=== PATIENT | female | born 1935 | race Caucasian/White ===

== ENCOUNTER 2017-07-07 17:47 | Inpatient (IN) | payer OTHER ==
[~2017-07-07] VITALS: Ht 167.6 cm; Wt 105.0 kg
[~2017-07-07 17:47] MED LIST: ALBUAER19 INH; DOCU100C31 PO; IPRA1AER2 INH; LATA0.009 OPB; OXGN; PANT40TA PO; POLY1POW2 PO; SIMV20TA2 PO
[2017-07-07] MEDS ORDERED: ALBUT/IPRATROP 3MG/0.5MG NEB 3 ML VIAL ONE (17:57)
[2017-07-07] MEDS ORDERED: ALBUT/IPRATROP 3MG/0.5MG NEB 3 ML VIAL INH STA (18:03)
[2017-07-07] MEDS ORDERED: NF656 TOP (18:13)
[2017-07-07] MEDS ORDERED: SENN-91 PO (18:13)
[2017-07-07] MEDS ORDERED: NITROGLYCERIN 0.4 MG SL PER TAB CHARGE SL STA (18:14)
[2017-07-07] MEDS ORDERED: MAGNESIUM SULFATE 1GM / D5W 1 GM BAG IV STA (18:14)
[2017-07-07] MEDS ORDERED: METHYLPREDNISOLONE 125 MG VIAL IV STA (18:14)
[2017-07-07] MEDS ORDERED: ALBUT/IPRATROP 3MG/0.5MG NEB 3 ML VIAL INH ONE (18:15)
[2017-07-07 18:26] VITALS: PULSE 115; O2SAT 97
--- NOTE | 2017-07-07 18:43 | EMERGENCY ROOM VISIT NOTE ---
History Report prepared by Lazibeduardo: Suzan Larios Under the Supervision of: Dr. Hugo Marks M.D. First contact with patient: 18:05 Chief Complaint: FALL Stated Complaint: FALL, ANKLE FX, SOB, COUGH, DIZZY, FLU LIKE SX Nursing Triage Summary: arrived bls in resp distress. sat 88% on 15l mask. course expir wheezing, dim thru out. rr 36. bp 230/115. c/o dizzy from a "cold", fell sat on right side, denies injury. today fell d/t dizziness, c/o left ankle pain, swelling, deformity, ecchymosis. left foot cool, delayed cap refill, holds at an outward rotation, able to dorsiflex and plantar flex History of Present Illness The patient is an 81 year old female who presents to the Emergency Room with complaints of an episode of a fall occurring prior to arrival. The patient states that she fell twice in the past three days. She reports that she fell both times on her left side and could not get up both times on her own. She notes that her sons helped her up. She states that she has not been able to walk well since the first fall. She states that she has not been feeling well the last few days. The patient complains of a cold, shortness of breath, left foot pain, and dizziness. The patient denies hitting her head, loss of consciousness, and a fever. The patient notes that she has COPD, CHF, and takes Lasix. She reports that she normally walks without any assistance of someone or a walker. Source of History: patient Onset: prior to arrival Position: other (global) Quality: other (flu-like symptoms) Timing: other (episode) Associated Symptoms: + SOB, No LOC, No fevers Note: The patient complains of left foot pain, a cold, and dizziness. The patient denies hitting her head. Review of Systems See HPI for pertinent positives and negatives. A total of ten systems were reviewed and were otherwise negative. Past Medical & Surgical Medical Problems: (1) Benign hypertension (2) CHF (congestive heart failure) (3) COPD (chronic obstructive pulmonary disease) (4) Diabetes mellitus type 2 (5) Duodenal ulcer disease (6) Dyslipidemia (7) Generalized osteoarthritis (8) Paroxysmal supraventricular tachycardia (9) Respiratory failure (10) TIA/CVA (11) Ulcerative colitis Family History FH: cancer FH: heart disease Hypertension Social History Smoking Status: Current Every Day Smoker Alcohol Use: none Marital Status: Housing Status: lives with family Occupation Status: retired Current/Historical Medications Scheduled Aspirin (Aspirin Ec), 81 MG PO DAILY Calcium Carbonate-Cholecalcife (Calcium/Vitamin D3 600-400 mg-Unit), 1 TAB PO DAILY Citalopram (Citalopram Hydrobromide), 40 MG PO DAILY Docusate Sodium (Docusate Sodium), 100 MG PO BID Docusate Sodium (Colace), 1 CAP PO BID Furosemide (Lasix), 20 MG PO QAM Ipratropium-Albuterol (Combivent Respimat), 1 PUFFS INH QID Latanoprost (Xalatan 0.005% Oph Lindsey), 1 DROPS OP HS Lidocaine (Lidoderm Patch 5%), 1 PATCH TOP ONAMOFFPM Lisinopril (Prinivil), 20 MG PO DAILY Mesalamine (Pentasa), 1,000 MG PO BID Mirtazapine (Remeron), 15 MG PO HS Pantoprazole (Protonix), 40 MG PO DAILY Polyethylene Glycol 3350 (Miralax), 17 GM PO DAILY Sennosides-Docusate Sodium (Senna S), 1 TAB PO DAILY Simvastatin (Zocor), 20 MG PO HS Scheduled PRN Acetaminophen (Tylenol), 650 MG PO Q4 PRN for Pain or Fever Allergies Coded Allergies: Sulfa Drugs (Verified Allergy, Unknown, `, 11/21/13) Sulfamethoxazole (Verified Allergy, Unknown, `, 11/21/13) Trimethoprim (Verified Allergy, Unknown, `, 11/21/13) Physical Exam Vital Signs Date Time Temp Pulse Resp B/P (MAP) Pulse Ox O2 Delivery O2 Flow Rate FiO2 07/07/17 21:00 147/65 07/07/17 20:55 95 23 96 07/07/17 20:46 136/67 07/07/17 20:40 95 23 97 07/07/17 20:31 184/77 07/07/17 20:25 96 27 98 07/07/17 20:15 180/74 07/07/17 20:10 101 25 99 07/07/17 20:05 101 25 99 07/07/17 20:04 180/80 07/07/17 19:45 167/80 07/07/17 19:35 91 24 98 07/07/17 19:30 154/70 07/07/17 19:20 93 23 99 07/07/17 19:15 164/78 07/07/17 19:05 105 21 99 07/07/17 19:00 158/71 07/07/17 18:57 99 21 100 07/07/17 18:56 161/76 07/07/17 18:52 17 07/07/17 18:47 107 17 98 07/07/17 18:42 109 24 99 07/07/17 18:42 109 07/07/17 18:37 112 28 98 07/07/17 18:32 117 17 07/07/17 18:30 93 BiPAP 100 07/07/17 18:27 112 18 07/07/17 18:26 115 97 100 07/07/17 18:22 115 25 07/07/17 18:17 120 35 07/07/17 18:14 193/77 07/07/17 18:05 37.3 115 36 230/115 93 Nebulizer 07/07/17 18:00 85 Nasal Cannula 4.0 07/07/17 18:00 93 Nebulizer 07/07/17 17:59 80 Room Air Physical Exam GENERAL: Awake, alert, in moderate respiratory distress HENT: Normocephalic, atraumatic. Oropharynx unremarkable. Dry, cracked mucus membranes. EYES: Normal conjunctiva. Sclera non-icteric. NECK: Supple. No nuchal rigidity. FROM. No JVD. RESPIRATORY: Diffuse rhonchi and wheezes diminished at bases. CARDIAC: Sinus tachycardia, normal rhythm. Extremities warm and well perfused. Pulses equal. ABDOMEN: Obese, soft, non-distended. No tenderness to palpation. No rebound or guarding. No masses. RECTAL: Deferred. MUSCULOSKELETAL: Chest examination reveals no tenderness. The back is symmetrical on inspection without obvious abnormality. There is no CVA tenderness to palpation. No joint edema. LOWER EXTREMITIES: Calves are equal size bilaterally and non-tender. Mild edema with ecchymosis to the medial malleolus and tenderness. Foot is slightly cool compared to the right. Slightly delayed capillary refill. PT/DP pulses present. NEURO: Normal sensorium. No sensory or motor deficits noted. SKIN: No rash or jaundice noted. Medical Decision & Procedures ER Provider Diagnostic Interpretation: Radiology results as stated below per my review and radiologist interpretation: LEFT ANKLE 3 VIEWS CLINICAL HISTORY: Fall with left ankle injury. FINDINGS: 3 views of the left ankle are obtained. No prior studies are available for comparison at the time of dictation. The skeletal structures are osteopenic. There is a distracted fracture of the medial malleolus. The fragment is offset by 4 mm. There is also a distracted and mildly overriding fracture through the distal fibular shaft. There is widening of the medial joint space, with lateral subluxation of the talus. A joint effusion is identified. Soft tissue edema is present around the ankle. Arthritic change is noted in the foot. There is atherosclerotic calcification of the regional arteries. IMPRESSION: 1. Distal tibial and fibular fractures as above with mild lateral subluxation of the talus. 2. Soft tissue swelling and joint effusion. Electronically signed by: Suman Germain M.D. 07/07/2017 7:18 PM Dictated Date/Time: 07/07/2017 7:16 PM LEFT FOOT 2 VIEWS CLINICAL HISTORY: Fall with left foot pain. FINDINGS: AP and lateral views of the left foot are obtained. No prior studies are available for comparison at the time of dictation. The skeletal structures are osteopenic. No fracture is seen. Mild arthritic change and bony spurring is noted at the first metatarsophalangeal joint. Degenerative change is also seen at the tarsometatarsal articulations. There is pes planus, with degenerative spurring noted along the dorsal aspect of the tarsal bones. Soft tissue edema is noted throughout the foot. Fracture is seen at the ankle joint. IMPRESSION: 1. Soft tissue edema with no radiographic evidence of left foot fracture. 2. Fractures are partially imaged at the ankle joint. 3. Osteopenia, pes planus, and degenerative change as above. Electronically signed by: Suman Germain M.D. 07/07/2017 7:16 PM Dictated Date/Time: 07/07/2017 7:14 PM SINGLE VIEW PELVIS CLINICAL HISTORY: Fall. Pelvic pain. FINDINGS: 2 AP, portable, supine pelvic radiograph is are compared to study dated 11/21/2013. The skeletal structures are osteopenic. A right hip arthroplasty is in near-anatomic alignment. There is an age indeterminant right inferior pubic ring fracture, new from 2013. No additional findings are concerning for acute fracture. Mild arthritic change is noted in the left hip. Sclerotic change is observed in the sacroiliac joints. There is advanced atherosclerotic calcification of the femoral arteries. The overlying soft tissues are normal in appearance. IMPRESSION: 1. There is an age indeterminant right pubic ring fracture, possibly chronic. This was not seen in 2014. 2. No additional findings are concerning for acute fracture. 3. Osteopenia, degenerative change, and right hip arthroplasty as above. Electronically signed by: Suman Germain M.D. 07/07/2017 7:14 PM Dictated Date/Time: 07/07/2017 7:11 PM SINGLE VIEW CHEST CLINICAL HISTORY: Fever. Cough and dyspnea. FINDINGS: An AP, portable, upright chest radiograph is compared to study dated 06/27/2016 and correlated with chest CT dated 03/07/2011. The examination is degraded by portable technique and patient rotation. The heart is enlarged and there is atherosclerotic calcification of the thoracic aorta. The pulmonary vasculature is noncongested. There is dense bibasilar airspace consolidation, right greater than left. Small pleural effusions are identified. No pneumothorax is seen. The skeletal structures are osteopenic. The bony thorax is grossly intact. Calcific tendinopathy is noted in the right shoulder. IMPRESSION: 1. Cardiomegaly without radiographic evidence of congestive failure. 2. There is dense bibasilar airspace consolidation, right greater than left with associated pleural effusions. The appearance is typical for pneumonia/aspiration pneumonitis. Clinical correlation will be required and radiographic follow-up to resolution is recommended. Electronically signed by: Suman Germain M.D. 07/07/2017 7:24 PM Dictated Date/Time: 07/07/2017 7:[address] SCAN OF THE BRAIN WITHOUT IV CONTRAST CLINICAL HISTORY: Change in mental status. Fall. Dizziness. COMPARISON STUDY: CT of the brain dated 06/27/2016. TECHNIQUE: Unenhanced axial CT scan of the brain is performed from the vertex to the skull base. A dose lowering technique was utilized adhering to the principles of ALARA. The skull base was scanned twice due to motion artifact. CT DOSE: 1228.53 mGy.cm FINDINGS: Brain parenchyma: There are age-related involutional changes noting moderate subcortical and periventricular microangiopathic change. Right parietal encephalomalacia is unchanged and consistent with a remote infarct. A chronic lacunar infarct is noted in the right internal capsule. There is no hemorrhage, mass effect, or evidence of acute territorial ischemia by CT criteria. A coarse calcification in the cerebellum is unchanged. Barton-white matter is preserved. No extra-axial fluid collection is seen. Ventricles, sulci, cisterns: Prominent secondary to involutional change. Intracranial vasculature: There is atherosclerotic calcification of the cavernous carotid and vertebral arteries. Calvarium: The skeletal structures are osteopenic. No depressed calvarial fracture is seen. Sinuses and mastoids: Mild to moderate mucosal thickening is present within the ethmoid, sphenoid, and maxillary sinuses. Air-fluid levels are present within the maxillary antra. There is a trace left mastoid effusion. The right mastoid air cells are well pneumatized. Orbits: The bony orbits are grossly intact. There are bilateral ocular lens implants. IMPRESSION: 1. Senescent change and remote infarct as above. There is no hemorrhage, mass effect, or evidence of acute territorial ischemia by CT criteria. 2. Paranasal sinus disease as above. Correlate clinically for evidence of sinusitis. Electronically signed by: Suman Germain M.D. 07/07/2017 8:06 PM Dictated Date/Time: 07/07/2017 8:03 PM Laboratory Results Test 07/07/17 18:20 07/07/17 18:22 07/07/17 18:31 07/07/17 18:32 Influenza Type A Antigen Neg for Influ A (NEG) Influenza Type B Antigen Neg for Influ B (NEG) Prothrombin Time 10.8 SECONDS (9.0-12.0) Prothromb Time International Ratio 1.0 (0.9-1.1) Osmolality 273 mOsm/kg (280-300) Total Bilirubin 0.3 mg/dl (0.2-1) Direct Bilirubin 0.1 mg/dl (0-0.2) Aspartate Amino Transf (AST/SGOT) 22 U/L (15-37) Alanine Aminotransferase (ALT/SGPT) 28 U/L (12-78) Alkaline Phosphatase 91 U/L (45-117) Troponin I < 0.015 ng/ml (0-0.045) Pro-B-Type Natriuretic Peptide 3508 pg/ml (0-1800) Total Protein 7.6 gm/dl (6.4-8.2) Albumin 2.7 gm/dl (3.4-5.0) Lipase 264 U/L (73-393) Venous Blood pH 7.22 (7.36-7.41) Venous Blood Partial Pressure CO2 85 mmHg (38.0-50.0) Venous Blood Partial Pressure O2 47 mmHg Venous Blood HCO3 34 mmol/L Venous Blood Oxygen Saturation 74.5 % Venous Blood Base Excess 3.7 mEq/L Lactic Acid Level 1.1 mmol/L (0.4-2.0) Laboratory results reviewed by me Medications Administered Medications (Trade) Dose Ordered Sig/Reuben Route Start Time Stop Time Status Last Admin Dose Admin Albuterol/ Ipratropium (Duoneb) 3 ml STK-MED ONCE .ROUTE 07/07/17 17:57 07/07/17 17:58 DC 07/07/17 18:04 3 ML Methylprednisolone Sodium Succinate (Solu-Medrol IV) 125 mg NOW STAT IV 07/07/17 18:14 07/07/17 18:19 DC 07/07/17 18:24 125 MG Albuterol/ Ipratropium (Duoneb) 12 ml ONE ONCE INH 07/07/17 18:15 07/07/17 18:19 DC 07/07/17 18:34 12 ML Magnesium Sulfate (Magnesium Sulfate) 2 gm NOW STAT IV 07/07/17 18:14 07/07/17 18:19 DC 07/07/17 18:27 2 GM Nitroglycerin (Nitrostat Tab) 0.4 mg NOW STAT SL 07/07/17 18:14 07/07/17 18:19 DC 07/07/17 18:28 0.4 MG Vancomycin HCl 2250 mg/Sodium Chloride 545 ml @ 200 mls/hr ONE STAT IV 07/07/17 20:00 07/07/17 22:43 DC 07/07/17 21:46 200 MLS/HR Piperacillin Sod/ Tazobactam Sod (Zosyn Iv) 4.5 gm NOW STAT IV 07/07/17 20:00 07/07/17 20:05 DC 07/07/17 20:38 4.5 GM Sodium Chloride 500 ml @ 125 mls/hr Q4H STAT IV 07/07/17 20:00 07/07/17 23:59 DC 07/07/17 20:32 125 MLS/HR Fentanyl Citrate (Fentanyl Inj) 50 mcg NOW ONCE IV 07/07/17 20:30 07/07/17 20:31 DC 07/07/17 20:33 50 MCG ECG Indication: SOB/dyspnea Rate (beats per minute): 115 Rhythm: sinus tachycardia Findings: PAC, no acute ischemic change, other (normal axis) ED Course 1806: The patient was evaluated in room B11B. A complete history and physical exam was performed. 2005: I discussed the patient with Dr. Edil Hamilton will evaluate the patient for further treatment. 2008: I reevaluated the patient and updated her on her test results. 2011: I discussed the patient's case with Dr. Ann- Orthopedics. He agrees to a posterior splint with a sugar tong. He will evaluate her tomorrow. 2019: I reevaluated the patient and checked her pulses. She has strong Doppler- able pulse TP and DP. Medical Decision I reviewed the patient's past medical history, medications, and the nursing notes as described above. Etiologies such as infections, reactive airway disease, pneumonia, pneumothorax , COPD, CHF, cardiac ischemia, pulmonary embolism, musculoskeletal, gastrointestinal, as well as others were entertained. The patient is an 81-year-old woman with a past medical history of COPD on home O2 as well as CHF on Lasix who presents emergency Department with generalized weakness over the past several days with lightheadedness and a fall on Friday under her left side and subsequent fall today onto her left side presents in moderate respiratory distress per hpi. The patient is uncomfortable tachypneic and tachycardic with labored breathing. She is afebrile, on exam the patient has diffuse wheezes and rhonchi in this diminished at the bases. She was placed on BiPAP for severe work of breathing and put on continuous neb given Solu-Medrol and magnesium. Bedside ultrasound does not show any significant B lines suggesting likely more predominant COPD picture. IVC with minimal variability suggesting possible Euvolemia. Ankle has mild edema with ecchymosis to the medial malleolus. Hips with full range of motion without any pain. Respiratory status improved on Bipap. CXR with likley aspiration pna. Given patient's severity on arrival treated with Vanc/zosyn. CO2 80s suggesting COPD component. WBC 14. Hyponatremia to 128 with BUN/Cr > 20 suggesting mild prerenal component. Given 500c gentle hydration. Plain film of xray demonstrates fibular and medial malleolar fx with slight lateral talar displacement. D/w Dr. Ann, ortho on-call, who agrees with plan to splint. Ortho to eval inpatient for possible surgery. Case d/w Dr. Solo, Joy hospitalist, who will admit the patient for further management. Medication Reconcilliation Current Medication List: was personally reviewed by me Blood Pressure Screening Patient's blood pressure: Elevated blood pressure Blood pressure disposition: Elevated BP felt to be situational Consults Time Called: 2004 Consulting Physician: Dr. Edil Hamilton Hospitalist Returned Call: 2005 I discussed the patient with Dr. Edil Hamilton will evaluate the patient for further treatment. Additional Consults: Time Called: 2008 Consulted Physician: Dr. Ann- Orthopedics Returned Call: 2011 Additional Comments: I discussed the patient's case with Dr. Ann- Orthopedics. He agrees to a posterior splint with a sugar tong. He will evaluate her tomorrow. Impression Primary Impression: Acute on chronic respiratory failure with hypoxia and hypercapnia Additional Impressions: Pneumonia Bimalleolar ankle fracture Hyponatremia Critical Care I have personally spent greater than 90 minutes of critical care time in the direct management of this patient. This includes bedside care, interpretation of diagnostic studies, and testing, discussion with consultants, patient, and family members, and other required patient management activities. This 90 minutes is in excess of all separately billable procedures. Scribe Attestation The scribe's documentation has been prepared under my direction and personally reviewed by me in its entirety. I confirm that the note above accurately reflects all work, treatment, procedures, and medical decision making performed by me. Departure Information Dispostion Being Evaluated By Hospitalist Guillaume Dodd M.D. (PCP) Patient Instructions My [facility] Problem Qualifiers
[2017-07-07 18:50] LABS: BASO % 0.1 %; BASO ABS # 0.01 K/uL (0-0.2); HEMATOCRIT 34.3 % (37-47); HEMOGLOBIN 11.3 g/dL (12.0-16.0); IG# 0.06 K/uL (0.00-0.02); LYMPH % 5.1 %; LYMPH ABS # 0.72 K/uL (1.2-3.4); MEAN CELL VOLUME 92.2 fL (80-100); MEAN CORPUSCULAR HEMOGLOBIN 30.4 pg (25-34); MEAN CORPUSCULAR HGB CONC 32.9 g/dl (32-36); MEAN PLATELET VOLUME 9.7 fL (7.4-10.4); MONO % 13.7 %; MONO ABS # 1.93 K/uL (0.11-0.59); NEUT % 80.7 %; NEUT ABS # 11.37 K/uL (1.4-6.5); PLATELET COUNT 309 K/uL (130-400); RED CELL DISTRIBUTION WIDTH CV 13.8 % (11.5-14.5); RED CELL DISTRIBUTION WIDTH SD 46.5 fL (36.4-46.3); WHITE BLOOD COUNT 14.09 K/uL (4.8-10.8)
[2017-07-07] MEDS ORDERED: MIRT15TA3 PO (18:55)
[2017-07-07] MEDS ORDERED: CLX40 PO (18:55)
[2017-07-07] MEDS ORDERED: LISI20TA3 PO (18:55)
[2017-07-07] MEDS ORDERED: CALC-579 PO (18:55)
[2017-07-07] MEDS ORDERED: FURO-85 PO (18:55)
[2017-07-07] MEDS ORDERED: ACET-1311 PO (18:56)
[2017-07-07] MEDS ORDERED: LATA0.009 OP (18:56)
[2017-07-07] MEDS ORDERED: IPRA1AER2 INH (18:56)
[2017-07-07] MEDS ORDERED: DOCU-94 PO (18:56)
[2017-07-07] MEDS ORDERED: POLY335019 PO (18:56)
[2017-07-07 19:04] LABS: ALBUMIN 2.7 gm/dl (3.4-5.0); ALT/SGPT 28 U/L (12-78); AST/SGOT 22 U/L (15-37); BLOOD UREA NITROGEN 24 mg/dl (7-18); CALCIUM 8.6 mg/dl (8.5-10.1); CARBON DIOXIDE 33 mmol/L (21-32); CREATININE 0.89 mg/dl (0.60-1.20); GLUCOSE 270 mg/dl (70-99); LIPASE 264 U/L (73-393); SODIUM 128 mmol/L (136-145)
[2017-07-07 19:10] LABS: ALKALINE PHOSPHATASE 91 U/L (45-117); TOTAL PROTEIN 7.6 gm/dl (6.4-8.2)
[2017-07-07 19:11] LABS: INFLUENZA B ANTIGEN Neg for Influ B (NEG)
--- NOTE | 2017-07-07 19:15 | DIAGNOSTIC IMAGING REPORT ---
SINGLE VIEW PELVIS CLINICAL HISTORY: Fall. Pelvic pain. FINDINGS: 2 AP, portable, supine pelvic radiograph is are compared to study dated 11/21/2013. The skeletal structures are osteopenic. A right hip arthroplasty is in near-anatomic alignment. There is an age indeterminant right inferior pubic ring fracture, new from 2013. No additional findings are concerning for acute fracture. Mild arthritic change is noted in the left hip. Sclerotic change is observed in the sacroiliac joints. There is advanced atherosclerotic calcification of the femoral arteries. The overlying soft tissues are normal in appearance. IMPRESSION: 1. There is an age indeterminant right pubic ring fracture, possibly chronic. This was not seen in 2014. 2. No additional findings are concerning for acute fracture. 3. Osteopenia, degenerative change, and right hip arthroplasty as above. Electronically signed by: Suman Germain M.D. 07/07/2017 7:14 PM Dictated Date/Time: 07/07/2017 7:11 PM
--- NOTE | 2017-07-07 19:17 | DIAGNOSTIC IMAGING REPORT ---
LEFT FOOT 2 VIEWS CLINICAL HISTORY: Fall with left foot pain. FINDINGS: AP and lateral views of the left foot are obtained. No prior studies are available for comparison at the time of dictation. The skeletal structures are osteopenic. No fracture is seen. Mild arthritic change and bony spurring is noted at the first metatarsophalangeal joint. Degenerative change is also seen at the tarsometatarsal articulations. There is pes planus, with degenerative spurring noted along the dorsal aspect of the tarsal bones. Soft tissue edema is noted throughout the foot. Fracture is seen at the ankle joint. IMPRESSION: 1. Soft tissue edema with no radiographic evidence of left foot fracture. 2. Fractures are partially imaged at the ankle joint. 3. Osteopenia, pes planus, and degenerative change as above. Electronically signed by: Suman Germain M.D. 07/07/2017 7:16 PM Dictated Date/Time: 07/07/2017 7:14 PM
--- NOTE | 2017-07-07 19:19 | DIAGNOSTIC IMAGING REPORT ---
LEFT ANKLE 3 VIEWS CLINICAL HISTORY: Fall with left ankle injury. FINDINGS: 3 views of the left ankle are obtained. No prior studies are available for comparison at the time of dictation. The skeletal structures are osteopenic. There is a distracted fracture of the medial malleolus. The fragment is offset by 4 mm. There is also a distracted and mildly overriding fracture through the distal fibular shaft. There is widening of the medial joint space, with lateral subluxation of the talus. A joint effusion is identified. Soft tissue edema is present around the ankle. Arthritic change is noted in the foot. There is atherosclerotic calcification of the regional arteries. IMPRESSION: 1. Distal tibial and fibular fractures as above with mild lateral subluxation of the talus. 2. Soft tissue swelling and joint effusion. Electronically signed by: Suman Geramin M.D. 07/07/2017 7:18 PM Dictated Date/Time: 07/07/2017 7:16 PM
--- NOTE | 2017-07-07 19:26 | DIAGNOSTIC IMAGING REPORT ---
SINGLE VIEW CHEST CLINICAL HISTORY: Fever. Cough and dyspnea. FINDINGS: An AP, portable, upright chest radiograph is compared to study dated 06/27/2016 and correlated with chest CT dated 03/07/2011. The examination is degraded by portable technique and patient rotation. The heart is enlarged and there is atherosclerotic calcification of the thoracic aorta. The pulmonary vasculature is noncongested. There is dense bibasilar airspace consolidation, right greater than left. Small pleural effusions are identified. No pneumothorax is seen. The skeletal structures are osteopenic. The bony thorax is grossly intact. Calcific tendinopathy is noted in the right shoulder. IMPRESSION: 1. Cardiomegaly without radiographic evidence of congestive failure. 2. There is dense bibasilar airspace consolidation, right greater than left with associated pleural effusions. The appearance is typical for pneumonia/aspiration pneumonitis. Clinical correlation will be required and radiographic follow-up to resolution is recommended. Electronically signed by: Suman Germain M.D. 07/07/2017 7:24 PM Dictated Date/Time: 07/07/2017 7:23 PM
[2017-07-07] MEDS ORDERED: ASPI81TA28 PO (19:27)
[2017-07-07] MEDS ORDERED: PNT500 PO (19:27)
[2017-07-07] MEDS ORDERED: VANCOMYCIN INJ 2,250 MG in SODIUM CHLORIDE 0.9% 500ML 500 ML IV STA (20:00)
[2017-07-07] MEDS ORDERED: PIPERACILLIN/TAZOBACTAM 4.5 GM/100ML D5W IV STA (20:00)
[2017-07-07] MEDS ORDERED: SODIUM CHLORIDE 0.9% 500ML 500 ML IV STA (20:00)
--- NOTE | 2017-07-07 20:08 | DIAGNOSTIC IMAGING REPORT ---
CT SCAN OF THE BRAIN WITHOUT IV CONTRAST CLINICAL HISTORY: Change in mental status. Fall. Dizziness. COMPARISON STUDY: CT of the brain dated 06/27/2016. TECHNIQUE: Unenhanced axial CT scan of the brain is performed from the vertex to the skull base. A dose lowering technique was utilized adhering to the principles of ALARA. The skull base was scanned twice due to motion artifact. CT DOSE: 1228.53 mGy.cm FINDINGS: Brain parenchyma: There are age-related involutional changes noting moderate subcortical and periventricular microangiopathic change. Right parietal encephalomalacia is unchanged and consistent with a remote infarct. A chronic lacunar infarct is noted in the right internal capsule. There is no hemorrhage, mass effect, or evidence of acute territorial ischemia by CT criteria. A coarse calcification in the cerebellum is unchanged. Barton-white matter is preserved. No extra-axial fluid collection is seen. Ventricles, sulci, cisterns: Prominent secondary to involutional change. Intracranial vasculature: There is atherosclerotic calcification of the cavernous carotid and vertebral arteries. Calvarium: The skeletal structures are osteopenic. No depressed calvarial fracture is seen. Sinuses and mastoids: Mild to moderate mucosal thickening is present within the ethmoid, sphenoid, and maxillary sinuses. Air-fluid levels are present within the maxillary antra. There is a trace left mastoid effusion. The right mastoid air cells are well pneumatized. Orbits: The bony orbits are grossly intact. There are bilateral ocular lens implants. IMPRESSION: 1. Senescent change and remote infarct as above. There is no hemorrhage, mass effect, or evidence of acute territorial ischemia by CT criteria. 2. Paranasal sinus disease as above. Correlate clinically for evidence of sinusitis. Electronically signed by: Suman Germain M.D. 07/07/2017 8:06 PM Dictated Date/Time: 07/07/2017 8:03 PM
[2017-07-07] MEDS ORDERED: FENTANYL CITRATE INJ 50 MCG/1 ML 2 ML VIAL IV ONE (20:30)
[2017-07-07] MEDS ORDERED: ONDANSETRON INJ 2 MG/ML 2 ML VIAL IV PRN (21:45)
[2017-07-07] MEDS: LEVALBUTEROL 1.25MG/3ML NEB INH SCH (22:30)
--- NOTE | 2017-07-07 23:57 | HISTORY & PHYSICAL EXAMINATION ---
DATE OF ADMISSION: 07/07/2017 TIME: 10:52 p.m. HISTORY OF PRESENT ILLNESS: The patient is a pleasant 81-year-old female with a history of COPD requiring oxygen, 2 liters by nasal cannula, hypertension, ulcerative colitis presented with increasing shortness of breath times 2-3 days. The patient has been following with Dr. Hickey for primary care. The patient has been doing okay, doing baseline good health until about 2-3 days ago when she started to have increasing shortness of breath, dry cough. She also has had an episode of fall 2 days ago and has been having difficulty ambulating because of left foot pain. She also had 2 more falls since then because apparently she "was losing her balance." Persistence of the symptoms, finally came to the ER. At the ER, blood pressure was 230/115, improving to 180 systolically. Pulse rate was 115 initially, respiratory rate initially was 36, saturating 80% on room air. The patient was received with bilateral wheezing. Chest x-ray was showing dense bibasilar airspace consolidation, right greater than left with associated pleural effusions typical for pneumonia or aspiration pneumonitis. She was given DuoNeb, Solu-Medrol and started on vancomycin and Levaquin. On my exam, the patient was seen resting comfortably with her BiPAP in place. She states that she is feeling somewhat improved compared to admission. Denies having any active shortness of breath, chest pain, palpitations, nausea, vomiting, dizziness, headache. No other symptoms noted. REVIEW OF SYSTEMS: Ten systems reviewed and negative except for the ones mentioned above. PAST MEDICAL HISTORY: COPD, moderate on chronic oxygen use 2 liters at daytime, 4 liters at nighttime, hypertension, ulcerative colitis, depression, dyslipidemia, status post CEA. MEDICATIONS: Combivent 4 times a day, lisinopril 20 mg daily, Lasix 20 mg daily, aspirin 81 mg daily, Pentasa 1000 mg b.i.d., Celexa 40 mg daily, mirtazapine 50 mg at bedtime, simvastatin 20 mg daily, Protonix 40 mg daily. PAST SURGICAL HISTORY: Colonoscopy, EGD, knee surgery, total hip replacement, right side in 2011, hysterectomy. PERSONAL AND SOCIAL HISTORY: She is . Current every day smoker. Denies alcohol or drug use. FAMILY HISTORY: Father, heart disease. Mother, cancer. PHYSICAL EXAMINATION: VITAL SIGNS: Blood pressure 148/68, pulse rate of 97, respiratory rate of 20, temperature is 37.3, saturating 95% on BiPAP, FiO2 100%. GENERAL: The patient is awake, alert, oriented x3, not in distress, speaks few sentences, but no accessory muscle use. HEAD AND NECK: Atraumatic and normocephalic. Normal pupils. Full EOMs. No icterus. [place] conjunctivae. ENT: Grossly normal. NECK: No JVD, no lymphadenopathy or thyromegaly. HEART: Normal rate. Regular rhythm with S1, S2. No murmurs. LUNGS: Positive bilateral wheezing and rhonchi bilaterally, mild to moderate. ABDOMEN: Nondistended, normal bowel sounds, soft, nontender. EXTREMITIES: No bipedal edema noted. No rashes. NEUROLOGIC: No gross focal motor or sensory deficits. LABORATORY DATA: White count of 14, hemoglobin 11, platelet count 309. Chemistries: Sodium 128, potassium 5.0, BUN 24, creatinine is 0.89. Lactic acid 1.1. ProBNP 3500. INR 1.0. Blood gas. ABG pH 7.2, pCO2 of 85, pO2 47, bicarbonate 34. Negative for flu. IMAGING: Chest x-ray per H&P. Head CT; no acute findings. Ankle x-ray showing distal tibial and fibular fracture with bilateral subluxation of the talus, soft tissue swelling and joint effusion. Pelvic x-ray indeterminate right pubic ring fracture, possibly chronic. EKG: Heart rate is 105, sinus tachycardia with PACs. ASSESSMENT AND PLAN: This is a very pleasant 81-year-old female with a history of chronic obstructive pulmonary disease moderate, hypertension, ulcerative colitis presenting with increasing shortness of breath and cough times 2-3 days. 1. Acute hypercapnic respiratory failure secondary to chronic obstructive pulmonary disease exacerbation, likely secondary to bilateral basilar pneumonia, rule out aspiration. At this time, we will maintain the patient on BiPAP, obtain a sputum Gram stain and cultures. We will place on Solu-Medrol 40 mg q. 6, nebulizers q. 4 hours around the clock and empiric Zosyn and Levaquin. Speech therapist will be consulted to rule out aspiration and pulmonology will be consulted. At this time, the patient does not appear to be having any congestive heart failure exacerbation. Appears euvolemic, so we will monitor. 2. Hyponatremia, likely hypovolemic. We will check urine sodium osmolality. She is currently on normal saline set on 100 mL per hour. We will check sodium every 4 hours and will hold patient's Lasix for now, which she takes 20 mg b.i.d. 3. Ankle fracture status post fall with. Orthopedics consulted, icepacks and tramadol, PT, OT. 4. Possible pelvic ring fracture, orthopedics consulted. 5. Hypertension. Blood pressure elevated, likely from respiratory distress. Continue lisinopril. We will order clonidine p.r.n. 6. Ulcerative colitis, stable. Continue Pentasa. 7. Depression. Continue Celexa. 8. Deep venous thrombosis prophylaxis, heparin. Full code per patient. 9. Disposition: Pending, lives with family. Needs PT, OT evaluation, already has oxygen at home which she uses 27/01. 10. Follow up with PCP on discharge, Dr. Hickey. [facility]
[2017-07-08] VITALS (14 sets, daily range): BP systolic 139–178; BP diastolic 69–119; PULSE 75–113; TEMP 36.4–37.3; O2SAT 90–95; BMI 36.0
[2017-07-08] MEDS ORDERED: LEVOFLOXACIN CONSULT ACTIVE PRN (01:09)
[2017-07-08] MEDS ORDERED: PIPERACILL/TAZOBAC CONSULT ACTIVE PRN (01:15)
[2017-07-08] MEDS: SODIUM CHLORIDE 0.9% 1000ML 1,000 ML IV SCH ×2 (01:31→18:17)
[2017-07-08] MEDS: METHYLPREDNISOLONE IV 40 MG in SYRINGE 0 ML IV SCH ×4 (01:32→19:48)
[2017-07-08] MEDS: PIPERACILL/TAZOBAC IV 4.5 GM in DEXTROSE 5% 100ML IV SCH ×3 (01:32→18:16)
[2017-07-08] MEDS: LEVALBUTEROL 1.25MG/3ML NEB INH SCH ×4 (02:10→19:09)
[2017-07-08 04:11] LABS: BASO % 0.1 %; BASO ABS # 0.01 K/uL (0-0.2); HEMATOCRIT 29.3 % (37-47); HEMOGLOBIN 9.4 g/dL (12.0-16.0); IG# 0.04 K/uL (0.00-0.02); LYMPH % 4.5 %; LYMPH ABS # 0.46 K/uL (1.2-3.4); MEAN CELL VOLUME 91.6 fL (80-100); MEAN CORPUSCULAR HEMOGLOBIN 29.4 pg (25-34); MEAN CORPUSCULAR HGB CONC 32.1 g/dl (32-36); MEAN PLATELET VOLUME 9.6 fL (7.4-10.4); MONO ABS # 1.22 K/uL (0.11-0.59); NEUT ABS # 8.46 K/uL (1.4-6.5); PLATELET COUNT 259 K/uL (130-400); RED CELL DISTRIBUTION WIDTH CV 13.8 % (11.5-14.5); RED CELL DISTRIBUTION WIDTH SD 46.5 fL (36.4-46.3); WHITE BLOOD COUNT 10.19 K/uL (4.8-10.8)
[2017-07-08 04:27] LABS: CALCIUM 8.3 mg/dl (8.5-10.1); CREATININE 0.81 mg/dl (0.60-1.20); POTASSIUM 5.5 mmol/L (3.5-5.1)
[2017-07-08] MEDS: LEVOFLOXACIN 750MG / D5W IV SCH (05:51)
[2017-07-08] MEDS: TRAMADOL HCL 50 MG TAB PO PRN (07:55)
[2017-07-08] MEDS: MESALAMINE 250 MG CAPCR PO SCH ×2 (07:56→19:49)
[2017-07-08] MEDS: HEPARIN SOD 5000 UNIT/0.5 ML CARP SQ SCH (07:57)
[2017-07-08] MEDS: PANTOprazole SOD 40 MG TAB PO SCH (07:57)
[2017-07-08] MEDS: LISINOPRIL 20 MG TAB PO SCH (07:57)
[2017-07-08] MEDS: CITALOPRAM 40 MG TAB PO SCH (07:57)
[2017-07-08] MEDS: DOCUSATE SODIUM/SENNA 50/8.6MG TAB PO SCH (07:59)
--- NOTE | 2017-07-08 09:03 | CONSULTATION REPORT ---
DATE OF CONSULTATION: 07/08/2017 DATE OF CONSULTATION: 07/08/2017 REASON FOR CONSULT: Left ankle fracture. HISTORY OF PRESENT ILLNESS: The patient is an 81-year-old white female [facility] acute hypercapnic respiratory failure secondary to chronic obstructive pulmonary disease exacerbation and question of pneumonia. Prior to coming in the patient was having increasing shortness of breath over the last several days. She had fallen approximately 2-3 days ago and was still continuing to try to walk on her foot and was having left foot pain and ankle pain. She apparently had 1 or 2 more falls since that time because of losing her balance. She came to the Emergency Room and then was admitted but x-rays were taken of the left ankle and it was found that she had a bimalleolar ankle fracture of the left ankle. It was splinted and we have now been consulted to see her for her ankle fracture. PAST MEDICAL HISTORY: COPD with oxygen use at home 2 liters during the day and 4 liters at nighttime, hypertension, ulcerative colitis, depression, dyslipidemia, status post CEA. PAST SURGICAL HISTORY: Colonoscopy, EGD, total hip replacement on the right, hysterectomy. MEDICATIONS: Combivent 4 times daily, lisinopril 20 mg p.o. daily, Lasix 20 mg p.o. daily, aspirin 81 mg p.o. daily, Pentasa 1000 mg p.o. b.i.d., Celexa 40 mg p.o. daily, mirtazapine 50 mg at bedtime, simvastatin 20 mg p.o. daily, Protonix 40 mg p.o. daily. FAMILY AND SOCIAL HISTORY: As per admitting history and physical. ALLERGIES: SULFA DRUGS, SULFAMETHOXAZOLE AND TRIMETHOPRIM. REVIEW OF SYSTEMS: As per admitting history and physical. PHYSICAL EXAMINATION: GENERAL: The patient is an elderly white female who appears her stated age. She is sitting up in bed and has just finished eating her breakfast. She has a Ventimask on and appears to be mildly short of breath. She is alert and oriented to person and place and answers questions appropriately. EXTREMITIES: On examination of her left leg, she has a posterior splint applied to the left lower extremity from the left ankle to the knee. Toes are pink and warm and she is able to move the toes well at this time. She has some slight decreased sensation in the toes compared to the right. Splint is left on during whole exam. She is nontender at the left knee and left hip. LLE NVSI +EHL/FHL, SILT grossly, CR< 2 seconds. Splint intact. ASSESSMENT: Bimalleolar ankle fracture, left ankle. PLAN: The patient will need ORIF of the ankle; however, with her current status we will have to wait to see if she will be cleared for surgery by medicine service. I have contacted Dr. Singh and discussed the case with him and with her continually needing 10 liters of O2 on Ventimask at this time and also eating breakfast we will plan on holding on surgery until she has been cleared by the medicine service. -NWB LLE -Ice/elevate LLE -Maintain splint -Pain control -Plan for ORIF left ankle once medically cleared DORINDA
--- NOTE | 2017-07-08 10:48 | Progress Note ---
Medicine Progress Note Date & Time of Visit: Jul 08, 2017 at 10:20. Subjective Pt was seen and examined Lying in bed with mild respiratory distress Pt said that her breathing seems slightly better Denies any chest pain, palpitation, dizziness and fever Objective Last 8 Hrs Date Time Temp Pulse Resp B/P (MAP) Pulse Ox O2 Delivery O2 Flow Rate FiO2 07/08/17 09:00 Oxymask 10.0 07/08/17 08:22 36.5 104 28 172/80 (110) 95 07/08/17 07:04 105 26 93 Mask 10.0 07/08/17 04:14 37.3 78 25 158/74 (102) 94 BiPAP 07/08/17 04:00 BiPAP 50 Physical Exam: General- No acute distress Head- atraumatic Eyes- PERRL, EOMI ENT- oropharynx clear Neck- supple, no JVD Lungs- clear to auscultation Heart- regular rhythm; no murmur Abdomen- normal bowel sounds, soft Extremities- no calf tenderness, Left ankle pain, splint with toño bandage in LE Neuro- alert, oriented x 3; PERRL, EOMI Skin- warm & dry Laboratory Results: Last 24 Hours Test 07/07/17 18:20 07/07/17 18:22 07/07/17 18:31 07/07/17 18:32 Influenza Type A Antigen Neg for Influ A Influenza Type B Antigen Neg for Influ B White Blood Count 14.09 K/uL Red Blood Count 3.72 M/uL Hemoglobin 11.3 g/dL Hematocrit 34.3 % Mean Corpuscular Volume 92.2 fL Mean Corpuscular Hemoglobin 30.4 pg Mean Corpuscular Hemoglobin Concent 32.9 g/dl Platelet Count 309 K/uL Mean Platelet Volume 9.7 fL Neutrophils (%) (Auto) 80.7 % Lymphocytes (%) (Auto) 5.1 % Monocytes (%) (Auto) 13.7 % Eosinophils (%) (Auto) 0.0 % Basophils (%) (Auto) 0.1 % Neutrophils # (Auto) 11.37 K/uL Lymphocytes # (Auto) 0.72 K/uL Monocytes # (Auto) 1.93 K/uL Eosinophils # (Auto) 0.00 K/uL Basophils # (Auto) 0.01 K/uL RDW Standard Deviation 46.5 fL RDW Coefficient of Variation 13.8 % Immature Granulocyte % (Auto) 0.4 % Immature Granulocyte # (Auto) 0.06 K/uL Prothrombin Time 10.8 SECONDS Prothromb Time International Ratio 1.0 Sodium Level 128 mmol/L Potassium Level 5.0 mmol/L Chloride Level 93 mmol/L Carbon Dioxide Level 33 mmol/L Anion Gap 2.0 mmol/L Blood Urea Nitrogen 24 mg/dl Creatinine 0.89 mg/dl Est Creatinine Clear Calc Drug Dose 58.1 ml/min Estimated GFR () 70.0 Estimated GFR (Non- 60.4 BUN/Creatinine Ratio 26.6 Random Glucose 270 mg/dl Osmolality 273 mOsm/kg Calcium Level 8.6 mg/dl Total Bilirubin 0.3 mg/dl Direct Bilirubin 0.1 mg/dl Aspartate Amino Transf (AST/SGOT) 22 U/L Alanine Aminotransferase (ALT/SGPT) 28 U/L Alkaline Phosphatase 91 U/L Troponin I < 0.015 ng/ml Pro-B-Type Natriuretic Peptide 3508 pg/ml Total Protein 7.6 gm/dl Albumin 2.7 gm/dl Lipase 264 U/L Venous Blood pH 7.22 Venous Blood Partial Pressure CO2 85 mmHg Venous Blood Partial Pressure O2 47 mmHg Venous Blood HCO3 34 mmol/L Venous Blood Oxygen Saturation 74.5 % Venous Blood Base Excess 3.7 mEq/L Lactic Acid Level 1.1 mmol/L Test 07/07/17 23:20 07/07/17 23:35 07/08/17 03:59 07/08/17 06:32 Urine Color YELLOW Urine Appearance CLOUDY Urine pH 5.0 Urine Specific [place] 1.025 Urine Protein 2+ Urine Glucose (UA) 2+ Urine Ketones NEG Urine Occult Blood NEG Urine Nitrite NEG Urine Bilirubin NEG Urine Urobilinogen NEG Urine Leukocyte Esterase TRACE Urine WBC (Auto) 10-30 /hpf Urine RBC (Auto) 0-4 /hpf Urine Hyaline Casts (Auto) 5-10 /lpf Urine Epithelial Cells (Auto) >30 /lpf Urine Bacteria (Auto) 2+ Urine Renal Epithelial Cells 0-5 /lpf Urine Pathogenic Casts 1-5 GRANULAR CASTS /lpf Urine Yeast (Auto) Urine Random Sodium 23 mEq/L Arterial Blood pH 7.28 7.31 Arterial Blood Partial Pressure CO2 71 mmHg 65 mmHg Arterial Blood Partial Pressure O2 103 mm/Hg 73 mm/Hg Arterial Blood HCO3 33 mmol/L 32 mmol/L Arterial Blood Oxygen Saturation 95.7 % 91.0 % Arterial Blood Base Excess 4.4 mEq/L 4.5 mEq/L Arterial Blood Gas Delivery 70% 10L Jordan Test POS POS White Blood Count 10.19 K/uL Red Blood Count 3.20 M/uL Hemoglobin 9.4 g/dL Hematocrit 29.3 % Mean Corpuscular Volume 91.6 fL Mean Corpuscular Hemoglobin 29.4 pg Mean Corpuscular Hemoglobin Concent 32.1 g/dl Platelet Count 259 K/uL Mean Platelet Volume 9.6 fL Neutrophils (%) (Auto) 83.0 % Lymphocytes (%) (Auto) 4.5 % Monocytes (%) (Auto) 12.0 % Eosinophils (%) (Auto) 0.0 % Basophils (%) (Auto) 0.1 % Neutrophils # (Auto) 8.46 K/uL Lymphocytes # (Auto) 0.46 K/uL Monocytes # (Auto) 1.22 K/uL Eosinophils # (Auto) 0.00 K/uL Basophils # (Auto) 0.01 K/uL RDW Standard Deviation 46.5 fL RDW Coefficient of Variation 13.8 % Immature Granulocyte % (Auto) 0.4 % Immature Granulocyte # (Auto) 0.04 K/uL Sodium Level 129 mmol/L Potassium Level 5.5 mmol/L Chloride Level 95 mmol/L Carbon Dioxide Level 34 mmol/L Anion Gap 0.0 mmol/L Blood Urea Nitrogen 23 mg/dl Creatinine 0.81 mg/dl Est Creatinine Clear Calc Drug Dose 64.3 ml/min Estimated GFR () 78.4 Estimated GFR (Non- 67.6 BUN/Creatinine Ratio 28.4 Random Glucose 216 mg/dl Calcium Level 8.3 mg/dl Test 07/08/17 07:43 Sodium Level 131 mmol/L Date/Time Source Procedure Growth Status 07/07/17 18:31 Blood Blood Culture Pending Received 07/07/17 18:22 Blood Blood Culture Pending Received 07/07/17 23:20 Urine,Catheterized Urine Culture Pending Received Assessment & Plan Acute hypercapnic respiratory failure Mostly related to COPD exacerbation vs Pneumonia CXR showed dense bibasilar airspace consolidation, right greater than left with associated pleural effusions. ABG on admission showed respiratory acidosis with comp On abx with Levaquin and Zosyn Negative influenza test Continue Solumedrol Continue supplement oxygen and intermittent BIPAP as tolerated Continue respiratory treatment with Duoneb Blood cx pending Check sputum cx monitor closely Hyponatremia, Possible related to hypovolemia Na on admission 128 Na today 131 On IVF with NS, will monitor closely Hyperkalemia K 5.5 Check BMP later If stay high, will give Kayexalate Left Ankle fracture s/p fall Left ankle xray showed distal tibial and fibular fractures as above with mild lateral subluxation of the talus. Ortho on board pain control On 10L oxygen now, high risk for surgery for now Will reassess her tomorrow for her respiratory status Pulmonology on board Right pelvic ring fracture, Pelvis xray showed an age indeterminant right pubic ring fracture, possibly chronic. Stable Hypertension BP elevated Continue lisinopril. PRN clonidine Continue monitor BP Ulcerative colitis On Pentasa Stable Depression On Celexa Stable DVT px On heparin. Code DNR as per my discussion with Pt Current Inpatient Medications: Current Inpatient Medications Medications (Trade) Dose Ordered Sig/Reuben Route Start Time Stop Time Status Last Admin Dose Admin Levalbuterol (Xopenex 1.25MG/ 3ML Neb) 1.25 mg Q6R INH 07/07/17 22:30 08/06/17 22:29 07/08/17 07:04 1.25 MG Methylprednisolone Sodium Succinate 40 mg/Syringe 0.64 ml @ 1.5 mls/min Q6H IV 07/08/17 02:00 08/07/17 01:59 07/08/17 07:56 1.5 MLS/MIN Levofloxacin (Consult) 1 ea UD PRN N/A 07/08/17 01:09 08/07/17 01:08 Tramadol HCl (Ultram Tab) 50 mg Q6H PRN PO 07/07/17 21:30 08/06/17 21:29 07/08/17 07:55 50 MG Clonidine HCl (Catapres Tab) 0.1 mg Q6H PRN PO 07/07/17 21:30 08/06/17 21:29 Citalopram Hydrobromide (celeXA TAB) 40 mg DAILY PO 07/08/17 09:00 08/07/17 08:59 07/08/17 07:57 40 MG Latanoprost (Xalatan Oph Soln) 1 drops HS OP 07/08/17 21:00 08/07/17 20:59 Lisinopril (Zestril Tab) 20 mg DAILY PO 07/08/17 09:00 08/07/17 08:59 07/08/17 07:57 20 MG Mesalamine (Pentasa Controlled Rel Cap) 1,000 mg BID PO 07/08/17 09:00 08/07/17 08:59 07/08/17 07:56 1,000 MG Mirtazapine (Remeron Tab) 15 mg HS PO 07/08/17 21:00 08/07/17 20:59 Pantoprazole Sodium (Protonix Tab) 40 mg DAILY PO 07/08/17 09:00 08/07/17 08:59 07/08/17 07:57 40 MG Senna/Docusate Sodium (Senokot S Tab) 1 tab DAILY PO 07/08/17 09:00 08/07/17 08:59 07/08/17 07:59 1 TAB Simvastatin (Zocor Tab) 20 mg HS PO 07/08/17 21:00 08/07/17 20:59 Heparin Sodium (Porcine) (Heparin Sq 5000 Unit/0.5ml) 5,000 unit Q12H SQ 07/08/17 09:00 08/07/17 08:59 07/08/17 07:57 5,000 UNIT Sodium Chloride 1,000 ml @ 100 mls/hr Q10H IV 07/07/17 21:39 08/06/17 21:38 07/08/17 01:31 100 MLS/HR Acetaminophen (Tylenol Tab) 650 mg Q4H PRN PO 07/07/17 21:45 08/06/17 21:44 Ondansetron HCl (Zofran Inj) 4 mg Q6H PRN IV 07/07/17 21:45 08/06/17 21:44 Piperacillin Sod/ Tazobactam Sod 4.5 gm/Dextrose 120 ml @ 30 mls/hr Q8H IV 07/08/17 02:00 07/15/17 01:59 07/08/17 10:00 30 MLS/HR Levofloxacin 750 mg/Prmx 150 ml @ 100 mls/hr Q24H IV 07/08/17 06:00 07/15/17 05:59 07/08/17 05:51 100 MLS/HR Piperacillin Sod/ Tazobactam Sod (Consult) 1 ea UD PRN N/A 07/08/17 01:15 08/07/17 01:14
--- NOTE | 2017-07-08 13:35 | Pulmonary Consultation ---
History General Date of Service: Jul 08, 2017. Stated Complaint: Respiratory Failure HPI The patient is a 81 year old female who presents to [facility] with complaints of Respiratory Failure. The patient's primary care provider is Guillaume Hickey M.D.. Mrs. Farrar is an 81-year-old female with history of COPD (FEV1 unknown), on long -term oxygen therapy of 2 L/m nasal cannula, CHF, hypertension, ulcerative colitis who presents with 3 day history of worsening dyspnea on exertion that progressed to dyspnea at rest and left lower extremity pain status post fall. Patient states that she was at her baseline respiratory status over the holidays , however developed worsening dyspnea on exertion associated with dry nonproductive cough. She denies any changes in sputum production or color. She denies any fevers, chills, rhinorrhea or sore throat. She denies any sick contacts or recent travel. She denies any orthopnea, paroxysmal nocturnal dyspnea or lower extremity edema or swelling. She denies any genitourinary or GI symptoms. Her respiratory medications include Combivent 4 times daily for which she has been relatively controlled up to this point. She states that she presented to the hospital because of left foot pain that worsened after a fall 2 days prior to admission. Over the last several days she has been unsteady on her feet and had increasing falls secondary to imbalance. She admits to worsening lightheadedness or dizziness. She has no known history of syncope or seizure activity in the past. She lives alone and is able to perform activities of daily living without assistance. Her daughter lives in the basement her home. Upon arrival to the ER, vital signs were temperature 37.3, pulse 115, respiratory rate 36, blood pressure 230/115 saturating 80% on room air. She was placed on 4 L nasal cannula with increased and oxygen to 93%. EKG showed sinus tachycardia with ventricular rate of 115 bpm. Left ankle images showed bimalleolar fracture. Chest x-ray showed dense bibasilar airspace consolidation greater on the right than on the left, small pleural effusions and cardiomegaly. CT of the head showed age-related hypotrophy and remote lacunar infarct. There was also mild to moderate mucosal thickening of the paranasal sinuses. Laboratory data showed a white blood cell count of 14, hemoglobin of 11, platelet count of 309. Sodium was 129, potassium 5.5, chloride 95, carbon dioxide 34, BUN 23 , creatinine 0.81 and glucose 216. Troponin was less than 0.015 and BNP was 3508. Influenza A and B antigens negative. Blood cultures pending. Initial ABG showed a pH of 7.28/71/103/33/95.7%. She was subsequently placed on BiPAP 12/6, 50% FiO2. In the ER, she received albuterol/ipratropium nebulizer 3 mL 2 and 12 mL 1, nitroglycerin 0.4 mg, magnesium 2 g, Solu-Medrol 125 mg, Zosyn 4.5 g IV and vancomycin 2.25 g. She was also started on normal saline 1.25 ML per hour. Left lower extremity with splinted and she was admitted to telemetry with acute on chronic hypoxic hypercapnic respiratory failure for further monitoring. At the time of my evaluation this morning patient states she seemed somewhat better. She was on BiPAP overnight and tolerated it well. Repeat ABG was 7.31/ % on 10 L/min. She was able to tolerate breakfast this morning however quite dyspneic. Historian: patient Onset: last week Severity: moderate Complaint Status: persistent Review of Systems Constitutional: reports: as stated in HPI Eyes: reports: as stated in HPI ENT: reports: as stated in HPI Cardiovascular: reports: as stated in HPI Respiratory: reports: as stated in HPI Gastrointestinal: reports: as stated in HPI Genitourinary - Female: reports: as stated in HPI Musculoskeletal: reports: as stated in HPI Integumentary: reports: as stated in HPI Neurologic: reports: as stated in HPI Psychiatric: reports: as stated in HPI Endocrine: as stated in HPI Hematologic / Lymphatic: as stated in HPI Allergic / Immunologic: as stated in HPI All Other Symptoms All Other Systems: Reviewed and Negative Past Medical History Past Surgical History: Total hip replacement Colonoscopy EGD Hysterectomy Family History FH: cancer FH: heart disease Hypertension She is family history of heart disease, hypertension and cancer. Parent: Heart Disease, Other Social History She is a current smoker. Denies alcohol or illicit drug use. Hx Tobacco Use In Past Year?: Yes Smoking Status: Current Some Day Smoker Alcohol: no current use Drug Use: none Marital status: Housing status: assisted living Occupational Status: retired Immunizations History of Influenza Vaccine: N/A Influenza Vaccine Date: May 29, 2009 History of Tetanus Vaccine?: Yes History of Pneumococcal: Yes Pneumococcal Date: May 14, 2005 History of Hepatitis B Vaccine: No History of MDRO History of MDRO: No Allergies Coded Allergies: Sulfa Drugs (Verified Allergy, Unknown, `, 11/21/13) Sulfamethoxazole (Verified Allergy, Unknown, `, 11/21/13) Trimethoprim (Verified Allergy, Unknown, `, 11/21/13) Current Medications Reported Home Medications Medications Dose Route/Sig Max Daily Dose Days Date Category Dose Instructions Colace (Docusate Sodium) 100 Mg Cap 1 Cap PO BID 30 07/07/17 Reported Xalatan 0.005% Oph Lindsey (Latanoprost) 0.005 % Lindsey 1 Drops OP HS 90 07/07/17 Reported Miralax (Polyethylene Glycol 3350) 1 Pow Pow 17 Gm PO DAILY 07/07/17 Reported Tylenol (Acetaminophen) 325 Mg Tab 650 Mg PO Q4 PRN 07/07/17 Reported Combivent Respimat (Ipratropium-Albuterol) 1 Aer Aer 1 Puffs INH QID 07/07/17 Reported Lasix (Furosemide) 20 Mg Tab 20 Mg PO QAM 06/27/16 Reported Prinivil (Lisinopril) 20 Mg Tab 20 Mg PO DAILY 06/27/16 Reported Remeron (Mirtazapine) 15 Mg Tab 15 Mg PO HS 06/27/16 Reported Citalopram Hydrobromide (Citalopram) 40 Mg Tab 40 Mg PO DAILY 06/27/16 Reported Calcium/Vitamin D3 600-400 mg-Unit (Calcium Carbonate-Cholecalcife) 1 Tab Tab 1 Tab PO DAILY 06/27/16 Reported Senna S (Sennosides-Docusate Sodium) 1 Tab Tab 1 Tab PO DAILY 12/05/13 Reported Lidoderm Patch 5% (Lidocaine) 1 Ea Tdsy 1 Patch TOP ONAMOFFPM 12/05/13 Reported APPLY ONE PATCH TO RIGHT HIP EVERY MORNING AND REMOVE IN THE EVENING Docusate Sodium 100 Mg Cap 100 Mg PO BID 12/05/13 Reported Aspirin Ec (Aspirin) 81 Mg Tab 81 Mg PO DAILY 11/21/13 Reported Pentasa (Mesalamine) 500 Mg Caper 1,000 Mg PO BID 11/21/13 Reported Protonix (Pantoprazole Sodium) 40 Mg Tab 40 Mg PO DAILY 12/01/09 Reported Zocor (Simvastatin) 20 Mg Tab 20 Mg PO HS 06/02/09 Reported Physical Physical Exam Vital Signs: Date Time Temp Pulse Resp B/P (MAP) Pulse Ox O2 Delivery O2 Flow Rate FiO2 07/08/17 09:00 Oxymask 10.0 07/08/17 08:22 36.5 104 28 172/80 (110) 95 07/08/17 07:04 105 26 93 Mask 10.0 07/08/17 04:14 37.3 78 25 158/74 (102) 94 BiPAP 07/08/17 04:00 BiPAP 50 07/08/17 02:10 75 24 94 BiPAP/CPAP 50 07/08/17 00:53 80 94 50 07/08/17 00:45 37.3 90 20 169/78 94 BiPAP 50 07/08/17 00:15 133/62 07/08/17 00:10 88 23 98 07/08/17 00:00 159/70 07/07/17 23:55 94 33 91 07/07/17 23:45 163/84 07/07/17 23:40 89 21 97 07/07/17 23:30 152/79 07/07/17 23:25 88 23 97 07/07/17 23:20 92 22 98 07/07/17 23:15 155/83 07/07/17 23:05 85 23 97 07/07/17 23:00 148/72 07/07/17 22:50 87 20 97 07/07/17 22:45 152/78 07/07/17 22:35 88 23 96 07/07/17 22:30 140/71 07/07/17 22:20 96 26 97 07/07/17 22:15 139/66 07/07/17 22:05 87 24 96 07/07/17 22:00 146/68 07/07/17 21:50 89 25 96 07/07/17 21:45 148/68 07/07/17 21:44 153/85 07/07/17 21:40 97 24 95 07/07/17 21:25 94 30 96 07/07/17 21:16 160/46 07/07/17 21:10 97 20 95 07/07/17 21:00 147/65 07/07/17 20:55 95 23 96 07/07/17 20:46 136/67 07/07/17 20:40 95 23 97 07/07/17 20:31 184/77 07/07/17 20:25 96 27 98 07/07/17 20:15 180/74 07/07/17 20:10 101 25 99 07/07/17 20:05 101 25 99 07/07/17 20:04 180/80 07/07/17 19:45 167/80 07/07/17 19:35 91 24 98 07/07/17 19:30 154/70 07/07/17 19:20 93 23 99 07/07/17 19:15 164/78 07/07/17 19:05 105 21 99 07/07/17 19:00 158/71 07/07/17 18:57 99 21 100 07/07/17 18:56 161/76 07/07/17 18:52 17 07/07/17 18:47 107 17 98 07/07/17 18:42 109 24 99 07/07/17 18:42 109 07/07/17 18:37 112 28 98 07/07/17 18:32 117 17 07/07/17 18:30 93 BiPAP 100 07/07/17 18:27 112 18 07/07/17 18:26 115 97 100 07/07/17 18:22 115 25 07/07/17 18:17 120 35 07/07/17 18:14 193/77 07/07/17 18:05 37.3 115 36 230/115 93 Nebulizer 07/07/17 18:00 85 Nasal Cannula 4.0 07/07/17 18:00 93 Nebulizer 07/07/17 17:59 80 Room Air General Appearance: uncomfortable, mild distress Head: NORMOCEPHALIC, ATRAUMATIC Eyes: NO DISCHARGE, EOMI, SCLERAE NORMAL ENT: NORMAL MOUTH EXAM, NORMAL THROAT EXAM Neck: NORMAL RANGE OF MOTION, NO TENDERNESS, TRACHEA MIDLINE, NO STRIDOR, SUPPLE Respiratory: other (prolonged expiratory phase with bilateral crackles and wheezes) Cardiovasular: REGULAR RATE/RHYTHM, NORMAL S1S2 Abdomen: NON TENDER, NORMAL BOWEL SOUNDS, NO REBOUND Back: NORMAL INSPECTION, NO MIDLINE TENDERNESS, NO CVA TENDERNESS Upper Extremities: NO EDEMA, NO DEFORMITY, NORMAL ROM, other (no cyanosis, no clubbing) Lower Extremities: other (trace edema right lower extremity, left lower extremity in splint up to knee) Pulses: dorsalis pedis (R) (2+), dorsalis pedis (L) (2+) Neuro: ALERT, ORIENTED x 3, NORMAL MOTOR EXAM, NORMAL SENSATION, NORMAL SPEECH , NORMAL MEMORY Psychiatric: NORMAL AFFECT, NO SUICIDAL IDEATION, CONTRACTS FOR SAFETY Diagnostics Labs Results Past 24 Hours Test 07/07/17 18:20 07/07/17 18:22 07/07/17 18:31 07/07/17 18:32 Range/Units Influenza Type A Antigen Neg for Influ A NEG Influenza Type B Antigen Neg for Influ B NEG White Blood Count 14.09 4.8-10.8 K/uL Red Blood Count 3.72 4.2-5.4 M/uL Hemoglobin 11.3 12.0-16.0 g/dL Hematocrit 34.3 37-47 % Mean Corpuscular Volume 92.2 80-100 fL Mean Corpuscular Hemoglobin 30.4 25-34 pg Mean Corpuscular Hemoglobin Concent 32.9 32-36 g/dl Platelet Count 309 130-400 K/uL Mean Platelet Volume 9.7 7.4-10.4 fL Neutrophils (%) (Auto) 80.7 % Lymphocytes (%) (Auto) 5.1 % Monocytes (%) (Auto) 13.7 % Eosinophils (%) (Auto) 0.0 % Basophils (%) (Auto) 0.1 % Neutrophils # (Auto) 11.37 1.4-6.5 K/uL Lymphocytes # (Auto) 0.72 1.2-3.4 K/uL Monocytes # (Auto) 1.93 0.11-0.59 K/uL Eosinophils # (Auto) 0.00 0-0.5 K/uL Basophils # (Auto) 0.01 0-0.2 K/uL RDW Standard Deviation 46.5 36.4-46.3 fL RDW Coefficient of Variation 13.8 11.5-14.5 % Immature Granulocyte % (Auto) 0.4 % Immature Granulocyte # (Auto) 0.06 0.00-0.02 K/uL Prothrombin Time 10.8 9.0-12.0 SECONDS Prothromb Time International Ratio 1.0 0.9-1.1 Sodium Level 128 136-145 mmol/L Potassium Level 5.0 3.5-5.1 mmol/L Chloride Level 93 98-107 mmol/L Carbon Dioxide Level 33 21-32 mmol/L Anion Gap 2.0 3-11 mmol/L Blood Urea Nitrogen 24 7-18 mg/dl Creatinine 0.89 0.60-1.20 mg/dl Est Creatinine Clear Calc Drug Dose 58.1 ml/min Estimated GFR () 70.0 Estimated GFR (Non- 60.4 BUN/Creatinine Ratio 26.6 10-20 Random Glucose 270 70-99 mg/dl Osmolality 273 280-300 mOsm/kg Calcium Level 8.6 8.5-10.1 mg/dl Total Bilirubin 0.3 0.2-1 mg/dl Direct Bilirubin 0.1 0-0.2 mg/dl Aspartate Amino Transf (AST/SGOT) 22 15-37 U/L Alanine Aminotransferase (ALT/SGPT) 28 12-78 U/L Alkaline Phosphatase 91 45-117 U/L Troponin I < 0.015 0-0.045 ng/ml Pro-B-Type Natriuretic Peptide 3508 0-1800 pg/ml Total Protein 7.6 6.4-8.2 gm/dl Albumin 2.7 3.4-5.0 gm/dl Lipase 264 73-393 U/L Venous Blood pH 7.22 7.36-7.41 Venous Blood Partial Pressure CO2 85 38.0-50.0 mmHg Venous Blood Partial Pressure O2 47 mmHg Venous Blood HCO3 34 mmol/L Venous Blood Oxygen Saturation 74.5 % Venous Blood Base Excess 3.7 mEq/L Lactic Acid Level 1.1 0.4-2.0 mmol/L Test 07/07/17 23:20 07/07/17 23:35 07/08/17 03:59 07/08/17 06:32 Range/Units Urine Color YELLOW Urine Appearance CLOUDY CLEAR Urine pH 5.0 4.5-7.5 Urine Specific Elkins 1.025 1.000-1.030 Urine Protein 2+ NEG Urine Glucose (UA) 2+ NEG Urine Ketones NEG NEG Urine Occult Blood NEG NEG Urine Nitrite NEG NEG Urine Bilirubin NEG NEG Urine Urobilinogen NEG NEG Urine Leukocyte Esterase TRACE NEG Urine WBC (Auto) 10-30 0-5 /hpf Urine RBC (Auto) 0-4 0-4 /hpf Urine Hyaline Casts (Auto) 5-10 0-5 /lpf Urine Epithelial Cells (Auto) >30 0-5 /lpf Urine Bacteria (Auto) 2+ NEG Urine Renal Epithelial Cells 0-5 0-5 /lpf Urine Pathogenic Casts 1-5 GRANULAR CASTS 0 /lpf Urine Yeast (Auto) NONE PRSENT Urine Random Sodium 23 mEq/L Arterial Blood pH 7.28 7.31 7.35-7.45 Arterial Blood Partial Pressure CO2 71 65 35-46 mmHg Arterial Blood Partial Pressure O2 103 73 80-95 mm/Hg Arterial Blood HCO3 33 32 19-24 mmol/L Arterial Blood Oxygen Saturation 95.7 91.0 90-95 % Arterial Blood Base Excess 4.4 4.5 -9-1.8 mEq/L Arterial Blood Gas Delivery 70% 10L Jordan Test POS POS POS White Blood Count 10.19 4.8-10.8 K/uL Red Blood Count 3.20 4.2-5.4 M/uL Hemoglobin 9.4 12.0-16.0 g/dL Hematocrit 29.3 37-47 % Mean Corpuscular Volume 91.6 80-100 fL Mean Corpuscular Hemoglobin 29.4 25-34 pg Mean Corpuscular Hemoglobin Concent 32.1 32-36 g/dl Platelet Count 259 130-400 K/uL Mean Platelet Volume 9.6 7.4-10.4 fL Neutrophils (%) (Auto) 83.0 % Lymphocytes (%) (Auto) 4.5 % Monocytes (%) (Auto) 12.0 % Eosinophils (%) (Auto) 0.0 % Basophils (%) (Auto) 0.1 % Neutrophils # (Auto) 8.46 1.4-6.5 K/uL Lymphocytes # (Auto) 0.46 1.2-3.4 K/uL Monocytes # (Auto) 1.22 0.11-0.59 K/uL Eosinophils # (Auto) 0.00 0-0.5 K/uL Basophils # (Auto) 0.01 0-0.2 K/uL RDW Standard Deviation 46.5 36.4-46.3 fL RDW Coefficient of Variation 13.8 11.5-14.5 % Immature Granulocyte % (Auto) 0.4 % Immature Granulocyte # (Auto) 0.04 0.00-0.02 K/uL Sodium Level 129 136-145 mmol/L Potassium Level 5.5 3.5-5.1 mmol/L Chloride Level 95 98-107 mmol/L Carbon Dioxide Level 34 21-32 mmol/L Anion Gap 0.0 3-11 mmol/L Blood Urea Nitrogen 23 7-18 mg/dl Creatinine 0.81 0.60-1.20 mg/dl Est Creatinine Clear Calc Drug Dose 64.3 ml/min Estimated GFR () 78.4 Estimated GFR (Non- 67.6 BUN/Creatinine Ratio 28.4 10-20 Random Glucose 216 70-99 mg/dl Calcium Level 8.3 8.5-10.1 mg/dl Test 07/08/17 07:43 Range/Units Sodium Level 131 136-145 mmol/L Microbiology Results 07/07/17 Blood Culture, Received Pending 07/07/17 Blood Culture, Received Pending 07/07/17 Urine Culture, Received Pending Diagnostic Radiology Radiology results as stated below per my review and radiologist interpretation: LEFT ANKLE 3 VIEWS CLINICAL HISTORY: Fall with left ankle injury. FINDINGS: 3 views of the left ankle are obtained. No prior studies are available for comparison at the time of dictation. The skeletal structures are osteopenic. There is a distracted fracture of the medial malleolus. The fragment is offset by 4 mm. There is also a distracted and mildly overriding fracture through the distal fibular shaft. There is widening of the medial joint space, with lateral subluxation of the talus. A joint effusion is identified. Soft tissue edema is present around the ankle. Arthritic change is noted in the foot. There is atherosclerotic calcification of the regional arteries. IMPRESSION: 1. Distal tibial and fibular fractures as above with mild lateral subluxation of the talus. 2. Soft tissue swelling and joint effusion. Electronically signed by: Suman Germain M.D. 07/07/2017 7:18 PM Dictated Date/Time: 07/07/2017 7:16 PM LEFT FOOT 2 VIEWS CLINICAL HISTORY: Fall with left foot pain. FINDINGS: AP and lateral views of the left foot are obtained. No prior studies are available for comparison at the time of dictation. The skeletal structures are osteopenic. No fracture is seen. Mild arthritic change and bony spurring is noted at the first metatarsophalangeal joint. Degenerative change is also seen at the tarsometatarsal articulations. There is pes planus, with degenerative spurring noted along the dorsal aspect of the tarsal bones. Soft tissue edema is noted throughout the foot. Fracture is seen at the ankle joint. IMPRESSION: 1. Soft tissue edema with no radiographic evidence of left foot fracture. 2. Fractures are partially imaged at the ankle joint. 3. Osteopenia, pes planus, and degenerative change as above. Electronically signed by: Suman Germain M.D. 07/07/2017 7:16 PM Dictated Date/Time: 07/07/2017 7:14 PM SINGLE VIEW PELVIS CLINICAL HISTORY: Fall. Pelvic pain. FINDINGS: 2 AP, portable, supine pelvic radiograph is are compared to study dated 11/21/2013. The skeletal structures are osteopenic. A right hip arthroplasty is in near-anatomic alignment. There is an age indeterminant right inferior pubic ring fracture, new from 2013. No additional findings are concerning for acute fracture. Mild arthritic change is noted in the left hip. Sclerotic change is observed in the sacroiliac joints. There is advanced atherosclerotic calcification of the femoral arteries. The overlying soft tissues are normal in appearance. IMPRESSION: 1. There is an age indeterminant right pubic ring fracture, possibly chronic. This was not seen in 2013. 2. No additional findings are concerning for acute fracture. 3. Osteopenia, degenerative change, and right hip arthroplasty as above. Electronically signed by: Suman Germain M.D. 07/07/2017 7:14 PM Dictated Date/Time: 07/07/2017 7:11 PM SINGLE VIEW CHEST CLINICAL HISTORY: Fever. Cough and dyspnea. FINDINGS: An AP, portable, upright chest radiograph is compared to study dated 06/27/2016 and correlated with chest CT dated 03/07/2011. The examination is degraded by portable technique and patient rotation. The heart is enlarged and there is atherosclerotic calcification of the thoracic aorta. The pulmonary vasculature is noncongested. There is dense bibasilar airspace consolidation, right greater than left. Small pleural effusions are identified. No pneumothorax is seen. The skeletal structures are osteopenic. The bony thorax is grossly intact. Calcific tendinopathy is noted in the right shoulder. IMPRESSION: 1. Cardiomegaly without radiographic evidence of congestive failure. 2. There is dense bibasilar airspace consolidation, right greater than left with associated pleural effusions. The appearance is typical for pneumonia/aspiration pneumonitis. Clinical correlation will be required and radiographic follow-up to resolution is recommended. Electronically signed by: Suman Germain M.D. 07/07/2017 7:24 PM Dictated Date/Time: 07/07/2017 7:[address] SCAN OF THE BRAIN WITHOUT IV CONTRAST CLINICAL HISTORY: Change in mental status. Fall. Dizziness. COMPARISON STUDY: CT of the brain dated 06/27/2016. TECHNIQUE: Unenhanced axial CT scan of the brain is performed from the vertex to the skull base. A dose lowering technique was utilized adhering to the principles of ALARA. The skull base was scanned twice due to motion artifact. CT DOSE: 1228.53 mGy.cm FINDINGS: Brain parenchyma: There are age-related involutional changes noting moderate subcortical and periventricular microangiopathic change. Right parietal encephalomalacia is unchanged and consistent with a remote infarct. A chronic lacunar infarct is noted in the right internal capsule. There is no hemorrhage, mass effect, or evidence of acute territorial ischemia by CT criteria. A coarse calcification in the cerebellum is unchanged. Barton-white matter is preserved. No extra-axial fluid collection is seen. Ventricles, sulci, cisterns: Prominent secondary to involutional change. Intracranial vasculature: There is atherosclerotic calcification of the cavernous carotid and vertebral arteries. Calvarium: The skeletal structures are osteopenic. No depressed calvarial fracture is seen. Sinuses and mastoids: Mild to moderate mucosal thickening is present within the ethmoid, sphenoid, and maxillary sinuses. Air-fluid levels are present within the maxillary antra. There is a trace left mastoid effusion. The right mastoid air cells are well pneumatized. Orbits: The bony orbits are grossly intact. There are bilateral ocular lens implants. IMPRESSION: 1. Senescent change and remote infarct as above. There is no hemorrhage, mass effect, or evidence of acute territorial ischemia by CT criteria. 2. Paranasal sinus disease as above. Correlate clinically for evidence of sinusitis. Electronically signed by: Suman Germain M.D. 07/07/2017 8:06 PM Dictated Date/Time: 07/07/2017 8:03 PM Impression Assessment and Plan Acute on chronic hypercapnic hypoxic respiratory failure COPD (unknown FEV1) in acute exacerbation Hypertensive urgency Possible diastolic dysfunction Electrolyte imbalance Tobacco use disorder Morbid obesity Mrs. Farrar is a 81-year-old female who presents with acute on chronic hypercapnic respiratory failure with status post fall and sustaining left bimalleolar fracture. She is on chronic long-term oxygen therapy at 2 L/m during the day and 4 L/m at night, for COPD and likely nocturnal hypoxemia secondary to possible obstructive sleep apnea. Due to her body habitus she may also have a component of obesity hypoventilation syndrome. Patient initially presented with hypertensive urgency with elevated blood pressures in 200s. She may have a component of diastolic dysfunction due elevated blood pressures and a component of pulmonary hypertension. Recommendations Patient's respiratory status is tenuous at this time. She is requiring increased FiO2 to maintain adequate oxygenation. I discussed her goals of care this morning and she states that she was electively made a DO NOT RESUSCITATE as is her wishes as an outpatient. She was able to tolerate BiPAP overnight. However she does remain with some respiratory acidosis. Continue with intermittent BiPAP every 4 hours for 24 hours. She can likely be transitioned back over to nasal cannula tomorrow if she shows improvement. If planning for surgery consider epidural or spinal anesthesia,and she is very high risk from a respiratory standpoint. Continue to treat for COPD exacerbation with broad-spectrum antibiotics, nebulizers and IV corticosteroids, especially in the perioperative period. Taper steroids as tolerated. Encourage flutter valve and incentive spirometry. Hyponatremia, likely secondary to aggressive diuresis. Continue management per primary team. Consider transthoracic echocardiogram to evaluate EF and for pulmonary hypertension. Continue with DVT prophylaxis. I appreciate the consult. Please contact me if you've any further questions or concerns.
--- NOTE | 2017-07-08 14:04 | Pharmacy Progress Note ---
Glycemic Control: Initial Note Date of Service Jul 08, 2017. Scope Glycemic Pharmacist to provide recommendations to improve glycemic control (all ICU patients are screened for hyperglycemia and treatment recommendations are provided per protocol). Pt identified with hyperglycemia (BSG above 180) while [place] [facility] [place] [facility] Subjective The patient is a 81 year old female admitted on Jul 07, 2017 at 21:03 for hypercapnic resp failure secondary to COPD exac / pneumonia as well as fall w/ L ankle and R pelvic ring fx's. Patient's past medical history IS NOT significant for diabetes mellitus Objective Height (Feet): 5 Height (Inches): 6.00 Weight (Kilograms): 103.200 Accuchecks BSG (last 24hrs): Test 07/07/17 18:22 07/08/17 03:59 Random Glucose 270 mg/dl (70-99) 216 mg/dl (70-99) Laboratory Data (last 24hrs) Test 07/07/17 18:22 07/08/17 03:59 07/08/17 07:43 Anion Gap 2.0 mmol/L 0.0 mmol/L BUN/Creatinine Ratio 26.6 28.4 Blood Urea Nitrogen 24 mg/dl 23 mg/dl Creatinine 0.89 mg/dl 0.81 mg/dl Potassium Level 5.0 mmol/L 5.5 mmol/L Sodium Level 128 mmol/L 129 mmol/L 131 mmol/L White Blood Count 14.09 K/uL 10.19 K/uL Red Blood Count 3.72 M/uL 3.20 M/uL Hemoglobin 11.3 g/dL 9.4 g/dL Hematocrit 34.3 % 29.3 % Mean Corpuscular Volume 92.2 fL 91.6 fL Mean Corpuscular Hemoglobin 30.4 pg 29.4 pg Mean Corpuscular Hemoglobin Concent 32.9 g/dl 32.1 g/dl Platelet Count 309 K/uL 259 K/uL Mean Platelet Volume 9.7 fL 9.6 fL Neutrophils (%) (Auto) 80.7 % 83.0 % Lymphocytes (%) (Auto) 5.1 % 4.5 % Monocytes (%) (Auto) 13.7 % 12.0 % Eosinophils (%) (Auto) 0.0 % 0.0 % Basophils (%) (Auto) 0.1 % 0.1 % Neutrophils # (Auto) 11.37 K/uL 8.46 K/uL Lymphocytes # (Auto) 0.72 K/uL 0.46 K/uL Monocytes # (Auto) 1.93 K/uL 1.22 K/uL Eosinophils # (Auto) 0.00 K/uL 0.00 K/uL Basophils # (Auto) 0.01 K/uL 0.01 K/uL Recent Pertinent Medications Outpatient Anti-diabetic Regimen: * No prior dx of DM per current documentation The patient is currently receiving: * Basal Insulin: Lantus -- units every -- hours * Correctional Insulin: Novolog Correction per scale ACHS Goal Range: Low -- mg/dL - High -- mg/dL Correction Factor: -- mg/dL/unit * Prandial Insulin: Per carb ratio of 1 unit per -- grams CHO consumed * Oral Agents: -- Risk Factors for Insulin Resistance: * Steroids: Solu-medrol 40mg IV Q 6 hours * Infection: receiving Zosyn + Levofloxacin for COPD exac / pneumonia * Diet: currently ordered [facility] diet Assessment & Plan ASSESSMENT: 07/08/17 * Patient with no prior dx of diabetes admitted for respiratory failure secondary to COPD exac / pneumonia * She did have an elevated A1c of 6.4% back in 2010 and I do not see a repeat value * Glu have been elevated on each PRP, 270 on 1st check and 216 on second * She is receiving high dose steroids for COPD exac and this is likely leading to steroid-induced hyperglycemia * Recommend initiating basal/bolus SQ regimen using weight and "moderate stress " RECOMMEND: * Lantus 13 units SQ BID - 1st dose now * Novolog SQ ACHS * Correction factor 20 mg/dl/unit * Carb ratio 1 unit per 8 grams CHO consumed * Goal range Low 110 mg/dL - High 140 mg/dL Pharmacy will continue to provide recommendations in EMR while patient admitted to /2E. Physicians may request pharmacy to continue to follow patient when transferred out of the ICU and/or consult pharmacy to write glycemic control orders * Please note that the plan above was derived based on current level of insulin resistance and hospital stress. These recommendations are appropriate for inpatient admission only. Plan of care upon discharge will need to be reassessed to avoid potential outpatient hypo/hyperglycemia. Thank you.
[2017-07-08 16:19] LABS: CALCIUM 8.6 mg/dl (8.5-10.1); CREATININE 0.69 mg/dl (0.60-1.20); POTASSIUM 5.2 mmol/L (3.5-5.1)
[2017-07-08] MEDS: CLONIDINE HCL 0.1 MG TAB PO PRN (19:48)
[2017-07-08] MEDS: LATANOPROST 0.005% OP SOLN 2.5 ML BTL OP SCH (19:49)
[2017-07-08] MEDS: MIRTAZAPINE TAB 15 MG TAB PO SCH (19:50)
[2017-07-08] MEDS: SIMVASTATIN 20 MG TAB PO SCH (19:51)
[2017-07-09] VITALS (16 sets, daily range): BP systolic 135–177; BP diastolic 73–108; PULSE 68–106; TEMP 36.5–37.2; O2SAT 90–95
[2017-07-09] MEDS: LEVALBUTEROL 1.25MG/3ML NEB INH SCH ×4 (01:57→19:20)
[2017-07-09] MEDS: PIPERACILL/TAZOBAC IV 4.5 GM in DEXTROSE 5% 100ML IV SCH ×3 (02:19→17:45)
[2017-07-09] MEDS: SODIUM CHLORIDE 0.9% 1000ML 1,000 ML IV SCH ×3 (02:19→20:42)
[2017-07-09] MEDS: METHYLPREDNISOLONE IV 40 MG in SYRINGE 0 ML IV SCH ×4 (02:19→20:41)
[2017-07-09] MEDS: HEPARIN SOD 5000 UNIT/0.5 ML CARP SQ SCH ×3 (05:35→20:44)
[2017-07-09] MEDS: LEVOFLOXACIN 750MG / D5W IV SCH (05:38)
[2017-07-09 06:05] LABS: BASO % 0.1 %; BASO ABS # 0.01 K/uL (0-0.2); HEMATOCRIT 30.5 % (37-47); HEMOGLOBIN 9.7 g/dL (12.0-16.0); IG# 0.09 K/uL (0.00-0.02); LYMPH % 7.4 %; LYMPH ABS # 0.76 K/uL (1.2-3.4); MEAN CELL VOLUME 93.3 fL (80-100); MEAN CORPUSCULAR HEMOGLOBIN 29.7 pg (25-34); MEAN CORPUSCULAR HGB CONC 31.8 g/dl (32-36); MEAN PLATELET VOLUME 9.4 fL (7.4-10.4); MONO % 8.9 %; MONO ABS # 0.92 K/uL (0.11-0.59); NEUT % 82.7 %; NEUT ABS # 8.56 K/uL (1.4-6.5); PLATELET COUNT 296 K/uL (130-400); RED CELL DISTRIBUTION WIDTH SD 47.6 fL (36.4-46.3); WHITE BLOOD COUNT 10.34 K/uL (4.8-10.8)
[2017-07-09 06:39] LABS: CALCIUM 8.6 mg/dl (8.5-10.1); CREATININE 0.71 mg/dl (0.60-1.20); POTASSIUM 5.1 mmol/L (3.5-5.1)
[2017-07-09] MEDS: MESALAMINE 250 MG CAPCR PO SCH ×2 (10:18→20:43)
[2017-07-09] MEDS: DOCUSATE SODIUM/SENNA 50/8.6MG TAB PO SCH (10:18)
[2017-07-09] MEDS: LISINOPRIL 20 MG TAB PO SCH (10:18)
[2017-07-09] MEDS: PANTOprazole SOD 40 MG TAB PO SCH (10:18)
[2017-07-09] MEDS: CITALOPRAM 40 MG TAB PO SCH (10:18)
--- NOTE | 2017-07-09 10:58 | Pulmonology Progress Note ---
Pulmonary Progress Note Date of Service Jul 09, 2017. Attending Dr. Gallo Subjective Patient seen and examined at bedside this morning. Appears to be in respiratory distress. Tachypneic. Able to speak in 2 word sentences. She is alert and states that she is not doing well. She is still having some pain in left lower extremity. She was on BIPAP for most of day yesterday, however currently on 10L oxymask and tachypneic to 40s. Objective VS reviewed. BP 37, BP 135/80-165/82, P 88-106, RR 18-22, SaO2 95% on 10 L/min. 1.4 L + since admission Gen: AAOx3, appears to be respiratory distress. CVS: S1, S2, RRR Lungs: decreased breath sound bilaterally, crackles at bases, tachypneic Abd: soft/NT/NT/BS+ Ext: left lower extremity in splint, right lower extremity trace edema, chronic venous changes; no cyanosis, no clubbing Labs reviewed. Imaging reviewed. Medications reviewed. Assessment & Plan Acute on chronic hypercapnic hypoxic respiratory failure COPD (unknown FEV1) in acute exacerbation Hypertensive urgency Possible diastolic dysfunction Electrolyte imbalance Tobacco use disorder Morbid obesity Mrs. Farrar is a 81-year-old female who presents with acute on chronic hypercapnic respiratory failure with status post fall and sustaining left bimalleolar fracture. She is on chronic long-term oxygen therapy at 2 L/m during the day and 4 L/m at night, for COPD and likely nocturnal hypoxemia secondary to possible obstructive sleep apnea. She is currently appears to be quite tachypneic this morning. I am concerned about pulmonary embolism in the setting of left ankle fracture and immobility. Recommendations Patient's respiratory status is continues to be tenuous at this time. She was able to tolerate BiPAP overnight, but remains tachypneic without it. Recommend CT chest with contrast to rule of PE and TTE to evaluate heart function. Continue with intermittent BiPAP every 4 hours for 24 hours. She is too unstable for surgery at this time and very high risk from a respiratory standpoint. Unfortunately, I feel that surgery will have to be postponed until she is more stable. Continue to treat for COPD exacerbation with broad-spectrum antibiotics, nebulizers and IV corticosteroids. Taper steroids as tolerated. Encourage flutter valve and incentive spirometry. Continue with DVT prophylaxis. I will continue to follow. Discussed with Dr. Singh. Data Medications: Current Inpatient Medications Medications (Trade) Dose Ordered Sig/Reuben Route Start Time Stop Time Status Last Admin Dose Admin Levalbuterol (Xopenex 1.25MG/ 3ML Neb) 1.25 mg Q6R INH 07/07/17 22:30 08/06/17 22:29 07/09/17 07:08 1.25 MG Methylprednisolone Sodium Succinate 40 mg/Syringe 0.64 ml @ 1.5 mls/min Q6H IV 07/08/17 02:00 08/07/17 01:59 07/09/17 02:19 1.5 MLS/MIN Levofloxacin (Consult) 1 ea UD PRN N/A 07/08/17 01:09 08/07/17 01:08 Tramadol HCl (Ultram Tab) 50 mg Q6H PRN PO 07/07/17 21:30 08/06/17 21:29 07/08/17 07:55 50 MG Clonidine HCl (Catapres Tab) 0.1 mg Q6H PRN PO 07/07/17 21:30 08/06/17 21:29 07/08/17 19:48 0.1 MG Citalopram Hydrobromide (celeXA TAB) 40 mg DAILY PO 07/08/17 09:00 08/07/17 08:59 07/09/17 10:18 40 MG Latanoprost (Xalatan Oph Soln) 1 drops HS OP 07/08/17 21:00 08/07/17 20:59 07/08/17 19:49 1 DROPS Lisinopril (Zestril Tab) 20 mg DAILY PO 07/08/17 09:00 08/07/17 08:59 07/09/17 10:18 20 MG Mesalamine (Pentasa Controlled Rel Cap) 1,000 mg BID PO 07/08/17 09:00 08/07/17 08:59 07/09/17 10:18 1,000 MG Mirtazapine (Remeron Tab) 15 mg HS PO 07/08/17 21:00 08/07/17 20:59 07/08/17 19:50 15 MG Pantoprazole Sodium (Protonix Tab) 40 mg DAILY PO 07/08/17 09:00 08/07/17 08:59 07/09/17 10:18 40 MG Senna/Docusate Sodium (Senokot S Tab) 1 tab DAILY PO 07/08/17 09:00 08/07/17 08:59 07/09/17 10:18 1 TAB Simvastatin (Zocor Tab) 20 mg HS PO 07/08/17 21:00 08/07/17 20:59 07/08/17 19:51 20 MG Heparin Sodium (Porcine) (Heparin Sq 5000 Unit/0.5ml) 5,000 unit Q12H SQ 07/08/17 09:00 08/07/17 08:59 07/09/17 10:17 5,000 UNIT Sodium Chloride 1,000 ml @ 80 mls/hr [id number] IV 07/07/17 21:39 08/06/17 21:38 07/09/17 02:19 80 MLS/HR Acetaminophen (Tylenol Tab) 650 mg Q4H PRN PO 07/07/17 21:45 08/06/17 21:44 Ondansetron HCl (Zofran Inj) 4 mg Q6H PRN IV 07/07/17 21:45 08/06/17 21:44 Piperacillin Sod/ Tazobactam Sod 4.5 gm/Dextrose 120 ml @ 30 mls/hr Q8H IV 07/08/17 02:00 07/15/17 01:59 07/09/17 10:17 30 MLS/HR Levofloxacin 750 mg/Prmx 150 ml @ 100 mls/hr Q24H IV 07/08/17 06:00 07/15/17 05:59 07/09/17 05:38 100 MLS/HR Piperacillin Sod/ Tazobactam Sod (Consult) 1 ea UD PRN N/A 07/08/17 01:15 08/07/17 01:14 Vital Signs: Date Time Temp Pulse Resp B/P (MAP) Pulse Ox O2 Delivery O2 Flow Rate FiO2 07/09/17 08:05 36.6 92 18 154/76 (102) 95 07/09/17 08:00 Oxymask 10.0 07/09/17 07:08 88 93 50 07/09/17 07:08 88 18 93 BiPAP/CPAP 50 07/09/17 04:39 36.6 93 20 165/82 (109) 91 BiPAP 07/09/17 04:00 Oxymask 10.0 07/09/17 01:59 93 22 90 BiPAP/CPAP 50 07/09/17 01:57 106 93 50 07/09/17 00:15 37.0 89 22 135/80 (98) 95 Oxymask 10.0 07/08/17 23:59 Oxymask 10.0 07/08/17 20:06 106 93 50 07/08/17 20:00 92 Oxymask 10.0 07/08/17 19:54 36.7 112 28 178/119 (138) 92 Oxymask 10.0 07/08/17 19:09 97 28 94 Mask 9.0 07/08/17 16:00 Oxymask 10.0 07/08/17 15:20 36.8 104 26 139/69 (92) 93 Oxymask 9.0 07/08/17 14:07 103 30 92 Mask 9.0 07/08/17 12:19 36.4 104 34 147/93 (111) 90 Mask 10.0 07/08/17 12:14 113 92 50 07/08/17 12:00 Oxymask 10.0 Laboratory Results: Last 24 Hours Test 07/08/17 15:13 07/09/17 05:33 Sodium Level 131 mmol/L 132 mmol/L Potassium Level 5.2 mmol/L 5.1 mmol/L Chloride Level 96 mmol/L 99 mmol/L Carbon Dioxide Level 32 mmol/L 33 mmol/L Anion Gap 3.0 mmol/L 0.0 mmol/L Blood Urea Nitrogen 23 mg/dl 25 mg/dl Creatinine 0.69 mg/dl 0.71 mg/dl Est Creatinine Clear Calc Drug Dose 76.3 ml/min 73.7 ml/min Estimated GFR () 94.0 91.9 Estimated GFR (Non- 81.1 79.3 BUN/Creatinine Ratio 33.1 35.8 Random Glucose 134 mg/dl 174 mg/dl Calcium Level 8.6 mg/dl 8.6 mg/dl White Blood Count 10.34 K/uL Red Blood Count 3.27 M/uL Hemoglobin 9.7 g/dL Hematocrit 30.5 % Mean Corpuscular Volume 93.3 fL Mean Corpuscular Hemoglobin 29.7 pg Mean Corpuscular Hemoglobin Concent 31.8 g/dl Platelet Count 296 K/uL Mean Platelet Volume 9.4 fL Neutrophils (%) (Auto) 82.7 % Lymphocytes (%) (Auto) 7.4 % Monocytes (%) (Auto) 8.9 % Eosinophils (%) (Auto) 0.0 % Basophils (%) (Auto) 0.1 % Neutrophils # (Auto) 8.56 K/uL Lymphocytes # (Auto) 0.76 K/uL Monocytes # (Auto) 0.92 K/uL Eosinophils # (Auto) 0.00 K/uL Basophils # (Auto) 0.01 K/uL RDW Standard Deviation 47.6 fL RDW Coefficient of Variation 14.0 % Immature Granulocyte % (Auto) 0.9 % Immature Granulocyte # (Auto) 0.09 K/uL
[2017-07-09] MEDS ORDERED: OPTIRAY 320 IV PRN (11:00)
--- NOTE | 2017-07-09 12:03 | DIAGNOSTIC IMAGING REPORT ---
CT ANGIOGRAM OF THE CHEST CLINICAL HISTORY: Respiratory failure. Possible acute pulmonary embolism. COMPARISON STUDY: March 08, 2011 , chest x-ray dated 07/07/2017 TECHNIQUE: Following the IV administration of 118 mL of Optiray-320, CT angiogram of the thorax was performed from the thoracic inlet to the lung bases utilizing the pulmonary embolus protocol. Images are reviewed in the axial, sagittal, and coronal planes. IV contrast was administered without complication. MIP imaging was performed. A dose lowering technique was utilized adhering to the principles of ALARA. CT DOSE: 758.14 mGy.cm FINDINGS: No pathologically enlarged axillary mediastinal or hilar lymph nodes were visualized. There is dilatation of the thoracic aorta at the thoracoabdominal junction (48 mm). There is also a partially visualized abdominal aortic aneurysm. Moderately extensive atheromatous changes are present within the thoracic and abdominal aorta. The study is compromised due to respiratory motion artifact. There are no pulmonary artery filling defects to indicate acute pulmonary embolism. There are small pleural effusions. There is dense bilateral lower lobe atelectasis/consolidation. Patchy airspace opacities are also present within the right upper lobe, lingula and right middle lobe. There are mild associated bronchiectatic changes. There is bilateral lower lobe mucous plugging. A bilateral pneumonia is suspected. There is a partially visualized left lobe hepatic hypodensity, present on the prior study and likely representing a cyst. IMPRESSION: 1. Study compromised by respiratory motion artifact 2. No evidence of acute pulmonary embolism 3. No evidence of pathologic adenopathy 4. 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 Dense bilateral lower lobe atelectasis/consolidation. Patchy airspace opacities are also present within the right upper lobe lingula and right middle lobe. 6. Small bilateral pleural effusions 7. Severe L1 compression fracture with mild retropulsion. Electronically signed by: David Douglas M.D. 07/09/2017 12:01 PM Dictated Date/Time: 07/09/2017 11:54 AM
[2017-07-09] MEDS ORDERED: PERFLUTREN LIPID MICROSPHERE (DEFINITY) IV ONE (14:05)
--- NOTE | 2017-07-09 14:41 | Anesthesiology Progress Note ---
Anesthesia Progress Note Date of Service Jul 09, 2017. Progress Notes I was asked to see Ms. Farrar as she has a broke left ankle that needs repair sometime this admission. She presented in acute hypercapnic respiratory failure/ COPD exacerbation/possible pneumonia. She does require oxygen at home (2L NC) but her respiratory status has worsened where her oxygen requirement has increased, she is tachypneic and she has required biPAP. Today she is on 10L oxymask but is still very much conversationally dyspneic. Pulmonary is following the patient and noted that she should have surgery delayed until her respiratory status at least gets back to her baseline. She is currently being treated with steroids, antibiotics and nebulizer therapy. I agree that surgery should be postponed until her respiratory status improves. Anesthesia will follow peripherally but if/when she is ok for surgery, we will re-examine patient to ensure she is fully optimized for the procedure. I also briefly spoke to her about anesthesia options and it appears that a SAB with peripheral nerve blocks would be ideal in terms of minimizing any further respiratory dysfunction. All questions were answered.
--- NOTE | 2017-07-09 15:12 | ECHOCARDIOGRAM REPORT ---
*NOTICE TO RECEIVING CONSTITUTION PARTY AGENCY This information is strictly Confidential and protected under [place] law. [place] law prohibits you from making any further disclosure of this information unless further disclosure is expressly permitted by the written consent of the person to whom it pertains or is authorized by law. A general authorization for the release of medical or other information is not sufficient for this purpose. Hospital accepts no responsibility if the information is made available to any other person, INCLUDING THE PATIENT. Interpretation Summary * Name: JASPER TERRELL Study Date: 07/09/2017 01:21 PM BP: 154/76 mmHg * Patient Location: .2E\S\E203\S\1 HR: 92 * : 1935 (M/d/yyyy) Gender: Female Height: 66 in * Age: 81 yrs Ethnicity: CA Weight: 225 lb * Ordering Physician: Regina Singh * Referring Physician: Self, Referred * Performed By: Dee Thomas RCS * * Reason For Study: CHF * BSA: 2.1 m2 * -- Conclusions -- * The echocardiogram is extremely technically limited. * Patient was sitting upright for the test. * There is no significant pericardial effusion noted. * The left ventricular systolic function is grossly normal on limited visualization. * The right ventricular systolic function is grossly normal. * The valves are poorly visualized. * There is no significant valvular stenosis or regurgitation on technically limited Doppler evaluation. Procedure Details * A complete two-dimensional transthoracic echocardiogram was performed (2D, M-mode, Doppler and color flow Doppler). * The study was technically difficult. * The study was technically limited. * There were technical limitations due to patient's poor acoustic windows secondary to severe lung disease and sitting upright position for imagining. * A contrast injection of Definity was performed to improve assessment of LV function. * Contrast was injected into an intravenous site in the left arm. * One vial of Definity ultrasound contrast was diluted in normal saline to a total volume of 10 ml. A total of '1.5' ml of solution was administered during imaging. * Lot # [id number] of Definity utilized for procedure. * Expiration date . * The attending nurse who injected the contrast agent was Genie Powers RN. Left Ventricle * The left ventricular ejection fraction is grossly normal. Right Ventricle * The right ventricle is grossly normal size. Pericardium/Pleural * There is no pericardial effusion. MMode 2D Measurements and Calculations IVSd 1.2 cm IVSs 1.5 cm LVIDd 4.1 cm LVIDs 3.3 cm LVPWd 1.2 cm LVPWs 1.6 cm IVS/LVPW 0.97 FS 21.6 % EDV(Teich) 76.4 ml ESV(Teich) 42.7 ml EF(Teich) 44.1 % EDV(cubed) 71.5 ml ESV(cubed) 34.5 ml EF(cubed) 51.8 % % IVS thick 22.8 % % LVPW thick 27.9 % LV mass(C)d 179.8 grams LV mass(C)dI 85.5 grams/m\S\2 LV mass(C)s 182.0 grams LV mass(C)sI 86.5 grams/m\S\2 SV(Teich) 33.7 ml SI(Teich) 16.0 ml/m\S\2 SV(cubed) 37.0 ml SI(cubed) 17.6 ml/m\S\2 asc Aorta Diam 3.2 cm EDV(MOD-sp4) 97.5 ml ESV(MOD-sp4) 45.9 ml EF(MOD-sp4) 52.9 % EDV(MOD-sp2) 123.1 ml ESV(MOD-sp2) 46.3 ml EF(MOD-sp2) 62.4 % SV(MOD-sp4) 51.6 ml SI(MOD-sp4) 24.5 ml/m\S\2 SV(MOD-sp2) 76.8 ml SI(MOD-sp2) 36.5 ml/m\S\2 Doppler Measurements and Calculations MV E max robbie 96.6 cm/sec MV A max robbie 121.2 cm/sec MV E/A 0.80 MV P1/2t max robbie 125.1 cm/sec MV P1/2t 95.5 msec MVA(P1/2t) 2.3 cm\S\2 MV dec slope 383.7 cm/sec\S\2 MV dec time 0.21 sec Ao V2 max 126.8 cm/sec Ao max PG 6.4 mmHg Ao max PG (full) 2.9 mmHg LV V1 max PG 3.5 mmHg LV V1 max 94.0 cm/sec PA V2 max 99.5 cm/sec PA max PG 4.0 mmHg TR max robbie 269.5 cm/sec
[2017-07-09] MEDS: CLONIDINE HCL 0.1 MG TAB PO PRN (16:21)
[2017-07-09] MEDS: ACETAMINOPHEN 325 MG TAB PO PRN (16:22)
--- NOTE | 2017-07-09 19:31 | Progress Note ---
Medicine Progress Note Date & Time of Visit: Jul 09, 2017 at 19:22. Subjective Pt was seen and examined Lying in with mild respiratory distress Continue to require BIPAP Pt slept well last night Denies any chest pain and palpitation Objective Last 8 Hrs Date Time Temp Pulse Resp B/P (MAP) Pulse Ox O2 Delivery O2 Flow Rate FiO2 07/09/17 15:38 37.2 102 24 177/101 (126) 90 High Flow Oxygen 07/09/17 14:39 88 18 93 Mask 9.0 07/09/17 12:00 36.5 94 18 151/73 (99) 93 BiPAP 07/09/17 12:00 Oxymask 10.0 Physical Exam: General- No acute distress Head- atraumatic Eyes- PERRL, EOMI ENT- oropharynx clear Neck- supple, no JVD Lungs- coarse BS Heart- regular rhythm; no murmur Abdomen- normal bowel sounds, soft Extremities- no calf tenderness, Left ankle pain, splint with toño bandage in LE Neuro- alert, oriented x 3; PERRL, EOMI Skin- warm & dry Laboratory Results: Last 24 Hours Test 07/09/17 05:33 07/09/17 11:58 White Blood Count 10.34 K/uL Red Blood Count 3.27 M/uL Hemoglobin 9.7 g/dL Hematocrit 30.5 % Mean Corpuscular Volume 93.3 fL Mean Corpuscular Hemoglobin 29.7 pg Mean Corpuscular Hemoglobin Concent 31.8 g/dl Platelet Count 296 K/uL Mean Platelet Volume 9.4 fL Neutrophils (%) (Auto) 82.7 % Lymphocytes (%) (Auto) 7.4 % Monocytes (%) (Auto) 8.9 % Eosinophils (%) (Auto) 0.0 % Basophils (%) (Auto) 0.1 % Neutrophils # (Auto) 8.56 K/uL Lymphocytes # (Auto) 0.76 K/uL Monocytes # (Auto) 0.92 K/uL Eosinophils # (Auto) 0.00 K/uL Basophils # (Auto) 0.01 K/uL RDW Standard Deviation 47.6 fL RDW Coefficient of Variation 14.0 % Immature Granulocyte % (Auto) 0.9 % Immature Granulocyte # (Auto) 0.09 K/uL Sodium Level 132 mmol/L Potassium Level 5.1 mmol/L Chloride Level 99 mmol/L Carbon Dioxide Level 33 mmol/L Anion Gap 0.0 mmol/L Blood Urea Nitrogen 25 mg/dl Creatinine 0.71 mg/dl Est Creatinine Clear Calc Drug Dose 73.7 ml/min Estimated GFR () 91.9 Estimated GFR (Non- 79.3 BUN/Creatinine Ratio 35.8 Random Glucose 174 mg/dl Calcium Level 8.6 mg/dl Arterial Blood pH 7.20 Arterial Blood Partial Pressure CO2 76 mmHg Arterial Blood Partial Pressure O2 67 mm/Hg Arterial Blood HCO3 29 mmol/L Arterial Blood Oxygen Saturation 88.7 % Arterial Blood Base Excess 0.1 mEq/L Arterial Blood Gas Delivery 10L Jordan Test POS Assessment & Plan Acute hypercapnic respiratory failure Mostly related to COPD exacerbation vs Pneumonia CXR showed dense bibasilar airspace consolidation, right greater than left with associated pleural effusions. ABG on admission showed respiratory acidosis with comp On abx with Levaquin and Zosyn Negative influenza test Continue Solumedrol Continue supplement oxygen and intermittent BIPAP as tolerated Continue respiratory treatment with Duoneb Blood cx no growth monitor closely CT with PE protocol showed no evidence for PE. Dense bilateral lower lobe atelectasis/consolidation. Patchy airspace opacities are also present within the right upper lobe lingula and right middle lobe. ECHO * The echocardiogram is extremely technically limited. * Patient was sitting upright for the test. * There is no significant pericardial effusion noted. * The left ventricular systolic function is grossly normal on limited visualization. * The right ventricular systolic function is grossly normal. * The valves are poorly visualized. * There is no significant valvular stenosis or regurgitation on technically limited Doppler evaluation. Hyponatremia Possible related to hypovolemia Na on admission 128 Na today 132 On IVF with NS, will monitor closely Hyperkalemia K 5.1 If stay high, will give Kayexalate Continue monitor BMP Left Ankle fracture s/p fall Left ankle xray showed distal tibial and fibular fractures as above with mild lateral subluxation of the talus. Ortho on board pain control On 10L oxygen now, high risk for surgery for now Will need to postpone surgery until respiratory status improves Right pelvic ring fracture, Pelvis xray showed an age indeterminant right pubic ring fracture, possibly chronic. Stable Hypertension BP elevated Continue lisinopril. PRN clonidine Continue monitor BP Ulcerative colitis On Pentasa Stable Depression On Celexa Stable DVT px On heparin. Code DNR as per my discussion with Pt CODE STATUS Continue monitor in tele Current Inpatient Medications: Current Inpatient Medications Medications (Trade) Dose Ordered Sig/Reuben Route Start Time Stop Time Status Last Admin Dose Admin Levalbuterol (Xopenex 1.25MG/ 3ML Neb) 1.25 mg Q6R INH 07/07/17 22:30 08/06/17 22:29 07/09/17 19:20 1.25 MG Methylprednisolone Sodium Succinate 40 mg/Syringe 0.64 ml @ 1.5 mls/min Q6H IV 07/08/17 02:00 08/07/17 01:59 07/09/17 14:49 1.5 MLS/MIN Levofloxacin (Consult) 1 ea UD PRN N/A 07/08/17 01:09 08/07/17 01:08 Tramadol HCl (Ultram Tab) 50 mg Q6H PRN PO 07/07/17 21:30 08/06/17 21:29 07/08/17 07:55 50 MG Clonidine HCl (Catapres Tab) 0.1 mg Q6H PRN PO 07/07/17 21:30 08/06/17 21:29 07/09/17 16:21 0.1 MG Citalopram Hydrobromide (celeXA TAB) 40 mg DAILY PO 07/08/17 09:00 08/07/17 08:59 07/09/17 10:18 40 MG Latanoprost (Xalatan Oph Soln) 1 drops HS OP 07/08/17 21:00 08/07/17 20:59 07/08/17 19:49 1 DROPS Lisinopril (Zestril Tab) 20 mg DAILY PO 07/08/17 09:00 08/07/17 08:59 07/09/17 10:18 20 MG Mesalamine (Pentasa Controlled Rel Cap) 1,000 mg BID PO 07/08/17 09:00 08/07/17 08:59 07/09/17 10:18 1,000 MG Mirtazapine (Remeron Tab) 15 mg HS PO 07/08/17 21:00 08/07/17 20:59 07/08/17 19:50 15 MG Pantoprazole Sodium (Protonix Tab) 40 mg DAILY PO 07/08/17 09:00 08/07/17 08:59 07/09/17 10:18 40 MG Senna/Docusate Sodium (Senokot S Tab) 1 tab DAILY PO 07/08/17 09:00 08/07/17 08:59 07/09/17 10:18 1 TAB Simvastatin (Zocor Tab) 20 mg HS PO 07/08/17 21:00 08/07/17 20:59 07/08/17 19:51 20 MG Heparin Sodium (Porcine) (Heparin Sq 5000 Unit/0.5ml) 5,000 unit Q12H SQ 07/08/17 09:00 08/07/17 08:59 07/09/17 10:17 5,000 UNIT Sodium Chloride 1,000 ml @ 80 mls/hr [id number] IV 07/07/17 21:39 08/06/17 21:38 07/09/17 16:22 80 MLS/HR Acetaminophen (Tylenol Tab) 650 mg Q4H PRN PO 07/07/17 21:45 08/06/17 21:44 07/09/17 16:22 650 MG Ondansetron HCl (Zofran Inj) 4 mg Q6H PRN IV 07/07/17 21:45 08/06/17 21:44 Piperacillin Sod/ Tazobactam Sod 4.5 gm/Dextrose 120 ml @ 30 mls/hr Q8H IV 07/08/17 02:00 07/15/17 01:59 07/09/17 17:45 30 MLS/HR Levofloxacin 750 mg/Prmx 150 ml @ 100 mls/hr Q24H IV 07/08/17 06:00 07/15/17 05:59 07/09/17 05:38 100 MLS/HR Piperacillin Sod/ Tazobactam Sod (Consult) 1 ea UD PRN N/A 07/08/17 01:15 08/07/17 01:14 Ioversol (Optiray 320) 100 ml UD PRN IV 07/09/17 11:00 07/13/17 10:59
[2017-07-09] MEDS: LATANOPROST 0.005% OP SOLN 2.5 ML BTL OP SCH (20:42)
[2017-07-09] MEDS: MIRTAZAPINE TAB 15 MG TAB PO SCH (20:43)
[2017-07-09] MEDS: SIMVASTATIN 20 MG TAB PO SCH (20:43)
[2017-07-10] VITALS (15 sets, daily range): BP systolic 107–168; BP diastolic 72–97; PULSE 74–102; TEMP 36.6–37.1; O2SAT 90–96
[2017-07-10] MEDS: LEVALBUTEROL 1.25MG/3ML NEB INH SCH ×4 (02:04→19:29)
[2017-07-10] MEDS: METHYLPREDNISOLONE IV 40 MG in SYRINGE 0 ML IV SCH ×4 (02:15→19:56)
[2017-07-10] MEDS: PIPERACILL/TAZOBAC IV 4.5 GM in DEXTROSE 5% 100ML IV SCH ×3 (02:15→18:09)
[2017-07-10] MEDS: LEVOFLOXACIN 750MG / D5W IV SCH (05:40)
[2017-07-10 05:55] LABS: BASO % 0.2 %; BASO ABS # 0.02 K/uL (0-0.2); HEMATOCRIT 32.9 % (37-47); HEMOGLOBIN 10.3 g/dL (12.0-16.0); IG# 0.13 K/uL (0.00-0.02); LYMPH % 7.9 %; LYMPH ABS # 0.91 K/uL (1.2-3.4); MEAN CELL VOLUME 93.7 fL (80-100); MEAN CORPUSCULAR HEMOGLOBIN 29.3 pg (25-34); MEAN CORPUSCULAR HGB CONC 31.3 g/dl (32-36); MEAN PLATELET VOLUME 9.3 fL (7.4-10.4); MONO % 9.3 %; MONO ABS # 1.06 K/uL (0.11-0.59); NEUT % 81.5 %; NEUT ABS # 9.33 K/uL (1.4-6.5); PLATELET COUNT 309 K/uL (130-400); RED CELL DISTRIBUTION WIDTH CV 14.2 % (11.5-14.5); RED CELL DISTRIBUTION WIDTH SD 48.8 fL (36.4-46.3); WHITE BLOOD COUNT 11.45 K/uL (4.8-10.8)
[2017-07-10 06:39] LABS: CALCIUM 8.5 mg/dl (8.5-10.1); CREATININE 0.69 mg/dl (0.60-1.20); POTASSIUM 5.3 mmol/L (3.5-5.1)
[2017-07-10] MEDS: PANTOprazole SOD 40 MG TAB PO SCH (08:00)
[2017-07-10] MEDS: DOCUSATE SODIUM/SENNA 50/8.6MG TAB PO SCH (08:00)
[2017-07-10] MEDS: MESALAMINE 250 MG CAPCR PO SCH ×2 (08:00→19:59)
[2017-07-10] MEDS: CITALOPRAM 40 MG TAB PO SCH (08:00)
[2017-07-10] MEDS: LISINOPRIL 20 MG TAB PO SCH (08:01)
[2017-07-10] MEDS: HEPARIN SOD 5000 UNIT/0.5 ML CARP SQ SCH ×2 (08:04→19:58)
[2017-07-10] MEDS: SODIUM CHLORIDE 0.9% 1000ML 1,000 ML IV SCH ×2 (09:54→22:23)
--- NOTE | 2017-07-10 12:04 | Pulmonology Progress Note ---
Pulmonary Progress Note Date of Service Jul 10, 2017. Attending Dr. Gallo Subjective Patient seen and examined this morning at bedside. She did not tolerate BIPAP overnight. She is tired and lethargic this morning. Currently on BIPAP. She is obviously tachypneic. Objective VS reviewed. BP 371, BP 149/74-168/76, P74-102, RR 18-25, SaO2 92-96% on HFNC 50 L/m, 50%. 1.5 L + since admission Gen: AAOx3, appears to be respiratory distress. CVS: S1, S2, RRR Lungs: decreased breath sound bilaterally, crackles at bases, tachypneic Abd: soft/NT/NT/BS+ Ext: left lower extremity in splint, right lower extremity trace edema, chronic venous changes; no cyanosis, no clubbing Labs reviewed. CO2 33 today Imaging reviewed. CTA chest 07/09/2016 IMPRESSION: 1. Study compromised by respiratory motion artifact 2. No evidence of acute pulmonary embolism 3. No evidence of pathologic adenopathy 4. 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 Dense bilateral lower lobe atelectasis/consolidation. Patchy airspace opacities are also present within the right upper lobe lingula and right middle lobe. 6. Small bilateral pleural effusions 7. Severe L1 compression fracture with mild retropulsion. Medications reviewed. Assessment & Plan Acute on chronic hypercapnic hypoxic respiratory failure COPD (unknown FEV1) in acute exacerbation Hypertensive urgency Possible diastolic dysfunction Electrolyte imbalance Tobacco use disorder Morbid obesity Mrs. Farrar is a 81-year-old female who presents with acute on chronic hypercapnic respiratory failure with status post fall and sustaining left bimalleolar fracture. She is on chronic long-term oxygen therapy at 2 L/m during the day and 4 L/m at night, for COPD. She is not doing well from a respiratory standpoint. She is still quite tachypneic and not tolerating BIPAP. I have her high flow nasal canula 50%, 50 L /m and she is saturating satisfactorily in the low 90's. PE rule on CTA, however she does have bibasilar opacities which could represent atelectasis and possible pneumonia. TTE technically difficult, but no know obvious heart failure. Recommendations Continue with high flow nasal canula to maintain SaO2 between 88-92%. Continue with intermittent BiPAP as tolerated. Continue to treat for COPD exacerbation with broad-spectrum antibiotics, nebulizers and IV corticosteroids. Taper steroids as tolerated. Encourage flutter valve and incentive spirometry. May benefit from diuresis. Continue with DVT prophylaxis. I will continue to follow. Discussed with Dr. Singh. Data Medications: Current Inpatient Medications Medications (Trade) Dose Ordered Sig/Reuben Route Start Time Stop Time Status Last Admin Dose Admin Levalbuterol (Xopenex 1.25MG/ 3ML Neb) 1.25 mg Q6R INH 07/07/17 22:30 08/06/17 22:29 07/10/17 07:20 1.25 MG Methylprednisolone Sodium Succinate 40 mg/Syringe 0.64 ml @ 1.5 mls/min Q6H IV 07/08/17 02:00 08/07/17 01:59 07/10/17 08:01 1.5 MLS/MIN Levofloxacin (Consult) 1 ea UD PRN N/A 07/08/17 01:09 08/07/17 01:08 Tramadol HCl (Ultram Tab) 50 mg Q6H PRN PO 07/07/17 21:30 08/06/17 21:29 07/08/17 07:55 50 MG Clonidine HCl (Catapres Tab) 0.1 mg Q6H PRN PO 07/07/17 21:30 08/06/17 21:29 07/09/17 16:21 0.1 MG Citalopram Hydrobromide (celeXA TAB) 40 mg DAILY PO 07/08/17 09:00 08/07/17 08:59 07/10/17 08:00 40 MG Latanoprost (Xalatan Oph Soln) 1 drops HS OP 07/08/17 21:00 08/07/17 20:59 07/09/17 20:42 1 DROPS Lisinopril (Zestril Tab) 20 mg DAILY PO 07/08/17 09:00 08/07/17 08:59 07/10/17 08:01 20 MG Mesalamine (Pentasa Controlled Rel Cap) 1,000 mg BID PO 07/08/17 09:00 08/07/17 08:59 07/10/17 08:00 1,000 MG Mirtazapine (Remeron Tab) 15 mg HS PO 07/08/17 21:00 08/07/17 20:59 1/3/18 20:43 15 MG Pantoprazole Sodium (Protonix Tab) 40 mg DAILY PO 07/08/17 09:00 08/07/17 08:59 07/10/17 08:00 40 MG Senna/Docusate Sodium (Senokot S Tab) 1 tab DAILY PO 07/08/17 09:00 08/07/17 08:59 07/10/17 08:00 1 TAB Simvastatin (Zocor Tab) 20 mg HS PO 07/08/17 21:00 08/07/17 20:59 07/09/17 20:43 20 MG Heparin Sodium (Porcine) (Heparin Sq 5000 Unit/0.5ml) 5,000 unit Q12H SQ 07/08/17 09:00 08/07/17 08:59 07/10/17 08:04 5,000 UNIT Sodium Chloride 1,000 ml @ 80 mls/hr [id number] IV 07/07/17 21:39 08/06/17 21:38 07/10/17 09:54 80 MLS/HR Acetaminophen (Tylenol Tab) 650 mg Q4H PRN PO 07/07/17 21:45 08/06/17 21:44 07/09/17 16:22 650 MG Ondansetron HCl (Zofran Inj) 4 mg Q6H PRN IV 07/07/17 21:45 08/06/17 21:44 Piperacillin Sod/ Tazobactam Sod 4.5 gm/Dextrose 120 ml @ 30 mls/hr Q8H IV 07/08/17 02:00 07/15/17 01:59 07/10/17 09:54 30 MLS/HR Levofloxacin 750 mg/Prmx 150 ml @ 100 mls/hr Q24H IV 07/08/17 06:00 07/15/17 05:59 07/10/17 05:40 100 MLS/HR Piperacillin Sod/ Tazobactam Sod (Consult) 1 ea UD PRN N/A 07/08/17 01:15 08/07/17 01:14 Ioversol (Optiray 320) 100 ml UD PRN IV 07/09/17 11:00 07/13/17 10:59 Vital Signs: Date Time Temp Pulse Resp B/P (MAP) Pulse Ox O2 Delivery O2 Flow Rate FiO2 07/10/17 11:37 36.8 74 18 149/74 (99) 92 07/10/17 08:20 High Flow Oxygen 50.0 70 07/10/17 07:26 37.1 102 18 168/76 (106) 90 07/10/17 07:20 100 22 91 Nasal Cannula 50.0 95 07/10/17 04:00 High Flow Oxygen 50.0 70 07/10/17 03:35 36.6 94 25 160/79 (106) 96 High Flow Oxygen 50 07/10/17 02:06 94 22 96 Nasal Cannula 50.0 90 07/10/17 00:00 BiPAP 07/09/17 23:50 68 92 60 07/09/17 23:33 36.6 72 20 157/84 (108) 94 CPAP 60 07/09/17 22:36 92 91 60 07/09/17 20:00 93 High Flow Oxygen 45.0 60 07/09/17 19:54 36.9 95 22 159/108 (125) 92 High Flow Oxygen 07/09/17 19:22 94 18 92 Nasal Cannula 40.0 70 07/09/17 16:00 92 High Flow Oxygen 45.0 60 07/09/17 15:38 37.2 102 24 177/101 (126) 90 High Flow Oxygen 07/09/17 14:39 88 18 93 Mask 9.0 07/09/17 12:00 36.5 94 18 151/73 (99) 93 BiPAP 07/09/17 12:00 Oxymask 10.0 Laboratory Results: Last 24 Hours Test 07/09/17 11:58 07/10/17 05:29 Arterial Blood pH 7.20 Arterial Blood Partial Pressure CO2 76 mmHg Arterial Blood Partial Pressure O2 67 mm/Hg Arterial Blood HCO3 29 mmol/L Arterial Blood Oxygen Saturation 88.7 % Arterial Blood Base Excess 0.1 mEq/L Arterial Blood Gas Delivery 10L Jordan Test POS White Blood Count 11.45 K/uL Red Blood Count 3.51 M/uL Hemoglobin 10.3 g/dL Hematocrit 32.9 % Mean Corpuscular Volume 93.7 fL Mean Corpuscular Hemoglobin 29.3 pg Mean Corpuscular Hemoglobin Concent 31.3 g/dl Platelet Count 309 K/uL Mean Platelet Volume 9.3 fL Neutrophils (%) (Auto) 81.5 % Lymphocytes (%) (Auto) 7.9 % Monocytes (%) (Auto) 9.3 % Eosinophils (%) (Auto) 0.0 % Basophils (%) (Auto) 0.2 % Neutrophils # (Auto) 9.33 K/uL Lymphocytes # (Auto) 0.91 K/uL Monocytes # (Auto) 1.06 K/uL Eosinophils # (Auto) 0.00 K/uL Basophils # (Auto) 0.02 K/uL RDW Standard Deviation 48.8 fL RDW Coefficient of Variation 14.2 % Immature Granulocyte % (Auto) 1.1 % Immature Granulocyte # (Auto) 0.13 K/uL Sodium Level 132 mmol/L Potassium Level 5.3 mmol/L Chloride Level 96 mmol/L Carbon Dioxide Level 33 mmol/L Anion Gap 3.0 mmol/L Blood Urea Nitrogen 25 mg/dl Creatinine 0.69 mg/dl Est Creatinine Clear Calc Drug Dose 75.8 ml/min Estimated GFR () 94.0 Estimated GFR (Non- 81.1 BUN/Creatinine Ratio 36.1 Random Glucose 154 mg/dl Calcium Level 8.5 mg/dl Chemistry Specimen Hemolysis
[2017-07-10] MEDS: LATANOPROST 0.005% OP SOLN 2.5 ML BTL OP SCH (19:57)
[2017-07-10] MEDS: MIRTAZAPINE TAB 15 MG TAB PO SCH (19:58)
[2017-07-10] MEDS: SIMVASTATIN 20 MG TAB PO SCH (19:58)
--- NOTE | 2017-07-10 20:54 | Progress Note ---
Medicine Progress Note Date & Time of Visit: Jul 10, 2017 at 20:54. Subjective Pt was seen and examined Lying in bed with mild respiratory distress Continue to cough Denies any chest pain and fever Objective Last 8 Hrs Date Time Temp Pulse Resp B/P (MAP) Pulse Ox O2 Delivery O2 Flow Rate FiO2 07/10/17 20:43 93 91 100 07/10/17 19:49 36.9 93 20 150/72 (98) 93 High Flow Oxygen 07/10/17 19:29 86 24 95 Nasal Cannula 50.0 96 07/10/17 15:19 36.9 99 30 107/73 (84) 93 High Flow Oxygen 07/10/17 14:28 94 20 94 Nasal Cannula 50.0 85 Physical Exam: General- No acute distress Head- atraumatic Eyes- PERRL, EOMI ENT- oropharynx clear Neck- supple, no JVD Lungs- coarse BS Heart- regular rhythm; no murmur Abdomen- normal bowel sounds, soft Extremities- no calf tenderness, Left ankle pain, splint with toño bandage in LE Neuro- alert, oriented x 3; PERRL, EOMI Skin- warm & dry Laboratory Results: Last 24 Hours Test 07/10/17 05:29 White Blood Count 11.45 K/uL Red Blood Count 3.51 M/uL Hemoglobin 10.3 g/dL Hematocrit 32.9 % Mean Corpuscular Volume 93.7 fL Mean Corpuscular Hemoglobin 29.3 pg Mean Corpuscular Hemoglobin Concent 31.3 g/dl Platelet Count 309 K/uL Mean Platelet Volume 9.3 fL Neutrophils (%) (Auto) 81.5 % Lymphocytes (%) (Auto) 7.9 % Monocytes (%) (Auto) 9.3 % Eosinophils (%) (Auto) 0.0 % Basophils (%) (Auto) 0.2 % Neutrophils # (Auto) 9.33 K/uL Lymphocytes # (Auto) 0.91 K/uL Monocytes # (Auto) 1.06 K/uL Eosinophils # (Auto) 0.00 K/uL Basophils # (Auto) 0.02 K/uL RDW Standard Deviation 48.8 fL RDW Coefficient of Variation 14.2 % Immature Granulocyte % (Auto) 1.1 % Immature Granulocyte # (Auto) 0.13 K/uL Sodium Level 132 mmol/L Potassium Level 5.3 mmol/L Chloride Level 96 mmol/L Carbon Dioxide Level 33 mmol/L Anion Gap 3.0 mmol/L Blood Urea Nitrogen 25 mg/dl Creatinine 0.69 mg/dl Est Creatinine Clear Calc Drug Dose 75.8 ml/min Estimated GFR () 94.0 Estimated GFR (Non- 81.1 BUN/Creatinine Ratio 36.1 Random Glucose 154 mg/dl Calcium Level 8.5 mg/dl Chemistry Specimen Hemolysis Assessment & Plan Acute hypercapnic respiratory failure Mostly related to COPD exacerbation vs Pneumonia CXR showed dense bibasilar airspace consolidation, right greater than left with associated pleural effusions. ABG on admission showed respiratory acidosis with comp On abx with Levaquin and Zosyn Negative influenza test Continue Solumedrol Continue supplement oxygen and intermittent BIPAP as tolerated Continue respiratory treatment with Duoneb Blood cx no growth monitor closely CT with PE protocol showed no evidence for PE. Dense bilateral lower lobe atelectasis/consolidation. Patchy airspace opacities are also present within the right upper lobe lingula and right middle lobe. ECHO * The echocardiogram is extremely technically limited. * Patient was sitting upright for the test. * There is no significant pericardial effusion noted. * The left ventricular systolic function is grossly normal on limited visualization. * The right ventricular systolic function is grossly normal. * The valves are poorly visualized. * There is no significant valvular stenosis or regurgitation on technically limited Doppler evaluation. Hyponatremia Possible related to hypovolemia Na on admission 128 Na today 132 On IVF with NS, will monitor closely Hyperkalemia K 5.3 If stay high, will give Kayexalate Continue monitor BMP Left Ankle fracture s/p fall Left ankle xray showed distal tibial and fibular fractures as above with mild lateral subluxation of the talus. Ortho on board pain control On 10L oxygen now, high risk for surgery for now Will need to postpone surgery until respiratory status improves Right pelvic ring fracture, Pelvis xray showed an age indeterminant right pubic ring fracture, possibly chronic. Stable Hypertension BP elevated Continue lisinopril. PRN clonidine Continue monitor BP Ulcerative colitis On Pentasa Stable Depression On Celexa Stable DVT px On heparin. Code DNR as per my discussion with Pt CODE STATUS Continue monitor in tele Current Inpatient Medications: Current Inpatient Medications Medications (Trade) Dose Ordered Sig/Reuben Route Start Time Stop Time Status Last Admin Dose Admin Levalbuterol (Xopenex 1.25MG/ 3ML Neb) 1.25 mg Q6R INH 07/07/17 22:30 08/06/17 22:29 07/10/17 19:29 1.25 MG Methylprednisolone Sodium Succinate 40 mg/Syringe 0.64 ml @ 1.5 mls/min Q6H IV 07/08/17 02:00 08/07/17 01:59 07/10/17 19:56 1.5 MLS/MIN Levofloxacin (Consult) 1 ea UD PRN N/A 07/08/17 01:09 08/07/17 01:08 Tramadol HCl (Ultram Tab) 50 mg Q6H PRN PO 07/07/17 21:30 08/06/17 21:29 07/08/17 07:55 50 MG Clonidine HCl (Catapres Tab) 0.1 mg Q6H PRN PO 07/07/17 21:30 08/06/17 21:29 07/09/17 16:21 0.1 MG Citalopram Hydrobromide (celeXA TAB) 40 mg DAILY PO 07/08/17 09:00 08/07/17 08:59 07/10/17 08:00 40 MG Latanoprost (Xalatan Oph Soln) 1 drops HS OP 07/08/17 21:00 08/07/17 20:59 07/10/17 19:57 1 DROPS Lisinopril (Zestril Tab) 20 mg DAILY PO 07/08/17 09:00 08/07/17 08:59 07/10/17 08:01 20 MG Mesalamine (Pentasa Controlled Rel Cap) 1,000 mg BID PO 07/08/17 09:00 08/07/17 08:59 07/10/17 19:59 1,000 MG Mirtazapine (Remeron Tab) 15 mg HS PO 07/08/17 21:00 08/07/17 20:59 07/10/17 19:58 15 MG Pantoprazole Sodium (Protonix Tab) 40 mg DAILY PO 07/08/17 09:00 08/07/17 08:59 07/10/17 08:00 40 MG Senna/Docusate Sodium (Senokot S Tab) 1 tab DAILY PO 07/08/17 09:00 08/07/17 08:59 07/10/17 08:00 1 TAB Simvastatin (Zocor Tab) 20 mg HS PO 07/08/17 21:00 08/07/17 20:59 07/10/17 19:58 20 MG Heparin Sodium (Porcine) (Heparin Sq 5000 Unit/0.5ml) 5,000 unit Q12H SQ 07/08/17 09:00 08/07/17 08:59 07/10/17 19:58 5,000 UNIT Sodium Chloride 1,000 ml @ 80 mls/hr [id number] IV 07/07/17 21:39 08/06/17 21:38 07/10/17 09:54 80 MLS/HR Acetaminophen (Tylenol Tab) 650 mg Q4H PRN PO 07/07/17 21:45 08/06/17 21:44 07/09/17 16:22 650 MG Ondansetron HCl (Zofran Inj) 4 mg Q6H PRN IV 07/07/17 21:45 08/06/17 21:44 Piperacillin Sod/ Tazobactam Sod 4.5 gm/Dextrose 120 ml @ 30 mls/hr Q8H IV 07/08/17 02:00 07/15/17 01:59 07/10/17 18:09 30 MLS/HR Levofloxacin 750 mg/Prmx 150 ml @ 100 mls/hr Q24H IV 07/08/17 06:00 07/15/17 05:59 07/10/17 05:40 100 MLS/HR Piperacillin Sod/ Tazobactam Sod (Consult) 1 ea UD PRN N/A 07/08/17 01:15 08/07/17 01:14 Ioversol (Optiray 320) 100 ml UD PRN IV 07/09/17 11:00 07/13/17 10:59
[2017-07-11] VITALS (13 sets, daily range): BP systolic 112–174; BP diastolic 60–98; PULSE 78–146; TEMP 36.6–37.1; O2SAT 87–100
[2017-07-11] MEDS: LEVALBUTEROL 1.25MG/3ML NEB INH SCH ×4 (02:03→18:58)
[2017-07-11] MEDS: PIPERACILL/TAZOBAC IV 4.5 GM in DEXTROSE 5% 100ML IV SCH ×3 (02:15→16:56)
[2017-07-11] MEDS: METHYLPREDNISOLONE IV 40 MG in SYRINGE 0 ML IV SCH ×4 (02:15→21:40)
[2017-07-11] MEDS: LEVOFLOXACIN 750MG / D5W IV SCH (05:45)
[2017-07-11 06:17] LABS: BASO % 0.3 %; BASO ABS # 0.03 K/uL (0-0.2); HEMATOCRIT 33.7 % (37-47); HEMOGLOBIN 10.5 g/dL (12.0-16.0); IG# 0.21 K/uL (0.00-0.02); LYMPH % 6.5 %; LYMPH ABS # 0.71 K/uL (1.2-3.4); MEAN CELL VOLUME 94.7 fL (80-100); MEAN CORPUSCULAR HEMOGLOBIN 29.5 pg (25-34); MEAN CORPUSCULAR HGB CONC 31.2 g/dl (32-36); MEAN PLATELET VOLUME 9.2 fL (7.4-10.4); MONO % 9.7 %; MONO ABS # 1.06 K/uL (0.11-0.59); NEUT % 81.6 %; NEUT ABS # 8.93 K/uL (1.4-6.5); PLATELET COUNT 289 K/uL (130-400); RED CELL DISTRIBUTION WIDTH CV 13.9 % (11.5-14.5); RED CELL DISTRIBUTION WIDTH SD 48.6 fL (36.4-46.3); WHITE BLOOD COUNT 10.94 K/uL (4.8-10.8)
[2017-07-11 06:49] LABS: CALCIUM 8.5 mg/dl (8.5-10.1); CREATININE 0.66 mg/dl (0.60-1.20); POTASSIUM 5.3 mmol/L (3.5-5.1)
[2017-07-11] MEDS: HEPARIN SOD 5000 UNIT/0.5 ML CARP SQ SCH (09:21)
[2017-07-11] MEDS ORDERED: AMLODIPINE BESYLATE 5 MG TAB PO ONE (09:24)
[2017-07-11] MEDS: DOCUSATE SODIUM/SENNA 50/8.6MG TAB PO SCH (09:27)
[2017-07-11] MEDS: CITALOPRAM 40 MG TAB PO SCH (09:27)
[2017-07-11] MEDS: LISINOPRIL 20 MG TAB PO SCH (09:27)
[2017-07-11] MEDS: PANTOprazole SOD 40 MG TAB PO SCH (09:27)
--- NOTE | 2017-07-11 09:27 | Progress Note ---
Medicine Progress Note Date & Time of Visit: Jul 11, 2017 at 09:22. Subjective Pt was seen and examined Lying in bed with mild respiratory distress I had a long discussion with her daughter today and updated provide Also daughter awared that pt changed her code status to DNR Continue to cough She did not keep the BIPAP on for most of the night Pt continue to feel drowsy Denies any chest pain and fever Objective Last 8 Hrs Date Time Temp Pulse Resp B/P (MAP) Pulse Ox O2 Delivery O2 Flow Rate FiO2 07/11/17 07:55 83 23 93 Nasal Cannula 50.0 95 07/11/17 07:45 37.0 80 24 173/82 (112) 95 High Flow Oxygen 07/11/17 04:00 BiPAP 07/11/17 03:45 37.1 92 22 166/85 (112) 92 High Flow Oxygen 07/11/17 02:03 95 23 96 Nasal Cannula 50.0 96 Physical Exam: General- No acute distress Head- atraumatic Eyes- PERRL, EOMI ENT- oropharynx clear Neck- supple, no JVD Lungs- coarse BS Heart- Tachycardia Abdomen- normal bowel sounds, soft Extremities- no calf tenderness, Left ankle pain, splint with toño bandage in LE Neuro- lethargy Skin- warm & dry Laboratory Results: Last 24 Hours Test 07/11/17 06:04 07/11/17 08:44 White Blood Count 10.94 K/uL Red Blood Count 3.56 M/uL Hemoglobin 10.5 g/dL Hematocrit 33.7 % Mean Corpuscular Volume 94.7 fL Mean Corpuscular Hemoglobin 29.5 pg Mean Corpuscular Hemoglobin Concent 31.2 g/dl Platelet Count 289 K/uL Mean Platelet Volume 9.2 fL Neutrophils (%) (Auto) 81.6 % Lymphocytes (%) (Auto) 6.5 % Monocytes (%) (Auto) 9.7 % Eosinophils (%) (Auto) 0.0 % Basophils (%) (Auto) 0.3 % Neutrophils # (Auto) 8.93 K/uL Lymphocytes # (Auto) 0.71 K/uL Monocytes # (Auto) 1.06 K/uL Eosinophils # (Auto) 0.00 K/uL Basophils # (Auto) 0.03 K/uL RDW Standard Deviation 48.6 fL RDW Coefficient of Variation 13.9 % Immature Granulocyte % (Auto) 1.9 % Immature Granulocyte # (Auto) 0.21 K/uL Sodium Level 133 mmol/L Potassium Level 5.3 mmol/L Chloride Level 96 mmol/L Carbon Dioxide Level 37 mmol/L Anion Gap 0.0 mmol/L Blood Urea Nitrogen 24 mg/dl Creatinine 0.66 mg/dl Est Creatinine Clear Calc Drug Dose 79.3 ml/min Estimated GFR () 95.3 Estimated GFR (Non- 82.3 BUN/Creatinine Ratio 37.0 Random Glucose 148 mg/dl Calcium Level 8.5 mg/dl Arterial Blood pH 7.27 Arterial Blood Partial Pressure CO2 80 mmHg Arterial Blood Partial Pressure O2 116 mm/Hg Arterial Blood HCO3 36 mmol/L Arterial Blood Oxygen Saturation 96.7 % Arterial Blood Base Excess 6.7 mEq/L Arterial Blood Gas Delivery 95% Jordan Test POS Assessment & Plan Acute hypercapnic respiratory failure Mostly related to COPD exacerbation vs Pneumonia CXR showed dense bibasilar airspace consolidation, right greater than left with associated pleural effusions. ABG on admission showed respiratory acidosis with comp Continue Levaquin and Zosyn Negative influenza test Continue Solumedrol Continue BIPAP with intermittent high flow supplement oxygen Continue respiratory treatment with Duoneb Blood cx no growth ABG done today showed respiratory acidosis with PCO2 80 Not to sure if it due to noncompliant since pt does not want to keep the Bipap on or if we need to change the setting. Will repeat ABG Will give lasix x1 dose monitor closely CT with PE protocol showed no evidence for PE. Dense bilateral lower lobe atelectasis/consolidation. Patchy airspace opacities are also present within the right upper lobe lingula and right middle lobe. ECHO * The echocardiogram is extremely technically limited. * Patient was sitting upright for the test. * There is no significant pericardial effusion noted. * The left ventricular systolic function is grossly normal on limited visualization. * The right ventricular systolic function is grossly normal. * The valves are poorly visualized. * There is no significant valvular stenosis or regurgitation on technically limited Doppler evaluation. Hyponatremia Possible related to hypovolemia Na on admission 128 Na today 132 Will D/C IVF Hyperkalemia K 5.3 Pt is on lisinopril (might not be a good candidate for ACEI due to hyperkalemia) Will put on a low K diet If stay high, will give Kayexalate Continue monitor BMP Left Ankle fracture s/p fall Left ankle xray showed distal tibial and fibular fractures as above with mild lateral subluxation of the talus. Ortho on board pain control On 10L oxygen now, high risk for surgery for now Will need to postpone surgery until respiratory status improves Right pelvic ring fracture, Pelvis xray showed an age indeterminant right pubic ring fracture, possibly chronic. Stable Hypertension BP elevated Continue lisinopril. will add amlodipine PRN clonidine Continue monitor BP Ulcerative colitis On Pentasa Stable Depression On Celexa Stable DVT px On heparin. CODE STATUS DNR DISPOSITION Continue monitor in tele Consultants: Pulmonary Current Inpatient Medications: Current Inpatient Medications Medications (Trade) Dose Ordered Sig/Reuben Route Start Time Stop Time Status Last Admin Dose Admin Levalbuterol (Xopenex 1.25MG/ 3ML Neb) 1.25 mg Q6R INH 07/07/17 22:30 08/06/17 22:29 07/11/17 07:17 1.25 MG Methylprednisolone Sodium Succinate 40 mg/Syringe 0.64 ml @ 1.5 mls/min Q6H IV 07/08/17 02:00 08/07/17 01:59 07/11/17 02:15 1.5 MLS/MIN Levofloxacin (Consult) 1 ea UD PRN N/A 07/08/17 01:09 08/07/17 01:08 Tramadol HCl (Ultram Tab) 50 mg Q6H PRN PO 07/07/17 21:30 08/06/17 21:29 07/08/17 07:55 50 MG Clonidine HCl (Catapres Tab) 0.1 mg Q6H PRN PO 07/07/17 21:30 08/06/17 21:29 07/09/17 16:21 0.1 MG Citalopram Hydrobromide (celeXA TAB) 40 mg DAILY PO 07/08/17 09:00 08/07/17 08:59 07/10/17 08:00 40 MG Latanoprost (Xalatan Oph Soln) 1 drops HS OP 07/08/17 21:00 08/07/17 20:59 07/10/17 19:57 1 DROPS Lisinopril (Zestril Tab) 20 mg DAILY PO 07/08/17 09:00 08/07/17 08:59 07/10/17 08:01 20 MG Mesalamine (Pentasa Controlled Rel Cap) 1,000 mg BID PO 07/08/17 09:00 08/07/17 08:59 07/10/17 19:59 1,000 MG Mirtazapine (Remeron Tab) 15 mg HS PO 07/08/17 21:00 08/07/17 20:59 07/10/17 19:58 15 MG Pantoprazole Sodium (Protonix Tab) 40 mg DAILY PO 07/08/17 09:00 08/07/17 08:59 07/10/17 08:00 40 MG Senna/Docusate Sodium (Senokot S Tab) 1 tab DAILY PO 07/08/17 09:00 08/07/17 08:59 07/10/17 08:00 1 TAB Simvastatin (Zocor Tab) 20 mg HS PO 07/08/17 21:00 08/07/17 20:59 07/10/17 19:58 20 MG Heparin Sodium (Porcine) (Heparin Sq 5000 Unit/0.5ml) 5,000 unit Q12H SQ 07/08/17 09:00 08/07/17 08:59 07/10/17 19:58 5,000 UNIT Sodium Chloride 1,000 ml @ 80 mls/hr [id number] IV 07/07/17 21:39 08/06/17 21:38 07/10/17 22:23 80 MLS/HR Acetaminophen (Tylenol Tab) 650 mg Q4H PRN PO 07/07/17 21:45 08/06/17 21:44 07/09/17 16:22 650 MG Ondansetron HCl (Zofran Inj) 4 mg Q6H PRN IV 07/07/17 21:45 08/06/17 21:44 Piperacillin Sod/ Tazobactam Sod 4.5 gm/Dextrose 120 ml @ 30 mls/hr Q8H IV 07/08/17 02:00 07/15/17 01:59 07/11/17 02:15 30 MLS/HR Levofloxacin 750 mg/Prmx 150 ml @ 100 mls/hr Q24H IV 07/08/17 06:00 07/15/17 05:59 07/11/17 05:45 100 MLS/HR Piperacillin Sod/ Tazobactam Sod (Consult) 1 ea UD PRN N/A 07/08/17 01:15 08/07/17 01:14 Ioversol (Optiray 320) 100 ml UD PRN IV 07/09/17 11:00 07/13/17 10:59
[2017-07-11] MEDS: MESALAMINE 250 MG CAPCR PO SCH ×2 (09:28→21:40)
[2017-07-11] MEDS ORDERED: LORAZEPAM 2 MG/ML 1 ML VIAL IV PRN (12:45)
[2017-07-11] MEDS ORDERED: FUROSEMIDE INJ 20 MG in SYRINGE 0 ML IV ONE (16:30)
--- NOTE | 2017-07-11 17:08 | Pulmonology Progress Note ---
Pulmonary Progress Note Date of Service Jul 11, 2017. Attending Dr. Gallo Subjective Patient seen and examined this morning. Per nursing staff she is refusing of BiPAP. Using high flow nasal cannula intermittently. She still lethargic and mildly tachypneic. Objective VS reviewed. BP 37.1, BP 166/85-134/90, P 78-95, RR 19-24, SaO2 91-100 % on HFNC 50 L/m, 50%. 1.4 L + since admission Gen: Lethargic, appears a bit more comfortable today CVS: S1, S2, RRR Lungs: decreased breath sound bilaterally, crackles at bases, tachypneic Abd: soft/NT/NT/BS+ Ext: left lower extremity in splint, right lower extremity trace edema, chronic venous changes; no cyanosis, no clubbing Labs reviewed. ABG 7.27/80/116/36/96.7% on high flow nasal cannula Sodium 133, potassium 5.3, CO2 37, BUN 24 and creatinine 0.66. Imaging reviewed. CTA chest 07/09/2016 IMPRESSION: 1. Study compromised by respiratory motion artifact 2. No evidence of acute pulmonary embolism 3. No evidence of pathologic adenopathy 4. 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 Dense bilateral lower lobe atelectasis/consolidation. Patchy airspace opacities are also present within the right upper lobe lingula and right middle lobe. 6. Small bilateral pleural effusions 7. Severe L1 compression fracture with mild retropulsion. Medications reviewed. Assessment & Plan Acute on chronic hypercapnic hypoxic respiratory failure COPD (unknown FEV1) in acute exacerbation Hypertensive urgency Possible diastolic dysfunction Electrolyte imbalance Tobacco use disorder Morbid obesity Mrs. Farrar is a 81-year-old female who presents with acute on chronic hypercapnic respiratory failure with status post fall and sustaining left bimalleolar fracture. She is on chronic long-term oxygen therapy at 2 L/m during the day and 4 L/m at night, for COPD. She is not doing well from a respiratory standpoint. She is still quite tachypneic however improving. She is noncompliant BiPAP and using high flow nasal cannula intermittently. She still remains in respiratory acidosis. I stressed compliance with BiPAP to help improve her acid base status. Recommendations Continue with BiPAP and high flow nasal cannula intermittently Continue to treat for COPD exacerbation with broad-spectrum antibiotics, nebulizers and IV corticosteroids. We can likely taper Solu-Medrol to 40 mg every 12 hours tomorrow. I agree with diuresis as needed. Encourage flutter valve and incentive spirometry. Continue with DVT prophylaxis. She is not improving significantly the last few days. If her course remains the same recommend palliative consult to address goals of care with family. I will continue to follow. Discussed with Dr. Singh. Data Medications: Current Inpatient Medications Medications (Trade) Dose Ordered Sig/Reuben Route Start Time Stop Time Status Last Admin Dose Admin Levalbuterol (Xopenex 1.25MG/ 3ML Neb) 1.25 mg Q6R INH 07/07/17 22:30 08/06/17 22:29 07/11/17 14:05 1.25 MG Methylprednisolone Sodium Succinate 40 mg/Syringe 0.64 ml @ 1.5 mls/min Q6H IV 07/08/17 02:00 08/07/17 01:59 07/11/17 13:48 1.5 MLS/MIN Levofloxacin (Consult) 1 ea UD PRN N/A 07/08/17 01:09 08/07/17 01:08 Tramadol HCl (Ultram Tab) 50 mg Q6H PRN PO 07/07/17 21:30 08/06/17 21:29 07/08/17 07:55 50 MG Clonidine HCl (Catapres Tab) 0.1 mg Q6H PRN PO 07/07/17 21:30 08/06/17 21:29 07/09/17 16:21 0.1 MG Citalopram Hydrobromide (celeXA TAB) 40 mg DAILY PO 07/08/17 09:00 08/07/17 08:59 07/11/17 09:27 40 MG Latanoprost (Xalatan Oph Soln) 1 drops HS OP 07/08/17 21:00 08/07/17 20:59 07/10/17 19:57 1 DROPS Lisinopril (Zestril Tab) 20 mg DAILY PO 07/08/17 09:00 08/07/17 08:59 07/11/17 09:27 20 MG Mesalamine (Pentasa Controlled Rel Cap) 1,000 mg BID PO 07/08/17 09:00 08/07/17 08:59 07/11/17 09:28 1,000 MG Mirtazapine (Remeron Tab) 15 mg HS PO 07/08/17 21:00 08/07/17 20:59 07/10/17 19:58 15 MG Pantoprazole Sodium (Protonix Tab) 40 mg DAILY PO 07/08/17 09:00 08/07/17 08:59 07/11/17 09:27 40 MG Senna/Docusate Sodium (Senokot S Tab) 1 tab DAILY PO 07/08/17 09:00 08/07/17 08:59 07/11/17 09:27 1 TAB Simvastatin (Zocor Tab) 20 mg HS PO 07/08/17 21:00 08/07/17 20:59 07/10/17 19:58 20 MG Heparin Sodium (Porcine) (Heparin Sq 5000 Unit/0.5ml) 5,000 unit Q12H SQ 07/08/17 09:00 08/07/17 08:59 07/11/17 09:21 5,000 UNIT Acetaminophen (Tylenol Tab) 650 mg Q4H PRN PO 07/07/17 21:45 08/06/17 21:44 07/09/17 16:22 650 MG Ondansetron HCl (Zofran Inj) 4 mg Q6H PRN IV 07/07/17 21:45 08/06/17 21:44 Piperacillin Sod/ Tazobactam Sod 4.5 gm/Dextrose 120 ml @ 30 mls/hr Q8H IV 07/08/17 02:00 07/15/17 01:59 07/11/17 16:56 30 MLS/HR Levofloxacin 750 mg/Prmx 150 ml @ 100 mls/hr Q24H IV 07/08/17 06:00 07/15/17 05:59 07/11/17 05:45 100 MLS/HR Piperacillin Sod/ Tazobactam Sod (Consult) 1 ea UD PRN N/A 07/08/17 01:15 08/07/17 01:14 Ioversol (Optiray 320) 100 ml UD PRN IV 07/09/17 11:00 07/13/17 10:59 Amlodipine Besylate (Norvasc Tab) 5 mg QAM PO 07/12/17 09:00 08/11/17 08:59 I & O: 24-Hour Column 07/12/17 08:00 Output Total 700 ml Balance -700 ml Vital Signs: Date Time Temp Pulse Resp B/P (MAP) Pulse Ox O2 Delivery O2 Flow Rate FiO2 07/11/17 15:12 36.6 78 21 172/79 (110) 91 BiPAP 07/11/17 14:07 90 100 100 07/11/17 14:05 90 19 100 BiPAP/CPAP 100 07/11/17 12:00 BiPAP 07/11/17 11:40 37.0 92 20 174/98 (123) 95 07/11/17 08:00 High Flow Oxygen 95 Nasal Cannula 07/11/17 07:55 83 23 93 Nasal Cannula 50.0 95 07/11/17 07:45 37.0 80 24 173/82 (112) 95 High Flow Oxygen 07/11/17 04:00 BiPAP 07/11/17 03:45 37.1 92 22 166/85 (112) 92 High Flow Oxygen 07/11/17 02:03 95 23 96 Nasal Cannula 50.0 96 07/11/17 00:00 BiPAP 07/10/17 23:42 37.1 95 25 157/97 (117) 91 BiPAP 60 07/10/17 23:06 97 91 60 07/10/17 20:58 80 96 100 07/10/17 20:43 93 91 100 07/10/17 20:00 93 BiPAP 07/10/17 19:49 36.9 93 20 150/72 (98) 93 High Flow Oxygen 07/10/17 19:29 86 24 95 Nasal Cannula 50.0 96 Laboratory Results: Last 24 Hours Test 07/11/17 06:04 07/11/17 08:44 White Blood Count 10.94 K/uL Red Blood Count 3.56 M/uL Hemoglobin 10.5 g/dL Hematocrit 33.7 % Mean Corpuscular Volume 94.7 fL Mean Corpuscular Hemoglobin 29.5 pg Mean Corpuscular Hemoglobin Concent 31.2 g/dl Platelet Count 289 K/uL Mean Platelet Volume 9.2 fL Neutrophils (%) (Auto) 81.6 % Lymphocytes (%) (Auto) 6.5 % Monocytes (%) (Auto) 9.7 % Eosinophils (%) (Auto) 0.0 % Basophils (%) (Auto) 0.3 % Neutrophils # (Auto) 8.93 K/uL Lymphocytes # (Auto) 0.71 K/uL Monocytes # (Auto) 1.06 K/uL Eosinophils # (Auto) 0.00 K/uL Basophils # (Auto) 0.03 K/uL RDW Standard Deviation 48.6 fL RDW Coefficient of Variation 13.9 % Immature Granulocyte % (Auto) 1.9 % Immature Granulocyte # (Auto) 0.21 K/uL Sodium Level 133 mmol/L Potassium Level 5.3 mmol/L Chloride Level 96 mmol/L Carbon Dioxide Level 37 mmol/L Anion Gap 0.0 mmol/L Blood Urea Nitrogen 24 mg/dl Creatinine 0.66 mg/dl Est Creatinine Clear Calc Drug Dose 79.3 ml/min Estimated GFR () 95.3 Estimated GFR (Non- 82.3 BUN/Creatinine Ratio 37.0 Random Glucose 148 mg/dl Calcium Level 8.5 mg/dl Arterial Blood pH 7.27 Arterial Blood Partial Pressure CO2 80 mmHg Arterial Blood Partial Pressure O2 116 mm/Hg Arterial Blood HCO3 36 mmol/L Arterial Blood Oxygen Saturation 96.7 % Arterial Blood Base Excess 6.7 mEq/L Arterial Blood Gas Delivery 95% Jordan Test POS
[2017-07-11] MEDS ORDERED: SODIUM CHLORIDE 0.9% 500ML 500 ML IV ONE (19:30)
[2017-07-11] MEDS ORDERED: DIGOXIN IV 250 MCG in SYRINGE 9 ML IV ONE (19:45)
--- NOTE | 2017-07-11 19:54 | DIAGNOSTIC IMAGING REPORT ---
CHEST ONE VIEW PORTABLE CLINICAL HISTORY: Hypoxia. COMPARISON STUDY: Chest radiograph July 07, [address] July 09, 2017. FINDINGS: There is no pneumothorax. Cardiomegaly is unchanged. Multiple bilateral pleural effusion is slightly increased in size. There are persistent interstitial thickening and persistent bibasilar opacities. IMPRESSION: 1. Persistent interstitial thickening which favors pulmonary edema however an infectious process could appear similar. 2. Slight increase in size of small bilateral pleural effusions. 3. Persistent bibasilar opacities which could reflect pneumonia or atelectasis. Electronically signed by: Devyn Lewis M.D. 07/11/2017 7:53 PM Dictated Date/Time: 07/11/2017 7:51 PM
[2017-07-11] MEDS ORDERED: DILTIAZEM HCL 5 MG/ML 5 ML VIAL IV STA ×2 (20:03→23:16)
[2017-07-11 20:12] LABS: PTT PATIENT 25.4 SECONDS (21.0-31.0)
--- NOTE | 2017-07-11 20:23 | Progress Note ---
Internal Med Progress Note Date of Service: Jul 11, 2017. Provider Documentation: Made aware by RN of tachycardia around 7:30 PM. CR 140s on the monitor. Initial SVT later atrial flutter No response to vagal maneuvers as per RN. Unable to obtain BP initially. Patient mentating at baseline, denies chest pain or unusual shortness of breath as per RN. Some dizziness as per patient stat IVF bolus, digoxin given. SBP 140s later on. AP New onset atrial flutter IV Cardizem bolus now Initiate maintenance oral Cardizem Hold other antihypertensive meds for now Check lytes Cardiology consult in AM re: new onset AFL We relay to AM provider. Vital Signs: Date Time Temp Pulse Resp B/P (MAP) Pulse Ox O2 Delivery O2 Flow Rate FiO2 07/12/17 04:00 BiPAP 07/12/17 03:33 36.5 108 19 164/83 (110) 94 CPAP 07/12/17 01:36 108 28 95 BiPAP/CPAP 70 07/12/17 00:02 96 91 70 07/12/17 00:00 BiPAP 07/11/17 23:33 37.1 97 25 112/80 (91) 92 High Flow Oxygen 07/11/17 23:16 164/98 (120) 07/11/17 20:35 112/60 (77) 07/11/17 20:00 BiPAP 07/11/17 19:43 144 07/11/17 19:26 37.1 146 19 130/76 (94) 88 High Flow Oxygen 07/11/17 19:01 96 20 87 Nasal Cannula 50.0 95 07/11/17 16:00 BiPAP 07/11/17 15:12 36.6 78 21 172/79 (110) 91 BiPAP 07/11/17 14:07 90 100 100 07/11/17 14:05 90 19 100 BiPAP/CPAP 100 07/11/17 12:00 BiPAP 07/11/17 11:40 37.0 92 20 174/98 (123) 95 07/11/17 08:00 High Flow Oxygen 95 Nasal Cannula 07/11/17 07:55 83 23 93 Nasal Cannula 50.0 95 07/11/17 07:45 37.0 80 24 173/82 (112) 95 High Flow Oxygen Lab Results: Results Past 24 Hours Test 07/11/17 08:44 07/11/17 19:52 1/6/18 06:02 Range/Units Arterial Blood pH 7.27 7.42 7.41 7.35-7.45 Arterial Blood Partial Pressure CO2 80 59 63 35-46 mmHg Arterial Blood Partial Pressure O2 116 62 71 80-95 mm/Hg Arterial Blood HCO3 36 37 39 19-24 mmol/L Arterial Blood Oxygen Saturation 96.7 90.9 92.1 90-95 % Arterial Blood Base Excess 6.7 11.0 11.8 -9-1.8 mEq/L Arterial Blood Gas Delivery 95% 97% 70% BIPAP Jordan Test POS POS POS POS Activated Partial Thromboplast Time 25.4 21.0-31.0 SECONDS Partial Thromboplastin Ratio 1.0 Sodium Level 132 136-145 mmol/L Potassium Level 4.5 3.5-5.1 mmol/L Chloride Level 92 98-107 mmol/L Carbon Dioxide Level 39 21-32 mmol/L Anion Gap 1.0 3-11 mmol/L Blood Urea Nitrogen 25 7-18 mg/dl Creatinine 0.81 0.60-1.20 mg/dl Est Creatinine Clear Calc Drug Dose 64.6 ml/min Estimated GFR () 78.4 Estimated GFR (Non- 67.6 BUN/Creatinine Ratio 30.7 10-20 Random Glucose 185 70-99 mg/dl Lactic Acid Level 1.2 0.4-2.0 mmol/L Calcium Level 8.5 8.5-10.1 mg/dl Magnesium Level 2.1 1.8-2.4 mg/dl Troponin I 0.032 0-0.045 ng/ml Thyroid Stimulating Hormone (TSH) 0.206 0.300-4.500 uIu/ml Free Thyroxine 1.31 0.80-1.60 ng/dl White Blood Count 13.33 4.8-10.8 K/uL Red Blood Count 3.58 4.2-5.4 M/uL Hemoglobin 10.6 12.0-16.0 g/dL Hematocrit 33.2 37-47 % Mean Corpuscular Volume 92.7 80-100 fL Mean Corpuscular Hemoglobin 29.6 25-34 pg Mean Corpuscular Hemoglobin Concent 31.9 32-36 g/dl Platelet Count 281 130-400 K/uL Mean Platelet Volume 9.1 7.4-10.4 fL Neutrophils (%) (Auto) 87.5 % Lymphocytes (%) (Auto) 5.5 % Monocytes (%) (Auto) 5.3 % Eosinophils (%) (Auto) 0.0 % Basophils (%) (Auto) 0.2 % Neutrophils # (Auto) 11.67 1.4-6.5 K/uL Lymphocytes # (Auto) 0.73 1.2-3.4 K/uL Monocytes # (Auto) 0.71 0.11-0.59 K/uL Eosinophils # (Auto) 0.00 0-0.5 K/uL Basophils # (Auto) 0.02 0-0.2 K/uL RDW Standard Deviation 47.0 36.4-46.3 fL RDW Coefficient of Variation 13.8 11.5-14.5 % Immature Granulocyte % (Auto) 1.5 % Immature Granulocyte # (Auto) 0.20 0.00-0.02 K/uL
[2017-07-11 20:27] LABS: CALCIUM 8.5 mg/dl (8.5-10.1); CREATININE 0.81 mg/dl (0.60-1.20); POTASSIUM 4.5 mmol/L (3.5-5.1)
[2017-07-11] MEDS ORDERED: DILTIAZEM HCL 5 MG/ML 5 ML VIAL IV ONE ×2 (20:45→21:00)
[2017-07-11] MEDS ORDERED: DILTIAZEM HCL 120 MG CAPCR PO ONE (20:53)
[2017-07-11] MEDS: MIRTAZAPINE TAB 15 MG TAB PO SCH (21:40)
[2017-07-11] MEDS: SIMVASTATIN 20 MG TAB PO SCH (21:40)
[2017-07-11] MEDS: LATANOPROST 0.005% OP SOLN 2.5 ML BTL OP SCH (21:41)
[2017-07-12] VITALS (13 sets, daily range): BP systolic 136–164; BP diastolic 71–95; PULSE 96–130; TEMP 35.9–37; O2SAT 91–95
[2017-07-12] MEDS: LEVALBUTEROL 1.25MG/3ML NEB INH SCH ×4 (01:35→19:47)
[2017-07-12] MEDS: METHYLPREDNISOLONE IV 40 MG in SYRINGE 0 ML IV SCH ×3 (02:14→21:23)
[2017-07-12] MEDS: PIPERACILL/TAZOBAC IV 4.5 GM in DEXTROSE 5% 100ML IV SCH ×3 (02:14→17:12)
[2017-07-12] MEDS ORDERED: DILTIAZEM HCL 180 MG CAPCR PO ONE (05:00)
[2017-07-12] MEDS: LEVOFLOXACIN 750MG / D5W IV SCH (06:03)
[2017-07-12 06:12] LABS: BASO % 0.2 %; BASO ABS # 0.02 K/uL (0-0.2); HEMATOCRIT 33.2 % (37-47); HEMOGLOBIN 10.6 g/dL (12.0-16.0); LYMPH % 5.5 %; LYMPH ABS # 0.73 K/uL (1.2-3.4); MEAN CELL VOLUME 92.7 fL (80-100); MEAN CORPUSCULAR HEMOGLOBIN 29.6 pg (25-34); MEAN CORPUSCULAR HGB CONC 31.9 g/dl (32-36); MEAN PLATELET VOLUME 9.1 fL (7.4-10.4); MONO % 5.3 %; MONO ABS # 0.71 K/uL (0.11-0.59); NEUT % 87.5 %; NEUT ABS # 11.67 K/uL (1.4-6.5); PLATELET COUNT 281 K/uL (130-400); RED CELL DISTRIBUTION WIDTH CV 13.8 % (11.5-14.5); WHITE BLOOD COUNT 13.33 K/uL (4.8-10.8)
[2017-07-12 06:41] LABS: CALCIUM 8.4 mg/dl (8.5-10.1); CREATININE 0.73 mg/dl (0.60-1.20); POTASSIUM 4.5 mmol/L (3.5-5.1)
[2017-07-12] MEDS: DOCUSATE SODIUM/SENNA 50/8.6MG TAB PO SCH (07:53)
[2017-07-12] MEDS: PANTOprazole SOD 40 MG TAB PO SCH (07:53)
[2017-07-12] MEDS: CITALOPRAM 40 MG TAB PO SCH (07:53)
[2017-07-12] MEDS: MESALAMINE 250 MG CAPCR PO SCH ×2 (07:53→21:24)
--- NOTE | 2017-07-12 08:09 | Orthopedic Progress Note ---
Orthopedic Progress Note Date of Service Jul 12, 2017. Subjective Additional Notes: pain in ankle tolerable, currently rates as 2/10 Objective splint C/D/I, A&O x3, toes mobile Date Time Temp Pulse Resp B/P (MAP) Pulse Ox O2 Delivery O2 Flow Rate FiO2 07/12/17 06:58 103 94 70 07/12/17 06:57 103 32 94 BiPAP/CPAP 70 07/12/17 04:00 BiPAP 07/12/17 03:33 36.5 108 19 164/83 (110) 94 CPAP 07/12/17 01:36 108 28 95 BiPAP/CPAP 70 07/12/17 00:02 96 91 70 07/12/17 00:00 BiPAP 07/11/17 23:33 37.1 97 25 112/80 (91) 92 High Flow Oxygen 07/11/17 23:16 164/98 (120) 07/11/17 20:35 112/60 (77) 07/11/17 20:00 BiPAP 07/11/17 19:43 144 07/11/17 19:26 37.1 146 19 130/76 (94) 88 High Flow Oxygen 07/11/17 19:01 96 20 87 Nasal Cannula 50.0 95 07/11/17 16:00 BiPAP 07/11/17 15:12 36.6 78 21 172/79 (110) 91 BiPAP 07/11/17 14:07 90 100 100 07/11/17 14:05 90 19 100 BiPAP/CPAP 100 07/11/17 12:00 BiPAP 07/11/17 11:40 37.0 92 20 174/98 (123) 95 Laboratory Results 24 Hours: Test 07/12/17 06:02 White Blood Count 13.33 K/uL Red Blood Count 3.58 M/uL Hemoglobin 10.6 g/dL Hematocrit 33.2 % Mean Corpuscular Volume 92.7 fL Mean Corpuscular Hemoglobin 29.6 pg Mean Corpuscular Hemoglobin Concent 31.9 g/dl Platelet Count 281 K/uL Mean Platelet Volume 9.1 fL Neutrophils (%) (Auto) 87.5 % Lymphocytes (%) (Auto) 5.5 % Monocytes (%) (Auto) 5.3 % Eosinophils (%) (Auto) 0.0 % Basophils (%) (Auto) 0.2 % Neutrophils # (Auto) 11.67 K/uL Lymphocytes # (Auto) 0.73 K/uL Monocytes # (Auto) 0.71 K/uL Eosinophils # (Auto) 0.00 K/uL Basophils # (Auto) 0.02 K/uL Assessment & Plan Assessment: Left Bimalleolar ankle fracture, will need ORIF, however, with her current status will wait until she is medically cleared. remain NWB, ice/elevate, remain in splint, it was checked this am and no issues noted. plan will be for ORIF once medically cleared. please contact us when she is felt to be medically stable for surgery, or if she experiences increased pain or issues with the splint.
--- NOTE | 2017-07-12 08:23 | CARDIOLOGY CONSULTATION ---
DATE OF CONSULTATION: 07/11/2017 REFERRING PHYSICIAN: Dr. Yvan Clarke. REASON FOR CONSULTATION: Atrial flutter. HISTORY OF PRESENT ILLNESS: Ms. Farrar is an 81-year-old female who is admitted with exacerbation of COPD, hypercapnic respiratory failure, and pneumonia. The patient was initially acidotic on admission, 07/07/2017. She has been treated with BiPAP and her blood gas has improved. CO2 remains elevated; however, she is no longer acidotic. The patient developed atrial flutter with rapid ventricular response yesterday at approximately 07:00 p.m. She was treated with multiple boluses of intravenous diltiazem as well as 120 mg of oral diltiazem. Her heart rates have improved overnight. This morning, her heart rate is averaging approximately 110 beats per minute. She is unaware of any palpitations or tachycardia. Denies chest discomfort or unusual shortness of breath. She is awake and alert on BiPAP. She states she chronically utilizes 2 liters of oxygen during the day as well as 4 liters at night at home. This is due to a history of underlying severe COPD. Unfortunately, she continues to smoke cigarettes prior to admission. She denies personal history of coronary artery disease, congestive heart failure, dysrhythmia, or rheumatic fever as a child. A resting 2D transthoracic echo was performed on July 09, which was technically limited, grossly normal left and right ventricular function noted without significant valvular disease. There was no pericardial effusion. Anticoagulation was not initiated last evening. The patient also noted to have a left-sided ankle fracture on admission due to a mechanical fall. REVIEW OF SYSTEMS: The pertinent positives noted above. A comprehensive 10-system review is otherwise negative. PAST MEDICAL HISTORY: 1. Severe oxygen dependent COPD. 2. Hypertension. 3. Ulcerative colitis. 4. Depression. 5. Dyslipidemia. 6. History of left-sided carotid endarterectomy. 7. Chart history of TIA/CVA. 8. Chart history of supraventricular tachycardia. PAST SURGICAL HISTORY: Left-sided carotid endarterectomy, colonoscopy, EGD, knee surgery, hip replacement on the right side and hysterectomy. SOCIAL HISTORY: Active tobacco abuse, greater than 12-lcoy-unxn history. She is . FAMILY HISTORY: Negative for premature CAD or sudden cardiac . OUTPATIENT MEDICATIONS: 1. Combivent 4 times daily. 2. Lisinopril 20 mg daily. 3. Lasix 20 mg daily. 4. Aspirin 81 mg daily. 5. Pentasa 1000 mg b.i.d. 6. Celexa 40 mg daily. 7. Mirtazapine 50 mg daily. 8. Simvastatin 20 mg daily. 9. Protonix 40 mg daily. ALLERGIES: SULFA, SULFAMETHOXAZOLE AND TRIMETHOPRIM. ECG demonstrates atrial flutter at a rate of 148 beats per minute. LABORATORY DATA: Initial troponin 0.032. White blood cell count 13.33, hemoglobin is 10.6, and platelet count is 281. ABG on 07/12/2017, 7.41/53/71/92% on 70% BiPAP. Sodium is 135, potassium is 4.0, chloride is 93, CO2 is 39, BUN is 26, and creatinine is 0.73. PHYSICAL EXAMINATION: VITAL SIGNS: Temperature is 36.5 degrees centigrade, pulse 107 beats per minute and irregular, respiratory rate is 22 breaths per minute, blood pressure 136/71, and SaO2 is 96% on BIPAP with 70% FiO2. GENERAL: Chronically ill, in no acute distress, awake, on BiPAP. HEENT: Mucous membranes are moist. No scleral icterus. Conjunctivae pink. NECK: Supple. There is no JVD, no HJR and no carotid bruit. HEART: Irregular and tachycardic with a normal S1 and S2. There is no murmur, rub, or gallop. LUNGS: Demonstrate crackles at the bases bilaterally with diminished breath sounds at the bases. No wheezing appreciated. ABDOMEN: Obese and nontender. No rebound or guarding. Normal bowel sounds. EXTREMITIES: Warm and dry. There is no clubbing, cyanosis, or edema. There is mild ecchymosis of the right hand noted. NEUROLOGIC: Demonstrates no focal motor deficit. FINAL IMPRESSION: 1. Paroxysmal atrial flutter with rapid ventricular response, likely related to underlying respiratory insufficiency, hypercapnic respiratory failure, chronic obstructive pulmonary disease exacerbation, and pneumonia. 2. Hypertension -- controlled. 3. Acute diastolic heart failure with preserved LV and RV function. 4. Normocytic anemia. 5. Hyponatremia. 6. Left ankle fracture, status post full. 7. Ulcerative colitis. PLAN AND RECOMMENDATIONS: The patient has received doses of intravenous diltiazem, intravenous digoxin as well as oral diltiazem. Totals diltiazem dose thus far was 300 mg. Her rates have improved; however, remain elevated. I am going to initiate intravenous heparin. Subcutaneous Lovenox will be discontinued. We will continue to monitor her heart rate on telemetry closely. We will utilize doses of intravenous diltiazem for heart rates sustained greater than 130 beats per minute. The patient currently is hemodynamically stable and asymptomatic in regard to her atrial flutter. I suspect that her flutter will improve or resolve as her respiratory issues are treated. We will continue to monitor volume status closely as she has received multiple IV medications including antibiotic therapy on a daily basis. She has diuresed well with intravenous Lasix overnight for a total urine output of approximately 3 liters. We will continue to follow closely during hospitalization. DORINDA
[2017-07-12] MEDS ORDERED: HEPARIN IV BOLUS 6,000 UNIT in SYRINGE 0 ML IV ONE (08:30)
[2017-07-12] MEDS: HEPARIN 25,000 UNIT/500ML D5W 500 ML IV PRN (08:43)
[2017-07-12] MEDS ORDERED: DILTIAZEM HCL 120 MG CAPCR PO SCH (09:00)
[2017-07-12] MEDS ORDERED: AMLODIPINE BESYLATE 5 MG TAB PO SCH (09:00)
[2017-07-12] MEDS ORDERED: DILTIAZEM HCL 180 MG CAPCR PO SCH (09:00)
[2017-07-12] MEDS ORDERED: ENOXAPARIN 40 MG/0.4 ML SYR SQ SCH (09:00)
--- NOTE | 2017-07-12 11:26 | Pulmonology Progress Note ---
Pulmonary Progress Note Date of Service Jul 12, 2017. Attending Dr. Gallo Subjective Patient seen and admitted bedside. States she's feeling much better than yesterday. She is less short of breath. She still has cough that is nonproductive. She denies any chest pain. Overnight, she converted to atrial fibrillation/flutter. She was given Cardizem IV and started on Cardizem by mouth. She is now on heparin drip for anticoagulation. Objective VS reviewed. MAXIMUM TEMPERATURE 36.9, BP 136/71-164/83, P 96-130, RR 19-32, SaO2 91- 95 % on HFNC 50 L/m, 70%. 1 L negative since admission Gen: She is awake alert oriented 3. Still tachypneic with mild use of accessory muscles of respiration CVS: S1, S2, irregularly irregular, tachycardic Lungs: decreased breath sound bilaterally, crackles at bases, tachypneic Abd: soft/NT/NT/BS+ Ext: left lower extremity in splint, right lower extremity trace edema, chronic venous changes; no cyanosis, no clubbing Labs reviewed. ABG 07/12/2017--7.41/63/71/39/92.1% on 70% FiO2 BiPAP ABG 07/11/2017--7.27/80/116/36/96.7% on high flow nasal cannula Sodium 135, potassium 4.5, CO2 39, BUN 26 and creatinine 0.73 White blood cell count 13.3 from 10.94, hemoglobin 10.06, platelet count 281 and stable Imaging reviewed. CTA chest 07/09/2016 IMPRESSION: 1. Study compromised by respiratory motion artifact 2. No evidence of acute pulmonary embolism 3. No evidence of pathologic adenopathy 4. 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 Dense bilateral lower lobe atelectasis/consolidation. Patchy airspace opacities are also present within the right upper lobe lingula and right middle lobe. 6. Small bilateral pleural effusions 7. Severe L1 compression fracture with mild retropulsion. Medications reviewed. Assessment & Plan Acute on chronic hypercapnic hypoxic respiratory failure COPD (unknown FEV1) in acute exacerbation Hypertensive urgency Possible diastolic dysfunction Electrolyte imbalance Tobacco use disorder Morbid obesity Atrial fibrillation Mrs. Farrar is a 81-year-old female who presents with acute on chronic hypercapnic respiratory failure with status post fall and sustaining left bimalleolar fracture. She is on chronic long-term oxygen therapy at 2 L/m during the day and 4 L/m at night, for COPD. Mrs. Farrar shows improvement in her acid base status. Still with hypercarbia however pH is within normal limits. She is more alert today however still requires increased amounts of oxygen to maintain saturation. She also converted over atrial fibrillation last night likely secondary to hypoxemia. Recommendations Continue with BiPAP and high flow nasal cannula intermittently. She should use BiPAP at night as well Continue to treat for COPD exacerbation with broad-spectrum antibiotics, nebulizers and IV corticosteroids. I have tapered her over to Solu-Medrol every 12 IV today. Continue with diuresis. Currently on heparin drip as well as antiarrhythmics per cardiology recommendations who are following closely Encourage flutter valve and incentive spirometry. Continue with DVT prophylaxis. I have ordered chest vest assists with aggressive pulmonary toilet as well as Mucomyst twice a day I will continue to follow. Discussed with Dr. Singh. Data Medications: Current Inpatient Medications Medications (Trade) Dose Ordered Sig/Reuben Route Start Time Stop Time Status Last Admin Dose Admin Levalbuterol (Xopenex 1.25MG/ 3ML Neb) 1.25 mg Q6R INH 07/07/17 22:30 08/06/17 22:29 07/12/17 06:57 1.25 MG Methylprednisolone Sodium Succinate 40 mg/Syringe 0.64 ml @ 1.5 mls/min Q6H IV 07/08/17 02:00 08/07/17 01:59 07/12/17 07:53 1.5 MLS/MIN Levofloxacin (Consult) 1 ea UD PRN N/A 07/08/17 01:09 08/07/17 01:08 Tramadol HCl (Ultram Tab) 50 mg Q6H PRN PO 07/07/17 21:30 08/06/17 21:29 07/08/17 07:55 50 MG Clonidine HCl (Catapres Tab) 0.1 mg Q6H PRN PO 07/07/17 21:30 08/06/17 21:29 Future Hold 07/09/17 16:21 0.1 MG Citalopram Hydrobromide (celeXA TAB) 40 mg DAILY PO 07/08/17 09:00 08/07/17 08:59 07/12/17 07:53 40 MG Latanoprost (Xalatan Oph Soln) 1 drops HS OP 07/08/17 21:00 08/07/17 20:59 07/11/17 21:41 1 DROPS Lisinopril (Zestril Tab) 20 mg DAILY PO 07/08/17 09:00 08/07/17 08:59 Future Hold 07/11/17 09:27 20 MG Mesalamine (Pentasa Controlled Rel Cap) 1,000 mg BID PO 07/08/17 09:00 08/07/17 08:59 07/12/17 07:53 1,000 MG Mirtazapine (Remeron Tab) 15 mg HS PO 07/08/17 21:00 08/07/17 20:59 07/11/17 21:40 15 MG Pantoprazole Sodium (Protonix Tab) 40 mg DAILY PO 07/08/17 09:00 08/07/17 08:59 07/12/17 07:53 40 MG Senna/Docusate Sodium (Senokot S Tab) 1 tab DAILY PO 07/08/17 09:00 08/07/17 08:59 07/12/17 07:53 1 TAB Simvastatin (Zocor Tab) 20 mg HS PO 07/08/17 21:00 08/07/17 20:59 07/11/17 21:40 20 MG Acetaminophen (Tylenol Tab) 650 mg Q4H PRN PO 07/07/17 21:45 08/06/17 21:44 07/09/17 16:22 650 MG Ondansetron HCl (Zofran Inj) 4 mg Q6H PRN IV 07/07/17 21:45 08/06/17 21:44 Piperacillin Sod/ Tazobactam Sod 4.5 gm/Dextrose 120 ml @ 30 mls/hr Q8H IV 07/08/17 02:00 07/15/17 01:59 07/12/17 08:48 30 MLS/HR Levofloxacin 750 mg/Prmx 150 ml @ 100 mls/hr Q24H IV 07/08/17 06:00 07/15/17 05:59 07/12/17 06:03 100 MLS/HR Piperacillin Sod/ Tazobactam Sod (Consult) 1 ea UD PRN N/A 07/08/17 01:15 2/1/18 01:14 Ioversol (Optiray 320) 100 ml UD PRN IV 07/09/17 11:00 07/13/17 10:59 Diltiazem HCl (Cardizem Cd Cap) 180 mg QAM PO 07/13/17 09:00 08/11/17 08:59 Heparin Sodium/ Dextrose 500 ml @ 28 mls/hr [id number] PRN IV 07/12/17 08:30 08/11/17 08:29 07/12/17 08:43 28 MLS/HR Vital Signs: Date Time Temp Pulse Resp B/P (MAP) Pulse Ox O2 Delivery O2 Flow Rate FiO2 07/12/17 08:01 BiPAP 07/12/17 07:23 36.9 130 20 136/71 (92) 94 BiPAP 07/12/17 06:58 103 94 70 07/12/17 06:57 103 32 94 BiPAP/CPAP 70 07/12/17 04:00 BiPAP 07/12/17 03:33 36.5 108 19 164/83 (110) 94 CPAP 07/12/17 01:36 108 28 95 BiPAP/CPAP 70 07/12/17 00:02 96 91 70 07/12/17 00:00 BiPAP 07/11/17 23:33 37.1 97 25 112/80 (91) 92 High Flow Oxygen 07/11/17 23:16 164/98 (120) 07/11/17 20:35 112/60 (77) 07/11/17 20:00 BiPAP 07/11/17 19:43 144 07/11/17 19:26 37.1 146 19 130/76 (94) 88 High Flow Oxygen 07/11/17 19:01 96 20 87 Nasal Cannula 50.0 95 07/11/17 16:00 BiPAP 07/11/17 15:12 36.6 78 21 172/79 (110) 91 BiPAP 07/11/17 14:07 90 100 100 07/11/17 14:05 90 19 100 BiPAP/CPAP 100 07/11/17 12:00 BiPAP 07/11/17 11:40 37.0 92 20 174/98 (123) 95 Laboratory Results: Last 24 Hours Test 07/11/17 19:52 07/12/17 06:02 Activated Partial Thromboplast Time 25.4 SECONDS Partial Thromboplastin Ratio 1.0 Arterial Blood pH 7.42 7.41 Arterial Blood Partial Pressure CO2 59 mmHg 63 mmHg Arterial Blood Partial Pressure O2 62 mm/Hg 71 mm/Hg Arterial Blood HCO3 37 mmol/L 39 mmol/L Arterial Blood Oxygen Saturation 90.9 % 92.1 % Arterial Blood Base Excess 11.0 mEq/L 11.8 mEq/L Arterial Blood Gas Delivery 97% 70% BIPAP Jordan Test POS POS Sodium Level 132 mmol/L 135 mmol/L Potassium Level 4.5 mmol/L 4.5 mmol/L Chloride Level 92 mmol/L 93 mmol/L Carbon Dioxide Level 39 mmol/L 39 mmol/L Anion Gap 1.0 mmol/L 3.0 mmol/L Blood Urea Nitrogen 25 mg/dl 26 mg/dl Creatinine 0.81 mg/dl 0.73 mg/dl Est Creatinine Clear Calc Drug Dose 64.6 ml/min 72.6 ml/min Estimated GFR () 78.4 88.9 Estimated GFR (Non- 67.6 76.7 BUN/Creatinine Ratio 30.7 36.0 Random Glucose 185 mg/dl 179 mg/dl Lactic Acid Level 1.2 mmol/L Calcium Level 8.5 mg/dl 8.4 mg/dl Magnesium Level 2.1 mg/dl Troponin I 0.032 ng/ml Thyroid Stimulating Hormone (TSH) 0.206 uIu/ml Free Thyroxine 1.31 ng/dl White Blood Count 13.33 K/uL Red Blood Count 3.58 M/uL Hemoglobin 10.6 g/dL Hematocrit 33.2 % Mean Corpuscular Volume 92.7 fL Mean Corpuscular Hemoglobin 29.6 pg Mean Corpuscular Hemoglobin Concent 31.9 g/dl Platelet Count 281 K/uL Mean Platelet Volume 9.1 fL Neutrophils (%) (Auto) 87.5 % Lymphocytes (%) (Auto) 5.5 % Monocytes (%) (Auto) 5.3 % Eosinophils (%) (Auto) 0.0 % Basophils (%) (Auto) 0.2 % Neutrophils # (Auto) 11.67 K/uL Lymphocytes # (Auto) 0.73 K/uL Monocytes # (Auto) 0.71 K/uL Eosinophils # (Auto) 0.00 K/uL Basophils # (Auto) 0.02 K/uL RDW Standard Deviation 47.0 fL RDW Coefficient of Variation 13.8 % Immature Granulocyte % (Auto) 1.5 % Immature Granulocyte # (Auto) 0.20 K/uL Total Triiodothyronine 0.41 ng/ml
[2017-07-12 15:58] LABS: PTT PATIENT 57.4 SECONDS (21.0-31.0)
[2017-07-12] MEDS: ACETYLCYSTEINE 20% INHAL SOLN ***DISPENSED BY RESP. INH SCH (19:47)
--- NOTE | 2017-07-12 20:36 | Progress Note ---
Medicine Progress Note Date & Time of Visit: Jul 12, 2017 at 10:25. Subjective Pt was seen and examined Lying in bed with no distress Pt is more awake today she said that she feels her breathing is slightly better denies any chest pain, palpitation Objective Last 8 Hrs Date Time Temp Pulse Resp B/P (MAP) Pulse Ox O2 Delivery O2 Flow Rate FiO2 07/12/17 19:49 107 28 92 Nasal Cannula 50.0 97 07/12/17 16:24 BiPAP 07/12/17 15:11 35.9 103 18 153/92 (112) 94 BiPAP 07/12/17 14:19 98 92 70 07/12/17 14:18 98 26 92 BiPAP/CPAP 70 Physical Exam: General- No acute distress Head- atraumatic Eyes- PERRL, EOMI ENT- oropharynx clear Neck- supple, no JVD Lungs- coarse BS Heart- irregular Abdomen- normal bowel sounds, soft Extremities- no calf tenderness, Left ankle pain, splint with toño bandage in LE Neuro- lethargy Skin- warm & dry Laboratory Results: Last 24 Hours Test 07/12/17 06:02 07/12/17 15:30 White Blood Count 13.33 K/uL Red Blood Count 3.58 M/uL Hemoglobin 10.6 g/dL Hematocrit 33.2 % Mean Corpuscular Volume 92.7 fL Mean Corpuscular Hemoglobin 29.6 pg Mean Corpuscular Hemoglobin Concent 31.9 g/dl Platelet Count 281 K/uL Mean Platelet Volume 9.1 fL Neutrophils (%) (Auto) 87.5 % Lymphocytes (%) (Auto) 5.5 % Monocytes (%) (Auto) 5.3 % Eosinophils (%) (Auto) 0.0 % Basophils (%) (Auto) 0.2 % Neutrophils # (Auto) 11.67 K/uL Lymphocytes # (Auto) 0.73 K/uL Monocytes # (Auto) 0.71 K/uL Eosinophils # (Auto) 0.00 K/uL Basophils # (Auto) 0.02 K/uL RDW Standard Deviation 47.0 fL RDW Coefficient of Variation 13.8 % Immature Granulocyte % (Auto) 1.5 % Immature Granulocyte # (Auto) 0.20 K/uL Arterial Blood pH 7.41 Arterial Blood Partial Pressure CO2 63 mmHg Arterial Blood Partial Pressure O2 71 mm/Hg Arterial Blood HCO3 39 mmol/L Arterial Blood Oxygen Saturation 92.1 % Arterial Blood Base Excess 11.8 mEq/L Arterial Blood Gas Delivery 70% BIPAP Jordan Test POS Sodium Level 135 mmol/L Potassium Level 4.5 mmol/L Chloride Level 93 mmol/L Carbon Dioxide Level 39 mmol/L Anion Gap 3.0 mmol/L Blood Urea Nitrogen 26 mg/dl Creatinine 0.73 mg/dl Est Creatinine Clear Calc Drug Dose 72.6 ml/min Estimated GFR () 88.9 Estimated GFR (Non- 76.7 BUN/Creatinine Ratio 36.0 Random Glucose 179 mg/dl Calcium Level 8.4 mg/dl Total Triiodothyronine 0.41 ng/ml Activated Partial Thromboplast Time 57.4 SECONDS Partial Thromboplastin Ratio 2.2 Assessment & Plan Acute hypercapnic respiratory failure Mostly related to COPD exacerbation vs Pneumonia CXR showed dense bibasilar airspace consolidation, right greater than left with associated pleural effusions. ABG on admission showed respiratory acidosis with comp Continue Levaquin and Zosyn Negative influenza test Continue Solumedrol Continue BIPAP with intermittent high flow supplement oxygen Continue respiratory treatment with Duoneb Blood cx no growth ABG done today showed respiratory acidosis with PCO2 80 Not to sure if it due to noncompliant since pt does not want to keep the Bipap on or if we need to change the setting. Will repeat ABG monitor closely CT with PE protocol showed no evidence for PE. Dense bilateral lower lobe atelectasis/consolidation. Patchy airspace opacities are also present within the right upper lobe lingula and right middle lobe. 1/6 Clinically improved slightly continue using BIPAP at night Received lasix last night and diuresis well Continue abx Continue respiratory treatment continue Solumedrol ECHO * The echocardiogram is extremely technically limited. * Patient was sitting upright for the test. * There is no significant pericardial effusion noted. * The left ventricular systolic function is grossly normal on limited visualization. * The right ventricular systolic function is grossly normal. * The valves are poorly visualized. * There is no significant valvular stenosis or regurgitation on technically limited Doppler evaluation. Paroxysmal atrial flutter with rapid ventricular response Due to acute hypercapnic respiratory failure received Cardizem and digoxin Continue cardizem 180 mg daily starting on heparin drip continue monitor in tele Hyponatremia Possible related to hypovolemia Na on admission 128 Na today 135 Improved Hyperkalemia K 4.5 Pt is on lisinopril (might not be a good candidate for ACEI due to hyperkalemia) Will put on a low K diet If stay high, will give Kayexalate Continue monitor BMP stable Left Ankle fracture s/p fall Left ankle xray showed distal tibial and fibular fractures as above with mild lateral subluxation of the talus. Ortho on board pain control On 10L oxygen now, high risk for surgery for now Will need to postpone surgery until respiratory status improves Right pelvic ring fracture, Pelvis xray showed an age indeterminant right pubic ring fracture, possibly chronic. Stable Hypertension BP elevated Continue lisinopril. will add amlodipine PRN clonidine Continue monitor BP Ulcerative colitis On Pentasa Stable Depression On Celexa Stable DVT px On heparin drip CODE STATUS DNR DISPOSITION Continue monitor in tele Consultants: Pulmonary Current Inpatient Medications: Current Inpatient Medications Medications (Trade) Dose Ordered Sig/Reuben Route Start Time Stop Time Status Last Admin Dose Admin Levalbuterol (Xopenex 1.25MG/ 3ML Neb) 1.25 mg Q6R INH 07/07/17 22:30 08/06/17 22:29 07/12/17 19:47 1.25 MG Levofloxacin (Consult) 1 ea UD PRN N/A 07/08/17 01:09 08/07/17 01:08 Tramadol HCl (Ultram Tab) 50 mg Q6H PRN PO 07/07/17 21:30 08/06/17 21:29 07/08/17 07:55 50 MG Clonidine HCl (Catapres Tab) 0.1 mg Q6H PRN PO 07/07/17 21:30 08/06/17 21:29 Future Hold 07/09/17 16:21 0.1 MG Citalopram Hydrobromide (celeXA TAB) 40 mg DAILY PO 07/08/17 09:00 08/07/17 08:59 07/12/17 07:53 40 MG Latanoprost (Xalatan Oph Soln) 1 drops HS OP 07/08/17 21:00 08/07/17 20:59 07/11/17 21:41 1 DROPS Lisinopril (Zestril Tab) 20 mg DAILY PO 07/08/17 09:00 08/07/17 08:59 Future Hold 07/11/17 09:27 20 MG Mesalamine (Pentasa Controlled Rel Cap) 1,000 mg BID PO 07/08/17 09:00 08/07/17 08:59 07/12/17 07:53 1,000 MG Mirtazapine (Remeron Tab) 15 mg HS PO 07/08/17 21:00 08/07/17 20:59 07/11/17 21:40 15 MG Pantoprazole Sodium (Protonix Tab) 40 mg DAILY PO 07/08/17 09:00 08/07/17 08:59 07/12/17 07:53 40 MG Senna/Docusate Sodium (Senokot S Tab) 1 tab DAILY PO 07/08/17 09:00 08/07/17 08:59 07/12/17 07:53 1 TAB Simvastatin (Zocor Tab) 20 mg HS PO 07/08/17 21:00 08/07/17 20:59 07/11/17 21:40 20 MG Acetaminophen (Tylenol Tab) 650 mg Q4H PRN PO 07/07/17 21:45 08/06/17 21:44 07/09/17 16:22 650 MG Ondansetron HCl (Zofran Inj) 4 mg Q6H PRN IV 07/07/17 21:45 08/06/17 21:44 Piperacillin Sod/ Tazobactam Sod 4.5 gm/Dextrose 120 ml @ 30 mls/hr Q8H IV 07/08/17 02:00 07/15/17 01:59 07/12/17 17:12 30 MLS/HR Levofloxacin 750 mg/Prmx 150 ml @ 100 mls/hr Q24H IV 07/08/17 06:00 07/15/17 05:59 07/12/17 06:03 100 MLS/HR Piperacillin Sod/ Tazobactam Sod (Consult) 1 ea UD PRN N/A 07/08/17 01:15 08/07/17 01:14 Ioversol (Optiray 320) 100 ml UD PRN IV 07/09/17 11:00 07/13/17 10:59 Diltiazem HCl (Cardizem Cd Cap) 180 mg QAM PO 07/13/17 09:00 08/11/17 08:59 Heparin Sodium/ Dextrose 500 ml @ 28 mls/hr [id number] PRN IV 07/12/17 08:30 08/11/17 08:29 07/12/17 08:43 28 MLS/HR Methylprednisolone Sodium Succinate 40 mg/Syringe 0.64 ml @ 1.5 mls/min Q12H IV 07/12/17 20:00 08/11/17 19:59 Acetylcysteine (Mucomyst 20% Inh Soln) 3 ml BIDR INH 07/12/17 20:00 08/11/17 19:59 07/12/17 19:47 3 ML
[2017-07-12] MEDS: LATANOPROST 0.005% OP SOLN 2.5 ML BTL OP SCH (21:24)
[2017-07-12] MEDS: MIRTAZAPINE TAB 15 MG TAB PO SCH (21:24)
[2017-07-12] MEDS: SIMVASTATIN 20 MG TAB PO SCH (21:24)
[2017-07-12] MEDS ORDERED: DILTIAZEM HCL 60 MG TAB PO ONE (23:50)
[2017-07-13] VITALS (12 sets, daily range): BP systolic 121–178; BP diastolic 72–113; PULSE 76–104; TEMP 36.1–37.2; O2SAT 91–96
[2017-07-13] MEDS: LEVALBUTEROL 1.25MG/3ML NEB INH SCH ×4 (01:39→19:01)
[2017-07-13] MEDS: PIPERACILL/TAZOBAC IV 4.5 GM in DEXTROSE 5% 100ML IV SCH ×3 (02:04→16:40)
[2017-07-13] MEDS: HEPARIN 25,000 UNIT/500ML D5W 500 ML IV PRN ×2 (02:38→21:42)
[2017-07-13 05:53] LABS: HEMATOCRIT 32.4 % (37-47); HEMOGLOBIN 10.3 g/dL (12.0-16.0); MEAN CELL VOLUME 91.5 fL (80-100); MEAN CORPUSCULAR HEMOGLOBIN 29.1 pg (25-34); MEAN CORPUSCULAR HGB CONC 31.8 g/dl (32-36); MEAN PLATELET VOLUME 9.1 fL (7.4-10.4); NUCLEATED RED BLOOD CELL ABS 0.03 K/uL (0-0); PLATELET COUNT 284 K/uL (130-400); RED CELL DISTRIBUTION WIDTH CV 13.7 % (11.5-14.5); RED CELL DISTRIBUTION WIDTH SD 45.7 fL (36.4-46.3); WHITE BLOOD COUNT 16.66 K/uL (4.8-10.8)
[2017-07-13] MEDS: LEVOFLOXACIN 750MG / D5W IV SCH (06:03)
[2017-07-13 06:23] LABS: PTT PATIENT 87.2 SECONDS (21.0-31.0)
[2017-07-13 06:39] LABS: CALCIUM 8.1 mg/dl (8.5-10.1); CREATININE 0.63 mg/dl (0.60-1.20); POTASSIUM 3.9 mmol/L (3.5-5.1)
[2017-07-13] MEDS: ACETYLCYSTEINE 20% INHAL SOLN ***DISPENSED BY RESP. INH SCH ×2 (07:05→19:01)
[2017-07-13] MEDS: CITALOPRAM 40 MG TAB PO SCH (07:42)
[2017-07-13] MEDS: METHYLPREDNISOLONE IV 40 MG in SYRINGE 0 ML IV SCH ×2 (07:42→21:38)
[2017-07-13] MEDS: DOCUSATE SODIUM/SENNA 50/8.6MG TAB PO SCH (07:42)
[2017-07-13] MEDS: MESALAMINE 250 MG CAPCR PO SCH ×2 (07:42→21:37)
[2017-07-13] MEDS: DILTIAZEM HCL 240 MG CAPCR PO SCH (07:42)
[2017-07-13] MEDS: PANTOprazole SOD 40 MG TAB PO SCH (07:42)
--- NOTE | 2017-07-13 08:35 | Pulmonology Progress Note ---
Pulmonary Progress Note Date of Service Jul 13, 2017. Attending Dr. Gallo Subjective Patient seen and examined at bedside. She states that she is feeling a little bit better from admission. She is feeling less short of breath today. She is still quite tachypneic. She did not wear BIPAP last night. Objective VS reviewed. MAXIMUM TEMPERATURE 37.2, BP 152/81-178/113, P 91-103, RR 12-28, SaO2 93-96 % on HFNC 50 L/m, 80%. 866 ml negative since admission Gen: She is awake alert oriented 3. Still tachypneic with mild use of accessory muscles of respiration CVS: S1, S2, irregularly irregular, tachycardic Lungs: decreased breath sound bilaterally, crackles at bases, tachypneic Abd: soft/NT/NT/BS+ Ext: left lower extremity in splint, right lower extremity trace edema, chronic venous changes; no cyanosis, no clubbing Labs reviewed. ABG 07/12/2017--7.41/63/71/39/92.1% on 70% FiO2 BiPAP ABG 07/11/2017--7.27/80/116/36/96.7% on high flow nasal cannula Sodium 134, potassium 3.9, CO2 39-->41, BUN 19 and creatinine 0.63 White blood cell count 16.66 from 13, hemoglobin 10.3, platelet count 284 and stable PTT 87 Imaging reviewed. CTA chest 07/09/2016 IMPRESSION: 1. Study compromised by respiratory motion artifact 2. No evidence of acute pulmonary embolism 3. No evidence of pathologic adenopathy 4. 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 Dense bilateral lower lobe atelectasis/consolidation. Patchy airspace opacities are also present within the right upper lobe lingula and right middle lobe. 6. Small bilateral pleural effusions 7. Severe L1 compression fracture with mild retropulsion. Medications reviewed. Assessment & Plan Acute on chronic hypercapnic hypoxic respiratory failure COPD (unknown FEV1) in acute exacerbation Hypertensive urgency Possible diastolic dysfunction Electrolyte imbalance Tobacco use disorder Morbid obesity Atrial fibrillation Pneumonia Mrs. Farrar is a 81-year-old female who presents with acute on chronic hypercapnic respiratory failure with status post fall and sustaining left bimalleolar fracture. She is on chronic long-term oxygen therapy at 2 L/m during the day and 4 L/m at night, for COPD. Mrs. Farrar shows improvement in her acid base status on 07/11/2017. She refused BIPAP overnight. CO2 on chemistry 41. Continues to have increased BP and increased WBC as well. Recommendations Continue with BiPAP and high flow nasal cannula intermittently. She should use BiPAP at night as well. Again stressed compliance. Continue to treat for COPD exacerbation with broad-spectrum antibiotics, nebulizers and IV corticosteroids. Continue with Solu-Medrol every 12 IV. Continue with diuresis. Currently on heparin drip as well as antiarrhythmics per cardiology recommendations who are following closely Encourage flutter valve and incentive spirometry. Continue with chest vest to assists with aggressive pulmonary toilet as well as Mucomyst twice a day Will order repeat CXR today, depending will consider adding vancomycin to cover for MRSA with increasing WBC. Pulmonary will continue to follow. Data Medications: Current Inpatient Medications Medications (Trade) Dose Ordered Sig/Reuben Route Start Time Stop Time Status Last Admin Dose Admin Levalbuterol (Xopenex 1.25MG/ 3ML Neb) 1.25 mg Q6R INH 07/07/17 22:30 08/06/17 22:29 07/13/17 01:39 1.25 MG Levofloxacin (Consult) 1 ea UD PRN N/A 07/08/17 01:09 08/07/17 01:08 Tramadol HCl (Ultram Tab) 50 mg Q6H PRN PO 07/07/17 21:30 08/06/17 21:29 07/08/17 07:55 50 MG Clonidine HCl (Catapres Tab) 0.1 mg Q6H PRN PO 07/07/17 21:30 08/06/17 21:29 Future Hold 07/09/17 16:21 0.1 MG Citalopram Hydrobromide (celeXA TAB) 40 mg DAILY PO 07/08/17 09:00 08/07/17 08:59 07/13/17 07:42 40 MG Latanoprost (Xalatan Oph Soln) 1 drops HS OP 07/08/17 21:00 08/07/17 20:59 07/12/17 21:24 1 DROPS Lisinopril (Zestril Tab) 20 mg DAILY PO 07/08/17 09:00 08/07/17 08:59 Future Hold 07/11/17 09:27 20 MG Mesalamine (Pentasa Controlled Rel Cap) 1,000 mg BID PO 07/08/17 09:00 08/07/17 08:59 07/13/17 07:42 1,000 MG Mirtazapine (Remeron Tab) 15 mg HS PO 07/08/17 21:00 08/07/17 20:59 07/12/17 21:24 15 MG Pantoprazole Sodium (Protonix Tab) 40 mg DAILY PO 07/08/17 09:00 08/07/17 08:59 07/13/17 07:42 40 MG Senna/Docusate Sodium (Senokot S Tab) 1 tab DAILY PO 07/08/17 09:00 08/07/17 08:59 07/13/17 07:42 1 TAB Simvastatin (Zocor Tab) 20 mg HS PO 07/08/17 21:00 08/07/17 20:59 07/12/17 21:24 20 MG Acetaminophen (Tylenol Tab) 650 mg Q4H PRN PO 07/07/17 21:45 08/06/17 21:44 07/09/17 16:22 650 MG Ondansetron HCl (Zofran Inj) 4 mg Q6H PRN IV 07/07/17 21:45 08/06/17 21:44 Piperacillin Sod/ Tazobactam Sod 4.5 gm/Dextrose 120 ml @ 30 mls/hr Q8H IV 07/08/17 02:00 07/15/17 01:59 07/13/17 02:04 30 MLS/HR Levofloxacin 750 mg/Prmx 150 ml @ 100 mls/hr Q24H IV 07/08/17 06:00 07/15/17 05:59 07/13/17 06:03 100 MLS/HR Piperacillin Sod/ Tazobactam Sod (Consult) 1 ea UD PRN N/A 07/08/17 01:15 08/07/17 01:14 Ioversol (Optiray 320) 100 ml UD PRN IV 07/09/17 11:00 07/13/17 10:59 Heparin Sodium/ Dextrose 500 ml @ 25 mls/hr Q20H PRN IV 07/12/17 08:30 08/11/17 08:29 07/13/17 02:38 28 MLS/HR Methylprednisolone Sodium Succinate 40 mg/Syringe 0.64 ml @ 1.5 mls/min Q12H IV 07/12/17 20:00 08/11/17 19:59 07/13/17 07:42 1.5 MLS/MIN Acetylcysteine (Mucomyst 20% Inh Soln) 3 ml BIDR INH 07/12/17 20:00 08/11/17 19:59 07/12/17 19:47 3 ML Diltiazem HCl (Cardizem Cd Cap) 240 mg QAM PO 07/13/17 09:00 08/11/17 08:59 07/13/17 07:42 240 MG Vital Signs: Date Time Temp Pulse Resp B/P (MAP) Pulse Ox O2 Delivery O2 Flow Rate FiO2 07/13/17 07:31 37.0 94 20 178/113 (134) 96 High Flow Oxygen 07/13/17 04:02 37.2 91 28 152/81 (104) 93 High Flow Oxygen 07/13/17 04:00 High Flow Oxygen 07/13/17 01:40 103 12 93 Nasal Cannula 50.0 80 07/13/17 00:00 High Flow Oxygen 07/12/17 23:30 36.6 105 18 163/95 (117) 94 High Flow Oxygen 07/12/17 20:25 36.6 106 24 157/79 (105) 91 High Flow Oxygen 07/12/17 20:00 High Flow Oxygen 07/12/17 19:49 107 28 92 Nasal Cannula 50.0 97 07/12/17 16:24 BiPAP 07/12/17 15:11 35.9 103 18 153/92 (112) 94 BiPAP 07/12/17 14:19 98 92 70 07/12/17 14:18 98 26 92 BiPAP/CPAP 70 07/12/17 12:09 BiPAP 07/12/17 11:07 37.0 115 20 138/77 (97) 95 High Flow Oxygen Laboratory Results: Last 24 Hours Test 07/12/17 15:30 07/13/17 05:37 Activated Partial Thromboplast Time 57.4 SECONDS 87.2 SECONDS Partial Thromboplastin Ratio 2.2 3.4 White Blood Count 16.66 K/uL Red Blood Count 3.54 M/uL Hemoglobin 10.3 g/dL Hematocrit 32.4 % Mean Corpuscular Volume 91.5 fL Mean Corpuscular Hemoglobin 29.1 pg Mean Corpuscular Hemoglobin Concent 31.8 g/dl RDW Standard Deviation 45.7 fL RDW Coefficient of Variation 13.7 % Platelet Count 284 K/uL Mean Platelet Volume 9.1 fL Nucleated RBC Absolute Count (auto) 0.03 K/uL Nucleated Red Blood Cells % 0.2 % Sodium Level 134 mmol/L Potassium Level 3.9 mmol/L Chloride Level 92 mmol/L Carbon Dioxide Level 41 mmol/L Anion Gap 1.0 mmol/L Blood Urea Nitrogen 19 mg/dl Creatinine 0.63 mg/dl Est Creatinine Clear Calc Drug Dose 84.9 ml/min Estimated GFR () 96.8 Estimated GFR (Non- 83.5 BUN/Creatinine Ratio 30.8 Random Glucose 231 mg/dl Calcium Level 8.1 mg/dl Magnesium Level 2.1 mg/dl
--- NOTE | 2017-07-13 08:55 | Cardiology Follow-Up ---
Subjective General Date of Service: Jul 13, 2017. Pt evaluation today including: conversation w/ patient, physical exam, chart review, lab review, review of studies, conversation w/ rn lactation consultant, review of inpatient medication list History of Present Illness The patient is a 81 year old female seen in follow-up. More alert today. Tolerated her a.m. meal. Heart rate improved, however, more hypertensive. Patient has not received her maintenance oral Lasix since admission. Fluid balance is positive. She offers no complaints this time. Telemetry demonstrates atrial flutter with an average heart rate of 95 bpm. Allergies Coded Allergies: Sulfa Drugs (Verified Allergy, Unknown, `, 11/21/13) Sulfamethoxazole (Verified Allergy, Unknown, `, 11/21/13) Trimethoprim (Verified Allergy, Unknown, `, 11/21/13) Social History Smoking Status: Current Some Day Smoker Hx Tobacco Use In Past Year?: Yes Hx Alcohol Use - Type And Amou: No Hx Substance Use - Type And Am: No Problem List Medical Problems: (1) Acute on chronic respiratory failure with hypoxia and hypercapnia Status: Acute (2) Ankle fracture, left Status: Acute (3) Bimalleolar ankle fracture Status: Acute (4) Hyponatremia Status: Acute (5) Pneumonia Status: Acute Review of Systems Respiratory: + cough, + sputum, + shortness of breath, + dyspnea on exertion, + dyspnea at rest, No wheezing, No hemoptysis Cardiac: No chest pain, No orthopnea, No PND, No edema, No claudication, No palpitations Physical Exam Vital Signs Last Vital Signs Documentation Date Time Temp Pulse Resp B/P (MAP) Pulse Ox O2 Delivery O2 Flow Rate FiO2 07/13/17 07:31 37.0 94 20 178/113 (134) 96 High Flow Oxygen 07/13/17 01:40 50.0 80 Physical Exam Constitutional: Level of Distress: NAD, chronically ill Head: normocephalic Lungs: Auscultation: decreased breath sounds, rales/crackles on the left, rales/ crackles on the right Cardiovascular: Heart Auscultation: normal S1, normal S2, no murmurs, irregular rate rhythm Peripheral Pulses: Radial Pulse: normal on the left, normal on the right Abdomen: Inspection & Palpation: soft, non-distended, no tenderness, guarding & rebound, no masses Extremities: no cyanosis, no edema, no clubbing, no ulcers Neurologic: Gait & Station: pertinent finding (no focal motor deficit) Cranial Nerves: grossly intact Assessment and Plan Assessment and Plan FINAL IMPRESSION: 1. Paroxysmal atrial flutter with rapid ventricular response secondary to underlying respiratory insufficiency, hypercapnic respiratory failure, chronic obstructive pulmonary disease exacerbation, and pneumonia. 2. Acute decompensated diastolic heart failure exacerbated by rapid atrial flutter as well as positive fluid balance since admission. 3. Hypertension -- uncontrolled. 4. Preserved LV and RV function. 5. Hyponatremia. 6. Left ankle fracture, status post full. 7. Ulcerative colitis. 8. Carotid vascular disease with history of prior endarterectomy PLAN AND RECOMMENDATIONS: Lasix 40 mg IV 1 now then 40 mg IV twice a day. Cardizem CD increased to 240mg daily. Continue intravenous heparin. Follow fluid balance, GFR, electrolytes, respiratory status closely. Repeat chest x-ray today. Repeat ECG in a.m. Laboratory Results Last 24 Hours Test 07/12/17 15:30 07/13/17 05:37 Activated Partial Thromboplast Time 57.4 SECONDS 87.2 SECONDS Partial Thromboplastin Ratio 2.2 3.4 White Blood Count 16.66 K/uL Red Blood Count 3.54 M/uL Hemoglobin 10.3 g/dL Hematocrit 32.4 % Mean Corpuscular Volume 91.5 fL Mean Corpuscular Hemoglobin 29.1 pg Mean Corpuscular Hemoglobin Concent 31.8 g/dl RDW Standard Deviation 45.7 fL RDW Coefficient of Variation 13.7 % Platelet Count 284 K/uL Mean Platelet Volume 9.1 fL Nucleated RBC Absolute Count (auto) 0.03 K/uL Nucleated Red Blood Cells % 0.2 % Sodium Level 134 mmol/L Potassium Level 3.9 mmol/L Chloride Level 92 mmol/L Carbon Dioxide Level 41 mmol/L Anion Gap 1.0 mmol/L Blood Urea Nitrogen 19 mg/dl Creatinine 0.63 mg/dl Est Creatinine Clear Calc Drug Dose 84.9 ml/min Estimated GFR () 96.8 Estimated GFR (Non- 83.5 BUN/Creatinine Ratio 30.8 Random Glucose 231 mg/dl Calcium Level 8.1 mg/dl Magnesium Level 2.1 mg/dl
[2017-07-13] MEDS ORDERED: DILTIAZEM HCL 180 MG CAPCR PO SCH (09:00)
[2017-07-13] MEDS: FUROSEMIDE INJ 40 MG in SYRINGE 0 ML IV SCH ×2 (09:59→16:40)
--- NOTE | 2017-07-13 10:04 | DIAGNOSTIC IMAGING REPORT ---
CHEST ONE VIEW PORTABLE CLINICAL HISTORY: Hypoxia. COMPARISON STUDY: Chest CT July 09, 2017 and chest radiograph July 11, 2017. FINDINGS: There is no pneumothorax. The patient is rotated. Small bilateral pleural effusions are again noted. There are persistent bibasilar opacities with interstitial thickening. The cardiomediastinal silhouette is stable. IMPRESSION: 1. Persistent small bilateral pleural effusions with associated bibasilar opacities, right greater than left, which could reflect pneumonia or atelectasis. 2. Suspected mild pulmonary edema. Electronically signed by: Devyn Lewis M.D. 07/13/2017 10:03 AM Dictated Date/Time: 07/13/2017 10:01 AM
--- NOTE | 2017-07-13 12:15 | Progress Note ---
Medicine Progress Note Date & Time of Visit: Jul 13, 2017 at 11:59. Subjective Pt was seen and examined Lying in bed with mild respiratory distress Pt did not want to wear the BIPAP all night last night She is drowsy today I explained to the patient that she needs to wear the bipap at night and when shes sleeps Denies any chest pain, palpitation, dizziness and fever Objective Last 8 Hrs Date Time Temp Pulse Resp B/P (MAP) Pulse Ox O2 Delivery O2 Flow Rate FiO2 07/13/17 11:46 36.1 76 22 121/94 (103) 94 BiPAP 07/13/17 08:01 BiPAP 07/13/17 07:31 37.0 94 20 178/113 (134) 96 High Flow Oxygen 07/13/17 07:05 104 20 96 Nasal Cannula 50.0 80 07/13/17 04:02 37.2 91 28 152/81 (104) 93 High Flow Oxygen 07/13/17 04:00 High Flow Oxygen Physical Exam: General- No acute distress Head- atraumatic Eyes- PERRL, EOMI ENT- oropharynx clear Neck- supple, no JVD Lungs- decrease BS Heart- irregular Abdomen- normal bowel sounds, soft Extremities- no calf tenderness, Left ankle pain, splint with toño bandage in LE Neuro- lethargy Skin- warm & dry Laboratory Results: Last 24 Hours Test 07/12/17 15:30 07/13/17 05:37 07/13/17 11:17 Activated Partial Thromboplast Time 57.4 SECONDS 87.2 SECONDS Partial Thromboplastin Ratio 2.2 3.4 White Blood Count 16.66 K/uL Red Blood Count 3.54 M/uL Hemoglobin 10.3 g/dL Hematocrit 32.4 % Mean Corpuscular Volume 91.5 fL Mean Corpuscular Hemoglobin 29.1 pg Mean Corpuscular Hemoglobin Concent 31.8 g/dl RDW Standard Deviation 45.7 fL RDW Coefficient of Variation 13.7 % Platelet Count 284 K/uL Mean Platelet Volume 9.1 fL Nucleated RBC Absolute Count (auto) 0.03 K/uL Nucleated Red Blood Cells % 0.2 % Sodium Level 134 mmol/L Potassium Level 3.9 mmol/L Chloride Level 92 mmol/L Carbon Dioxide Level 41 mmol/L Anion Gap 1.0 mmol/L Blood Urea Nitrogen 19 mg/dl Creatinine 0.63 mg/dl Est Creatinine Clear Calc Drug Dose 84.9 ml/min Estimated GFR () 96.8 Estimated GFR (Non- 83.5 BUN/Creatinine Ratio 30.8 Random Glucose 231 mg/dl Calcium Level 8.1 mg/dl Magnesium Level 2.1 mg/dl Arterial Blood pH 7.39 Arterial Blood Partial Pressure CO2 68 mmHg Arterial Blood Partial Pressure O2 69 mm/Hg Arterial Blood HCO3 41 mmol/L Arterial Blood Oxygen Saturation 91.8 % Arterial Blood Base Excess 13.3 mEq/L Arterial Blood Gas Delivery 70% Jordan Test POS Assessment & Plan Acute hypercapnic respiratory failure Mostly related to COPD exacerbation vs Pneumonia CXR showed dense bibasilar airspace consolidation, right greater than left with associated pleural effusions. ABG on admission showed respiratory acidosis with comp Continue Levaquin and Zosyn Negative influenza test Continue Solumedrol Continue BIPAP with intermittent high flow supplement oxygen Continue respiratory treatment with Duoneb Blood cx no growth ABG done today showed respiratory acidosis with PCO2 80 Not to sure if it due to noncompliant since pt does not want to keep the Bipap on or if we need to change the setting. Will repeat ABG monitor closely CT with PE protocol showed no evidence for PE. Dense bilateral lower lobe atelectasis/consolidation. Patchy airspace opacities are also present within the right upper lobe lingula and right middle lobe. 07/12 Clinically improved slightly continue using BIPAP at night Received lasix last night and diuresis well Continue abx Continue respiratory treatment continue Solumedrol 07/13 Drowsy this morning Refused to wear BIPap last night Encourage pt to keep the bipap one if she needs to get better Continue BIPAP lasix 40mg BID ABG showed PCO2 68 CXR today showed persistent small bilateral pleural effusions with associated bibasilar opacities, right greater than left. Suspected mild pulmonary edema. Consider to add vanco IV Continue Levaquin and zosyn ECHO * The echocardiogram is extremely technically limited. * Patient was sitting upright for the test. * There is no significant pericardial effusion noted. * The left ventricular systolic function is grossly normal on limited visualization. * The right ventricular systolic function is grossly normal. * The valves are poorly visualized. * There is no significant valvular stenosis or regurgitation on technically limited Doppler evaluation. Paroxysmal atrial flutter with rapid ventricular response Due to acute hypercapnic respiratory failure received Cardizem and digoxin Continue on heparin drip Continue cardizem 240mg Hyponatremia Possible related to hypovolemia Na on admission 128 Na today 134 Improved Hyperkalemia K 3.9 Pt is on lisinopril (might not be a good candidate for ACEI due to hyperkalemia) Will put on a low K diet If stay high, will give Kayexalate Continue monitor BMP stable Left Ankle fracture s/p fall Left ankle xray showed distal tibial and fibular fractures as above with mild lateral subluxation of the talus. Ortho on board pain control Continue required high flow oxygen and BIPAP for acute hypercapnic respiratory failure Continue to postpone surgery until respiratory status improves Right pelvic ring fracture, Pelvis xray showed an age indeterminant right pubic ring fracture, possibly chronic. Stable Hypertension BP elevated Continue lisinopril. will add amlodipine PRN clonidine Continue monitor BP Ulcerative colitis On Pentasa Stable Depression On Celexa Stable DVT px On heparin drip CODE STATUS DNR DISPOSITION Continue monitor in tele Consultants: Pulmonary Current Inpatient Medications: Current Inpatient Medications Medications (Trade) Dose Ordered Sig/Reuben Route Start Time Stop Time Status Last Admin Dose Admin Levalbuterol (Xopenex 1.25MG/ 3ML Neb) 1.25 mg Q6R INH 07/07/17 22:30 08/06/17 22:29 07/13/17 07:05 1.25 MG Levofloxacin (Consult) 1 ea UD PRN N/A 07/08/17 01:09 08/07/17 01:08 Tramadol HCl (Ultram Tab) 50 mg Q6H PRN PO 07/07/17 21:30 08/06/17 21:29 07/08/17 07:55 50 MG Clonidine HCl (Catapres Tab) 0.1 mg Q6H PRN PO 07/07/17 21:30 08/06/17 21:29 Future Hold 07/09/17 16:21 0.1 MG Citalopram Hydrobromide (celeXA TAB) 40 mg DAILY PO 07/08/17 09:00 08/07/17 08:59 07/13/17 07:42 40 MG Latanoprost (Xalatan Oph Soln) 1 drops HS OP 07/08/17 21:00 08/07/17 20:59 07/12/17 21:24 1 DROPS Lisinopril (Zestril Tab) 20 mg DAILY PO 07/08/17 09:00 08/07/17 08:59 Future Hold 07/11/17 09:27 20 MG Mesalamine (Pentasa Controlled Rel Cap) 1,000 mg BID PO 07/08/17 09:00 08/07/17 08:59 07/13/17 07:42 1,000 MG Mirtazapine (Remeron Tab) 15 mg HS PO 07/08/17 21:00 08/07/17 20:59 07/12/17 21:24 15 MG Pantoprazole Sodium (Protonix Tab) 40 mg DAILY PO 07/08/17 09:00 08/07/17 08:59 07/13/17 07:42 40 MG Senna/Docusate Sodium (Senokot S Tab) 1 tab DAILY PO 07/08/17 09:00 08/07/17 08:59 07/13/17 07:42 1 TAB Simvastatin (Zocor Tab) 20 mg HS PO 07/08/17 21:00 08/07/17 20:59 07/12/17 21:24 20 MG Acetaminophen (Tylenol Tab) 650 mg Q4H PRN PO 07/07/17 21:45 08/06/17 21:44 07/09/17 16:22 650 MG Ondansetron HCl (Zofran Inj) 4 mg Q6H PRN IV 07/07/17 21:45 08/06/17 21:44 Piperacillin Sod/ Tazobactam Sod 4.5 gm/Dextrose 120 ml @ 30 mls/hr Q8H IV 07/08/17 02:00 07/15/17 01:59 07/13/17 09:59 30 MLS/HR Levofloxacin 750 mg/Prmx 150 ml @ 100 mls/hr Q24H IV 07/08/17 06:00 07/15/17 05:59 07/13/17 06:03 100 MLS/HR Piperacillin Sod/ Tazobactam Sod (Consult) 1 ea UD PRN N/A 07/08/17 01:15 08/07/17 01:14 Heparin Sodium/ Dextrose 500 ml @ 25 mls/hr Q20H PRN IV 07/12/17 08:30 08/11/17 08:29 07/13/17 02:38 28 MLS/HR Methylprednisolone Sodium Succinate 40 mg/Syringe 0.64 ml @ 1.5 mls/min Q12H IV 07/12/17 20:00 08/11/17 19:59 07/13/17 07:42 1.5 MLS/MIN Acetylcysteine (Mucomyst 20% Inh Soln) 3 ml BIDR INH 07/12/17 20:00 08/11/17 19:59 07/13/17 07:05 3 ML Diltiazem HCl (Cardizem Cd Cap) 240 mg QAM PO 07/13/17 09:00 08/11/17 08:59 07/13/17 07:42 240 MG Furosemide 40 mg/ Syringe 4 ml @ 4 mls/min BID17 IV 07/13/17 09:00 08/12/17 08:59 07/13/17 09:59 4 MLS/MIN
[2017-07-13 13:37] LABS: PTT PATIENT 59.7 SECONDS (21.0-31.0)
[2017-07-13] MEDS: SIMVASTATIN 20 MG TAB PO SCH (21:37)
[2017-07-13] MEDS: LATANOPROST 0.005% OP SOLN 2.5 ML BTL OP SCH (21:38)
[2017-07-13] MEDS: MIRTAZAPINE TAB 15 MG TAB PO SCH (21:38)
[2017-07-14] VITALS (12 sets, daily range): BP systolic 106–161; BP diastolic 62–87; PULSE 87–100; TEMP 36.6–37.3; O2SAT 91–96
[2017-07-14] MEDS: LEVALBUTEROL 1.25MG/3ML NEB INH SCH ×4 (01:45→17:55)
[2017-07-14] MEDS: PIPERACILL/TAZOBAC IV 4.5 GM in DEXTROSE 5% 100ML IV SCH ×3 (02:22→17:01)
[2017-07-14] MEDS: LEVOFLOXACIN 750MG / D5W IV SCH (05:35)
[2017-07-14] MEDS: ACETYLCYSTEINE 20% INHAL SOLN ***DISPENSED BY RESP. INH SCH ×2 (06:59→17:55)
--- NOTE | 2017-07-14 07:02 | DIAGNOSTIC IMAGING REPORT ---
CHEST ONE VIEW PORTABLE CLINICAL HISTORY: Hypoxia. Abnormal chest x-ray. COMPARISON STUDY: 07/13/2017 FINDINGS: The heart remains enlarged. There are persistent bilateral pleural effusions. There is right lower lobe pulmonary consolidation with air bronchograms. Left basal airspace opacities are likely atelectatic. There is improving mild pulmonary vascular congestion.[ IMPRESSION: 1. Cardiomegaly and improving mild pulmonary vascular congestion 2. Bilateral pleural effusions with persistent bibasal airspace opacities. The right lower lobe air bronchograms could indicate pneumonia, although atelectasis could appear similar. Clinical correlation will be necessary in this regard Electronically signed by: David Douglas M.D. 07/14/2017 7:01 AM Dictated Date/Time: 07/14/2017 6:59 AM
[2017-07-14 07:29] LABS: CALCIUM 8.1 mg/dl (8.5-10.1); CREATININE 0.7 mg/dl (0.60-1.20); POTASSIUM 2.8 mmol/L (3.5-5.1)
[2017-07-14 07:48] LABS: HEMATOCRIT 34.4 % (37-47); HEMOGLOBIN 11.1 g/dL (12.0-16.0); MEAN CORPUSCULAR HEMOGLOBIN 29.4 pg (25-34); MEAN CORPUSCULAR HGB CONC 32.3 g/dl (32-36); MEAN PLATELET VOLUME 9.5 fL (7.4-10.4); PLATELET COUNT 314 K/uL (130-400); RED CELL DISTRIBUTION WIDTH CV 13.7 % (11.5-14.5); RED CELL DISTRIBUTION WIDTH SD 45.1 fL (36.4-46.3); WHITE BLOOD COUNT 17.77 K/uL (4.8-10.8)
[2017-07-14] MEDS ORDERED: POTASSIUM CHLR 20 MEQ / WTR 20 MEQ in PREMIXED WATER 100 ML IV STA (08:05)
[2017-07-14] MEDS: FUROSEMIDE INJ 40 MG in SYRINGE 0 ML IV SCH (08:15)
[2017-07-14] MEDS: MESALAMINE 250 MG CAPCR PO SCH ×2 (08:16→19:44)
[2017-07-14] MEDS: METHYLPREDNISOLONE IV 40 MG in SYRINGE 0 ML IV SCH ×2 (08:16→19:42)
[2017-07-14] MEDS: DOCUSATE SODIUM/SENNA 50/8.6MG TAB PO SCH (08:17)
[2017-07-14] MEDS: CITALOPRAM 40 MG TAB PO SCH (08:17)
[2017-07-14] MEDS: DILTIAZEM HCL 240 MG CAPCR PO SCH (08:17)
[2017-07-14] MEDS: PANTOprazole SOD 40 MG TAB PO SCH (08:17)
[2017-07-14] MEDS ORDERED: POTASSIUM CHLORIDE 20 MEQ TABCR PO ONE (08:45)
[2017-07-14] MEDS: POTASSIUM CHLR 10MEQ / WTR IV SCH ×2 (08:54→10:29)
--- NOTE | 2017-07-14 09:46 | Pulmonology Progress Note ---
Pulmonary Progress Note Date of Service Jul 14, 2017. Attending Dr. Benjamín Knight This is an 81 yo female that sustained a malleolar fracture and was brought to [facility] for evaluation for ORIF. On examination she was hypoxic and surgery was delayed pending improvement of her respiratory status. ABG this morning was 7.44 /70/79/46. Patient used BiPAP most of the night. CTA on 07/09/17 was negative for PE but did reveal Dense bilateral lower lobe atelectasis/consolidation. Patchy airspace opacities are also present within the right upper lobe lingula and right middle lobe. CXR impression today is Bilateral pleural effusions with persistent bibasal airspace opacities. The right lower lobe air bronchograms could indicate pneumonia, although atelectasis could appear similar. Patient is afebrile but has a rising white count, most likely due to steroids (currently methylprednisolone 40mg IV Q12H). She is on Zosyn 4.5 gm q8h (Day #6) and Levofloxacin 750 mg IV daily (Day #6). No sputum cultures were collected. For pulmonary toileting, patient has a flutter valve but is unclear how to use it. She was instructed on proper use and responded with a wet cough with no sputum produced. She is also on Acetylcysteine Nebs BID (today is day #3). Patient is in atrial fibrillation and is on a heparin gtt. Patient is seen at bedside and states that she is pretty much at baseline. Seh has no production of sputum. She tolerated BiPAP last night. She is afebrile, denies shakes or chills. She reports no need for a nicotine patch. Pain is well controlled. She has no acute complaints. On examination, she appears to have thrush and when questioned, states that she does have a little pain and trouble swallowing. She has no evidence of aspiration as she eats her breakfast. Objective Gen: She is awake and oriented. CVS: Irregularly irregular, rate in the low 100s ENT: Hi Nemesio O2 in place. Oral candidiasis evident on tongue and posterior oral pharynx Lungs: decreased breath sound bilaterally, crackles at bases Abd: Soft, NT, ND, BS present Ext: left lower extremity in splint, right lower extremity trace edema, chronic venous stasis. Right hand discolored, coban removed from recent ABG with no bleeding or hematoma Labs: ABG 07/14/2017 - 7.44/70/79/46/94.6% on 70% FiO2 BiPAP ABG 07/12/2017--7.41/63/71/39/92.1% on 70% FiO2 BiPAP ABG 07/11/2017--7.27/80/116/36/96.7% on high flow nasal cannula Imaging reviewed. CTA chest 07/09/2016 IMPRESSION: 1. Study compromised by respiratory motion artifact 2. No evidence of acute pulmonary embolism 3. No evidence of pathologic adenopathy 4. 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 Dense bilateral lower lobe atelectasis/consolidation. Patchy airspace opacities are also present within the right upper lobe lingula and right middle lobe. 6. Small bilateral pleural effusions 7. Severe L1 compression fracture with mild retropulsion. Medications reviewed. Assessment & Plan Acute on chronic hypercapnic hypoxic respiratory failure COPD (unknown FEV1) in acute exacerbation Hypertensive urgency Possible diastolic dysfunction Electrolyte imbalance Tobacco use disorder Morbid obesity Atrial fibrillation Pneumonia Mrs. Farrar is a 81-year-old female who presents with acute on chronic hypercapnic respiratory failure with status post fall and sustaining left bimalleolar fracture. She is on chronic long-term oxygen therapy at 2 L/m during the day and 4 L/m at night, for COPD. Mrs. Farrar continues to smoke 1/2 PPD by going into her bathroom without supplemental O2 and using the bathroom fan. She tolerated BIPAP overnight and committed to continuing use while inpatient. BP is stable HYPERCAPNIC/HYPOXIC ACUTE ON CHRONIC RESPIRATORY FAILURE Continues with pulmonary congestion, pleural effusions, atelectasis as compared to 06/27/16 CXR although this may be her new baseline ABG pH 7.44 with a pCO2 70 with full awareness suggests that this is baseline for her due to chronic COPD and continued tobacco abuse Continue HiFlo O2 during the day and BiPAP at night On dual antibiotics with rising WBC - suspect elevated WBC due to steroids - check procalcitonin level Patient is negative for influenza A&B per Ag study - due to age and comorbidities, question if PCR should be checked Continue methylprednisolone 40 mg IV q12h Continue Levalbuterol Nebs Follow oxygenation Ambulate as tolerated OOB to chair Continue aggressive pulmonary toileting BILATERAL PLEURAL EFFUSIONS Component of atelectasis masking validity of pleural effusions Will do bedside ultra sound to check effusions Continue incentive spirometry and flutter valve therapy ATRIAL FIBRILLATION Continues on heparin gtt Unaware of tachyarrhythmia Rate continue in the low 100s Cardiology consulted. They will continue to manage HYPERTENSION Cardiology following BP better today TOBACCO ABUSE Discussed need for cessation Caution with use os O2 in the house with concurrent smoking in the house DVT PROPHYLAXIS Heparin gtt Thank you for including us in [facility] care of this patient. Please refer to Dr. Butts's addendum for further recommendations Recommendations Continue with BiPAP and high flow nasal cannula intermittently. She should use BiPAP at night as well. Again stressed compliance. Continue to treat for COPD exacerbation with broad-spectrum antibiotics, nebulizers and IV corticosteroids. Continue with Solu-Medrol every 12 IV. Continue with diuresis. Currently on heparin drip as well as antiarrhythmics per cardiology recommendations who are following closely Encourage flutter valve and incentive spirometry. Continue with chest vest to assists with aggressive pulmonary toilet as well as Mucomyst twice a day Will order repeat CXR today, depending will consider adding vancomycin to cover for MRSA with increasing WBC. Pulmonary will continue to follow. Physician Supervision Note: I was present with Suman Huerta PA-C during the history and exam. I discussed the case with him and agree with the findings and plan as documented in the note. Any exceptions or clarifications are listed here: Patient with acute on chronic respiratory failure, advanced COPD on home O2, non -compliant with therapy and still smoking, now awaiting malleolar fracture repair. Has worsening respiratory failure now, on BIPAP alternating with high- flow. Continue treatment for COPD exacerbation, nocturnal BIPAP. Still not optimized for surgery, probably never will be, however, she should be in better clinical condition. Recommend, if possible, spinal or local anesthesia , general anesthesia to be avoided. She has poor functional status to begin with, so rushing to repair the fracture would result in a much earlier mobilization Documented By: Isak Butts MD Data Medications: Current Inpatient Medications Medications (Trade) Dose Ordered Sig/Reuben Route Start Time Stop Time Status Last Admin Dose Admin Levalbuterol (Xopenex 1.25MG/ 3ML Neb) 1.25 mg Q6R INH 07/07/17 22:30 08/06/17 22:29 07/14/17 06:58 1.25 MG Levofloxacin (Consult) 1 ea UD PRN N/A 07/08/17 01:09 08/07/17 01:08 Tramadol HCl (Ultram Tab) 50 mg Q6H PRN PO 07/07/17 21:30 08/06/17 21:29 07/08/17 07:55 50 MG Clonidine HCl (Catapres Tab) 0.1 mg Q6H PRN PO 07/07/17 21:30 08/06/17 21:29 Future Hold 07/09/17 16:21 0.1 MG Citalopram Hydrobromide (celeXA TAB) 40 mg DAILY PO 07/08/17 09:00 08/07/17 08:59 07/14/17 08:17 40 MG Latanoprost (Xalatan Oph Soln) 1 drops HS OP 07/08/17 21:00 08/07/17 20:59 07/13/17 21:38 1 DROPS Lisinopril (Zestril Tab) 20 mg DAILY PO 07/08/17 09:00 08/07/17 08:59 Future Hold 07/11/17 09:27 20 MG Mesalamine (Pentasa Controlled Rel Cap) 1,000 mg BID PO 07/08/17 09:00 08/07/17 08:59 07/14/17 08:16 1,000 MG Mirtazapine (Remeron Tab) 15 mg HS PO 07/08/17 21:00 08/07/17 20:59 07/13/17 21:38 15 MG Pantoprazole Sodium (Protonix Tab) 40 mg DAILY PO 07/08/17 09:00 08/07/17 08:59 07/14/17 08:17 40 MG Senna/Docusate Sodium (Senokot S Tab) 1 tab DAILY PO 07/08/17 09:00 08/07/17 08:59 07/14/17 08:17 1 TAB Simvastatin (Zocor Tab) 20 mg HS PO 07/08/17 21:00 08/07/17 20:59 07/13/17 21:37 20 MG Acetaminophen (Tylenol Tab) 650 mg Q4H PRN PO 07/07/17 21:45 08/06/17 21:44 07/09/17 16:22 650 MG Ondansetron HCl (Zofran Inj) 4 mg Q6H PRN IV 07/07/17 21:45 08/06/17 21:44 Piperacillin Sod/ Tazobactam Sod 4.5 gm/Dextrose 120 ml @ 30 mls/hr Q8H IV 07/08/17 02:00 07/15/17 01:59 07/14/17 02:22 30 MLS/HR Levofloxacin 750 mg/Prmx 150 ml @ 100 mls/hr Q24H IV 07/08/17 06:00 07/15/17 05:59 07/14/17 05:35 100 MLS/HR Piperacillin Sod/ Tazobactam Sod (Consult) 1 ea UD PRN N/A 07/08/17 01:15 08/07/17 01:14 Heparin Sodium/ Dextrose 500 ml @ 25 mls/hr Q20H PRN IV 07/12/17 08:30 08/11/17 08:29 07/13/17 21:42 25 MLS/HR Methylprednisolone Sodium Succinate 40 mg/Syringe 0.64 ml @ 1.5 mls/min Q12H IV 07/12/17 20:00 08/11/17 19:59 07/14/17 08:16 1.5 MLS/MIN Acetylcysteine (Mucomyst 20% Inh Soln) 3 ml BIDR INH 07/12/17 20:00 08/11/17 19:59 07/14/17 06:59 3 ML Diltiazem HCl (Cardizem Cd Cap) 240 mg QAM PO 07/13/17 09:00 08/11/17 08:59 07/14/17 08:17 240 MG Furosemide 40 mg/ Syringe 4 ml @ 4 mls/min BID17 IV 07/13/17 09:00 08/12/17 08:59 07/14/17 08:15 4 MLS/MIN Potassium Chloride (Klor-Con Tab) 20 meq NOW ONCE PO 07/14/17 08:45 07/14/17 08:46 Potassium Chloride 10 meq/ Prmx 100 ml @ 100 mls/hr Q1H IV 07/14/17 08:30 07/14/17 10:29 Vital Signs: Date Time Temp Pulse Resp B/P (MAP) Pulse Ox O2 Delivery O2 Flow Rate FiO2 07/14/17 07:13 36.9 93 20 106/62 (77) 94 BiPAP 07/14/17 06:59 97 18 95 BiPAP/CPAP 70 07/14/17 05:22 88 96 70 07/14/17 04:00 BiPAP 07/14/17 03:33 36.6 97 17 133/87 (102) 96 CPAP 07/14/17 01:47 87 95 70 07/14/17 01:47 87 18 95 BiPAP/CPAP 70 07/14/17 00:00 BiPAP 07/13/17 23:33 36.7 91 18 152/83 (106) 95 CPAP 07/13/17 22:17 95 91 70 07/13/17 20:00 BiPAP 07/13/17 19:33 36.2 90 22 132/95 (107) 95 High Flow Oxygen 07/13/17 19:06 91 18 95 Nasal Cannula 50.0 75 07/13/17 16:14 BiPAP 07/13/17 15:17 36.2 88 22 144/72 (96) 96 BiPAP 07/13/17 14:27 79 95 70 07/13/17 14:25 79 21 95 BiPAP/CPAP 70 07/13/17 12:06 BiPAP 07/13/17 11:46 36.1 76 22 121/94 (103) 94 BiPAP Laboratory Results: Last 24 Hours Test 07/13/17 11:17 07/13/17 12:48 07/14/17 06:48 Arterial Blood pH 7.39 7.44 Arterial Blood Partial Pressure CO2 68 mmHg 70 mmHg Arterial Blood Partial Pressure O2 69 mm/Hg 79 mm/Hg Arterial Blood HCO3 41 mmol/L 46 mmol/L Arterial Blood Oxygen Saturation 91.8 % 94.6 % Arterial Blood Base Excess 13.3 mEq/L 18.7 mEq/L Arterial Blood Gas Delivery 70% 70% Jordan Test POS POS Activated Partial Thromboplast Time 59.7 SECONDS 66.0 SECONDS Partial Thromboplastin Ratio 2.3 2.5 White Blood Count 17.77 K/uL Red Blood Count 3.78 M/uL Hemoglobin 11.1 g/dL Hematocrit 34.4 % Mean Corpuscular Volume 91.0 fL Mean Corpuscular Hemoglobin 29.4 pg Mean Corpuscular Hemoglobin Concent 32.3 g/dl RDW Standard Deviation 45.1 fL RDW Coefficient of Variation 13.7 % Platelet Count 314 K/uL Mean Platelet Volume 9.5 fL Sodium Level 134 mmol/L Potassium Level 2.8 mmol/L Chloride Level 86 mmol/L Carbon Dioxide Level 44 mmol/L Anion Gap 4.0 mmol/L Blood Urea Nitrogen 25 mg/dl Creatinine 0.70 mg/dl Est Creatinine Clear Calc Drug Dose 76.4 ml/min Estimated GFR () 93.5 Estimated GFR (Non- 80.7 BUN/Creatinine Ratio 35.7 Random Glucose 230 mg/dl Calcium Level 8.1 mg/dl Magnesium Level 2.0 mg/dl
[2017-07-14] MEDS ORDERED: NYSTATIN SUSP 500,000 U/5 ML UDC PO ONE (10:00)
[2017-07-14] MEDS ORDERED: WARFARIN SOD 5 MG TAB PO SCH (11:00)
--- NOTE | 2017-07-14 11:59 | Cardiology Follow-Up ---
Subjective General Date of Service: Jul 14, 2017. Pt evaluation today including: conversation w/ patient, physical exam, chart review, lab review, review of studies, review of inpatient medication list History of Present Illness The patient is a 81 year old female seen in follow-up. I/O negative 3600cc over last 24 hours. Respiratory status has improved. Creatinine remains stable. Hypokalemia noted. no edema Denies CP. Remains in atrial flutter on telemetry with an average heart rate of 95 bpm. Allergies Coded Allergies: Sulfa Drugs (Verified Allergy, Unknown, `, 11/21/13) Sulfamethoxazole (Verified Allergy, Unknown, `, 11/21/13) Trimethoprim (Verified Allergy, Unknown, `, 11/21/13) Social History Smoking Status: Current Some Day Smoker Hx Tobacco Use In Past Year?: Yes Hx Alcohol Use - Type And Amou: No Hx Substance Use - Type And Am: No Problem List Medical Problems: (1) Acute on chronic respiratory failure with hypoxia and hypercapnia Status: Acute (2) Ankle fracture, left Status: Acute (3) Bimalleolar ankle fracture Status: Acute (4) Hyponatremia Status: Acute (5) Pneumonia Status: Acute Review of Systems Respiratory: + cough, + sputum, + dyspnea on exertion, No wheezing, No shortness of breath, No dyspnea at rest, No hemoptysis Cardiac: No chest pain, No orthopnea, No PND, No edema, No claudication, No palpitations Physical Exam Vital Signs Last Vital Signs Documentation Date Time Temp Pulse Resp B/P (MAP) Pulse Ox O2 Delivery O2 Flow Rate FiO2 07/14/17 08:00 BiPAP 07/14/17 07:13 36.9 93 20 106/62 (77) 94 07/14/17 06:59 70 07/13/17 19:06 50.0 Physical Exam Constitutional: Level of Distress: NAD, chronically ill Head: normocephalic Lungs: Auscultation: decreased breath sounds, rales/crackles on the left, rales/ crackles on the right Cardiovascular: Heart Auscultation: normal S1, normal S2, no murmurs, irregular rate rhythm Peripheral Pulses: Radial Pulse: normal on the left, normal on the right Abdomen: Inspection & Palpation: soft, non-distended, no tenderness, guarding & rebound, no masses Extremities: no cyanosis, no edema, no clubbing, no ulcers Neurologic: Gait & Station: pertinent finding (no focal motor deficit) Cranial Nerves: grossly intact Assessment and Plan Assessment and Plan FINAL IMPRESSION: 1. Paroxysmal atrial flutter with rapid ventricular response secondary to underlying respiratory insufficiency, hypercapnic respiratory failure, chronic obstructive pulmonary disease exacerbation, and pneumonia. 2. Acute decompensated diastolic heart failure exacerbated by rapid atrial flutter as well as positive fluid balance since admission. - 3.6 liters negative over past 24 hours with resultant hypokalemia and rise in bicarbonate. 3. Hypertension -- controlled. 4. Preserved LV and RV function. 5. Hypokalemia related to diuretic therapy 6. Hyponatremia. 7. Left ankle fracture, status post full. 8. Ulcerative colitis. 9. Carotid vascular disease with history of prior endarterectomy PLAN AND RECOMMENDATIONS: Reduce IV Lasix to 40 mg once daily. Replace potassium. Repeat BMP this afternoon. Continue Cardizem CD 240mg daily. Continue intravenous heparin as bridge to Coumadin for goal INR of 2.0-3.0. 5mg coumadin ordered. Follow fluid balance, GFR, electrolytes, respiratory status closely. Repeat chest x-ray in AM. Laboratory Results Last 24 Hours Test 07/13/17 12:48 07/14/17 06:48 07/14/17 09:55 07/14/17 11:20 Activated Partial Thromboplast Time 59.7 SECONDS 66.0 SECONDS Partial Thromboplastin Ratio 2.3 2.5 White Blood Count 17.77 K/uL Red Blood Count 3.78 M/uL Hemoglobin 11.1 g/dL Hematocrit 34.4 % Mean Corpuscular Volume 91.0 fL Mean Corpuscular Hemoglobin 29.4 pg Mean Corpuscular Hemoglobin Concent 32.3 g/dl RDW Standard Deviation 45.1 fL RDW Coefficient of Variation 13.7 % Platelet Count 314 K/uL Mean Platelet Volume 9.5 fL Arterial Blood pH 7.44 Arterial Blood Partial Pressure CO2 70 mmHg Arterial Blood Partial Pressure O2 79 mm/Hg Arterial Blood HCO3 46 mmol/L Arterial Blood Oxygen Saturation 94.6 % Arterial Blood Base Excess 18.7 mEq/L Arterial Blood Gas Delivery 70% Jordan Test POS Sodium Level 134 mmol/L Potassium Level 2.8 mmol/L Chloride Level 86 mmol/L Carbon Dioxide Level 44 mmol/L Anion Gap 4.0 mmol/L Blood Urea Nitrogen 25 mg/dl Creatinine 0.70 mg/dl Est Creatinine Clear Calc Drug Dose 76.4 ml/min Estimated GFR () 93.5 Estimated GFR (Non- 80.7 BUN/Creatinine Ratio 35.7 Random Glucose 230 mg/dl Calcium Level 8.1 mg/dl Magnesium Level 2.0 mg/dl Procalcitonin 0.27 ng/ml
[2017-07-14 12:21] LABS: INR 1.1 (0.9-1.1)
[2017-07-14] MEDS: NYSTATIN SUSP 500,000 U/5 ML UDC PO SCH ×3 (12:53→19:43)
[2017-07-14 14:28] LABS: CREATININE 0.99 mg/dl (0.60-1.20)
[2017-07-14] MEDS ORDERED: POTASSIUM CHLORIDE 20 MEQ TABCR PO STA (15:50)
[2017-07-14] MEDS ORDERED: POTASSIUM CHLORIDE 10 MEQ TABCR PO STA (16:04)
--- NOTE | 2017-07-14 16:04 | Progress Note ---
Internal Med Progress Note Date of Service: Jul 14, 2017. Provider Documentation: SUBJECTIVE: The patient was seen and examined Complains of minimal SOB at rest OOB in a Chair Denies any other symptoms OBJECTIVE: Vital Signs-as noted below Exam: General-Minimal distress at rest Eyes-normal ENT-normal Neck-supple Lungs-Decreased breath sound bilaterally Minimal wheezing bilaterally Heart-Regular,no murmur Abdomen-Benign,no masses,bowel sound present Extremities-No edema Neuro-AAOx3 Lab data as noted below. ASSESSMENT & PLAN: Acute hypercapnic respiratory failure Secondary to COPD exacerbation and complicated by Pneumonia CXR showed dense bibasilar airspace consolidation, right greater than left with associated pleural effusions. ABG on admission showed respiratory acidosis with comp Has been on Levaquin and Zosyn Negative influenza test Continue Solumedrol Continue BIPAP with intermittent high flow supplement oxygen Blood cx no growth CT with PE protocol showed no evidence for PE. Dense bilateral lower lobe atelectasis/consolidation. Patchy airspace opacities are also present within the right upper lobe lingula and right middle lobe. Advised to USE BIPAP as much as she can to improve CO2 level and improve drowsiness Lasix 40mg BID ot help fluid overload IV Vancomycin added to broaden the spectrum ECHO * The echocardiogram is extremely technically limited. * Patient was sitting upright for the test. * There is no significant pericardial effusion noted. * The left ventricular systolic function is grossly normal on limited visualization. * The right ventricular systolic function is grossly normal. * The valves are poorly visualized. * There is no significant valvular stenosis or regurgitation on technically limited Doppler evaluation. Paroxysmal atrial flutter with rapid ventricular response Due to acute hypercapnic respiratory failure Received Cardizem and digoxin Continue on heparin drip till therapeutic with Coumadin Continue Cardizem 240mg Hyponatremia Possible related to hypovolemia Na on admission 128 Na today 134 Improved Hypokalemia K 3.9 Pt is on lisinopril (might not be a good candidate for ACEI due to hyperkalemia) Will put on a low K diet If stay high, will give Kayexalate Continue monitor BMP Remains Hypokalemic Will supplement K and monitor Check Mag Left Ankle fracture s/p fall Left ankle xray showed distal tibial and fibular fractures as above with mild lateral subluxation of the talus. Ortho on board Continue required high flow oxygen and BIPAP for acute hypercapnic respiratory failure Continue to postpone surgery until respiratory status improves Right pelvic ring fracture, Pelvis xray showed an age indeterminant right pubic ring fracture, possibly chronic. Stable Hypertension BP elevated Continue lisinopril. will add amlodipine PRN clonidine Continue monitor BP Ulcerative colitis On Pentasa Stable Depression On Celexa Stable DVT px On heparin drip CODE STATUS DNR DISPOSITION Continue monitor in tele Consultants: Pulmonary Vital Signs: Date Time Temp Pulse Resp B/P (MAP) Pulse Ox O2 Delivery O2 Flow Rate FiO2 07/14/17 15:03 37.3 90 20 151/84 (106) 94 High Flow Oxygen 07/14/17 14:17 93 18 93 Nasal Cannula 50.0 70 07/14/17 12:00 High Flow Oxygen 07/14/17 11:42 37.0 100 20 161/75 (103) 95 High Flow Oxygen 07/14/17 08:00 BiPAP 07/14/17 07:13 36.9 93 20 106/62 (77) 94 BiPAP 07/14/17 06:59 97 18 95 BiPAP/CPAP 70 07/14/17 05:22 88 96 70 07/14/17 04:00 BiPAP 07/14/17 03:33 36.6 97 17 133/87 (102) 96 CPAP 07/14/17 01:47 87 95 70 07/14/17 01:47 87 18 95 BiPAP/CPAP 70 07/14/17 00:00 BiPAP 07/13/17 23:33 36.7 91 18 152/83 (106) 95 CPAP 07/13/17 22:17 95 91 70 07/13/17 20:00 BiPAP 07/13/17 19:33 36.2 90 22 132/95 (107) 95 High Flow Oxygen 07/13/17 19:06 91 18 95 Nasal Cannula 50.0 75 07/13/17 16:14 BiPAP Lab Results: Results Past 24 Hours Test 07/14/17 06:48 07/14/17 09:55 07/14/17 11:20 07/14/17 13:50 Range/Units White Blood Count 17.77 4.8-10.8 K/uL Red Blood Count 3.78 4.2-5.4 M/uL Hemoglobin 11.1 12.0-16.0 g/dL Hematocrit 34.4 37-47 % Mean Corpuscular Volume 91.0 80-100 fL Mean Corpuscular Hemoglobin 29.4 25-34 pg Mean Corpuscular Hemoglobin Concent 32.3 32-36 g/dl RDW Standard Deviation 45.1 36.4-46.3 fL RDW Coefficient of Variation 13.7 11.5-14.5 % Platelet Count 314 130-400 K/uL Mean Platelet Volume 9.5 7.4-10.4 fL Activated Partial Thromboplast Time 66.0 21.0-31.0 SECONDS Partial Thromboplastin Ratio 2.5 Arterial Blood pH 7.44 7.35-7.45 Arterial Blood Partial Pressure CO2 70 35-46 mmHg Arterial Blood Partial Pressure O2 79 80-95 mm/Hg Arterial Blood HCO3 46 19-24 mmol/L Arterial Blood Oxygen Saturation 94.6 90-95 % Arterial Blood Base Excess 18.7 -9-1.8 mEq/L Arterial Blood Gas Delivery 70% Jordan Test POS POS Sodium Level 134 132 136-145 mmol/L Potassium Level 2.8 3.0 3.5-5.1 mmol/L Chloride Level 86 81 98-107 mmol/L Carbon Dioxide Level 44 44 21-32 mmol/L Anion Gap 4.0 7.0 3-11 mmol/L Blood Urea Nitrogen 25 25 7-18 mg/dl Creatinine 0.70 0.99 0.60-1.20 mg/dl Est Creatinine Clear Calc Drug Dose 76.4 54.0 ml/min Estimated GFR () 93.5 61.5 Estimated GFR (Non- 80.7 53.1 BUN/Creatinine Ratio 35.7 25.1 10-20 Random Glucose 230 313 70-99 mg/dl Calcium Level 8.1 8.0 8.5-10.1 mg/dl Magnesium Level 2.0 1.8-2.4 mg/dl Procalcitonin 0.27 0-0.5 ng/ml Prothrombin Time 12.0 9.0-12.0 SECONDS Prothromb Time International Ratio 1.1 0.9-1.1 Beta-Hydroxybutyric Acid 0.92 0.2-2.81 mg/dL
[2017-07-14] MEDS: MIRTAZAPINE TAB 15 MG TAB PO SCH (19:43)
[2017-07-14] MEDS: LATANOPROST 0.005% OP SOLN 2.5 ML BTL OP SCH (19:43)
[2017-07-14] MEDS: SIMVASTATIN 20 MG TAB PO SCH (19:43)
[2017-07-14] MEDS: HEPARIN 25,000 UNIT/500ML D5W 500 ML IV PRN (20:12)
[2017-07-15] VITALS (11 sets, daily range): BP systolic 133–209; BP diastolic 70–112; PULSE 87–110; TEMP 36.6–37; O2SAT 89–95; BMI 37.8
[2017-07-15] MEDS: LEVALBUTEROL 1.25MG/3ML NEB INH SCH ×4 (02:25→19:30)
[2017-07-15 06:43] LABS: BASO % 0.1 %; BASO ABS # 0.01 K/uL (0-0.2); HEMATOCRIT 34.4 % (37-47); HEMOGLOBIN 11.4 g/dL (12.0-16.0); IG# 0.21 K/uL (0.00-0.02); LYMPH % 4.5 %; MEAN CELL VOLUME 90.3 fL (80-100); MEAN CORPUSCULAR HEMOGLOBIN 29.9 pg (25-34); MEAN CORPUSCULAR HGB CONC 33.1 g/dl (32-36); MEAN PLATELET VOLUME 9.6 fL (7.4-10.4); MONO % 6.7 %; MONO ABS # 1.05 K/uL (0.11-0.59); NEUT % 87.4 %; NEUT ABS # 13.75 K/uL (1.4-6.5); PLATELET COUNT 273 K/uL (130-400); RED CELL DISTRIBUTION WIDTH CV 13.7 % (11.5-14.5); RED CELL DISTRIBUTION WIDTH SD 45.1 fL (36.4-46.3); WHITE BLOOD COUNT 15.72 K/uL (4.8-10.8)
[2017-07-15] MEDS: ACETYLCYSTEINE 20% INHAL SOLN ***DISPENSED BY RESP. INH SCH ×2 (07:05→19:30)
[2017-07-15 07:14] LABS: PTT PATIENT 63.2 SECONDS (21.0-31.0)
[2017-07-15] MEDS ORDERED: POTASSIUM CHLORIDE 20 MEQ TABCR PO STA ×2 (08:00→09:33)
[2017-07-15] MEDS ORDERED: FUROSEMIDE INJ 40 MG in SYRINGE 0 ML IV SCH (09:00)
[2017-07-15 09:21] LABS: CALCIUM 8.2 mg/dl (8.5-10.1); CREATININE 0.67 mg/dl (0.60-1.20); POTASSIUM 3.1 mmol/L (3.5-5.1)
[2017-07-15] MEDS: PANTOprazole SOD 40 MG TAB PO SCH (10:11)
[2017-07-15] MEDS: METHYLPREDNISOLONE IV 40 MG in SYRINGE 0 ML IV SCH ×2 (10:11→20:19)
[2017-07-15] MEDS: NYSTATIN SUSP 500,000 U/5 ML UDC PO SCH ×4 (10:11→20:20)
[2017-07-15] MEDS: MESALAMINE 250 MG CAPCR PO SCH ×2 (10:11→20:20)
[2017-07-15] MEDS: CITALOPRAM 40 MG TAB PO SCH (10:12)
[2017-07-15] MEDS: DOCUSATE SODIUM/SENNA 50/8.6MG TAB PO SCH (10:12)
[2017-07-15] MEDS: DILTIAZEM HCL 240 MG CAPCR PO SCH (10:12)
--- NOTE | 2017-07-15 10:12 | Cardiology Follow-Up ---
Subjective General Date of Service: Jul 15, 2017. Pt evaluation today including: conversation w/ patient, physical exam, chart review, lab review, review of studies, review of inpatient medication list History of Present Illness The patient is a 81 year old female seen in follow-up. Resting comfortably on BiPAP. Converted to sinus rhythm with PACs at approximately 9 AM. No events reported by nursing overnight. Hypokalemia noted. Allergies Coded Allergies: Sulfa Drugs (Verified Allergy, Unknown, `, 11/21/13) Sulfamethoxazole (Verified Allergy, Unknown, `, 11/21/13) Trimethoprim (Verified Allergy, Unknown, `, 11/21/13) Social History Smoking Status: Current Some Day Smoker Hx Tobacco Use In Past Year?: Yes Hx Alcohol Use - Type And Amou: No Hx Substance Use - Type And Am: No Problem List Medical Problems: (1) Acute on chronic respiratory failure with hypoxia and hypercapnia Status: Acute (2) Ankle fracture, left Status: Acute (3) Bimalleolar ankle fracture Status: Acute (4) Hyponatremia Status: Acute (5) Pneumonia Status: Acute Review of Systems Respiratory: + cough, + dyspnea on exertion, No sputum, No wheezing, No shortness of breath, No dyspnea at rest, No hemoptysis Cardiac: + edema, No chest pain, No orthopnea, No PND, No claudication, No palpitations Physical Exam Vital Signs Last Vital Signs Documentation Date Time Temp Pulse Resp B/P (MAP) Pulse Ox O2 Delivery O2 Flow Rate FiO2 07/15/17 08:00 BiPAP 07/15/17 07:46 36.6 95 24 174/95 (121) 91 07/15/17 07:06 70 07/14/17 17:55 50.0 Physical Exam Constitutional: Level of Distress: NAD, chronically ill Head: normocephalic Lungs: Auscultation: decreased breath sounds, rales/crackles on the left, rales/ crackles on the right Cardiovascular: Heart Auscultation: normal S1, normal S2, no murmurs, irregular rate rhythm Peripheral Pulses: Radial Pulse: normal on the left, normal on the right Abdomen: Inspection & Palpation: soft, non-distended, no tenderness, guarding & rebound, no masses Extremities: no cyanosis, no clubbing, no ulcers, edema (trace bilateral pretibial edema.) Neurologic: Gait & Station: pertinent finding (no focal motor deficit) Cranial Nerves: grossly intact Assessment and Plan Assessment and Plan FINAL IMPRESSION: 1. Paroxysmal atrial flutter with rapid ventricular response secondary to underlying respiratory insufficiency, hypercapnic respiratory failure, chronic obstructive pulmonary disease exacerbation, and pneumonia. - Converted to sinus rhythm with PACs this morning 2. Acute decompensated diastolic heart failure exacerbated by rapid atrial flutter as well as positive fluid balance since admission. -Volume status improved with diuretic therapy 3. Hypertension -- controlled. 4. Preserved LV and RV function. 5. Hypokalemia related to diuretic therapy 6. Hyponatremia. 7. Left ankle fracture, status post full. 8. Ulcerative colitis. 9. Carotid vascular disease with history of prior endarterectomy PLAN AND RECOMMENDATIONS: Hold Lasix today Replace potassium. Continue Cardizem CD 240mg daily. Continue intravenous heparin as bridge to Coumadin for goal INR of 2.0-3.0. Repeat INR today. Follow fluid balance, GFR, electrolytes, respiratory status closely. Laboratory Results Last 24 Hours Test 07/14/17 11:20 07/14/17 13:50 07/15/17 05:46 Prothrombin Time 12.0 SECONDS Prothromb Time International Ratio 1.1 Sodium Level 132 mmol/L 131 mmol/L Potassium Level 3.0 mmol/L 3.1 mmol/L Chloride Level 81 mmol/L 82 mmol/L Carbon Dioxide Level 44 mmol/L 47 mmol/L Anion Gap 7.0 mmol/L 2.0 mmol/L Blood Urea Nitrogen 25 mg/dl 26 mg/dl Creatinine 0.99 mg/dl 0.67 mg/dl Est Creatinine Clear Calc Drug Dose 54.0 ml/min 79.8 ml/min Estimated GFR () 61.5 94.9 Estimated GFR (Non- 53.1 81.9 BUN/Creatinine Ratio 25.1 39.0 Random Glucose 313 mg/dl 223 mg/dl Calcium Level 8.0 mg/dl 8.2 mg/dl Beta-Hydroxybutyric Acid 0.92 mg/dL White Blood Count 15.72 K/uL Red Blood Count 3.81 M/uL Hemoglobin 11.4 g/dL Hematocrit 34.4 % Mean Corpuscular Volume 90.3 fL Mean Corpuscular Hemoglobin 29.9 pg Mean Corpuscular Hemoglobin Concent 33.1 g/dl Platelet Count 273 K/uL Mean Platelet Volume 9.6 fL Neutrophils (%) (Auto) 87.4 % Lymphocytes (%) (Auto) 4.5 % Monocytes (%) (Auto) 6.7 % Eosinophils (%) (Auto) 0.0 % Basophils (%) (Auto) 0.1 % Neutrophils # (Auto) 13.75 K/uL Lymphocytes # (Auto) 0.70 K/uL Monocytes # (Auto) 1.05 K/uL Eosinophils # (Auto) 0.00 K/uL Basophils # (Auto) 0.01 K/uL RDW Standard Deviation 45.1 fL RDW Coefficient of Variation 13.7 % Immature Granulocyte % (Auto) 1.3 % Immature Granulocyte # (Auto) 0.21 K/uL Activated Partial Thromboplast Time 63.2 SECONDS Partial Thromboplastin Ratio 2.4
[2017-07-15 10:58] LABS: INR 1.2 (0.9-1.1)
--- NOTE | 2017-07-15 12:08 | Pulmonology Progress Note ---
Pulmonary Progress Note Date of Service Jul 15, 2017. Attending Dr. Butts Subjective Patient seen and examined. She is feeling better but still requiring high flow O2 and large volume supplemental oxygen. She did tolerate BiPAP again last night for most of the evening and sleeping well this morning when I first saw her. She has no fever or chills. She continues with cough which is primarily nonproductive. She has no chest pain or tightness. I did have a long discussion with her daughter. Patient is fairly nonambulatory and only walks 10-15 feet most of the time. She does live in a single-story ranch home and maximum distance is about 40 feet that she would need to walk. She does have a walker and thus far has not had a significant problem with falls. Her daughter lives in an apartment in the basement of the home and is available to monitor. Discussion primarily revolved around need for surgery. Patient primarily needs to transfer from bed to a chair and be able to ambulate with walker for short distances. Objective Gen: She is awake and oriented. CVS: Irregularly irregular, rate in the low 100s ENT: BiPAP in place. Taken off for exam and patient placed on Hi Nemesio O2. Oral candidiasis improved Lungs: decreased breath sound bilaterally, crackles at bases. No significant improvement Abd: Soft, NT, ND, BS present Ext: left lower extremity in splint, right lower extremity trace edema, chronic venous stasis. Labs: ABG 07/14/2017 - 7.44/70/79/46/94.6% on 70% FiO2 BiPAP ABG 07/12/2017--7.41/63/71/39/92.1% on 70% FiO2 BiPAP ABG 07/11/2017--7.27/80/116/36/96.7% on high flow nasal cannula Imaging reviewed. CTA chest 07/09/2016 IMPRESSION: 1. Study compromised by respiratory motion artifact 2. No evidence of acute pulmonary embolism 3. No evidence of pathologic adenopathy 4. 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 Dense bilateral lower lobe atelectasis/consolidation. Patchy airspace opacities are also present within the right upper lobe lingula and right middle lobe. 6. Small bilateral pleural effusions 7. Severe L1 compression fracture with mild retropulsion. Medications reviewed. Assessment & Plan Acute on chronic hypercapnic hypoxic respiratory failure COPD (unknown FEV1) in acute exacerbation Hypertensive urgency Possible diastolic dysfunction Electrolyte imbalance Tobacco use disorder Morbid obesity Atrial fibrillation Pneumonia Mrs. Farrar is a 81-year-old female who presents with acute on chronic hypercapnic respiratory failure with status post fall and sustaining left bimalleolar fracture. She is on chronic long-term oxygen therapy at 2 L/m during the day and 4 L/m at night, for COPD. Mrs. Farrar continues to smoke 1/2 PPD by going into her bathroom without supplemental O2 and using the bathroom fan. She tolerated BIPAP overnight and committed to continuing use while inpatient. BP is stable HYPERCAPNIC/HYPOXIC ACUTE ON CHRONIC RESPIRATORY FAILURE Continues with pulmonary congestion, pleural effusions, atelectasis as compared to 06/27/16 CXR although this may be her new baseline ABG pH 7.44 with a pCO2 70 with full awareness suggests that this is baseline for her due to chronic COPD and continued tobacco abuse Continue HiFlo O2 during the day and BiPAP at night On dual antibiotics with rising WBC - suspect elevated WBC due to steroids - check procalcitonin level Patient is negative for influenza A&B per Ag study - due to age and comorbidities, question if PCR should be checked Continue methylprednisolone 40 mg IV q12h Continue Levalbuterol Nebs Follow oxygenation Ambulate as tolerated OOB to chair as tolerated but has not been oob secpondary to instable LLE fx Continue aggressive pulmonary toileting Discussed case with orthopedics. They feel that surgery is needed as patient will not heal with needed union. We'll continue to follow respiratory status and discuss with family again tomorrow risks versus benefits. BILATERAL PLEURAL EFFUSIONS Component of atelectasis masking validity of pleural effusions Will do bedside ultra sound to check effusions Continue incentive spirometry and flutter valve therapy as tolerated ATRIAL FIBRILLATION Continues on heparin gtt Unaware of tachyarrhythmia Rate continue in the low 100s Cardiology consulted. They will continue to manage HYPERTENSION Cardiology following BP better today TOBACCO ABUSE Discussed need for cessation Caution with use os O2 in the house with concurrent smoking in the house DVT PROPHYLAXIS Heparin gtt In summary, the patient is not showing much improvement from respiratory standpoint. Discussed possibility of spinal or epidural anesthesia. Orthopedics would prefer open reduction internal fixation. We'll have to follow on a daily basis regarding improvement and continued risk for anesthesia Thank you for including us in the care of this patient. Please refer to Dr. Butts's addendum for further recommendations Physician Supervision Note: I was present with Suman Eugene PA-C during the history and exam. I discussed the case with him and agree with the findings and plan as documented in the note. Any exceptions or clarifications are listed here: Patient with acute on chronic respiratory failure, advanced COPD on home O2, non -compliant with therapy and still smoking, now awaiting malleolar fracture repair. Has worsening respiratory failure now, on BIPAP alternating with high- flow. Continue treatment for COPD exacerbation, nocturnal BIPAP. Still not optimized for surgery. Recommend, if possible, spinal or local anesthesia, general anesthesia to be avoided. She has poor functional status to begin with, so rushing to repair the fracture would not result in a much earlier mobilization. Documented By: Isak Butts MD Data Medications: Current Inpatient Medications Medications (Trade) Dose Ordered Sig/Reuben Route Start Time Stop Time Status Last Admin Dose Admin Levalbuterol (Xopenex 1.25MG/ 3ML Neb) 1.25 mg Q6R INH 07/07/17 22:30 08/06/17 22:29 07/15/17 07:05 1.25 MG Levofloxacin (Consult) 1 ea UD PRN N/A 07/08/17 01:09 07/17/17 14:00 Tramadol HCl (Ultram Tab) 50 mg Q6H PRN PO 07/07/17 21:30 08/06/17 21:29 07/08/17 07:55 50 MG Clonidine HCl (Catapres Tab) 0.1 mg Q6H PRN PO 07/07/17 21:30 08/06/17 21:29 Future Hold 07/09/17 16:21 0.1 MG Citalopram Hydrobromide (celeXA TAB) 40 mg DAILY PO 07/08/17 09:00 08/07/17 08:59 07/15/17 10:12 40 MG Latanoprost (Xalatan Oph Soln) 1 drops HS OP 07/08/17 21:00 08/07/17 20:59 07/14/17 19:43 1 DROPS Lisinopril (Zestril Tab) 20 mg DAILY PO 07/08/17 09:00 08/07/17 08:59 Future Hold 07/11/17 09:27 20 MG Mesalamine (Pentasa Controlled Rel Cap) 1,000 mg BID PO 07/08/17 09:00 08/07/17 08:59 07/15/17 10:11 1,000 MG Mirtazapine (Remeron Tab) 15 mg HS PO 07/08/17 21:00 08/07/17 20:59 07/14/17 19:43 15 MG Pantoprazole Sodium (Protonix Tab) 40 mg DAILY PO 07/08/17 09:00 08/07/17 08:59 07/15/17 10:11 40 MG Senna/Docusate Sodium (Senokot S Tab) 1 tab DAILY PO 07/08/17 09:00 08/07/17 08:59 07/14/17 08:17 1 TAB Simvastatin (Zocor Tab) 20 mg HS PO 07/08/17 21:00 08/07/17 20:59 07/14/17 19:43 20 MG Acetaminophen (Tylenol Tab) 650 mg Q4H PRN PO 07/07/17 21:45 08/06/17 21:44 07/09/17 16:22 650 MG Ondansetron HCl (Zofran Inj) 4 mg Q6H PRN IV 07/07/17 21:45 08/06/17 21:44 Piperacillin Sod/ Tazobactam Sod 4.5 gm/Dextrose 120 ml @ 30 mls/hr Q8H IV 07/08/17 02:00 07/17/17 19:00 07/14/17 17:01 30 MLS/HR Levofloxacin 750 mg/Prmx 150 ml @ 100 mls/hr Q24H IV 07/08/17 06:00 07/17/17 08:00 07/14/17 05:35 100 MLS/HR Piperacillin Sod/ Tazobactam Sod (Consult) 1 ea UD PRN N/A 07/08/17 01:15 07/17/17 17:00 Heparin Sodium/ Dextrose 500 ml @ 25 mls/hr Q20H PRN IV 07/12/17 08:30 08/11/17 08:29 07/14/17 20:12 25 MLS/HR Methylprednisolone Sodium Succinate 40 mg/Syringe 0.64 ml @ 1.5 mls/min Q12H IV 07/12/17 20:00 08/11/17 19:59 07/15/17 10:11 1.5 MLS/MIN Acetylcysteine (Mucomyst 20% Inh Soln) 3 ml BIDR INH 07/12/17 20:00 08/11/17 19:59 07/15/17 07:05 3 ML Diltiazem HCl (Cardizem Cd Cap) 240 mg QAM PO 07/13/17 09:00 08/11/17 08:59 07/15/17 10:12 240 MG Nystatin (Mycostatin Susp) 5 ml QID PO 07/14/17 13:00 07/17/17 12:59 07/15/17 10:11 5 ML Vital Signs: Date Time Temp Pulse Resp B/P (MAP) Pulse Ox O2 Delivery O2 Flow Rate FiO2 07/15/17 08:00 BiPAP 07/15/17 07:46 36.6 95 24 174/95 (121) 91 CPAP 07/15/17 07:06 104 89 70 07/15/17 07:05 104 20 89 BiPAP/CPAP 70 07/15/17 04:00 CPAP 07/15/17 03:33 36.6 110 20 149/90 (109) 90 CPAP 07/15/17 02:25 93 20 91 BiPAP/CPAP 70 07/15/17 00:00 CPAP 07/14/17 23:33 36.7 94 30 150/83 (105) 94 CPAP 07/14/17 21:54 93 91 70 07/14/17 20:00 CPAP 07/14/17 18:46 37.2 96 20 156/83 (107) 93 High Flow Oxygen 07/14/17 17:55 99 18 92 Nasal Cannula 50.0 70 07/14/17 16:00 High Flow Oxygen 07/14/17 15:03 37.3 90 20 151/84 (106) 94 High Flow Oxygen 07/14/17 14:17 93 18 93 Nasal Cannula 50.0 70 Laboratory Results: Last 24 Hours Test 07/14/17 13:50 07/15/17 05:46 07/15/17 10:22 Sodium Level 132 mmol/L 131 mmol/L Potassium Level 3.0 mmol/L 3.1 mmol/L Chloride Level 81 mmol/L 82 mmol/L Carbon Dioxide Level 44 mmol/L 47 mmol/L Anion Gap 7.0 mmol/L 2.0 mmol/L Blood Urea Nitrogen 25 mg/dl 26 mg/dl Creatinine 0.99 mg/dl 0.67 mg/dl Est Creatinine Clear Calc Drug Dose 54.0 ml/min 79.8 ml/min Estimated GFR () 61.5 94.9 Estimated GFR (Non- 53.1 81.9 BUN/Creatinine Ratio 25.1 39.0 Random Glucose 313 mg/dl 223 mg/dl Calcium Level 8.0 mg/dl 8.2 mg/dl Beta-Hydroxybutyric Acid 0.92 mg/dL White Blood Count 15.72 K/uL Red Blood Count 3.81 M/uL Hemoglobin 11.4 g/dL Hematocrit 34.4 % Mean Corpuscular Volume 90.3 fL Mean Corpuscular Hemoglobin 29.9 pg Mean Corpuscular Hemoglobin Concent 33.1 g/dl Platelet Count 273 K/uL Mean Platelet Volume 9.6 fL Neutrophils (%) (Auto) 87.4 % Lymphocytes (%) (Auto) 4.5 % Monocytes (%) (Auto) 6.7 % Eosinophils (%) (Auto) 0.0 % Basophils (%) (Auto) 0.1 % Neutrophils # (Auto) 13.75 K/uL Lymphocytes # (Auto) 0.70 K/uL Monocytes # (Auto) 1.05 K/uL Eosinophils # (Auto) 0.00 K/uL Basophils # (Auto) 0.01 K/uL RDW Standard Deviation 45.1 fL RDW Coefficient of Variation 13.7 % Immature Granulocyte % (Auto) 1.3 % Immature Granulocyte # (Auto) 0.21 K/uL Activated Partial Thromboplast Time 63.2 SECONDS Partial Thromboplastin Ratio 2.4 Prothrombin Time 12.9 SECONDS Prothromb Time International Ratio 1.2
[2017-07-15] MEDS: PIPERACILL/TAZOBAC IV 4.5 GM in DEXTROSE 5% 100ML IV SCH ×3 (12:44→18:25)
--- NOTE | 2017-07-15 13:06 | Progress Note ---
Internal Med Progress Note Date of Service: Jul 15, 2017. Provider Documentation: SUBJECTIVE: The patient was seen and examined Complains of minimal SOB at rest OOB in a Chair Denies any other symptoms Much better today -but requirinf more flow to maintain adequet saturation OBJECTIVE: Vital Signs-as noted below Exam: General-Minimal distress at rest Eyes-normal ENT-normal Neck-supple Lungs-Decreased breath sound bilaterally Minimal wheezing bilaterally Heart-Regular,no murmur Abdomen-Benign,no masses,bowel sound present Extremities-No edema Neuro-AAOx3 Lab data as noted below. ASSESSMENT & PLAN: Acute hypercapnic respiratory failure Secondary to COPD exacerbation and complicated by Pneumonia CXR showed dense bibasilar airspace consolidation, right greater than left with associated pleural effusions. ABG on admission showed respiratory acidosis with comp Has been on Levaquin and Zosyn Negative influenza test Continue Solumedrol Continue BIPAP with intermittent high flow supplement oxygen Blood cx no growth CT with PE protocol showed no evidence for PE. Dense bilateral lower lobe atelectasis/consolidation. Patchy airspace opacities are also present within the right upper lobe lingula and right middle lobe. Advised to USE BIPAP as much as she can to improve CO2 level and improve drowsiness Lasix 40mg BID ot help fluid overload IV Vancomycin added to broaden the spectrum -discontinued ECHO * The echocardiogram is extremely technically limited. * Patient was sitting upright for the test. * There is no significant pericardial effusion noted. * The left ventricular systolic function is grossly normal on limited visualization. * The right ventricular systolic function is grossly normal. * The valves are poorly visualized. * There is no significant valvular stenosis or regurgitation on technically limited Doppler evaluation. Continue current antibiotics for 3 more days Clinically much better today Paroxysmal atrial flutter with rapid ventricular response Due to acute hypercapnic respiratory failure Received Cardizem and digoxin Continue on heparin drip till therapeutic with Coumadin Continue Cardizem 240mg Rate is controlled Hyponatremia Possible related to hypovolemia Na on admission 128 Na today 134 Improved Hypokalemia K 3.9 Pt is on lisinopril (might not be a good candidate for ACEI due to hyperkalemia) Will put on a low K diet If stay high, will give Kayexalate Continue monitor BMP Remains Hypokalemic Will supplement K and monitor Check Mag Hold Lasix for now Left Ankle fracture s/p fall Left ankle xray showed distal tibial and fibular fractures as above with mild lateral subluxation of the talus. Ortho on board Continue required high flow oxygen and BIPAP for acute hypercapnic respiratory failure Continue to postpone surgery until respiratory status improves Likely to have Conservative management of the Ankle Surgery will carry a higher risk The issue was discussed in detailed with the Daughter and the patient Right pelvic ring fracture, Pelvis xray showed an age indeterminant right pubic ring fracture, possibly chronic. Stable Hypertension BP elevated Continue lisinopril. will add amlodipine PRN clonidine Continue monitor BP Ulcerative colitis On Pentasa Stable Depression On Celexa Stable DVT px On heparin drip CODE STATUS DNR DISPOSITION Continue monitor in tele Consultants: Pulmonary Vital Signs: Date Time Temp Pulse Resp B/P (MAP) Pulse Ox O2 Delivery O2 Flow Rate FiO2 07/15/17 12:00 36.6 109 28 173/90 (117) 90 High Flow Oxygen 07/15/17 12:00 High Flow Oxygen 07/15/17 08:00 BiPAP 07/15/17 07:46 36.6 95 24 174/95 (121) 91 CPAP 07/15/17 07:06 104 89 70 07/15/17 07:05 104 20 89 BiPAP/CPAP 70 07/15/17 04:00 CPAP 07/15/17 03:33 36.6 110 20 149/90 (109) 90 CPAP 07/15/17 02:25 93 20 91 BiPAP/CPAP 70 07/15/17 00:00 CPAP 07/14/17 23:33 36.7 94 30 150/83 (105) 94 CPAP 07/14/17 21:54 93 91 70 07/14/17 20:00 CPAP 07/14/17 18:46 37.2 96 20 156/83 (107) 93 High Flow Oxygen 07/14/17 17:55 99 18 92 Nasal Cannula 50.0 70 07/14/17 16:00 High Flow Oxygen 07/14/17 15:03 37.3 90 20 151/84 (106) 94 High Flow Oxygen 07/14/17 14:17 93 18 93 Nasal Cannula 50.0 70 Lab Results: Results Past 24 Hours Test 07/14/17 13:50 07/15/17 05:46 07/15/17 10:22 07/15/17 10:57 Range/Units Sodium Level 132 131 136-145 mmol/L Potassium Level 3.0 3.1 3.5-5.1 mmol/L Chloride Level 81 82 98-107 mmol/L Carbon Dioxide Level 44 47 21-32 mmol/L Anion Gap 7.0 2.0 3-11 mmol/L Blood Urea Nitrogen 25 26 7-18 mg/dl Creatinine 0.99 0.67 0.60-1.20 mg/dl Est Creatinine Clear Calc Drug Dose 54.0 79.8 ml/min Estimated GFR () 61.5 94.9 Estimated GFR (Non- 53.1 81.9 BUN/Creatinine Ratio 25.1 39.0 10-20 Random Glucose 313 223 70-99 mg/dl Calcium Level 8.0 8.2 8.5-10.1 mg/dl Beta-Hydroxybutyric Acid 0.92 0.2-2.81 mg/dL White Blood Count 15.72 4.8-10.8 K/uL Red Blood Count 3.81 4.2-5.4 M/uL Hemoglobin 11.4 12.0-16.0 g/dL Hematocrit 34.4 37-47 % Mean Corpuscular Volume 90.3 80-100 fL Mean Corpuscular Hemoglobin 29.9 25-34 pg Mean Corpuscular Hemoglobin Concent 33.1 32-36 g/dl Platelet Count 273 130-400 K/uL Mean Platelet Volume 9.6 7.4-10.4 fL Neutrophils (%) (Auto) 87.4 % Lymphocytes (%) (Auto) 4.5 % Monocytes (%) (Auto) 6.7 % Eosinophils (%) (Auto) 0.0 % Basophils (%) (Auto) 0.1 % Neutrophils # (Auto) 13.75 1.4-6.5 K/uL Lymphocytes # (Auto) 0.70 1.2-3.4 K/uL Monocytes # (Auto) 1.05 0.11-0.59 K/uL Eosinophils # (Auto) 0.00 0-0.5 K/uL Basophils # (Auto) 0.01 0-0.2 K/uL RDW Standard Deviation 45.1 36.4-46.3 fL RDW Coefficient of Variation 13.7 11.5-14.5 % Immature Granulocyte % (Auto) 1.3 % Immature Granulocyte # (Auto) 0.21 0.00-0.02 K/uL Activated Partial Thromboplast Time 63.2 21.0-31.0 SECONDS Partial Thromboplastin Ratio 2.4 Prothrombin Time 12.9 9.0-12.0 SECONDS Prothromb Time International Ratio 1.2 0.9-1.1 Bedside Glucose 212 70-90 mg/dl
[2017-07-15] MEDS: LEVOFLOXACIN 750MG / D5W IV SCH (14:03)
[2017-07-15] MEDS ORDERED: LISINOPRIL 10 MG TAB PO ONE (16:15)
[2017-07-15] MEDS ORDERED: GLUCOSE 10 TABS/TUBE PO PRN (17:15)
[2017-07-15] MEDS ORDERED: DEXTROSE 50% 50 ML SYR IV PRN (17:15)
[2017-07-15] MEDS ORDERED: GLUCAGON FOR INJ 1 MG VIAL SQ PRN (17:15)
[2017-07-15] MEDS ORDERED: GLUCOSE 40% GEL 15 GM TUBE PO PRN (17:15)
[2017-07-15] MEDS: HEPARIN 25,000 UNIT/500ML D5W 500 ML IV PRN (18:22)
[2017-07-15] MEDS ORDERED: NURSING VERBAL MED ORDER ONE (20:00)
[2017-07-15] MEDS ORDERED: HydrALAZINE HCL 20 MG/ML VIAL IV. ONE (20:00)
[2017-07-15] MEDS: LATANOPROST 0.005% OP SOLN 2.5 ML BTL OP SCH (20:19)
[2017-07-15] MEDS: MIRTAZAPINE TAB 15 MG TAB PO SCH (20:24)
[2017-07-15] MEDS: SIMVASTATIN 20 MG TAB PO SCH (20:24)
[2017-07-15] MEDS: INSULIN ASPART 100 UNITS/ML 3 ML PEN SC SCH (20:27)
[2017-07-16] VITALS (15 sets, daily range): BP systolic 146–198; BP diastolic 66–92; PULSE 80–98; TEMP 36.4–36.6; O2SAT 89–96
[2017-07-16] MEDS: PIPERACILL/TAZOBAC IV 4.5 GM in DEXTROSE 5% 100ML IV SCH ×3 (02:31→17:24)
[2017-07-16] MEDS: LEVALBUTEROL 1.25MG/3ML NEB INH SCH ×4 (02:37→19:30)
[2017-07-16] MEDS: LEVOFLOXACIN 750MG / D5W IV SCH (06:19)
[2017-07-16] MEDS: ACETYLCYSTEINE 20% INHAL SOLN ***DISPENSED BY RESP. INH SCH ×2 (06:55→19:29)
[2017-07-16 07:25] LABS: INR 1.3 (0.9-1.1)
[2017-07-16] MEDS: METHYLPREDNISOLONE IV 40 MG in SYRINGE 0 ML IV SCH ×2 (07:33→20:25)
[2017-07-16] MEDS: DILTIAZEM HCL 240 MG CAPCR PO SCH (07:34)
[2017-07-16] MEDS: MESALAMINE 250 MG CAPCR PO SCH ×2 (07:35→20:29)
[2017-07-16] MEDS: CITALOPRAM 40 MG TAB PO SCH (07:36)
[2017-07-16] MEDS: NYSTATIN SUSP 500,000 U/5 ML UDC PO SCH ×4 (07:36→20:26)
[2017-07-16] MEDS: DOCUSATE SODIUM/SENNA 50/8.6MG TAB PO SCH (07:37)
[2017-07-16] MEDS: INSULIN ASPART 100 UNITS/ML 3 ML PEN SC SCH ×4 (07:37→20:33)
[2017-07-16 07:44] LABS: PTT PATIENT 69.3 SECONDS (21.0-31.0)
[2017-07-16 07:59] LABS: CALCIUM 8.4 mg/dl (8.5-10.1); CREATININE 0.74 mg/dl (0.60-1.20); POTASSIUM 3.2 mmol/L (3.5-5.1)
[2017-07-16] MEDS ORDERED: LISINOPRIL 10 MG TAB PO SCH (09:00)
[2017-07-16] MEDS: PANTOprazole SOD 40 MG TAB PO SCH (09:26)
[2017-07-16] MEDS: HydrALAZINE HCL 20 MG/ML VIAL IV. PRN (15:32)
--- NOTE | 2017-07-16 15:35 | Cardiology Follow-Up ---
Subjective General Date of Service: Jul 16, 2017. Pt evaluation today including: conversation w/ patient, physical exam, chart review, lab review, review of studies, review of inpatient medication list History of Present Illness The patient is a 81 year old female seen in follow-up. Daughter is present at bedside. Patient more alert today. Denies shortness of breath however currently on high flow oxygen. Denies palpitations. Periods of atrial fibrillation and sinus rhythm with PACs noted on telemetry. Blood pressure elevated. Allergies Coded Allergies: Sulfa Drugs (Verified Allergy, Unknown, `, 11/21/13) Sulfamethoxazole (Verified Allergy, Unknown, `, 11/21/13) Trimethoprim (Verified Allergy, Unknown, `, 11/21/13) Social History Smoking Status: Current Some Day Smoker Hx Tobacco Use In Past Year?: Yes Hx Alcohol Use - Type And Amou: No Hx Substance Use - Type And Am: No Problem List Medical Problems: (1) Acute on chronic respiratory failure with hypoxia and hypercapnia Status: Acute (2) Ankle fracture, left Status: Acute (3) Bimalleolar ankle fracture Status: Acute (4) Hyponatremia Status: Acute (5) Pneumonia Status: Acute Review of Systems Respiratory: + cough, + dyspnea on exertion, No sputum, No wheezing, No shortness of breath, No hemoptysis Cardiac: No chest pain, No orthopnea, No PND, No edema, No claudication, No palpitations Physical Exam Vital Signs Last Vital Signs Documentation Date Time Temp Pulse Resp B/P (MAP) Pulse Ox O2 Delivery O2 Flow Rate FiO2 07/16/17 14:15 93 24 89 Nasal Cannula 50.0 80 07/16/17 11:32 36.6 174/75 (108) Physical Exam Constitutional: Level of Distress: NAD, chronically ill Head: normocephalic Neck: supple, trachea midline Lungs: Auscultation: decreased breath sounds, rales/crackles on the left, rales/ crackles on the right Cardiovascular: Heart Auscultation: normal S1, normal S2, no murmurs, irregular rate rhythm Peripheral Pulses: Radial Pulse: normal on the left, normal on the right Abdomen: Inspection & Palpation: soft, non-distended, no tenderness, guarding & rebound, no masses Extremities: no cyanosis, no clubbing, no ulcers, edema (trace bilateral pretibial edema.) Neurologic: Gait & Station: pertinent finding (no focal motor deficit) Cranial Nerves: grossly intact Assessment and Plan Assessment and Plan FINAL IMPRESSION: 1. Paroxysmal atrial fib/flutter with rapid ventricular response secondary to underlying respiratory insufficiency, hypercapnic respiratory failure, chronic obstructive pulmonary disease exacerbation, and pneumonia. -Intermittent periods of sinus rhythm and A. fib / flutter noted on telemetry with fairly controlled heart rates. 2. Acute decompensated diastolic heart failure exacerbated by rapid atrial flutter as well as positive fluid balance since admission. -Volume status improved 3. Hypertension -- uncontrolled. 4. Preserved LV and RV function. 5. Hypokalemia 6. Hyponatremia. 7. Left ankle fracture, status post full. 8. Ulcerative colitis. 9. Carotid vascular disease with history of prior endarterectomy PLAN AND RECOMMENDATIONS: Increase lisinopril 10mg BID. Replace potassium. Continue Cardizem CD 240mg daily. Restart Lasix 20 mg daily (outaptient dose) Continue intravenous heparin as bridge to Coumadin for goal INR of 2.0-3.0. Repeat INR in AM. Follow fluid balance, GFR, electrolytes, respiratory status closely. Recommend remove Gallo catheter - discussed with nursing. Consider re-consult pulmonary medicine for evaluation of persistent hypercapnia. Laboratory Results Last 24 Hours Test 07/15/17 16:00 07/15/17 20:14 07/16/17 06:16 07/16/17 06:21 Bedside Glucose 317 mg/dl 289 mg/dl 275 mg/dl Prothrombin Time 13.6 SECONDS Prothromb Time International Ratio 1.3 Activated Partial Thromboplast Time 69.3 SECONDS Partial Thromboplastin Ratio 2.7 Sodium Level 131 mmol/L Potassium Level 3.2 mmol/L Chloride Level 83 mmol/L Carbon Dioxide Level 45 mmol/L Anion Gap 3.0 mmol/L Blood Urea Nitrogen 23 mg/dl Creatinine 0.74 mg/dl Est Creatinine Clear Calc Drug Dose 72.1 ml/min Estimated GFR () 87.4 Estimated GFR (Non- 75.4 BUN/Creatinine Ratio 31.6 Random Glucose 230 mg/dl Calcium Level 8.4 mg/dl Test 07/16/17 11:16 Bedside Glucose 224 mg/dl
--- NOTE | 2017-07-16 15:40 | Progress Note ---
Internal Med Progress Note Date of Service: Jul 16, 2017. Provider Documentation: SUBJECTIVE: The patient was seen and examined Complains of minimal SOB at rest Denies any other symptoms Much better today -but requiring more flow to maintain adequet saturation Noted to have Hematuria this morning OBJECTIVE: Vital Signs-as noted below Exam: General-Minimal distress at rest Eyes-normal ENT-normal Neck-supple Lungs-Decreased breath sound bilaterally Minimal wheezing bilaterally Heart-Regular,no murmur Abdomen-Benign,no masses,bowel sound present Extremities-No edema Neuro-AAOx3 Lab data as noted below. ASSESSMENT & PLAN: Acute hypercapnic respiratory failure Secondary to COPD exacerbation and complicated by Pneumonia CXR showed dense bibasilar airspace consolidation, right greater than left with associated pleural effusions. ABG on admission showed respiratory acidosis with comp Has been on Levaquin and Zosyn Negative influenza test Continue Solumedrol Continue BIPAP with intermittent high flow supplement oxygen Blood cx no growth CT with PE protocol showed no evidence for PE. Dense bilateral lower lobe atelectasis/consolidation. Patchy airspace opacities are also present within the right upper lobe lingula and right middle lobe. Advised to USE BIPAP as much as she can to improve CO2 level and improve drowsiness Lasix 40mg BID ot help fluid overload IV Vancomycin added to broaden the spectrum -discontinued ECHO * The echocardiogram is extremely technically limited. * Patient was sitting upright for the test. * There is no significant pericardial effusion noted. * The left ventricular systolic function is grossly normal on limited visualization. * The right ventricular systolic function is grossly normal. * The valves are poorly visualized. * There is no significant valvular stenosis or regurgitation on technically limited Doppler evaluation. Continue current antibiotics for 3 more days Appreciate Pulmonary evaluation Will need extra care during Anesthesia Paroxysmal atrial flutter with rapid ventricular response Due to acute hypercapnic respiratory failure Received Cardizem and digoxin Continue on heparin drip till therapeutic with Coumadin Continue Cardizem 240mg Rate is controlled and denies any symptoms Hyponatremia Possible related to hypovolemia Na on admission 128 Na today 134 Improved Hypokalemia ,admitted with Hyperkalemia Lisinopril was on hold and leter on developed Hypo\kalemia Getting Supplement Lisinopril is restarted Left Ankle fracture s/p fall Left ankle xray showed distal tibial and fibular fractures as above with mild lateral subluxation of the talus. Ortho on board Continue required high flow oxygen and BIPAP for acute hypercapnic respiratory failure Continue to postpone surgery until respiratory status improves Likely to have Conservative management of the Ankle Surgery will carry a higher risk The issue was discussed in detailed with the Daughter and the patient WILL NEED SURGERY FOR THE ANKLE FRACTURE PER ORTHO Right pelvic ring fracture, Pelvis xray showed an age indeterminant right pubic ring fracture, possibly chronic. Stable Hypertension BP elevated Continue lisinopril. will add amlodipine PRN clonidine Continue monitor BP Ulcerative colitis On Pentasa Stable Depression On Celexa Stable DVT px On heparin drip CODE STATUS DNR DISPOSITION Continue monitor in tele Consultants: Pulmonary Vital Signs: Date Time Temp Pulse Resp B/P (MAP) Pulse Ox O2 Delivery O2 Flow Rate FiO2 07/16/17 15:33 91 198/74 (115) 07/16/17 14:15 93 24 89 Nasal Cannula 50.0 80 07/16/17 12:00 BiPAP 07/16/17 11:32 36.6 88 28 174/75 (108) 91 High Flow Oxygen 07/16/17 08:02 36.4 81 18 146/66 (92) 94 BiPAP 07/16/17 08:00 BiPAP 07/16/17 07:44 93 21 92 BiPAP/CPAP 75 07/16/17 06:57 93 93 75 07/16/17 06:18 146/66 (92) 07/16/17 04:00 CPAP 07/16/17 03:37 36.6 98 25 177/76 (109) 95 CPAP 07/16/17 02:05 82 18 93 BiPAP/CPAP 75 07/16/17 02:05 82 93 75 07/16/17 00:00 CPAP 07/15/17 23:33 36.8 90 25 133/70 (91) 92 CPAP 07/15/17 22:17 89 95 75 07/15/17 20:00 High Flow Oxygen 07/15/17 19:30 94 24 92 Nasal Cannula 50.0 80 07/15/17 19:30 36.9 89 16 209/112 (144) 90 High Flow Oxygen 07/15/17 16:00 High Flow Oxygen Lab Results: Results Past 24 Hours Test 07/15/17 16:00 07/15/17 20:14 07/16/17 06:16 07/16/17 06:21 Range/Units Bedside Glucose 317 289 275 70-90 mg/dl Prothrombin Time 13.6 9.0-12.0 SECONDS Prothromb Time International Ratio 1.3 0.9-1.1 Activated Partial Thromboplast Time 69.3 21.0-31.0 SECONDS Partial Thromboplastin Ratio 2.7 Sodium Level 131 136-145 mmol/L Potassium Level 3.2 3.5-5.1 mmol/L Chloride Level 83 98-107 mmol/L Carbon Dioxide Level 45 21-32 mmol/L Anion Gap 3.0 3-11 mmol/L Blood Urea Nitrogen 23 7-18 mg/dl Creatinine 0.74 0.60-1.20 mg/dl Est Creatinine Clear Calc Drug Dose 72.1 ml/min Estimated GFR () 87.4 Estimated GFR (Non- 75.4 BUN/Creatinine Ratio 31.6 10-20 Random Glucose 230 70-99 mg/dl Calcium Level 8.4 8.5-10.1 mg/dl Test 07/16/17 11:16 Range/Units Bedside Glucose 224 70-90 mg/dl
[2017-07-16] MEDS ORDERED: POTASSIUM CHLORIDE 20 MEQ TABCR PO ONE (15:45)
[2017-07-16] MEDS: WARFARIN SOD 5 MG TAB PO SCH (16:35)
--- NOTE | 2017-07-16 16:49 | Pulmonology Progress Note ---
Pulmonary Progress Note Date of Service Jul 16, 2017. Attending Dr. Benjamín Knight This is an 81-year-old female who suffered a fall and bilateral malleoli or fracture of the left leg. She is a lifelong smoker and continues to smoke one half pack per day. She has been continued on BiPAP as well as high flow O2 during the day to maintain saturations between 88 and 92%. She currently is on 80% FiO2 with high flow oxygen and 50% FiO2 with BiPAP. Patient is not making much progress as far as weaning of supplemental oxygen. She does look improved from my first impression on Friday. However, she still appears be quite ill and incapacitated. She has not been out of bed for over a week and because of nonweightbearing status has not been ambulated. She also has not been moved to bedside chair with overhead lift. Patient denies any chest pain or tightness. She still does have significant shortness of breath even at rest with supplemental support. She states that pain is controlled or left leg. She has no new acute complaints. Objective Vital Signs - as noted below Laboratory Data - as noted below Physical Exam: General - NAD. Pleasant Eyes - No icterus, gaze conjugate ENT - Mucosa moist, no lesions or candidiasis Neck - Supple, No JVD Lungs - No bronchospasm, rales, or rhonchi. However, breath sounds are significantly decreased Heart - Regular, rate controlled Abdomen - Soft, NT, ND, BS present Extremities - No edema, pedal pulses intact. Splint in place to left leg Neuro - A&OX3 Labs: ABG 07/14/2017 - 7.44/70/79/46/94.6% on 70% FiO2 BiPAP ABG 07/12/2017--7.41/63/71/39/92.1% on 70% FiO2 BiPAP ABG 07/11/2017--7.27/80/116/36/96.7% on high flow nasal cannula Imaging reviewed. Assessment & Plan ACUTE ON CHRONIC RESPIRATORY FAILURE * Patient continues to require high levels of supplemental oxygen via high flow oxygen and BiPAP. * Patient is tolerating BiPAP nightly now * No sputum production but continues with persistent cough * Afebrile stable leukocytosis most likely secondary to steroids * Check repeat chest x-ray tomorrow morning * Continue supportive care and encouraged BiPAP at night and at rest * Complete course of Levaquin and Zosyn for a total of 10 days (today is day ) BILATERAL LEFT MALLEOLUS FRACTURE * Orthopedics has been consulted and feels that ORIF is the best option * We have contacted anesthesia and are currently discussing options for surgery * Conservative management is not an option per orthopedics secondary to non- fusion of joint * Continue discussion with patient and daughters regarding risk and benefit PAROXYSMAL ATRIAL FLUTTER WITH RVR * Suspected be secondary to respiratory status * Continue heparin drip * Continue Cardizem and digoxin * Will need Coumadin therapy status post surgery DVT PROPHYLAXIS * Heparin drip * Patient currently nonambulatory Physician Supervision Note: I was present with Suman Eugene PA-C during the history and exam. I discussed the case with him and agree with the findings and plan as documented in the note. Any exceptions or clarifications are listed here: Patient with acute on chronic respiratory failure, advanced COPD on home O2, non -compliant with therapy and still smoking, s/p malleolar fracture. Has worsening respiratory failure now from COPD exacerbation, on BIPAP alternating with high-flow. Continue treatment for COPD exacerbation, nocturnal BIPAP. Not really improving on current therapy. Still not optimized for surgery and I doubt that she will be optimized in the near future Discussed with anesthesia, she would not tolerate spinal or local anesthesia, cannot lay flat for so long anyway, so she would require intubation. The problem here is that she most likely will require a tracheostomy with fci vent support, in which case I question the benefit of the surgery. Essentially, with or without surgery she would be confined to bed/wheel-chair If she makes a significant recovery from a pulmonary standpoint, will reconsider Documented By: Isak Butts MD Data Medications: Current Inpatient Medications Medications (Trade) Dose Ordered Sig/Reuben Route Start Time Stop Time Status Last Admin Dose Admin Levalbuterol (Xopenex 1.25MG/ 3ML Neb) 1.25 mg Q6R INH 07/07/17 22:30 08/06/17 22:29 07/16/17 14:14 1.25 MG Levofloxacin (Consult) 1 ea UD PRN N/A 07/08/17 01:09 07/17/17 14:00 Tramadol HCl (Ultram Tab) 50 mg Q6H PRN PO 07/07/17 21:30 08/06/17 21:29 07/08/17 07:55 50 MG Clonidine HCl (Catapres Tab) 0.1 mg Q6H PRN PO 07/07/17 21:30 08/06/17 21:29 Future Hold 07/09/17 16:21 0.1 MG Citalopram Hydrobromide (celeXA TAB) 40 mg DAILY PO 07/08/17 09:00 08/07/17 08:59 07/16/17 07:36 40 MG Latanoprost (Xalatan Oph Soln) 1 drops HS OP 07/08/17 21:00 08/07/17 20:59 07/15/17 20:19 1 DROPS Mesalamine (Pentasa Controlled Rel Cap) 1,000 mg BID PO 07/08/17 09:00 08/07/17 08:59 07/16/17 07:35 1,000 MG Mirtazapine (Remeron Tab) 15 mg HS PO 07/08/17 21:00 08/07/17 20:59 07/15/17 20:24 15 MG Pantoprazole Sodium (Protonix Tab) 40 mg DAILY PO 07/08/17 09:00 08/07/17 08:59 07/16/17 09:26 40 MG Senna/Docusate Sodium (Senokot S Tab) 1 tab DAILY PO 07/08/17 09:00 08/07/17 08:59 07/14/17 08:17 1 TAB Simvastatin (Zocor Tab) 20 mg HS PO 07/08/17 21:00 08/07/17 20:59 07/15/17 20:24 20 MG Acetaminophen (Tylenol Tab) 650 mg Q4H PRN PO 07/07/17 21:45 08/06/17 21:44 07/09/17 16:22 650 MG Ondansetron HCl (Zofran Inj) 4 mg Q6H PRN IV 07/07/17 21:45 08/06/17 21:44 Piperacillin Sod/ Tazobactam Sod 4.5 gm/Dextrose 120 ml @ 30 mls/hr Q8H IV 07/08/17 02:00 07/17/17 19:00 07/16/17 10:22 30 MLS/HR Levofloxacin 750 mg/Prmx 150 ml @ 100 mls/hr Q24H IV 07/08/17 06:00 07/17/17 08:00 07/16/17 06:19 100 MLS/HR Piperacillin Sod/ Tazobactam Sod (Consult) 1 ea UD PRN N/A 07/08/17 01:15 07/17/17 17:00 Heparin Sodium/ Dextrose 500 ml @ 25 mls/hr Q20H PRN IV 07/12/17 08:30 08/11/17 08:29 Future Hold 07/15/17 18:22 25 MLS/HR Methylprednisolone Sodium Succinate 40 mg/Syringe 0.64 ml @ 1.5 mls/min Q12H IV 07/12/17 20:00 08/11/17 19:59 07/16/17 07:33 1.5 MLS/MIN Acetylcysteine (Mucomyst 20% Inh Soln) 3 ml BIDR INH 07/12/17 20:00 08/11/17 19:59 07/16/17 06:55 3 ML Diltiazem HCl (Cardizem Cd Cap) 240 mg QAM PO 07/13/17 09:00 08/11/17 08:59 07/16/17 07:34 240 MG Nystatin (Mycostatin Susp) 5 ml QID PO 07/14/17 13:00 07/17/17 12:59 07/16/17 12:36 5 ML Insulin Aspart (novoLOG ASPART) SLIDING SCALE G... ACHS SC 07/15/17 21:00 08/14/17 20:59 07/16/17 12:36 5 UNITS Glucose (Glucose 40% Gel) 15-30 GRAMS 15 GRAMS... UD PRN PO 07/15/17 17:15 08/14/17 17:14 Glucose (Glucose Chew Tab) 4-8 Tablets 4 Tabl... UD PRN PO 07/15/17 17:15 08/14/17 17:14 Dextrose (Dextrose 50% 50ML Syringe) 25-50ML OF 50% DW IV FOR... UD PRN IV 07/15/17 17:15 08/14/17 17:14 Glucagon (Glucagon Inj) 1 mg UD PRN SQ 07/15/17 17:15 08/14/17 17:14 Hydralazine HCl (HydrALAZINE INJ) 10 mg Q6H PRN IV. 07/15/17 20:00 08/14/17 19:59 07/16/17 15:32 10 MG Warfarin Sodium (Coumadin Tab) 5 mg DAILY@16 PO 07/16/17 16:00 08/15/17 15:59 Lisinopril (Zestril Tab) 10 mg BID PO 07/16/17 21:00 08/15/17 08:59 Furosemide (Lasix Tab) 20 mg QAM PO 07/17/17 09:00 08/16/17 08:59 I & O: 24-Hour Column 07/17/17 08:00 Intake Total 1332 ml Output Total 1300 ml Balance 32 ml Vital Signs: Date Time Temp Pulse Resp B/P (MAP) Pulse Ox O2 Delivery O2 Flow Rate FiO2 07/16/17 16:00 BiPAP 07/16/17 15:33 91 198/74 (115) 07/16/17 15:15 36.4 80 20 96 High Flow Oxygen 07/16/17 14:15 93 24 89 Nasal Cannula 50.0 80 07/16/17 12:00 BiPAP 07/16/17 11:32 36.6 88 28 174/75 (108) 91 High Flow Oxygen 07/16/17 08:02 36.4 81 18 146/66 (92) 94 BiPAP 07/16/17 08:00 BiPAP 07/16/17 07:44 93 21 92 BiPAP/CPAP 75 07/16/17 06:57 93 93 75 07/16/17 06:18 146/66 (92) 07/16/17 04:00 CPAP 07/16/17 03:37 36.6 98 25 177/76 (109) 95 CPAP 07/16/17 02:05 82 18 93 BiPAP/CPAP 75 07/16/17 02:05 82 93 75 07/16/17 00:00 CPAP 07/15/17 23:33 36.8 90 25 133/70 (91) 92 CPAP 07/15/17 22:17 89 95 75 07/15/17 20:00 High Flow Oxygen 07/15/17 19:30 94 24 92 Nasal Cannula 50.0 80 07/15/17 19:30 36.9 89 16 209/112 (144) 90 High Flow Oxygen Laboratory Results: Last 24 Hours Test 07/15/17 20:14 07/16/17 06:16 07/16/17 06:21 07/16/17 11:16 Bedside Glucose 289 mg/dl 275 mg/dl 224 mg/dl Prothrombin Time 13.6 SECONDS Prothromb Time International Ratio 1.3 Activated Partial Thromboplast Time 69.3 SECONDS Partial Thromboplastin Ratio 2.7 Sodium Level 131 mmol/L Potassium Level 3.2 mmol/L Chloride Level 83 mmol/L Carbon Dioxide Level 45 mmol/L Anion Gap 3.0 mmol/L Blood Urea Nitrogen 23 mg/dl Creatinine 0.74 mg/dl Est Creatinine Clear Calc Drug Dose 72.1 ml/min Estimated GFR () 87.4 Estimated GFR (Non- 75.4 BUN/Creatinine Ratio 31.6 Random Glucose 230 mg/dl Calcium Level 8.4 mg/dl Test 07/16/17 16:00 Bedside Glucose 215 mg/dl
[2017-07-16] MEDS: ACETAMINOPHEN 325 MG TAB PO PRN (17:23)
--- NOTE | 2017-07-16 17:41 | Anesthesiology Progress Note ---
Anesthesia Progress Note Date of Service Jul 16, 2017. Progress Notes Asked to add input to decision regarding further care of her broken ankle. Patient currently requiring high flow oxygen with bipap to maintain her oxygenation and ventilation at a reasonable level. She is not able to tolerate lying supine even with this. She is anticoagulated due to A Fib. At this point I do not see any feasible option for anesthesia other than to intubate and mechanically ventilate her. Even if her anticoagulation was reversed and a spinal was possible, she would not tolerate breathing on her own like that for hours. Postoperatively it is very unlikely she would be able to be extubated right away considering the supportive care she is already requiring.
[2017-07-16] MEDS: LATANOPROST 0.005% OP SOLN 2.5 ML BTL OP SCH (20:25)
[2017-07-16] MEDS: SIMVASTATIN 20 MG TAB PO SCH (20:27)
[2017-07-16] MEDS: MIRTAZAPINE TAB 15 MG TAB PO SCH (20:28)
[2017-07-16] MEDS: LISINOPRIL 10 MG TAB PO SCH (20:30)
[2017-07-17] VITALS (16 sets, daily range): BP systolic 135–202; BP diastolic 59–137; PULSE 71–89; TEMP 36.5–37.4; O2SAT 89–94; Ht 167.6 cm; Wt 105.0 kg
[2017-07-17] MEDS: LEVALBUTEROL 1.25MG/3ML NEB INH SCH ×4 (01:42→19:06)
[2017-07-17] MEDS: PIPERACILL/TAZOBAC IV 4.5 GM in DEXTROSE 5% 100ML IV SCH ×3 (02:31→18:22)
[2017-07-17] MEDS: LEVOFLOXACIN 750MG / D5W IV SCH (06:08)
[2017-07-17 07:05] LABS: INR 1.5 (0.9-1.1)
[2017-07-17 07:31] LABS: CALCIUM 8.3 mg/dl (8.5-10.1); CREATININE 0.59 mg/dl (0.60-1.20); PHOSPHORUS 3.2 mg/dl (2.5-4.9); POTASSIUM 3.1 mmol/L (3.5-5.1)
--- NOTE | 2017-07-17 07:40 | DIAGNOSTIC IMAGING REPORT ---
SINGLE VIEW CHEST CLINICAL HISTORY: Hypoxia. FINDINGS: 2 AP, portable, upright chest radiographs are compared to study dated 07/14/2017 and correlated with chest CT dated 03/07/2011. The examination is degraded by portable technique and patient rotation. The heart is enlarged and there is atherosclerotic calcification of the thoracic aorta. The pulmonary vasculature is noncongested. There is dense bibasilar airspace consolidation, right greater than left. Small pleural effusions are identified. No pneumothorax is seen. The skeletal structures are osteopenic. The bony thorax is grossly intact. Calcific tendinopathy is noted in the right shoulder. IMPRESSION: 1. Cardiomegaly without radiographic evidence of congestive failure. 2. There is dense bibasilar airspace consolidation, right greater than left with associated pleural effusions. The appearance is typical for pneumonia/aspiration pneumonitis. This is similar in appearance to yesterday. Continued follow-up to resolution is recommended. Electronically signed by: Suman Germain M.D. 07/17/2017 7:39 AM Dictated Date/Time: 07/17/2017 7:38 AM
[2017-07-17] MEDS: METHYLPREDNISOLONE IV 40 MG in SYRINGE 0 ML IV SCH ×2 (07:46→20:26)
[2017-07-17] MEDS: DILTIAZEM HCL 240 MG CAPCR PO SCH (07:47)
[2017-07-17] MEDS: PANTOprazole SOD 40 MG TAB PO SCH (07:47)
[2017-07-17] MEDS: CITALOPRAM 40 MG TAB PO SCH (07:48)
[2017-07-17] MEDS: FUROSEMIDE 20 MG TAB PO SCH (07:48)
[2017-07-17] MEDS: NYSTATIN SUSP 500,000 U/5 ML UDC PO SCH (07:48)
[2017-07-17] MEDS: MESALAMINE 250 MG CAPCR PO SCH ×2 (07:48→20:27)
[2017-07-17] MEDS: DOCUSATE SODIUM/SENNA 50/8.6MG TAB PO SCH (07:49)
[2017-07-17] MEDS: LISINOPRIL 10 MG TAB PO SCH ×2 (07:49→20:28)
[2017-07-17] MEDS: INSULIN ASPART 100 UNITS/ML 3 ML PEN SC SCH ×4 (07:52→20:43)
[2017-07-17] MEDS: TRAMADOL HCL 50 MG TAB PO PRN (09:02)
--- NOTE | 2017-07-17 10:31 | Pulmonology Progress Note ---
Pulmonary Progress Note Date of Service Jul 17, 2017. Attending Dr. Butts Subjective Patient had difficulty sleeping last night and did not tolerate BiPAP very well. Increased pain in her left ankle/leg. No fever or chills. Unable to lay flat. No new complaints Objective Vital Signs - as noted below Laboratory Data - as noted below Physical Exam: General - NAD. Pleasant Eyes - No icterus, gaze conjugate ENT - Mucosa moist, no lesions or candidiasis Neck - Supple, No JVD Lungs - No bronchospasm, rales, or rhonchi. However, breath sounds are significantly decreased Heart - Regular, rate controlled Abdomen - Soft, NT, ND, BS present Extremities - No edema, pedal pulses intact. Splint in place to left leg Neuro - A&OX3 Labs: ABG 07/14/2017 - 7.44/70/79/46/94.6% on 70% FiO2 BiPAP ABG 07/12/2017--7.41/63/71/39/92.1% on 70% FiO2 BiPAP ABG 07/11/2017--7.27/80/116/36/96.7% on high flow nasal cannula Imaging reviewed. Assessment & Plan Lengthy discussion with patient, daughter Sanaz Castellanos, SindyDUY Ferguson from palliative care. Discussed case with anesthesia yesterday and they agree that patient would require endotracheal intubation with mechanical ventilation for any repair. Discussed concern with patient and family that we are not confident that we would be able to successfully extubate and that patient would require tracheostomy tube and peg tube. Patient noted that she would not want that and that she would prefer to continue with DNR/DNI and focus on comfort. I will contact orthopedics and look at options for immobilization with casting, orthotics, or splinting. We will also begin to titrate off of [place] O2 to an Oxymask. Our goal will be to maintain SaO2 above 85% and get home on hospice. ACUTE ON CHRONIC RESPIRATORY FAILURE * Patient continues to require high levels of supplemental oxygen via high flow oxygen and BiPAP. * Patient is tolerating BiPAP nightly now but begrudgingly * No sputum production but continues with persistent cough * Afebrile stable leukocytosis most likely secondary to steroids * Continue supportive care and encouraged BiPAP at night and at rest * Complete course of Levaquin and Zosyn for a total of 10 days (today is day ) BILATERAL LEFT MALLEOLUS FRACTURE * Orthopedics has been consulted and feels that ORIF is the best option * Continue discussion with ortho regarding non-surgical options to best immobilize ankle for palliation PAROXYSMAL ATRIAL FLUTTER WITH RVR * Suspected to be secondary to respiratory status * Continue heparin drip * Continue Cardizem and digoxin * Would resume coumadin DVT PROPHYLAXIS * Heparin drip * Patient currently nonambulatory DISPOSITION: * Will place consult for palliative care. Goal is to provide comfort and get patient home on hospice for end of life care Thank you for including us in the care of this patient. We will continue to follow along as we transition to palliative care. Please refer to Dr. uBtts' s addendum for further recommendations Physician Supervision Note: I was present with Suman Eugene PA-C during the history and exam. I discussed the case with him and agree with the findings and plan as documented in the note. Any exceptions or clarifications are listed here: Patient with acute on chronic respiratory failure, advanced COPD on home O2, non -compliant with therapy and still smoking, s/p malleolar fracture. Has worsening respiratory failure now from COPD exacerbation, on BIPAP alternating with high-flow nasal cannula. Continue treatment for COPD exacerbation, nocturnal BIPAP. Not really improving on current therapy. Still not optimized for surgery and I doubt that she will be optimized in the near future Patient is choosing to be DNR/DNI and continue with comfort care instead of surgical approach, given the risks associated with anesthesia Palliative care Documented By: Isak Butts MD Data Medications: Current Inpatient Medications Medications (Trade) Dose Ordered Sig/Reuben Route Start Time Stop Time Status Last Admin Dose Admin Levalbuterol (Xopenex 1.25MG/ 3ML Neb) 1.25 mg Q6R INH 07/07/17 22:30 08/06/17 22:29 07/17/17 07:16 1.25 MG Levofloxacin (Consult) 1 ea UD PRN N/A 07/08/17 01:09 07/17/17 14:00 Tramadol HCl (Ultram Tab) 50 mg Q6H PRN PO 07/07/17 21:30 08/06/17 21:29 07/17/17 09:02 50 MG Clonidine HCl (Catapres Tab) 0.1 mg Q6H PRN PO 07/07/17 21:30 08/06/17 21:29 Future Hold 07/09/17 16:21 0.1 MG Citalopram Hydrobromide (celeXA TAB) 40 mg DAILY PO 07/08/17 09:00 08/07/17 08:59 07/17/17 07:48 40 MG Latanoprost (Xalatan Oph Soln) 1 drops HS OP 07/08/17 21:00 08/07/17 20:59 07/16/17 20:25 1 DROPS Mesalamine (Pentasa Controlled Rel Cap) 1,000 mg BID PO 07/08/17 09:00 08/07/17 08:59 07/17/17 07:48 1,000 MG Mirtazapine (Remeron Tab) 15 mg HS PO 07/08/17 21:00 08/07/17 20:59 07/16/17 20:28 15 MG Pantoprazole Sodium (Protonix Tab) 40 mg DAILY PO 07/08/17 09:00 08/07/17 08:59 07/17/17 07:47 40 MG Senna/Docusate Sodium (Senokot S Tab) 1 tab DAILY PO 07/08/17 09:00 08/07/17 08:59 07/14/17 08:17 1 TAB Simvastatin (Zocor Tab) 20 mg HS PO 07/08/17 21:00 08/07/17 20:59 07/16/17 20:27 20 MG Acetaminophen (Tylenol Tab) 650 mg Q4H PRN PO 07/07/17 21:45 08/06/17 21:44 07/16/17 17:23 650 MG Ondansetron HCl (Zofran Inj) 4 mg Q6H PRN IV 07/07/17 21:45 08/06/17 21:44 Piperacillin Sod/ Tazobactam Sod 4.5 gm/Dextrose 120 ml @ 30 mls/hr Q8H IV 07/08/17 02:00 07/17/17 19:00 07/17/17 02:31 30 MLS/HR Piperacillin Sod/ Tazobactam Sod (Consult) 1 ea UD PRN N/A 07/08/17 01:15 07/17/17 17:00 Heparin Sodium/ Dextrose 500 ml @ 25 mls/hr Q20H PRN IV 07/12/17 08:30 08/11/17 08:29 Future Hold 07/15/17 18:22 25 MLS/HR Methylprednisolone Sodium Succinate 40 mg/Syringe 0.64 ml @ 1.5 mls/min Q12H IV 07/12/17 20:00 08/11/17 19:59 07/17/17 07:46 1.5 MLS/MIN Acetylcysteine (Mucomyst 20% Inh Soln) 3 ml BIDR INH 07/12/17 20:00 08/11/17 19:59 07/16/17 19:29 3 ML Diltiazem HCl (Cardizem Cd Cap) 240 mg QAM PO 07/13/17 09:00 08/11/17 08:59 07/17/17 07:47 240 MG Nystatin (Mycostatin Susp) 5 ml QID PO 07/14/17 13:00 07/17/17 12:59 07/17/17 07:48 5 ML Insulin Aspart (novoLOG ASPART) SLIDING SCALE G... ACHS SC 07/15/17 21:00 08/14/17 20:59 07/17/17 07:52 5 UNITS Glucose (Glucose 40% Gel) 15-30 GRAMS 15 GRAMS... UD PRN PO 07/15/17 17:15 08/14/17 17:14 Glucose (Glucose Chew Tab) 4-8 Tablets 4 Tabl... UD PRN PO 07/15/17 17:15 08/14/17 17:14 Dextrose (Dextrose 50% 50ML Syringe) 25-50ML OF 50% DW IV FOR... UD PRN IV 07/15/17 17:15 08/14/17 17:14 Glucagon (Glucagon Inj) 1 mg UD PRN SQ 07/15/17 17:15 08/14/17 17:14 Hydralazine HCl (HydrALAZINE INJ) 10 mg Q6H PRN IV. 07/15/17 20:00 08/14/17 19:59 07/16/17 15:32 10 MG Warfarin Sodium (Coumadin Tab) 5 mg DAILY@16 PO 07/16/17 16:00 08/15/17 15:59 07/16/17 16:35 5 MG Lisinopril (Zestril Tab) 10 mg BID PO 07/16/17 21:00 08/15/17 08:59 07/17/17 07:49 10 MG Furosemide (Lasix Tab) 20 mg QAM PO 07/17/17 09:00 08/16/17 08:59 07/17/17 07:48 20 MG Vital Signs: Date Time Temp Pulse Resp B/P (MAP) Pulse Ox O2 Delivery O2 Flow Rate FiO2 07/17/17 08:06 36.5 78 17 135/85 (102) 94 BiPAP 75 07/17/17 08:00 BiPAP 07/17/17 07:18 79 93 75 07/17/17 07:17 79 17 93 BiPAP/CPAP 75 07/17/17 04:00 BiPAP 07/17/17 03:33 36.5 82 33 149/59 (89) 94 CPAP 07/17/17 01:43 74 92 75 07/17/17 01:42 74 30 92 BiPAP/CPAP 75 07/17/17 01:07 172/79 (110) 07/17/17 00:00 BiPAP 07/16/17 23:35 36.5 82 28 190/92 (124) 93 CPAP 07/16/17 22:33 84 92 75 07/16/17 20:00 BiPAP 07/16/17 19:30 82 20 92 Nasal Cannula 50.0 75 07/16/17 18:53 36.4 92 27 183/85 (117) 92 High Flow Oxygen 07/16/17 16:50 88 181/73 (109) 07/16/17 16:00 BiPAP 07/16/17 15:33 91 198/74 (115) 07/16/17 15:15 36.4 80 20 96 High Flow Oxygen 07/16/17 14:15 93 24 89 Nasal Cannula 50.0 80 07/16/17 12:00 BiPAP 07/16/17 11:32 36.6 88 28 174/75 (108) 91 High Flow Oxygen Laboratory Results: Last 24 Hours Test 07/16/17 11:16 07/16/17 16:00 07/16/17 20:13 07/17/17 05:59 Bedside Glucose 224 mg/dl 215 mg/dl 215 mg/dl Prothrombin Time 15.5 SECONDS Prothromb Time International Ratio 1.5 Sodium Level 135 mmol/L Potassium Level 3.1 mmol/L Chloride Level 87 mmol/L Carbon Dioxide Level 44 mmol/L Anion Gap 5.0 mmol/L Blood Urea Nitrogen 22 mg/dl Creatinine 0.59 mg/dl Est Creatinine Clear Calc Drug Dose 89.7 ml/min Estimated GFR () 98.9 Estimated GFR (Non- 85.4 BUN/Creatinine Ratio 37.9 Random Glucose 178 mg/dl Calcium Level 8.3 mg/dl Phosphorus Level 3.2 mg/dl Magnesium Level 2.3 mg/dl Test 07/17/17 06:28 Bedside Glucose 216 mg/dl
[2017-07-17] MEDS ORDERED: MoRPHine SULFATE 2 MG/ML CARP ONE (10:59)
[2017-07-17] MEDS ORDERED: NURSING VERBAL MED ORDER ONE (11:00)
[2017-07-17] MEDS: MoRPHine SULFATE 2 MG/ML CARP IV PRN ×2 (11:02→20:21)
[2017-07-17] MEDS: ACETYLCYSTEINE 20% INHAL SOLN ***DISPENSED BY RESP. INH SCH ×2 (11:17→19:06)
[2017-07-17] MEDS ORDERED: POTASSIUM CHLORIDE 20 MEQ TABCR PO STA (14:03)
--- NOTE | 2017-07-17 14:06 | Cardiology Follow-Up ---
Subjective General Date of Service: Jul 17, 2017. Pt evaluation today including: conversation w/ patient, physical exam, chart review, lab review, review of studies, review of inpatient medication list History of Present Illness The patient is a 81 year old female seen in follow-up. More alert today. Respiratory status improved. Currently sinus rhythm with PACs. Intermittent atrial fib/flutter noted. Heart rates are controlled. Hypokalemia noted on lab studies this a.m. Allergies Coded Allergies: Sulfa Drugs (Verified Allergy, Unknown, `, 11/21/13) Sulfamethoxazole (Verified Allergy, Unknown, `, 11/21/13) Trimethoprim (Verified Allergy, Unknown, `, 11/21/13) Social History Smoking Status: Current Some Day Smoker Hx Tobacco Use In Past Year?: Yes Hx Alcohol Use - Type And Amou: No Hx Substance Use - Type And Am: No Problem List Medical Problems: (1) Acute on chronic respiratory failure with hypoxia and hypercapnia Status: Acute (2) Ankle fracture, left Status: Acute (3) Bimalleolar ankle fracture Status: Acute (4) Hyponatremia Status: Acute (5) Pneumonia Status: Acute Review of Systems Respiratory: + cough, + shortness of breath, + dyspnea on exertion, No sputum, No wheezing, No dyspnea at rest, No hemoptysis Cardiac: No chest pain, No orthopnea, No PND, No edema, No claudication, No palpitations Physical Exam Vital Signs Last Vital Signs Documentation Date Time Temp Pulse Resp B/P (MAP) Pulse Ox O2 Delivery O2 Flow Rate FiO2 07/17/17 12:00 High Flow Oxygen 07/17/17 11:53 37.4 85 28 156/67 (96) 93 50 07/16/17 19:30 50.0 Physical Exam Constitutional: Level of Distress: NAD, chronically ill Head: normocephalic Neck: supple, trachea midline Lungs: Auscultation: no wheezing, no rales/crackles, no rhonchi, decreased breath sounds Cardiovascular: Heart Auscultation: normal S1, normal S2, no murmurs, irregular rate rhythm Peripheral Pulses: Radial Pulse: normal on the left, normal on the right Abdomen: Inspection & Palpation: soft, non-distended, no tenderness, guarding & rebound, no masses Extremities: no cyanosis, no clubbing, no ulcers, edema (trace bilateral pretibial edema.) Neurologic: Gait & Station: pertinent finding (no focal motor deficit) Cranial Nerves: grossly intact Assessment and Plan Assessment and Plan FINAL IMPRESSION: 1. Paroxysmal atrial fib/flutter with rapid ventricular response secondary to underlying respiratory insufficiency, hypercapnic respiratory failure, chronic obstructive pulmonary disease exacerbation, and pneumonia. -Rhythm predominantly sinus with PACs. Intermittent atrial fibrillation/ flutter noted however heart rate remains controlled. 2. Acute decompensated diastolic heart failure exacerbated by rapid atrial flutter as well as positive fluid balance since admission. -Patient appears compensated 3. Hypertension --improved with daily diuretic therapy and titration of lisinopril 4. Preserved LV and RV function. 5. Hypokalemia 6. Hyponatremia. 7. Left ankle fracture, status post full. 8. Ulcerative colitis. 9. Carotid vascular disease with history of prior endarterectomy PLAN AND RECOMMENDATIONS: Replace potassium. Continue Cardizem CD 240mg daily, daily oral Lasix, and lisinopril 10 mg twice daily.. Continue intravenous heparin as bridge to Coumadin for goal INR of 2.0-3.0. Repeat INR in AM. Follow fluid balance, GFR, electrolytes, respiratory status closely. Consider re-consult pulmonary medicine for evaluation of persistent hypercapnia. Laboratory Results Last 24 Hours Test 07/16/17 16:00 07/16/17 20:13 07/17/17 05:59 07/17/17 06:28 Bedside Glucose 215 mg/dl 215 mg/dl 216 mg/dl Prothrombin Time 15.5 SECONDS Prothromb Time International Ratio 1.5 Sodium Level 135 mmol/L Potassium Level 3.1 mmol/L Chloride Level 87 mmol/L Carbon Dioxide Level 44 mmol/L Anion Gap 5.0 mmol/L Blood Urea Nitrogen 22 mg/dl Creatinine 0.59 mg/dl Est Creatinine Clear Calc Drug Dose 89.7 ml/min Estimated GFR () 98.9 Estimated GFR (Non- 85.4 BUN/Creatinine Ratio 37.9 Random Glucose 178 mg/dl Calcium Level 8.3 mg/dl Phosphorus Level 3.2 mg/dl Magnesium Level 2.3 mg/dl Test 07/17/17 11:23 Bedside Glucose 185 mg/dl
--- NOTE | 2017-07-17 14:57 | Palliative Care Consultation ---
Consultation Date of Consultation: Jul 17, 2017. Requesting Physician: Suman Eugene PA-C Attending Physician: Dr. Wells Reason for Consultation: Goals of care History of Present Illness This 81 year old female patient with PMH COPD on home O2, htn, UC, and others listed below, presented to the hospital 10 days ago with c/o SOB. Patient found to have pneumonia and was requiring continuous bipap to maintain saturations. Patient also suffered a fall at home and subsequent left distal tibial and fibular fractures with mild lateral subluxation of the talus as noted in x-ray report. She has been admitted for 10 days to the progressive care unit with COPD exacerbation and pneumonia as well as the ankle fracture. Ortho has been following and has been unable to perform corrective surgery to the left ankle due to her poor respiratory status. She is now requiring high-flow nasal cannula during the day and Bipap at night. Patient would possibly not be able to be liberated from the ventilator safely after surgery. The time has come for patient to make a decision of whether or not to proceed with surgery and the possibility of needing a trach/PEG tube vs. focusing on comfort/palliation. Palliative care is consulted. I met in room 203 with Suman Eugene PA-C, patient and her daughter, Sanaz Castellanos, for family meeting. Valorie explained in detail to the patient and daughter that any surgical intervention would require intubation and mechanical ventilation; and that the concern is patient would not easily be liberated from the ventilator and could end up with trach/PEG. Patient stated she would NOT want those things and prefers to focus on comfort/palliation with a goal of eventually getting home with hospice. We also discussed the fact that we are unsure of her ability to get home as she would not be able to have high-flow nasal cannula at home and would still requiring bipap at night. The plan will be for medical management to get oxygen weaned down while keeping her comfortable in order to attempt to get her home. Past Medical/Surgical History Medical History: COPD on home O2- 2LNC during day, 4LNC during night Htn UC Depression Dyslipidemia Surgical History: Coloscopy EGD Knee surgery Total hip, right Hysterectomy Social History Smoking Status: Current Some Day Smoker History of Alcohol Use: No Marital Status: Housing Status: assisted living Occupation Status: retired Review of Systems Constitutional: + weakness, + fatigue ENT: No trouble swallowing Respiratory: + cough, + dyspnea on exertion, + dyspnea at rest Cardiac: No chest pain, No edema Abdomen: No pain, No nausea, No vomiting Musculoskeletal: + problem reported (left ankle pain) Female : No problem reported Psychiatric: No depression symptoms, No anxiety Allergies Coded Allergies: Sulfa Drugs (Verified Allergy, Unknown, `, 11/21/13) Sulfamethoxazole (Verified Allergy, Unknown, `, 11/21/13) Trimethoprim (Verified Allergy, Unknown, `, 11/21/13) Medications Current Inpatient Medications Medications (Trade) Dose Ordered Sig/Reuben Route Start Time Stop Time Status Last Admin Dose Admin Levalbuterol (Xopenex 1.25MG/ 3ML Neb) 1.25 mg Q6R INH 07/07/17 22:30 08/06/17 22:29 07/17/17 14:02 1.25 MG Tramadol HCl (Ultram Tab) 50 mg Q6H PRN PO 07/07/17 21:30 08/06/17 21:29 07/17/17 09:02 50 MG Clonidine HCl (Catapres Tab) 0.1 mg Q6H PRN PO 07/07/17 21:30 08/06/17 21:29 Future Hold 07/09/17 16:21 0.1 MG Citalopram Hydrobromide (celeXA TAB) 40 mg DAILY PO 07/08/17 09:00 08/07/17 08:59 07/17/17 07:48 40 MG Latanoprost (Xalatan Oph Soln) 1 drops HS OP 07/08/17 21:00 08/07/17 20:59 07/16/17 20:25 1 DROPS Mesalamine (Pentasa Controlled Rel Cap) 1,000 mg BID PO 07/08/17 09:00 08/07/17 08:59 07/17/17 07:48 1,000 MG Mirtazapine (Remeron Tab) 15 mg HS PO 07/08/17 21:00 08/07/17 20:59 07/16/17 20:28 15 MG Pantoprazole Sodium (Protonix Tab) 40 mg DAILY PO 07/08/17 09:00 08/07/17 08:59 07/17/17 07:47 40 MG Senna/Docusate Sodium (Senokot S Tab) 1 tab DAILY PO 07/08/17 09:00 08/07/17 08:59 07/14/17 08:17 1 TAB Simvastatin (Zocor Tab) 20 mg HS PO 07/08/17 21:00 08/07/17 20:59 07/16/17 20:27 20 MG Acetaminophen (Tylenol Tab) 650 mg Q4H PRN PO 07/07/17 21:45 08/06/17 21:44 07/16/17 17:23 650 MG Ondansetron HCl (Zofran Inj) 4 mg Q6H PRN IV 07/07/17 21:45 08/06/17 21:44 Piperacillin Sod/ Tazobactam Sod 4.5 gm/Dextrose 120 ml @ 30 mls/hr Q8H IV 07/08/17 02:00 07/17/17 19:00 07/17/17 10:00 30 MLS/HR Piperacillin Sod/ Tazobactam Sod (Consult) 1 ea UD PRN N/A 07/08/17 01:15 07/17/17 17:00 Heparin Sodium/ Dextrose 500 ml @ 25 mls/hr Q20H PRN IV 07/12/17 08:30 08/11/17 08:29 Future Hold 07/15/17 18:22 25 MLS/HR Methylprednisolone Sodium Succinate 40 mg/Syringe 0.64 ml @ 1.5 mls/min Q12H IV 07/12/17 20:00 08/11/17 19:59 07/17/17 07:46 1.5 MLS/MIN Acetylcysteine (Mucomyst 20% Inh Soln) 3 ml BIDR INH 07/12/17 20:00 08/11/17 19:59 07/16/17 19:29 3 ML Diltiazem HCl (Cardizem Cd Cap) 240 mg QAM PO 07/13/17 09:00 08/11/17 08:59 07/17/17 07:47 240 MG Insulin Aspart (novoLOG ASPART) SLIDING SCALE G... ACHS SC 07/15/17 21:00 08/14/17 20:59 07/17/17 11:55 3 UNITS Glucose (Glucose 40% Gel) 15-30 GRAMS 15 GRAMS... UD PRN PO 07/15/17 17:15 08/14/17 17:14 Glucose (Glucose Chew Tab) 4-8 Tablets 4 Tabl... UD PRN PO 07/15/17 17:15 08/14/17 17:14 Dextrose (Dextrose 50% 50ML Syringe) 25-50ML OF 50% DW IV FOR... UD PRN IV 07/15/17 17:15 08/14/17 17:14 Glucagon (Glucagon Inj) 1 mg UD PRN SQ 07/15/17 17:15 08/14/17 17:14 Hydralazine HCl (HydrALAZINE INJ) 10 mg Q6H PRN IV. 07/15/17 20:00 08/14/17 19:59 07/16/17 15:32 10 MG Warfarin Sodium (Coumadin Tab) 5 mg DAILY@16 PO 07/16/17 16:00 08/15/17 15:59 07/16/17 16:35 5 MG Lisinopril (Zestril Tab) 10 mg BID PO 07/16/17 21:00 08/15/17 08:59 07/17/17 07:49 10 MG Furosemide (Lasix Tab) 20 mg QAM PO 07/17/17 09:00 08/16/17 08:59 07/17/17 07:48 20 MG Morphine Sulfate (MoRPHine SULFATE INJ) 1 mg Q4H PRN IV 07/17/17 11:30 07/31/17 11:29 07/17/17 11:02 1 MG Physical Exam Date Time Temp Pulse Resp B/P (MAP) Pulse Ox O2 Delivery O2 Flow Rate FiO2 07/17/17 14:03 72 20 92 Nasal Cannula 50.0 75 07/17/17 12:00 High Flow Oxygen 07/17/17 11:53 37.4 85 28 156/67 (96) 93 High Flow Oxygen 50 07/17/17 08:06 36.5 78 17 135/85 (102) 94 BiPAP 75 07/17/17 08:00 BiPAP 07/17/17 07:18 79 93 75 07/17/17 07:17 79 17 93 BiPAP/CPAP 75 07/17/17 04:00 BiPAP 07/17/17 03:33 36.5 82 33 149/59 (89) 94 CPAP 07/17/17 01:43 74 92 75 07/17/17 01:42 74 30 92 BiPAP/CPAP 75 07/17/17 01:07 172/79 (110) 07/17/17 00:00 BiPAP 07/16/17 23:35 36.5 82 28 190/92 (124) 93 CPAP 07/16/17 22:33 84 92 75 07/16/17 20:00 BiPAP 07/16/17 19:30 82 20 92 Nasal Cannula 50.0 75 07/16/17 18:53 36.4 92 27 183/85 (117) 92 High Flow Oxygen 07/16/17 16:50 88 181/73 (109) 07/16/17 16:00 BiPAP 07/16/17 15:33 91 198/74 (115) 07/16/17 15:15 36.4 80 20 96 High Flow Oxygen General Appearance: no apparent distress (but is visibly SOB), + obese, + pertinent finding (chronically ill appearing) ENT: hearing grossly normal Neck: supple, no JVD Respiratory: no respiratory distress, no accessory muscle use, + decreased breath sounds Cardiovascular: regular rate, rhythm, no edema (of right lower extremity), + normal peripheral pulses (right pedal pulse palpable, left foot toes are warm with good sensation) Abdomen: normal bowel sounds, non tender, soft Musculoskeletal: pertinent finding (left lower extremity and foot covered with splint and VIJAYA wrap) Neurologic/Psychiatric: alert, normal mood/affect, oriented x 3 Skin: + pertinent finding (fragile skin with scattered ecchymosis) Laboratory Results Last 24 Hours Test 07/16/17 16:00 07/16/17 20:13 07/17/17 05:59 07/17/17 06:28 Bedside Glucose 215 mg/dl 215 mg/dl 216 mg/dl Prothrombin Time 15.5 SECONDS Prothromb Time International Ratio 1.5 Sodium Level 135 mmol/L Potassium Level 3.1 mmol/L Chloride Level 87 mmol/L Carbon Dioxide Level 44 mmol/L Anion Gap 5.0 mmol/L Blood Urea Nitrogen 22 mg/dl Creatinine 0.59 mg/dl Est Creatinine Clear Calc Drug Dose 89.7 ml/min Estimated GFR () 98.9 Estimated GFR (Non- 85.4 BUN/Creatinine Ratio 37.9 Random Glucose 178 mg/dl Calcium Level 8.3 mg/dl Phosphorus Level 3.2 mg/dl Magnesium Level 2.3 mg/dl Test 07/17/17 11:23 Bedside Glucose 185 mg/dl Assessment & Plan Palliative Performance Scale: 30 % (unable to get OOB at this time) Problem list: Pain, left ankle and sacrum (from lying in bed) Weakness SOB/SIMON COPD, advanced Acute on chronic respiratory failure Left ankle fracture Paroxysmal afib with RVR Goals of care (Z51.5) Palliative care recs: -Patient confirmed she is DNR/DNI. -Focus on comfort at this point. Patient does not want to undergo surgery with risk of requiring prolonged ventilation/trach/PEG. -Patient's ultimate goal would be to get home with hospice. She does understand that this may not be possible with her poor respiratory status, but we will certainly try. -Daughter, Sanaz Castellanos, states she would be able to be with patient 24/7 at home. They understand hospice is not 24/7 care in the home but would be support to keep patient home, comfortable, and to allow natural . Patient confirms this is her goal. -Pulmonary will continue to work with patient on weaning oxygen to a level that can be maintained at home. Maximum amount of oxygen that can be provided in the home by hospice is 10-12LPM via mask. -Patient also has been requiring Bipap at night which she may require at home. Uncertain if this is something hospice pays for- will need case resolution specialist to inquire about this as we get closer to discharge and the patient/family chooses a hospice agency. -Currently she is ordered morphine 1mg IV Q4h PRN for pain. She has received one dose today. Will see what her 24-hour PRN needs are in order to dose for comfort for home. May need fentanyl patch for consistent/scheduled relief and use Roxanol PRN breakthrough pain or SOB. Thank you kindly for consulted me on this nice patient. I will follow.
--- NOTE | 2017-07-17 14:59 | Progress Note ---
Internal Med Progress Note Date of Service: Jul 17, 2017. Provider Documentation: SUBJECTIVE: The patient was seen and examined Complains of minimal SOB at rest Denies any other symptoms Much better today -but requiring more flow to maintain adequet saturation No more Hematuria Has had discussion with the Daughter,Pulmonary and palliative care OBJECTIVE: Vital Signs-as noted below Exam: General-Minimal distress at rest Eyes-normal ENT-normal Neck-supple Lungs-Decreased breath sound bilaterally Minimal wheezing bilaterally Heart-Regular,no murmur Abdomen-Benign,no masses,bowel sound present Extremities-No edema Neuro-AAOx3 Lab data as noted below. ASSESSMENT & PLAN: Acute hypercapnic respiratory failure Secondary to COPD exacerbation and complicated by Pneumonia CXR showed dense bibasilar airspace consolidation, right greater than left with associated pleural effusions. ABG on admission showed respiratory acidosis with comp Has been on Levaquin and Zosyn Negative influenza test Continue Solumedrol Continue BIPAP with intermittent high flow supplement oxygen Blood cx no growth CT with PE protocol showed no evidence for PE. Dense bilateral lower lobe atelectasis/consolidation. Patchy airspace opacities are also present within the right upper lobe lingula and right middle lobe. Advised to USE BIPAP as much as she can to improve CO2 level and improve drowsiness Lasix 40mg BID ot help fluid overload IV Vancomycin added to broaden the spectrum -discontinued ECHO * The echocardiogram is extremely technically limited. * Patient was sitting upright for the test. * There is no significant pericardial effusion noted. * The left ventricular systolic function is grossly normal on limited visualization. * The right ventricular systolic function is grossly normal. * The valves are poorly visualized. * There is no significant valvular stenosis or regurgitation on technically limited Doppler evaluation. Continue current antibiotics for 3 more days Appreciate Pulmonary evaluation After a long discussion with the Daughter,palliative care and pulmonary , nonsurgical approach is taken Wean of the High Flow Oxygen and maintain saturation >85% Paroxysmal atrial flutter with rapid ventricular response Due to acute hypercapnic respiratory failure Received Cardizem and digoxin Continue on heparin drip till therapeutic with Coumadin Continue Cardizem 240mg Rate is controlled and denies any symptoms No acute issue Hyponatremia Possible related to hypovolemia Na on admission 128 Na today 134 Improved to normal Hypokalemia ,admitted with Hyperkalemia Lisinopril was on hold and leter on developed Hypo\kalemia Getting Supplement Lisinopril is restarted and diet changed Left Ankle fracture s/p fall Left ankle xray showed distal tibial and fibular fractures as above with mild lateral subluxation of the talus. Ortho on board Continue required high flow oxygen and BIPAP for acute hypercapnic respiratory failure Continue to postpone surgery until respiratory status improves Likely to have Conservative management of the Ankle Surgery will carry a higher risk The issue was discussed in detailed with the Daughter and the patient WILL NEED SURGERY FOR THE ANKLE FRACTURE PER ORTHO Right pelvic ring fracture, Pelvis xray showed an age indeterminant right pubic ring fracture, possibly chronic. Stable Hypertension BP elevated Continue lisinopril. will add amlodipine PRN clonidine Continue monitor BP Ulcerative colitis On Pentasa Stable Depression On Celexa Stable DVT px On heparin drip CODE STATUS DNR DISPOSITION Continue monitor in tele Consultants: Pulmonary Vital Signs: Date Time Temp Pulse Resp B/P (MAP) Pulse Ox O2 Delivery O2 Flow Rate FiO2 07/17/17 14:03 72 20 92 Nasal Cannula 50.0 75 07/17/17 12:00 High Flow Oxygen 07/17/17 11:53 37.4 85 28 156/67 (96) 93 High Flow Oxygen 50 07/17/17 08:06 36.5 78 17 135/85 (102) 94 BiPAP 75 07/17/17 08:00 BiPAP 07/17/17 07:18 79 93 75 07/17/17 07:17 79 17 93 BiPAP/CPAP 75 07/17/17 04:00 BiPAP 07/17/17 03:33 36.5 82 33 149/59 (89) 94 CPAP 07/17/17 01:43 74 92 75 07/17/17 01:42 74 30 92 BiPAP/CPAP 75 07/17/17 01:07 172/79 (110) 07/17/17 00:00 BiPAP 07/16/17 23:35 36.5 82 28 190/92 (124) 93 CPAP 07/16/17 22:33 84 92 75 07/16/17 20:00 BiPAP 07/16/17 19:30 82 20 92 Nasal Cannula 50.0 75 07/16/17 18:53 36.4 92 27 183/85 (117) 92 High Flow Oxygen 07/16/17 16:50 88 181/73 (109) 07/16/17 16:00 BiPAP 07/16/17 15:33 91 198/74 (115) 07/16/17 15:15 36.4 80 20 96 High Flow Oxygen Lab Results: Results Past 24 Hours Test 07/16/17 16:00 07/16/17 20:13 07/17/17 05:59 07/17/17 06:28 Range/Units Bedside Glucose 215 215 216 70-90 mg/dl Prothrombin Time 15.5 9.0-12.0 SECONDS Prothromb Time International Ratio 1.5 0.9-1.1 Sodium Level 135 136-145 mmol/L Potassium Level 3.1 3.5-5.1 mmol/L Chloride Level 87 98-107 mmol/L Carbon Dioxide Level 44 21-32 mmol/L Anion Gap 5.0 3-11 mmol/L Blood Urea Nitrogen 22 7-18 mg/dl Creatinine 0.59 0.60-1.20 mg/dl Est Creatinine Clear Calc Drug Dose 89.7 ml/min Estimated GFR () 98.9 Estimated GFR (Non- 85.4 BUN/Creatinine Ratio 37.9 10-20 Random Glucose 178 70-99 mg/dl Calcium Level 8.3 8.5-10.1 mg/dl Phosphorus Level 3.2 2.5-4.9 mg/dl Magnesium Level 2.3 1.8-2.4 mg/dl Test 07/17/17 11:23 Range/Units Bedside Glucose 185 70-90 mg/dl
[2017-07-17] MEDS: WARFARIN SOD 5 MG TAB PO SCH (16:48)
--- NOTE | 2017-07-17 16:48 | Orthopedic Progress Note ---
Orthopedic Progress Note Date of Service Jul 17, 2017. Subjective Additional Notes: Pt seen today for splint check. Pt is sitting up in bed, alert, oriented. States that her ankle has been about the same as far as pain goes. No increase in pain. Had some pain this AM but was relieved with pain meds. No new complaints with the ankle. Objective Toes pink and warm. Moving the toes on the left foot. Sensation intact. Splint is intact and dry. Date Time Temp Pulse Resp B/P (MAP) Pulse Ox O2 Delivery O2 Flow Rate FiO2 07/17/17 14:03 72 20 92 Nasal Cannula 50.0 75 07/17/17 12:00 High Flow Oxygen 07/17/17 11:53 37.4 85 28 156/67 (96) 93 High Flow Oxygen 50 07/17/17 08:06 36.5 78 17 135/85 (102) 94 BiPAP 75 07/17/17 08:00 BiPAP 07/17/17 07:18 79 93 75 07/17/17 07:17 79 17 93 BiPAP/CPAP 75 07/17/17 04:00 BiPAP 07/17/17 03:33 36.5 82 33 149/59 (89) 94 CPAP 07/17/17 01:43 74 92 75 07/17/17 01:42 74 30 92 BiPAP/CPAP 75 07/17/17 01:07 172/79 (110) 07/17/17 00:00 BiPAP 07/16/17 23:35 36.5 82 28 190/92 (124) 93 CPAP 07/16/17 22:33 84 92 75 07/16/17 20:00 BiPAP 07/16/17 19:30 82 20 92 Nasal Cannula 50.0 75 07/16/17 18:53 36.4 92 27 183/85 (117) 92 High Flow Oxygen 07/16/17 16:50 88 181/73 (109) Laboratory Results 24 Hours: Test 07/17/17 05:59 Prothromb Time International Ratio 1.5 Prothrombin Time 15.5 SECONDS Assessment & Plan Assessment: Left Bimalleolar ankle fracture Plan: Discussed prognosis and current treatment plan for patient with Suman Hernandez. Pt and family have agreed on Palliative care at this time. No surgery planned due to pulmonary status. We will plan on changing her splint tomorrow to assess her skin and any swelling she may have. At that time, we will either reapply a temporary splint or a high tide walking boot to the ankle. Goal will be for her to transfer a little easier with the new splint/boot. Discussed case with Dr Causey.
[2017-07-17] MEDS: HydrALAZINE HCL 20 MG/ML VIAL IV. PRN (16:58)
[2017-07-17] MEDS: MIRTAZAPINE TAB 15 MG TAB PO SCH (20:27)
[2017-07-17] MEDS: SIMVASTATIN 20 MG TAB PO SCH (20:28)
[2017-07-17] MEDS: LATANOPROST 0.005% OP SOLN 2.5 ML BTL OP SCH (20:29)
[2017-07-18] VITALS (14 sets, daily range): BP systolic 143–186; BP diastolic 65–85; PULSE 77–89; TEMP 36.4–37; O2SAT 88–94
[2017-07-18] MEDS: LEVALBUTEROL 1.25MG/3ML NEB INH SCH ×4 (01:56→18:54)
[2017-07-18 06:26] LABS: INR 2.2 (0.9-1.1)
[2017-07-18 06:47] LABS: CALCIUM 8.5 mg/dl (8.5-10.1); CREATININE 0.62 mg/dl (0.60-1.20); POTASSIUM 3.2 mmol/L (3.5-5.1)
[2017-07-18] MEDS: ACETYLCYSTEINE 20% INHAL SOLN ***DISPENSED BY RESP. INH SCH ×2 (07:05→18:54)
[2017-07-18] MEDS: LISINOPRIL 10 MG TAB PO SCH ×2 (09:18→20:48)
[2017-07-18] MEDS: METHYLPREDNISOLONE IV 40 MG in SYRINGE 0 ML IV SCH ×2 (09:18→20:47)
[2017-07-18] MEDS: DOCUSATE SODIUM/SENNA 50/8.6MG TAB PO SCH (09:18)
[2017-07-18] MEDS: PANTOprazole SOD 40 MG TAB PO SCH (09:18)
[2017-07-18] MEDS: FUROSEMIDE 20 MG TAB PO SCH (09:19)
[2017-07-18] MEDS: DILTIAZEM HCL 240 MG CAPCR PO SCH (09:19)
[2017-07-18] MEDS: CITALOPRAM 40 MG TAB PO SCH (09:19)
[2017-07-18] MEDS: MESALAMINE 250 MG CAPCR PO SCH ×2 (09:19→20:47)
[2017-07-18] MEDS: INSULIN ASPART 100 UNITS/ML 3 ML PEN SC SCH ×4 (09:33→20:53)
[2017-07-18] MEDS ORDERED: LIDOCAINE HCL 1% 20 ML VIAL INFIL PRN (12:45)
--- NOTE | 2017-07-18 13:32 | Progress Note ---
Internal Med Progress Note Date of Service: Jul 18, 2017. Provider Documentation: SUBJECTIVE: The patient was seen and examined Clinically stable and denies any symptoms Has had discussion with the Daughter,Pulmonary and palliative care OBJECTIVE: Vital Signs-as noted below Exam: General-Minimal distress at rest Eyes-normal ENT-normal Neck-supple Lungs-Decreased breath sound bilaterally Minimal wheezing bilaterally Heart-Regular,no murmur Abdomen-Benign,no masses,bowel sound present Extremities-Trace edema bilaterally Neuro-AAOx3 Lab data as noted below. ASSESSMENT & PLAN: Acute hypercapnic respiratory failure Secondary to COPD exacerbation and complicated by Pneumonia CXR showed dense bibasilar airspace consolidation, right greater than left with associated pleural effusions. ABG on admission showed respiratory acidosis with comp Has been on Levaquin and Zosyn Negative influenza test Continue Solumedrol Continue BIPAP with intermittent high flow supplement oxygen Blood cx no growth CT with PE protocol showed no evidence for PE. Dense bilateral lower lobe atelectasis/consolidation. Patchy airspace opacities are also present within the right upper lobe lingula and right middle lobe. Advised to USE BIPAP as much as she can to improve CO2 level and improve drowsiness Lasix 40mg BID ot help fluid overload IV Vancomycin added to broaden the spectrum -discontinued ECHO * The echocardiogram is extremely technically limited. * Patient was sitting upright for the test. * There is no significant pericardial effusion noted. * The left ventricular systolic function is grossly normal on limited visualization. * The right ventricular systolic function is grossly normal. * The valves are poorly visualized. * There is no significant valvular stenosis or regurgitation on technically limited Doppler evaluation. Continue current antibiotics for 3 more days Appreciate Pulmonary evaluation After a long discussion with the Daughter,palliative care and pulmonary , nonsurgical approach is taken Wean of the High Flow Oxygen and maintain saturation >85% Preparing to send her home with face musk Oxygen delivery Paroxysmal atrial flutter with rapid ventricular response Due to acute hypercapnic respiratory failure Received Cardizem and digoxin Continue on heparin drip till therapeutic with Coumadin Continue Cardizem 240mg Rate is controlled and denies any symptoms No acute issue Hyponatremia Possible related to hypovolemia Na on admission 128 Na today 134 Improved to normal Hypokalemia ,admitted with Hyperkalemia Lisinopril was on hold and leter on developed Hypo\kalemia Getting Supplement Lisinopril is restarted and diet changed Will continue to monitor Left Ankle fracture s/p fall Left ankle xray showed distal tibial and fibular fractures as above with mild lateral subluxation of the talus. Ortho on board Continue required high flow oxygen and BIPAP for acute hypercapnic respiratory failure Continue to postpone surgery until respiratory status improves Likely to have Conservative management of the Ankle Surgery will carry a higher risk The issue was discussed in detailed with the Daughter and the patient WILL NEED SURGERY FOR THE ANKLE FRACTURE PER ORTHO No surgery =-will get appropriate brace before discharge Right pelvic ring fracture, Pelvis xray showed an age indeterminant right pubic ring fracture, possibly chronic. Stable Hypertension BP elevated Continue lisinopril. will add amlodipine PRN clonidine Continue monitor BP Ulcerative colitis On Pentasa Stable Depression On Celexa Stable DVT px On heparin drip CODE STATUS DNR DISPOSITION Continue monitor in tele Consultants: Pulmonary Vital Signs: Date Time Temp Pulse Resp B/P (MAP) Pulse Ox O2 Delivery O2 Flow Rate FiO2 07/18/17 12:45 36.4 83 19 186/85 (118) 94 BiPAP 15.0 07/18/17 08:19 36.4 89 25 179/65 (103) 88 High Flow Oxygen 15.0 07/18/17 07:08 81 20 91 Nasal Cannula 50.0 75 07/18/17 04:00 92 BiPAP 07/18/17 03:40 36.4 77 19 143/65 (91) 92 CPAP 07/18/17 01:57 80 91 75 07/18/17 01:56 81 20 91 BiPAP/CPAP 75 07/18/17 01:29 91 BiPAP 07/18/17 00:00 91 BiPAP 07/17/17 23:33 37.0 80 21 164/73 (103) 89 High Flow Oxygen 07/17/17 23:32 71 91 75 07/17/17 20:10 176/93 (120) 07/17/17 20:00 92 High Flow Oxygen 07/17/17 19:06 89 22 93 Nasal Cannula 50.0 75 07/17/17 18:45 37.4 81 28 190/137 (154) 90 High Flow Oxygen 202/93 (129) 07/17/17 16:00 37.2 81 148/65 (92) 07/17/17 16:00 High Flow Oxygen 07/17/17 14:03 72 20 92 Nasal Cannula 50.0 75 Lab Results: Results Past 24 Hours Test 07/17/17 16:09 07/17/17 20:27 07/18/17 05:57 07/18/17 06:44 Range/Units Bedside Glucose 192 213 201 70-90 mg/dl Prothrombin Time 22.4 9.0-12.0 SECONDS Prothromb Time International Ratio 2.2 0.9-1.1 Sodium Level 136 136-145 mmol/L Potassium Level 3.2 3.5-5.1 mmol/L Chloride Level 88 98-107 mmol/L Carbon Dioxide Level 42 21-32 mmol/L Anion Gap 6.0 3-11 mmol/L Blood Urea Nitrogen 23 7-18 mg/dl Creatinine 0.62 0.60-1.20 mg/dl Est Creatinine Clear Calc Drug Dose 84.7 ml/min Estimated GFR () 97.3 Estimated GFR (Non- 84.0 BUN/Creatinine Ratio 36.1 10-20 Random Glucose 188 70-99 mg/dl Calcium Level 8.5 8.5-10.1 mg/dl
--- NOTE | 2017-07-18 15:37 | Palliative Care Progress Note ---
Palliative Care Progress Note Date of Service Jul 18, 2017. Subjective Pt evaluation today including: conversation w/ patient, conversation w/ [employer] consultant (Adalgisa Eugene PA-C) Pain: 0/10 PO Intake: tolerating diet Met briefly with patient this afternoon. She remains on the high-flow nasal cannula at 50L until procedure is done by ortho to cast/splint the left ankle. Her pain is well-controlled, hasn't had a dose of morphine since last evening around 1999. Patient states she has been resting comfortably all day, currently has no complaints. The plan remains to wean the oxygen down after procedure in efforts to work towards getting patient home with family and hospice. I will follow up on Friday.
--- NOTE | 2017-07-18 16:39 | Orthopedic Progress Note ---
Orthopedic Progress Note Date of Service Jul 18, 2017. Subjective Additional Notes: Patient seen at bedside, comfortable, denies pain, numbness or tingling in LLE. Objective LLE NVSI +EHL/FHL, SILT grossly, compartments soft NT, +ecchymosis anterior, medial tibia, skin intact. Date Time Temp Pulse Resp B/P (MAP) Pulse Ox O2 Delivery O2 Flow Rate FiO2 07/18/17 15:17 36.9 77 20 146/70 (95) 94 Room Air 07/18/17 14:09 78 22 92 Nasal Cannula 50.0 77 07/18/17 12:45 36.4 83 19 186/85 (118) 94 BiPAP 15.0 07/18/17 08:19 36.4 89 25 179/65 (103) 88 High Flow Oxygen 15.0 07/18/17 07:08 81 20 91 Nasal Cannula 50.0 75 07/18/17 04:00 92 BiPAP 07/18/17 03:40 36.4 77 19 143/65 (91) 92 CPAP 07/18/17 01:57 80 91 75 07/18/17 01:56 81 20 91 BiPAP/CPAP 75 07/18/17 01:29 91 BiPAP 07/18/17 00:00 91 BiPAP 07/17/17 23:33 37.0 80 21 164/73 (103) 89 High Flow Oxygen 07/17/17 23:32 71 91 75 07/17/17 20:10 176/93 (120) 07/17/17 20:00 92 High Flow Oxygen 07/17/17 19:06 89 22 93 Nasal Cannula 50.0 75 07/17/17 18:45 37.4 81 28 190/137 (154) 90 High Flow Oxygen 202/93 (129) Laboratory Results 24 Hours: Test 07/18/17 05:57 Prothromb Time International Ratio 2.2 Prothrombin Time 22.4 SECONDS Assessment & Plan Assessment: Left Bimalleolar ankle fracture Plan: Discussed prognosis and current treatment plan for patient with Suman Hernandez. Pt and family have agreed on Palliative care at this time. No surgery planned due to pulmonary status. Given the patients current medical status, collectively, we have decided to proceed with bedside, intra-articular injection with 1% lidocaine, closed reduction of the fracture with cast application. I discussed the plan with the patient, risks include, nonunion, malunion, need for surgery, chronic pain, injury to nerves, vessels, bone, soft tissue. The patient is agreeable with the plan and informed consent was obtained at this time.
[2017-07-18] MEDS: WARFARIN SOD 5 MG TAB PO SCH (17:19)
--- NOTE | 2017-07-18 17:21 | DIAGNOSTIC IMAGING REPORT ---
L ANKLE 2 VIEWS CLINICAL HISTORY: Left ankle fracture. COMPARISON STUDY: None. FINDINGS: Total fluoroscopy time is 18 seconds. 2 fluoroscopic spot images of the left ankle. Overlying cast material obscures fine bony detail. There is near-anatomic alignment of the trimalleolar left ankle fracture. IMPRESSION: Fluoroscopy provided for closed reduction of a left ankle trimalleolar fracture. Electronically signed by: Ethan Baptiste M.D. 07/18/2017 5:19 PM Dictated Date/Time: 07/18/2017 5:18 PM
--- NOTE | 2017-07-18 17:21 | DIAGNOSTIC IMAGING REPORT ---
L ANKLE MIN 3 VIEWS ROUTINE CLINICAL HISTORY: post reduction films s/p cast application COMPARISON STUDY: Left ankle 07/07/2017. FINDINGS: Improved anatomic alignment of the left ankle trimalleolar fracture. The distal fibular fracture demonstrates up to 2 mm of lateral displacement. Overlying cast material which appears fine bony detail. No dislocation. IMPRESSION: Improved anatomic alignment of the left trimalleolar ankle fracture as described above. Electronically signed by: Ethan Baptiste M.D. 07/18/2017 5:20 PM Dictated Date/Time: 07/18/2017 5:20 PM
--- NOTE | 2017-07-18 17:26 | Procedure Note ---
Procedure Note Date of Service Jul 18, 2017. Procedure Note After informed consent obtained, intra-articular injection of the left ankle was performed utilizing 20 mL of 1% lidocaine under sterile technique. The patient had extensive distal tibia ecchymoses minimal edema, skin intact overlying medial and lateral malleolus. Once hematoma block had adequate time to take effect patient was positioned with the leg extended off the bed and utilizing mini C-arm fluoroscopy imaging was obtained to assess fracture position. Utilizing closed reduction techniques fracture was reduced and confirmed under live C-arm fluoroscopy. While holding reduction stockinette, cast padding was applied followed by 4 inch fiberglass cast material. Extra attention was turned to the proximal and distal aspects of the cast to ensure adequate padding was located at the cast edges to protect the skin as well as the heel. Once the cast had adequate time to dry repeat imaging was obtained to assess fracture position, demonstrating adequate reduction in both the AP and lateral position. The patient tolerated the procedure well.
--- NOTE | 2017-07-18 17:45 | Pulmonology Progress Note ---
Pulmonary Progress Note Date of Service Jul 18, 2017. Attending Dr. Butts Subjective Patient continues complaining about BiPAP. She knows that she has to use it for now but wishes to discontinue when able. Tolerating high flow O2. Patient seems more alert today and is comfortable. She denies any significant pain. Her left ankle but has occasional stabbing sensation. She has no fever or chills. She denied denies nausea or vomiting. Full catheter in place. Good urine output Objective Vital Signs - as noted below Laboratory Data - as noted below Physical Exam: General - NAD. Pleasant Eyes - No icterus, gaze conjugate ENT - Mucosa moist, no lesions or candidiasis Neck - Supple, No JVD Lungs - No bronchospasm, rales, or rhonchi. However, breath sounds continue to be decreased Heart - Regular, rate controlled Abdomen - Soft, NT, ND, BS present Extremities - No edema, pedal pulses intact. Splint in place to left leg Neuro - A&OX3 Labs: ABG 07/14/2017 - 7.44/70/79/46/94.6% on 70% FiO2 BiPAP ABG 07/12/2017--7.41/63/71/39/92.1% on 70% FiO2 BiPAP ABG 07/11/2017--7.27/80/116/36/96.7% on high flow nasal cannula Imaging reviewed. Assessment & Plan Lengthy discussion 07/17/17 with patient, daughter Sanaz Castellanos, SindyDUY Ferguson from palliative care. Discussed case with anesthesia yesterday and they agree that patient would require endotracheal intubation with mechanical ventilation for any repair. Discussed concern with patient and family that we are not confident that we would be able to successfully extubate and that patient would require tracheostomy tube and peg tube. Patient noted that she would not want that and that she would prefer to continue with DNR/DNI and focus on comfort. We will also begin to titrate off of [place] O2 to an Oxymask. Our goal will be to maintain SaO2 above 85% and get home on hospice. Orthopedics was able to successfully reposition the left foot using a nerve block. Patient tolerated well. A fiberglass cast was put in place. At this point the patient is able to do toe touch with her left leg. Would encourage out of bed to chair as possible. Recommend PT/OT. ACUTE ON CHRONIC HYPOXIC/HYPERCAPNIC RESPIRATORY FAILURE * Patient currently on high flow during the day and BiPAP at night * Currently working on getting patient home for home health/hospice care * We'll work aggressively tomorrow to decrease oxygen requirements * Need to get patient out of bed to chair * Okay to take high flow off for trials of Oxymask DVT PROPHYLAXIS * Heparin drip * Patient currently nonambulatory * Patient will be at increased risk for fall DISPOSITION: * Consult for palliative care. Goal is to provide comfort and get patient home on hospice for end of life care Thank you for including us in the care of this patient. Please refer to Dr. Butts's addendum for further recommendations. We will sign off at this time. Please feel free to reconsult as needed Physician Supervision Note: I was present with Suman Eugene PA-C during the history and exam. I discussed the case with him and agree with the findings and plan as documented in the note. Any exceptions or clarifications are listed here: Patient with acute on chronic respiratory failure, advanced COPD on home O2, non -compliant with therapy and still smoking, s/p malleolar fracture. Has worsening respiratory failure now from COPD exacerbation, on BIPAP alternating with high-flow nasal cannula. Under nerve block the fracture was reduced and placed in a cast. Not a candidate for general anesthesia. Continue treatment for COPD exacerbation, nocturnal BIPAP. OOB to chair Patient is choosing to be DNR/DNI and continue with comfort care instead of surgical approach, given the risks associated with anesthesia Palliative care Will sign off at this point Documented By: Isak Butts MD Data Medications: Current Inpatient Medications Medications (Trade) Dose Ordered Sig/Reuben Route Start Time Stop Time Status Last Admin Dose Admin Levalbuterol (Xopenex 1.25MG/ 3ML Neb) 1.25 mg Q6R INH 07/07/17 22:30 08/06/17 22:29 07/18/17 14:09 1.25 MG Tramadol HCl (Ultram Tab) 50 mg Q6H PRN PO 07/07/17 21:30 08/06/17 21:29 07/17/17 09:02 50 MG Clonidine HCl (Catapres Tab) 0.1 mg Q6H PRN PO 07/07/17 21:30 08/06/17 21:29 Future Hold 07/09/17 16:21 0.1 MG Citalopram Hydrobromide (celeXA TAB) 40 mg DAILY PO 07/08/17 09:00 08/07/17 08:59 07/18/17 09:19 40 MG Latanoprost (Xalatan Oph Soln) 1 drops HS OP 07/08/17 21:00 08/07/17 20:59 07/17/17 20:29 1 DROPS Mesalamine (Pentasa Controlled Rel Cap) 1,000 mg BID PO 07/08/17 09:00 08/07/17 08:59 07/18/17 09:19 1,000 MG Mirtazapine (Remeron Tab) 15 mg HS PO 07/08/17 21:00 08/07/17 20:59 07/17/17 20:27 15 MG Pantoprazole Sodium (Protonix Tab) 40 mg DAILY PO 07/08/17 09:00 08/07/17 08:59 07/18/17 09:18 40 MG Senna/Docusate Sodium (Senokot S Tab) 1 tab DAILY PO 07/08/17 09:00 08/07/17 08:59 07/18/17 09:18 1 TAB Simvastatin (Zocor Tab) 20 mg HS PO 07/08/17 21:00 08/07/17 20:59 07/17/17 20:28 20 MG Acetaminophen (Tylenol Tab) 650 mg Q4H PRN PO 07/07/17 21:45 08/06/17 21:44 07/16/17 17:23 650 MG Ondansetron HCl (Zofran Inj) 4 mg Q6H PRN IV 07/07/17 21:45 08/06/17 21:44 Heparin Sodium/ Dextrose 500 ml @ 25 mls/hr Q20H PRN IV 07/12/17 08:30 08/11/17 08:29 Future Hold 07/15/17 18:22 25 MLS/HR Methylprednisolone Sodium Succinate 40 mg/Syringe 0.64 ml @ 1.5 mls/min Q12H IV 07/12/17 20:00 08/11/17 19:59 07/18/17 09:18 1.5 MLS/MIN Acetylcysteine (Mucomyst 20% Inh Soln) 3 ml BIDR INH 07/12/17 20:00 08/11/17 19:59 07/18/17 07:05 3 ML Diltiazem HCl (Cardizem Cd Cap) 240 mg QAM PO 07/13/17 09:00 08/11/17 08:59 07/18/17 09:19 240 MG Insulin Aspart (novoLOG ASPART) SLIDING SCALE G... ACHS SC 07/15/17 21:00 08/14/17 20:59 07/18/17 12:52 4 UNITS Glucose (Glucose 40% Gel) 15-30 GRAMS 15 GRAMS... UD PRN PO 07/15/17 17:15 08/14/17 17:14 Glucose (Glucose Chew Tab) 4-8 Tablets 4 Tabl... UD PRN PO 07/15/17 17:15 08/14/17 17:14 Dextrose (Dextrose 50% 50ML Syringe) 25-50ML OF 50% DW IV FOR... UD PRN IV 07/15/17 17:15 08/14/17 17:14 Glucagon (Glucagon Inj) 1 mg UD PRN SQ 07/15/17 17:15 08/14/17 17:14 Hydralazine HCl (HydrALAZINE INJ) 10 mg Q6H PRN IV. 07/15/17 20:00 08/14/17 19:59 07/17/17 16:58 10 MG Warfarin Sodium (Coumadin Tab) 5 mg DAILY@16 PO 07/16/17 16:00 08/15/17 15:59 07/18/17 17:19 5 MG Lisinopril (Zestril Tab) 10 mg BID PO 07/16/17 21:00 08/15/17 08:59 07/18/17 09:18 10 MG Furosemide (Lasix Tab) 20 mg QAM PO 07/17/17 09:00 08/16/17 08:59 07/18/17 09:19 20 MG Morphine Sulfate (MoRPHine SULFATE INJ) 1 mg Q4H PRN IV 07/17/17 11:30 07/31/17 11:29 07/17/17 20:21 1 MG Lidocaine HCl (Xylocaine 1% Inj (Local)) 30 ml ONE PRN INFIL 07/18/17 12:45 07/18/17 23:59 I & O: 24-Hour Column 07/19/17 08:00 Intake Total 600 ml Output Total 750 ml Balance -150 ml Vital Signs: Date Time Temp Pulse Resp B/P (MAP) Pulse Ox O2 Delivery O2 Flow Rate FiO2 07/18/17 16:00 High Flow Oxygen 07/18/17 15:17 36.9 77 20 146/70 (95) 94 Room Air 07/18/17 14:09 78 22 92 Nasal Cannula 50.0 77 07/18/17 12:45 36.4 83 19 186/85 (118) 94 BiPAP 15.0 07/18/17 12:00 High Flow Oxygen 07/18/17 08:30 High Flow Oxygen 07/18/17 08:19 36.4 89 25 179/65 (103) 88 High Flow Oxygen 15.0 07/18/17 07:08 81 20 91 Nasal Cannula 50.0 75 07/18/17 04:00 92 BiPAP 07/18/17 03:40 36.4 77 19 143/65 (91) 92 CPAP 07/18/17 01:57 80 91 75 07/18/17 01:56 81 20 91 BiPAP/CPAP 75 07/18/17 01:29 91 BiPAP 07/18/17 00:00 91 BiPAP 07/17/17 23:33 37.0 80 21 164/73 (103) 89 High Flow Oxygen 07/17/17 23:32 71 91 75 07/17/17 20:10 176/93 (120) 07/17/17 20:00 92 High Flow Oxygen 07/17/17 19:06 89 22 93 Nasal Cannula 50.0 75 07/17/17 18:45 37.4 81 28 190/137 (154) 90 High Flow Oxygen 202/93 (129) Laboratory Results: Last 24 Hours Test 07/17/17 20:27 07/18/17 05:57 07/18/17 06:44 07/18/17 11:33 Bedside Glucose 213 mg/dl 201 mg/dl 210 mg/dl Prothrombin Time 22.4 SECONDS Prothromb Time International Ratio 2.2 Sodium Level 136 mmol/L Potassium Level 3.2 mmol/L Chloride Level 88 mmol/L Carbon Dioxide Level 42 mmol/L Anion Gap 6.0 mmol/L Blood Urea Nitrogen 23 mg/dl Creatinine 0.62 mg/dl Est Creatinine Clear Calc Drug Dose 84.7 ml/min Estimated GFR () 97.3 Estimated GFR (Non- 84.0 BUN/Creatinine Ratio 36.1 Random Glucose 188 mg/dl Calcium Level 8.5 mg/dl Test 07/18/17 16:27 Bedside Glucose 197 mg/dl
[2017-07-18] MEDS: LATANOPROST 0.005% OP SOLN 2.5 ML BTL OP SCH (20:47)
[2017-07-18] MEDS: MIRTAZAPINE TAB 15 MG TAB PO SCH (20:48)
[2017-07-18] MEDS: SIMVASTATIN 20 MG TAB PO SCH (20:48)
[2017-07-18] MEDS: MoRPHine SULFATE 2 MG/ML CARP IV PRN (22:55)
[2017-07-19] VITALS (12 sets, daily range): BP systolic 147–181; BP diastolic 64–95; PULSE 67–89; TEMP 36.6–37.1; O2SAT 90–98
[2017-07-19] MEDS: LEVALBUTEROL 1.25MG/3ML NEB INH SCH ×4 (03:12→19:06)
[2017-07-19] MEDS: ACETYLCYSTEINE 20% INHAL SOLN ***DISPENSED BY RESP. INH SCH ×2 (06:56→19:07)
[2017-07-19 07:13] LABS: INR 3.1 (0.9-1.1)
[2017-07-19 07:35] LABS: CALCIUM 8.3 mg/dl (8.5-10.1); CREATININE 0.55 mg/dl (0.60-1.20); POTASSIUM 3.1 mmol/L (3.5-5.1)
[2017-07-19] MEDS: MESALAMINE 250 MG CAPCR PO SCH ×2 (07:43→21:07)
[2017-07-19] MEDS: PANTOprazole SOD 40 MG TAB PO SCH (07:43)
[2017-07-19] MEDS: FUROSEMIDE 20 MG TAB PO SCH (07:43)
[2017-07-19] MEDS: METHYLPREDNISOLONE IV 40 MG in SYRINGE 0 ML IV SCH (07:44)
[2017-07-19] MEDS: CITALOPRAM 40 MG TAB PO SCH (07:44)
[2017-07-19] MEDS: DOCUSATE SODIUM/SENNA 50/8.6MG TAB PO SCH (07:44)
[2017-07-19] MEDS: LISINOPRIL 10 MG TAB PO SCH ×2 (07:45→21:08)
[2017-07-19] MEDS: DILTIAZEM HCL 240 MG CAPCR PO SCH (07:45)
[2017-07-19] MEDS: INSULIN ASPART 100 UNITS/ML 3 ML PEN SC SCH ×4 (08:26→21:10)
[2017-07-19] MEDS ORDERED: POTASSIUM CHLORIDE 10 MEQ TABCR PO STA (08:30)
--- NOTE | 2017-07-19 08:47 | Pulmonology Progress Note ---
Pulmonary Progress Note Date of Service Jul 19, 2017. Attending Dr. Butts Subjective Patient reports that she slept very very well last night. She has no significant shortness of breath with the high flow O2 on at this time. She tolerated BiPAP last night but again reports that she does not like using it. She is looking forward to getting out of bed to chair. Significant improvement in anxiety. Continues with excellent demeanor No fever, chills, sweats, rigors. No chest pain or tightness. Pain in left ankle is controlled. No noticeable swelling in left foot per patient. No other acute complaints. Objective Vital Signs - as noted below Laboratory Data - as noted below Physical Exam: General - NAD. Pleasant Eyes - No icterus, gaze conjugate ENT - Mucosa moist, no lesions or candidiasis Neck - Supple, No JVD Lungs - No bronchospasm, rales, or rhonchi. Persistent decreased breath sounds globally Heart - Regular, rate controlled Abdomen - Soft, NT, ND, BS present Extremities - No edema, pedal pulse to right foot. Unable to palpate pulses in left foot as cast is now in place and no significant swelling of left toes. Patient able to wiggle toes. No evidence of cyanosis to left forefoot. Neuro - A&OX3 Labs: ABG 07/14/2017 - 7.44/70/79/46/94.6% on 70% FiO2 BiPAP ABG 07/12/2017--7.41/63/71/39/92.1% on 70% FiO2 BiPAP ABG 07/11/2017--7.27/80/116/36/96.7% on high flow nasal cannula Imaging reviewed. Assessment & Plan LEFT BILATERAL MALLEOLI OR FRACTURE * Left ankle put in position of function by orthopedics last evening * Cast is now in place * Evidence of significant swelling or cyanosis of the left forefoot * Unable to palpate left foot pulse secondary to cast * Patient will move toes. Pain well-controlled * Need physical therapy * Toe-touch weightbearing on the left leg ACUTE ON CHRONIC RESPIRATORY FAILURE * Patient continues to be dependent on BiPAP at night and high flow O2 during the day * Will work today to get patient from high flow over to Oxymask * Goal is to keep patient between 88 and 92% on 10 L/m or less of supplemental oxygen * Completed antibiotic course * Discontinue methylprednisolone. Start Prednisone taper. 40 milligrams PO every morning started for tomorrow * Symptomatically improved * Still high O2 requirements DVT PROPHYLAXIS * Patient on Coumadin for atrial fibrillation. INR 3.1 * Out of bed to chair * Physical therapy Thank you for including us in the care of this patient. He is referred to Dr. Butts's addendum for further recommendations We'll sign off at this time from a pulmonary standpoint. Goal is to get patient home for home health / hospice and end-of-life care. Please feel free to reconsult as needed Data Medications: Current Inpatient Medications Medications (Trade) Dose Ordered Sig/Reuben Route Start Time Stop Time Status Last Admin Dose Admin Levalbuterol (Xopenex 1.25MG/ 3ML Neb) 1.25 mg Q6R INH 07/07/17 22:30 08/06/17 22:29 07/19/17 06:56 1.25 MG Tramadol HCl (Ultram Tab) 50 mg Q6H PRN PO 07/07/17 21:30 08/06/17 21:29 07/17/17 09:02 50 MG Clonidine HCl (Catapres Tab) 0.1 mg Q6H PRN PO 07/07/17 21:30 08/06/17 21:29 Future Hold 07/09/17 16:21 0.1 MG Citalopram Hydrobromide (celeXA TAB) 40 mg DAILY PO 07/08/17 09:00 08/07/17 08:59 07/19/17 07:44 40 MG Latanoprost (Xalatan Oph Soln) 1 drops HS OP 07/08/17 21:00 08/07/17 20:59 07/18/17 20:47 1 DROPS Mesalamine (Pentasa Controlled Rel Cap) 1,000 mg BID PO 07/08/17 09:00 08/07/17 08:59 07/19/17 07:43 1,000 MG Mirtazapine (Remeron Tab) 15 mg HS PO 07/08/17 21:00 08/07/17 20:59 07/18/17 20:48 15 MG Pantoprazole Sodium (Protonix Tab) 40 mg DAILY PO 07/08/17 09:00 08/07/17 08:59 07/19/17 07:43 40 MG Senna/Docusate Sodium (Senokot S Tab) 1 tab DAILY PO 07/08/17 09:00 08/07/17 08:59 07/19/17 07:44 1 TAB Simvastatin (Zocor Tab) 20 mg HS PO 07/08/17 21:00 08/07/17 20:59 07/18/17 20:48 20 MG Acetaminophen (Tylenol Tab) 650 mg Q4H PRN PO 07/07/17 21:45 08/06/17 21:44 07/16/17 17:23 650 MG Ondansetron HCl (Zofran Inj) 4 mg Q6H PRN IV 07/07/17 21:45 08/06/17 21:44 Heparin Sodium/ Dextrose 500 ml @ 25 mls/hr Q20H PRN IV 07/12/17 08:30 08/11/17 08:29 Future Hold 07/15/17 18:22 25 MLS/HR Methylprednisolone Sodium Succinate 40 mg/Syringe 0.64 ml @ 1.5 mls/min Q12H IV 07/12/17 20:00 08/11/17 19:59 07/19/17 07:44 1.5 MLS/MIN Acetylcysteine (Mucomyst 20% Inh Soln) 3 ml BIDR INH 07/12/17 20:00 08/11/17 19:59 07/19/17 06:56 3 ML Diltiazem HCl (Cardizem Cd Cap) 240 mg QAM PO 07/13/17 09:00 08/11/17 08:59 07/19/17 07:45 240 MG Insulin Aspart (novoLOG ASPART) SLIDING SCALE G... ACHS SC 07/15/17 21:00 08/14/17 20:59 07/19/17 08:26 4 UNITS Glucose (Glucose 40% Gel) 15-30 GRAMS 15 GRAMS... UD PRN PO 07/15/17 17:15 08/14/17 17:14 Glucose (Glucose Chew Tab) 4-8 Tablets 4 Tabl... UD PRN PO 07/15/17 17:15 08/14/17 17:14 Dextrose (Dextrose 50% 50ML Syringe) 25-50ML OF 50% DW IV FOR... UD PRN IV 07/15/17 17:15 08/14/17 17:14 Glucagon (Glucagon Inj) 1 mg UD PRN SQ 07/15/17 17:15 08/14/17 17:14 Hydralazine HCl (HydrALAZINE INJ) 10 mg Q6H PRN IV. 07/15/17 20:00 08/14/17 19:59 07/17/17 16:58 10 MG Warfarin Sodium (Coumadin Tab) 5 mg DAILY@16 PO 07/16/17 16:00 08/15/17 15:59 07/18/17 17:19 5 MG Lisinopril (Zestril Tab) 10 mg BID PO 07/16/17 21:00 08/15/17 08:59 07/19/17 07:45 10 MG Furosemide (Lasix Tab) 20 mg QAM PO 07/17/17 09:00 08/16/17 08:59 07/19/17 07:43 20 MG Morphine Sulfate (MoRPHine SULFATE INJ) 1 mg Q4H PRN IV 07/17/17 11:30 07/31/17 11:29 07/18/17 22:55 1 MG Vital Signs: Date Time Temp Pulse Resp B/P (MAP) Pulse Ox O2 Delivery O2 Flow Rate FiO2 07/19/17 07:00 76 94 85 07/19/17 06:59 76 20 94 BiPAP/CPAP 85 07/19/17 05:47 74 95 85 07/19/17 05:30 37.1 77 19 161/95 (117) 94 BiPAP 07/19/17 04:00 Oxymask 10.0 07/19/17 03:14 73 22 93 BiPAP/CPAP 85 07/19/17 03:14 74 93 85 07/19/17 00:03 37.1 67 29 168/80 (109) 93 BiPAP 67 07/19/17 00:00 Oxymask 10.0 07/18/17 22:37 77 90 85 07/18/17 20:00 High Flow Oxygen 07/18/17 19:00 37.0 82 20 159/83 (108) 92 High Flow Oxygen 07/18/17 18:57 80 18 92 Nasal Cannula 50.0 78 07/18/17 16:00 High Flow Oxygen 07/18/17 15:17 36.9 77 20 146/70 (95) 94 Room Air 07/18/17 14:09 78 22 92 Nasal Cannula 50.0 77 07/18/17 12:45 36.4 83 19 186/85 (118) 94 BiPAP 15.0 07/18/17 12:00 High Flow Oxygen Laboratory Results: Last 24 Hours Test 07/18/17 11:33 07/18/17 16:27 07/18/17 20:09 07/19/17 06:43 Bedside Glucose 210 mg/dl 197 mg/dl 248 mg/dl Prothrombin Time 32.1 SECONDS Prothromb Time International Ratio 3.1 Sodium Level 134 mmol/L Potassium Level 3.1 mmol/L Chloride Level 89 mmol/L Carbon Dioxide Level 43 mmol/L Anion Gap 2.0 mmol/L Blood Urea Nitrogen 29 mg/dl Creatinine 0.55 mg/dl Est Creatinine Clear Calc Drug Dose 94.5 ml/min Estimated GFR () 101.2 Estimated GFR (Non- 87.4 BUN/Creatinine Ratio 51.7 Random Glucose 177 mg/dl Calcium Level 8.3 mg/dl Test 07/19/17 06:45 Bedside Glucose 175 mg/dl
--- NOTE | 2017-07-19 09:22 | Orthopedic Progress Note ---
Orthopedic Progress Note Date of Service Jul 19, 2017. Subjective Reports: feeling well, pain controlled w PO medications, Denies: complaints, chest pain, SOB, nausea / vomiting, light headedness, calf pain Objective calves soft nontender, N/V intact, capillary refill less than 2 sec., A&O x3 Cast in good position. Toes were mobile. Neurovascularly intact. No swelling noted. Date Time Temp Pulse Resp B/P (MAP) Pulse Ox O2 Delivery O2 Flow Rate FiO2 07/19/17 07:00 76 94 85 07/19/17 06:59 76 20 94 BiPAP/CPAP 85 07/19/17 05:47 74 95 85 07/19/17 05:30 37.1 77 19 161/95 (117) 94 BiPAP 07/19/17 04:00 Oxymask 10.0 07/19/17 03:14 73 22 93 BiPAP/CPAP 85 07/19/17 03:14 74 93 85 07/19/17 00:03 37.1 67 29 168/80 (109) 93 BiPAP 67 07/19/17 00:00 Oxymask 10.0 07/18/17 22:37 77 90 85 07/18/17 20:00 High Flow Oxygen 07/18/17 19:00 37.0 82 20 159/83 (108) 92 High Flow Oxygen 07/18/17 18:57 80 18 92 Nasal Cannula 50.0 78 07/18/17 16:00 High Flow Oxygen 07/18/17 15:17 36.9 77 20 146/70 (95) 94 Room Air 07/18/17 14:09 78 22 92 Nasal Cannula 50.0 77 07/18/17 12:45 36.4 83 19 186/85 (118) 94 BiPAP 15.0 07/18/17 12:00 High Flow Oxygen Laboratory Results 24 Hours: Test 07/19/17 06:43 Prothromb Time International Ratio 3.1 Prothrombin Time 32.1 SECONDS Assessment & Plan Assessment: Left Bimalleolar ankle fracture S/P Closed reduction. Plan: Discussed prognosis and current treatment plan for patient with Suman Hernandez. Pt and family have agreed on Palliative care at this time. No surgery planned due to pulmonary status. Cast is intact and patient is neurovascularly intact. At this time we will sign off on the patient. If there is any questions or concerns please consult.
[2017-07-19] MEDS: MoRPHine SULFATE 2 MG/ML CARP IV PRN (14:56)
--- NOTE | 2017-07-19 14:57 | Progress Note ---
Internal Med Progress Note Date of Service: Jul 19, 2017. Provider Documentation: SUBJECTIVE: The patient was seen and examined Clinically stable and denies any symptoms Has had discussion with the Daughter,Pulmonary and palliative care Has had ankle brace Trying to decreased the flow of Oxygen before discharge OBJECTIVE: Vital Signs-as noted below Exam: General-Minimal distress at rest Eyes-normal ENT-normal Neck-supple Lungs-Decreased breath sound bilaterally Minimal wheezing bilaterally Heart-Regular,no murmur Abdomen-Benign,no masses,bowel sound present Extremities-Trace edema bilaterally Neuro-AAOx3 Lab data as noted below. ASSESSMENT & PLAN: Acute hypercapnic respiratory failure Secondary to COPD exacerbation and complicated by Pneumonia CXR showed dense bibasilar airspace consolidation, right greater than left with associated pleural effusions. ABG on admission showed respiratory acidosis with comp Has been on Levaquin and Zosyn Negative influenza test Continue Solumedrol Continue BIPAP with intermittent high flow supplement oxygen Blood cx no growth CT with PE protocol showed no evidence for PE. Dense bilateral lower lobe atelectasis/consolidation. Patchy airspace opacities are also present within the right upper lobe lingula and right middle lobe. Advised to USE BIPAP as much as she can to improve CO2 level and improve drowsiness Lasix 40mg BID ot help fluid overload IV Vancomycin added to broaden the spectrum -discontinued ECHO * The echocardiogram is extremely technically limited. * Patient was sitting upright for the test. * There is no significant pericardial effusion noted. * The left ventricular systolic function is grossly normal on limited visualization. * The right ventricular systolic function is grossly normal. * The valves are poorly visualized. * There is no significant valvular stenosis or regurgitation on technically limited Doppler evaluation. Continue current antibiotics for 3 more days Appreciate Pulmonary evaluation After a long discussion with the Daughter,palliative care and pulmonary , nonsurgical approach is taken Wean of the High Flow Oxygen and maintain saturation >85% Preparing to send her home with face musk Oxygen delivery Clinically stable Trying to reduce the flow rate Oxygen before discharge Paroxysmal atrial flutter with rapid ventricular response Due to acute hypercapnic respiratory failure Received Cardizem and digoxin Continue on heparin drip till therapeutic with Coumadin Continue Cardizem 240mg Rate is controlled and denies any symptoms No acute issue Hyponatremia Possible related to hypovolemia Na on admission 128 Na today 134 Improved to normal Hypokalemia ,admitted with Hyperkalemia Lisinopril was on hold and leter on developed Hypo\kalemia Getting Supplement Lisinopril is restarted and diet changed Will continue to monitor Will keep supplementing Left Ankle fracture s/p fall Left ankle xray showed distal tibial and fibular fractures as above with mild lateral subluxation of the talus. Ortho on board Continue required high flow oxygen and BIPAP for acute hypercapnic respiratory failure Continue to postpone surgery until respiratory status improves Likely to have Conservative management of the Ankle Surgery will carry a higher risk The issue was discussed in detailed with the Daughter and the patient WILL NEED SURGERY FOR THE ANKLE FRACTURE PER ORTHO No surgery =will get appropriate brace before discharge Ankle brace provided Right pelvic ring fracture, Pelvis xray showed an age indeterminant right pubic ring fracture, possibly chronic. Stable Hypertension BP elevated Continue lisinopril. will add amlodipine PRN clonidine Continue monitor BP Ulcerative colitis On Pentasa Stable Depression On Celexa Stable DVT px On heparin drip CODE STATUS DNR DISPOSITION Continue monitor in tele Consultants: Pulmonary Probable discharge on Friday Vital Signs: Date Time Temp Pulse Resp B/P (MAP) Pulse Ox O2 Delivery O2 Flow Rate FiO2 07/19/17 14:26 75 18 90 Mask 10.0 07/19/17 10:46 36.9 83 20 147/73 (97) 95 CPAP 07/19/17 08:00 High Flow Oxygen 07/19/17 07:00 76 94 85 07/19/17 06:59 76 20 94 BiPAP/CPAP 85 07/19/17 05:47 74 95 85 07/19/17 05:30 37.1 77 19 161/95 (117) 94 BiPAP 07/19/17 04:00 Oxymask 10.0 07/19/17 03:14 73 22 93 BiPAP/CPAP 85 07/19/17 03:14 74 93 85 07/19/17 00:03 37.1 67 29 168/80 (109) 93 BiPAP 67 07/19/17 00:00 Oxymask 10.0 07/18/17 22:37 77 90 85 07/18/17 20:00 High Flow Oxygen 07/18/17 19:00 37.0 82 20 159/83 (108) 92 High Flow Oxygen 07/18/17 18:57 80 18 92 Nasal Cannula 50.0 78 07/18/17 16:00 High Flow Oxygen 07/18/17 15:17 36.9 77 20 146/70 (95) 94 Room Air Lab Results: Results Past 24 Hours Test 07/18/17 16:27 07/18/17 20:09 07/19/17 06:43 07/19/17 06:45 Range/Units Bedside Glucose 197 248 175 70-90 mg/dl Prothrombin Time 32.1 9.0-12.0 SECONDS Prothromb Time International Ratio 3.1 0.9-1.1 Sodium Level 134 136-145 mmol/L Potassium Level 3.1 3.5-5.1 mmol/L Chloride Level 89 98-107 mmol/L Carbon Dioxide Level 43 21-32 mmol/L Anion Gap 2.0 3-11 mmol/L Blood Urea Nitrogen 29 7-18 mg/dl Creatinine 0.55 0.60-1.20 mg/dl Est Creatinine Clear Calc Drug Dose 94.5 ml/min Estimated GFR () 101.2 Estimated GFR (Non- 87.4 BUN/Creatinine Ratio 51.7 10-20 Random Glucose 177 70-99 mg/dl Calcium Level 8.3 8.5-10.1 mg/dl Test 07/19/17 10:50 Range/Units Bedside Glucose 194 70-90 mg/dl
[2017-07-19] MEDS: WARFARIN SOD 5 MG TAB PO SCH (17:35)
[2017-07-19] MEDS: SIMVASTATIN 20 MG TAB PO SCH (21:07)
[2017-07-19] MEDS: MIRTAZAPINE TAB 15 MG TAB PO SCH (21:07)
[2017-07-19] MEDS: LATANOPROST 0.005% OP SOLN 2.5 ML BTL OP SCH (21:12)
[2017-07-20] VITALS (13 sets, daily range): BP systolic 132–177; BP diastolic 42–102; PULSE 68–87; TEMP 36.6–37; O2SAT 86–96
[2017-07-20] MEDS: LEVALBUTEROL 1.25MG/3ML NEB INH SCH ×4 (01:45→19:10)
[2017-07-20] MEDS: ACETYLCYSTEINE 20% INHAL SOLN ***DISPENSED BY RESP. INH SCH ×2 (06:58→19:10)
[2017-07-20] MEDS: CITALOPRAM 40 MG TAB PO SCH (07:34)
[2017-07-20] MEDS: PANTOprazole SOD 40 MG TAB PO SCH (07:34)
[2017-07-20] MEDS: DOCUSATE SODIUM/SENNA 50/8.6MG TAB PO SCH (07:34)
[2017-07-20] MEDS: MESALAMINE 250 MG CAPCR PO SCH ×2 (07:34→22:29)
[2017-07-20] MEDS: LISINOPRIL 10 MG TAB PO SCH ×2 (07:34→22:29)
[2017-07-20] MEDS: FUROSEMIDE 20 MG TAB PO SCH (07:35)
[2017-07-20] MEDS: DILTIAZEM HCL 240 MG CAPCR PO SCH (07:35)
[2017-07-20 07:47] LABS: INR 4.6 (0.9-1.1)
[2017-07-20] MEDS: INSULIN ASPART 100 UNITS/ML 3 ML PEN SC SCH ×4 (07:50→23:18)
--- NOTE | 2017-07-20 12:25 | Progress Note ---
Internal Med Progress Note Date of Service: Jul 20, 2017. Provider Documentation: SUBJECTIVE: The patient was seen and examined Clinically stable and denies any symptoms Has had discussion with the Daughter,Pulmonary and palliative care Has had ankle brace Trying to decreased the flow of Oxygen before discharge OOB in a chair and denies any symptoms Wants to go home OBJECTIVE: Vital Signs-as noted below Exam: General-Minimal distress at rest with SOB Eyes-normal ENT-normal Neck-supple Lungs-Decreased breath sound bilaterally Minimal wheezing bilaterally Heart-Regular,no murmur Abdomen-Benign,no masses,bowel sound present Extremities-Trace edema bilaterally ,left ankle is in brace Neuro-AAOx3 Lab data as noted below. ASSESSMENT & PLAN: Acute hypercapnic respiratory failure Secondary to COPD exacerbation and complicated by Pneumonia CXR showed dense bibasilar airspace consolidation, right greater than left with associated pleural effusions. ABG on admission showed respiratory acidosis with comp Has been on Levaquin and Zosyn Negative influenza test Continue Solumedrol Continue BIPAP with intermittent high flow supplement oxygen Blood cx no growth CT with PE protocol showed no evidence for PE. Dense bilateral lower lobe atelectasis/consolidation. Patchy airspace opacities are also present within the right upper lobe lingula and right middle lobe. Advised to USE BIPAP as much as she can to improve CO2 level and improve drowsiness Lasix 40mg BID ot help fluid overload IV Vancomycin added to broaden the spectrum -discontinued ECHO * The echocardiogram is extremely technically limited. * Patient was sitting upright for the test. * There is no significant pericardial effusion noted. * The left ventricular systolic function is grossly normal on limited visualization. * The right ventricular systolic function is grossly normal. * The valves are poorly visualized. * There is no significant valvular stenosis or regurgitation on technically limited Doppler evaluation. Continue current antibiotics for 3 more days Appreciate Pulmonary evaluation After a long discussion with the Daughter,palliative care and pulmonary , nonsurgical approach is taken Wean of the High Flow Oxygen and maintain saturation >85% Preparing to send her home with face musk Oxygen delivery Trying to reduce the flow rate Oxygen before discharge Continue PT/OT -waiting to be reasonably mobile to be discharged Paroxysmal atrial flutter with rapid ventricular response Due to acute hypercapnic respiratory failure Received Cardizem and digoxin Continue on heparin drip till therapeutic with Coumadin Continue Cardizem 240mg Rate is controlled and denies any symptoms No acute issue Hyponatremia Possible related to hypovolemia Na on admission 128 Na today 134 Improved to normal check PRP and Mag on Friday Hypokalemia ,admitted with Hyperkalemia Lisinopril was on hold and leter on developed Hypo\kalemia Getting Supplement Lisinopril is restarted and diet changed Will continue to monitor Will keep supplementing Left Ankle fracture s/p fall Left ankle xray showed distal tibial and fibular fractures as above with mild lateral subluxation of the talus. Ortho on board Continue required high flow oxygen and BIPAP for acute hypercapnic respiratory failure Continue to postpone surgery until respiratory status improves Likely to have Conservative management of the Ankle Surgery will carry a higher risk The issue was discussed in detailed with the Daughter and the patient WILL NEED SURGERY FOR THE ANKLE FRACTURE PER ORTHO No surgery =will get appropriate brace before discharge Ankle brace provided Right pelvic ring fracture, Pelvis xray showed an age indeterminant right pubic ring fracture, possibly chronic. Stable Hypertension BP elevated Continue lisinopril. will add amlodipine PRN clonidine Continue monitor BP Ulcerative colitis On Pentasa Stable-no acute issue Depression On Celexa Stable DVT px On heparin drip CODE STATUS DNR DISPOSITION Continue monitor in tele Consultants: Pulmonary Probable discharge on Friday/Friday Vital Signs: Date Time Temp Pulse Resp B/P (MAP) Pulse Ox O2 Delivery O2 Flow Rate FiO2 07/20/17 07:05 36.6 74 24 177/75 (109) 90 Oxymask 10.0 07/20/17 07:03 72 20 90 Mask 10.0 07/20/17 04:01 37.0 75 30 177/102 (127) 92 Oxymask 6.0 07/20/17 04:00 Oxymask 10.0 07/20/17 01:46 75 18 96 BiPAP/CPAP 85 07/20/17 01:01 78 92 85 07/20/17 00:12 37.0 83 24 166/62 (96) 89 Room Air 07/20/17 00:05 Oxymask 10.0 07/19/17 20:30 154/64 (94) 07/19/17 20:00 Oxymask 10.0 07/19/17 19:24 37.0 89 26 181/75 (110) 98 High Flow Oxygen 8.0 07/19/17 19:10 76 20 92 Mask 10.0 07/19/17 16:00 Oxymask 10.0 07/19/17 15:00 36.6 81 18 158/72 (100) 90 Oxymask 10.0 07/19/17 14:26 75 18 90 Mask 10.0 Lab Results: Results Past 24 Hours Test 07/19/17 16:17 07/19/17 20:15 07/20/17 05:30 07/20/17 06:37 Range/Units Bedside Glucose 285 186 144 70-90 mg/dl Prothrombin Time 46.4 9.0-12.0 SECONDS Prothromb Time International Ratio 4.6 0.9-1.1 Test 07/20/17 10:47 Range/Units Bedside Glucose 152 70-90 mg/dl
[2017-07-20] MEDS: WARFARIN SOD 5 MG TAB PO SCH (16:35)
[2017-07-20] MEDS: MoRPHine SULFATE 2 MG/ML CARP IV PRN (17:18)
[2017-07-20] MEDS: LATANOPROST 0.005% OP SOLN 2.5 ML BTL OP SCH (22:28)
[2017-07-20] MEDS: MIRTAZAPINE TAB 15 MG TAB PO SCH (22:30)
[2017-07-20] MEDS: SIMVASTATIN 20 MG TAB PO SCH (22:30)
[2017-07-21] VITALS (10 sets, daily range): BP systolic 136–179; BP diastolic 66–91; PULSE 73–87; TEMP 36.7–37; O2SAT 87–95
[2017-07-21] MEDS: LEVALBUTEROL 1.25MG/3ML NEB INH SCH ×4 (02:31→21:00)
[2017-07-21 05:58] LABS: HEMATOCRIT 35.3 % (37-47); HEMOGLOBIN 11.2 g/dL (12.0-16.0); MEAN CELL VOLUME 90.5 fL (80-100); MEAN CORPUSCULAR HEMOGLOBIN 28.7 pg (25-34); MEAN CORPUSCULAR HGB CONC 31.7 g/dl (32-36); MEAN PLATELET VOLUME 9.8 fL (7.4-10.4); PLATELET COUNT 252 K/uL (130-400); RED CELL DISTRIBUTION WIDTH CV 14.5 % (11.5-14.5); RED CELL DISTRIBUTION WIDTH SD 47.2 fL (36.4-46.3); WHITE BLOOD COUNT 15.94 K/uL (4.8-10.8)
[2017-07-21 06:38] LABS: CALCIUM 8.1 mg/dl (8.5-10.1); CREATININE 0.51 mg/dl (0.60-1.20); PHOSPHORUS 1.9 mg/dl (2.5-4.9); POTASSIUM 3.4 mmol/L (3.5-5.1)
[2017-07-21 06:43] LABS: INR 4.2 (0.9-1.1)
[2017-07-21] MEDS: ACETYLCYSTEINE 20% INHAL SOLN ***DISPENSED BY RESP. INH SCH ×2 (07:00→20:00)
[2017-07-21] MEDS: MoRPHine SULFATE 2 MG/ML CARP IV PRN ×2 (08:41→13:18)
[2017-07-21] MEDS: TRAMADOL HCL 50 MG TAB PO PRN ×2 (08:44→20:54)
[2017-07-21] MEDS: DOCUSATE SODIUM/SENNA 50/8.6MG TAB PO SCH (08:46)
[2017-07-21] MEDS: CITALOPRAM 40 MG TAB PO SCH (08:46)
[2017-07-21] MEDS: LISINOPRIL 10 MG TAB PO SCH ×2 (08:46→20:55)
[2017-07-21] MEDS: PANTOprazole SOD 40 MG TAB PO SCH (08:46)
[2017-07-21] MEDS: FUROSEMIDE 20 MG TAB PO SCH (08:47)
[2017-07-21] MEDS: MESALAMINE 250 MG CAPCR PO SCH ×2 (08:47→20:55)
[2017-07-21] MEDS: DILTIAZEM HCL 240 MG CAPCR PO SCH (08:47)
[2017-07-21] MEDS: INSULIN ASPART 100 UNITS/ML 3 ML PEN SC SCH ×4 (08:50→21:34)
[2017-07-21] MEDS ORDERED: POTASSIUM PHOS 3 MMOL/1 ML INFUSION IV STA (09:50)
[2017-07-21] MEDS ORDERED: POTASSIUM PHOSPHATE INJ 30 MMOL in SODIUM CHLORIDE 0.9% 500ML 500 ML IV ONE (10:00)
--- NOTE | 2017-07-21 12:14 | Progress Note ---
Internal Med Progress Note Date of Service: Jul 21, 2017. Provider Documentation: SUBJECTIVE: The patient was seen and examined Clinically stable and denies any symptoms Has had discussion with the Daughter,Pulmonary and palliative care Trying to decreased the flow of Oxygen before discharge Clinically stable -trying to decrease the flow of oxygen to maintain saturation ~85 and up Wants to go home OBJECTIVE: Vital Signs-as noted below Exam: General-Minimal distress at rest with SOB Eyes-normal ENT-normal Neck-supple Lungs-Decreased breath sound bilaterally Minimal wheezing bilaterally Heart-Regular,no murmur Abdomen-Benign,no masses,bowel sound present Extremities-Trace edema bilaterally ,left ankle is in brace Neuro-AAOx3 Lab data as noted below. ASSESSMENT & PLAN: Acute hypercapnic respiratory failure Secondary to COPD exacerbation and complicated by Pneumonia CXR showed dense bibasilar airspace consolidation, right greater than left with associated pleural effusions. ABG on admission showed respiratory acidosis with comp Has been on Levaquin and Zosyn Negative influenza test Continue Solumedrol Continue BIPAP with intermittent high flow supplement oxygen Blood cx no growth CT with PE protocol showed no evidence for PE. Dense bilateral lower lobe atelectasis/consolidation. Patchy airspace opacities are also present within the right upper lobe lingula and right middle lobe. Advised to USE BIPAP as much as she can to improve CO2 level and improve drowsiness Lasix 40mg BID ot help fluid overload IV Vancomycin added to broaden the spectrum -discontinued ECHO * The echocardiogram is extremely technically limited. * Patient was sitting upright for the test. * There is no significant pericardial effusion noted. * The left ventricular systolic function is grossly normal on limited visualization. * The right ventricular systolic function is grossly normal. * The valves are poorly visualized. * There is no significant valvular stenosis or regurgitation on technically limited Doppler evaluation. Continue current antibiotics for 3 more days Appreciate Pulmonary evaluation After a long discussion with the Daughter,palliative care and pulmonary , nonsurgical approach is taken Wean of the High Flow Oxygen and maintain saturation >85% Preparing to send her home with face musk Oxygen delivery Trying to reduce the flow rate Oxygen before discharge Continue PT/OT -waiting to be reasonably mobile to be discharged Remains stable Paroxysmal atrial flutter with rapid ventricular response Due to acute hypercapnic respiratory failure Received Cardizem and digoxin Continue on heparin drip till therapeutic with Coumadin Continue Cardizem 240mg Rate is controlled and denies any symptoms No acute issue Electrolytes abnormalities Possible related to hypovolemia Na on admission 128 Na today 134 Supplement and recheck Left Ankle fracture s/p fall Left ankle xray showed distal tibial and fibular fractures as above with mild lateral subluxation of the talus. Ortho on board Continue required high flow oxygen and BIPAP for acute hypercapnic respiratory failure Continue to postpone surgery until respiratory status improves Likely to have Conservative management of the Ankle Surgery will carry a higher risk The issue was discussed in detailed with the Daughter and the patient WILL NEED SURGERY FOR THE ANKLE FRACTURE PER ORTHO No surgery =will get appropriate brace before discharge Ankle brace provided and will ask for Cast Boot for the Left foot Toe Touch allowed Avoid full weight bearing for 6 weeks in total Right pelvic ring fracture, Pelvis xray showed an age indeterminant right pubic ring fracture, possibly chronic. Stable Hypertension BP elevated Continue lisinopril. will add amlodipine PRN clonidine Continue monitor BP Ulcerative colitis On Pentasa Stable-no acute issue Depression On Celexa Stable DVT px On heparin drip CODE STATUS DNR DISPOSITION Continue monitor in tele Consultants: Pulmonary Discussed with the Daughter -Aarti Fabian and explained about Hospice care and discharge home The patient needs to be reasonably mobile -recommendation from the PT/OT before discharge Vital Signs: Date Time Temp Pulse Resp B/P (MAP) Pulse Ox O2 Delivery O2 Flow Rate FiO2 07/21/17 12:00 Oxymask 10.0 07/21/17 08:09 36.8 84 28 170/66 (100) 91 Diffusion Mask 10.0 84 07/21/17 08:00 Oxymask 10.0 07/21/17 07:04 78 20 91 Mask 10.0 07/21/17 04:22 37.0 77 22 165/91 (115) 93 Oxymask 10.0 82 07/21/17 04:00 Oxymask 10.0 07/21/17 00:00 Oxymask 10.0 07/20/17 23:25 83 93 85 07/20/17 23:22 36.9 85 23 175/56 (95) 94 Oxymask 10.0 07/20/17 20:00 Oxymask 10.0 07/20/17 19:10 87 20 93 Mask 10.0 07/20/17 19:04 36.7 76 27 172/73 (106) 90 Oxymask 10.0 07/20/17 16:00 Oxymask 10.0 07/20/17 15:22 36.7 68 21 132/42 (72) 88 High Flow Oxygen 07/20/17 14:19 74 20 89 Mask 10.0 Lab Results: Results Past 24 Hours Test 07/20/17 16:22 07/20/17 20:03 07/20/17 22:58 07/21/17 05:32 Range/Units Bedside Glucose 287 299 193 70-90 mg/dl White Blood Count 15.94 4.8-10.8 K/uL Red Blood Count 3.90 4.2-5.4 M/uL Hemoglobin 11.2 12.0-16.0 g/dL Hematocrit 35.3 37-47 % Mean Corpuscular Volume 90.5 80-100 fL Mean Corpuscular Hemoglobin 28.7 25-34 pg Mean Corpuscular Hemoglobin Concent 31.7 32-36 g/dl RDW Standard Deviation 47.2 36.4-46.3 fL RDW Coefficient of Variation 14.5 11.5-14.5 % Platelet Count 252 130-400 K/uL Mean Platelet Volume 9.8 7.4-10.4 fL Prothrombin Time 43.2 9.0-12.0 SECONDS Prothromb Time International Ratio 4.2 0.9-1.1 Sodium Level 138 136-145 mmol/L Potassium Level 3.4 3.5-5.1 mmol/L Chloride Level 92 98-107 mmol/L Carbon Dioxide Level 43 21-32 mmol/L Anion Gap 3.0 3-11 mmol/L Blood Urea Nitrogen 21 7-18 mg/dl Creatinine 0.51 0.60-1.20 mg/dl Est Creatinine Clear Calc Drug Dose 104.1 ml/min Estimated GFR () 103.8 Estimated GFR (Non- 89.5 BUN/Creatinine Ratio 42.2 10-20 Random Glucose 103 70-99 mg/dl Calcium Level 8.1 8.5-10.1 mg/dl Phosphorus Level 1.9 2.5-4.9 mg/dl Magnesium Level 2.2 1.8-2.4 mg/dl Test 07/21/17 11:08 Range/Units Bedside Glucose 245 70-90 mg/dl
[2017-07-21] MEDS: WARFARIN SOD 5 MG TAB PO SCH (14:42)
[2017-07-21] MEDS: SIMVASTATIN 20 MG TAB PO SCH (20:55)
[2017-07-21] MEDS: LATANOPROST 0.005% OP SOLN 2.5 ML BTL OP SCH (20:55)
[2017-07-21] MEDS: MIRTAZAPINE TAB 15 MG TAB PO SCH (21:19)
[2017-07-22] VITALS (11 sets, daily range): BP systolic 106–167; BP diastolic 69–75; PULSE 60–84; TEMP 36.3–36.8; O2SAT 90–96
[2017-07-22] MEDS: LEVALBUTEROL 1.25MG/3ML NEB INH SCH ×4 (02:07→20:19)
[2017-07-22 06:12] LABS: INR 3.2 (0.9-1.1)
[2017-07-22] MEDS: TRAMADOL HCL 50 MG TAB PO PRN ×2 (06:55→15:47)
[2017-07-22] MEDS: ACETYLCYSTEINE 20% INHAL SOLN ***DISPENSED BY RESP. INH SCH ×2 (07:24→20:18)
[2017-07-22] MEDS: MESALAMINE 250 MG CAPCR PO SCH ×2 (08:29→22:09)
[2017-07-22] MEDS: CITALOPRAM 40 MG TAB PO SCH (08:30)
[2017-07-22] MEDS: PANTOprazole SOD 40 MG TAB PO SCH (08:31)
[2017-07-22] MEDS: FUROSEMIDE 20 MG TAB PO SCH (08:32)
[2017-07-22] MEDS: LISINOPRIL 10 MG TAB PO SCH ×2 (08:33→22:09)
[2017-07-22] MEDS: DILTIAZEM HCL 240 MG CAPCR PO SCH (08:33)
[2017-07-22] MEDS: DOCUSATE SODIUM/SENNA 50/8.6MG TAB PO SCH (08:33)
[2017-07-22] MEDS: INSULIN ASPART 100 UNITS/ML 3 ML PEN SC SCH ×4 (09:27→22:14)
--- NOTE | 2017-07-22 14:56 | Progress Note ---
Internal Med Progress Note Date of Service: Jul 22, 2017. Provider Documentation: SUBJECTIVE: Seen and examined at bedside Continues to require 8 L of oxygen to maintain Sats Reports chronic cough Denies SOB, chest pain Family at bedside Prefers to go to [facility] and not to [facility] INR: in therapeutic range OBJECTIVE: Vital Signs-as noted below General Appearance:Moderately built and nourished, no apparent distress Head: normocephalic, Atraumatic Eyes: normal inspection, EOMI, PERRL Neck: supple, Trachea midline Respiratory/Chest: Decreased breath sounds, CTA Cardiovascular: S1, S2, No murmur Abdomen/GI:Soft, Non tender, Bowel sounds present Extremities/Musculoskelatal:normal inspection, Left LE in cast Neurologic/Psych:grossly no focal neurological deficits Skin: normal color, warm Lab data as noted below. ASSESSMENT & PLAN: Acute hypercapnic respiratory failure Chronic Oxygen Dependency: 2-4 L at baseline Secondary to COPD exacerbation and complicated by Pneumonia CXR showed dense bibasilar airspace consolidation, right greater than left with associated pleural effusions. CTA: showed no evidence for PE. Dense bilateral lower lobe atelectasis/ consolidation. Patchy airspace opacities are also present within the right upper lobe lingula and right middle lobe. Completed Levaquin and Zosyn course Negative influenza test IV Solumedrol>>> transitioned to PO prednisone Continue BIPAP QHS Continue oxygen support Blood Cultures: no growth Appreciate Pulmonology Input Lasix 20mg daily to help fluid overload ECHO * The echocardiogram is extremely technically limited. * Patient was sitting upright for the test. * There is no significant pericardial effusion noted. * The left ventricular systolic function is grossly normal on limited visualization. * The right ventricular systolic function is grossly normal. * The valves are poorly visualized. * There is no significant valvular stenosis or regurgitation on technically limited Doppler evaluation. Wean High Flow Oxygen as able and maintain saturation >88% Patient refuses [facility] placement and prefers to go to [facility] Family/Patient initially preferred to take patient home with hospice in place but currently prefers [facility] P. atrial flutter with RVR Due to acute hypercapnic respiratory failure Continue Cardizem On Coumadin Monitor INR:3.2 today Hypokalemia: Hyponatremia: Hyponatremia resolved Replace potassium as needed Left Ankle fracture s/p fall Left ankle xray showed distal tibial and fibular fractures as above with mild lateral subluxation of the talus. Appreciate Orthopedics Input Conservative management of the Ankle as high risk for surgery Ankle brace provided and will ask for Cast Boot for the Left foot Toe Touch allowed Avoid full weight bearing for 6 weeks in total Right pelvic ring fracture: Pelvis xray showed an age indeterminant right pubic ring fracture, possibly chronic. Stable Hypertension Continue lisinopril monitor Ulcerative colitis On Pentasa Stable no acute issue Depression On Celexa Stable DVT px On Coumadin CODE STATUS DNR DISPOSITION Needs SNF placement Vs Home with Hospice Produce Associate consulted Vital Signs: Date Time Temp Pulse Resp B/P (MAP) Pulse Ox O2 Delivery O2 Flow Rate FiO2 07/22/17 14:46 74 20 92 Mask 8.0 07/22/17 14:10 90 Oxymask 8.0 07/22/17 07:50 95 Oxymask 8.0 07/22/17 07:27 76 18 91 Mask 8.0 85 07/22/17 07:03 20 07/22/17 06:59 36.3 60 106/69 (81) 96 Mask 7.0 07/22/17 06:16 91 Oxymask 8.0 07/22/17 05:27 62 151/75 (100) 07/22/17 02:08 74 20 94 BiPAP/CPAP 85 07/21/17 23:22 36.8 81 18 174/69 (104) 92 Room Air 07/21/17 23:20 BiPAP 07/21/17 21:57 86 94 85 07/21/17 20:55 82 20 94 Mask 8.0 07/21/17 20:55 82 172/68 (102) 07/21/17 18:30 Oxymask 8.0 07/21/17 18:15 36.7 87 16 179/78 (111) 91 Oxymask 8.0 07/21/17 16:00 Oxymask 10.0 07/21/17 15:20 37.0 84 23 155/88 (110) 87 Oxymask 7.0 Lab Results: Results Past 24 Hours Test 07/21/17 16:07 07/21/17 21:29 07/22/17 05:37 07/22/17 08:01 Range/Units Bedside Glucose 162 176 111 70-90 mg/dl Prothrombin Time 32.4 9.0-12.0 SECONDS Prothromb Time International Ratio 3.2 0.9-1.1 Test 07/22/17 11:45 Range/Units Bedside Glucose 160 70-90 mg/dl
[2017-07-22] MEDS ORDERED: POTASSIUM CHLORIDE 20 MEQ/15 ML UDC PO ONE (15:00)
[2017-07-22] MEDS: WARFARIN SOD 5 MG TAB PO SCH (15:51)
[2017-07-22] MEDS ORDERED: NURSING DECISION MEDICATION ORDER SCH (17:00)
[2017-07-22] MEDS: MICONAZOLE NITRATE POWDER 43 GM EXT PRN (21:55)
[2017-07-22] MEDS: LATANOPROST 0.005% OP SOLN 2.5 ML BTL OP SCH (21:56)
[2017-07-22] MEDS: SIMVASTATIN 20 MG TAB PO SCH (22:08)
[2017-07-22] MEDS: MIRTAZAPINE TAB 15 MG TAB PO SCH (22:08)
[2017-07-23] VITALS (13 sets, daily range): BP systolic 104–190; BP diastolic 67–79; PULSE 71–86; TEMP 36.3–37.1; O2SAT 88–96
[2017-07-23] MEDS: LEVALBUTEROL 1.25MG/3ML NEB INH SCH ×4 (02:01→20:18)
[2017-07-23 06:33] LABS: HEMATOCRIT 31.8 % (37-47); HEMOGLOBIN 10.2 g/dL (12.0-16.0); MEAN CELL VOLUME 92.7 fL (80-100); MEAN CORPUSCULAR HEMOGLOBIN 29.7 pg (25-34); MEAN CORPUSCULAR HGB CONC 32.1 g/dl (32-36); MEAN PLATELET VOLUME 9.9 fL (7.4-10.4); PLATELET COUNT 232 K/uL (130-400); RED CELL DISTRIBUTION WIDTH CV 14.9 % (11.5-14.5); RED CELL DISTRIBUTION WIDTH SD 50.2 fL (36.4-46.3); WHITE BLOOD COUNT 13.35 K/uL (4.8-10.8)
[2017-07-23 06:38] LABS: INR 3.3 (0.9-1.1)
[2017-07-23 07:08] LABS: CALCIUM 7.8 mg/dl (8.5-10.1); CREATININE 0.42 mg/dl (0.60-1.20); POTASSIUM 3.7 mmol/L (3.5-5.1)
[2017-07-23] MEDS: ACETYLCYSTEINE 20% INHAL SOLN ***DISPENSED BY RESP. INH SCH ×2 (07:38→20:18)
[2017-07-23] MEDS: INSULIN ASPART 100 UNITS/ML 3 ML PEN SC SCH ×4 (09:12→21:13)
[2017-07-23] MEDS: DILTIAZEM HCL 240 MG CAPCR PO SCH (09:13)
[2017-07-23] MEDS: CITALOPRAM 40 MG TAB PO SCH (09:13)
[2017-07-23] MEDS: DOCUSATE SODIUM/SENNA 50/8.6MG TAB PO SCH (09:13)
[2017-07-23] MEDS: PANTOprazole SOD 40 MG TAB PO SCH (09:14)
[2017-07-23] MEDS: LISINOPRIL 10 MG TAB PO SCH ×2 (09:14→21:10)
[2017-07-23] MEDS: FUROSEMIDE 20 MG TAB PO SCH (09:14)
[2017-07-23] MEDS: MESALAMINE 250 MG CAPCR PO SCH ×2 (09:15→21:10)
[2017-07-23] MEDS: HydrALAZINE HCL 20 MG/ML VIAL IV. PRN ×2 (12:15→23:30)
--- NOTE | 2017-07-23 15:55 | Progress Note ---
Internal Med Progress Note Date of Service: Jul 23, 2017. Provider Documentation: SUBJECTIVE: Seen and examined at bedside Feels anxious today due to stress Continues to require 8 L of oxygen to maintain Sats Reports chronic cough Denies SOB, chest pain INR: in therapeutic range Clinically no significant change OBJECTIVE: Vital Signs-as noted below General Appearance:Moderately built and nourished, no apparent distress Head: normocephalic, Atraumatic Eyes: normal inspection, EOMI, PERRL Neck: supple, Trachea midline Respiratory/Chest: Decreased breath sounds, Scattered wheezes Cardiovascular: S1, S2, No murmur Abdomen/GI:Soft, Non tender, Bowel sounds present Extremities/Musculoskelatal:normal inspection, Left LE in cast Neurologic/Psych:grossly no focal neurological deficits Skin: normal color, warm Lab data as noted below. ASSESSMENT & PLAN: Acute hypercapnic respiratory failure Chronic Oxygen Dependency: 2-4 L at baseline Secondary to COPD exacerbation and complicated by Pneumonia CXR showed dense bibasilar airspace consolidation, right greater than left with associated pleural effusions. CTA: showed no evidence for PE. Dense bilateral lower lobe atelectasis/ consolidation. Patchy airspace opacities are also present within the right upper lobe lingula and right middle lobe. Completed Levaquin and Zosyn course Negative influenza test IV Solumedrol>>> transitioned to PO prednisone Continue Prednisone 40mg for now Continue BIPAP QHS Continue oxygen support Blood Cultures: no growth Appreciate Pulmonology Input Lasix 20mg daily to help fluid overload ECHO * The echocardiogram is extremely technically limited. * Patient was sitting upright for the test. * There is no significant pericardial effusion noted. * The left ventricular systolic function is grossly normal on limited visualization. * The right ventricular systolic function is grossly normal. * The valves are poorly visualized. * There is no significant valvular stenosis or regurgitation on technically limited Doppler evaluation. Wean High Flow Oxygen as able and maintain saturation >88% Patient refuses [facility] placement and prefers to go to [facility] instead Family/Patient initially preferred to take patient home with hospice in place but currently prefers SNF continue current management P. atrial flutter with RVR Due to acute hypercapnic respiratory failure Continue Cardizem for rate control Continue Coumadin Monitor INR:3.3 today Hypokalemia/Hyponatremia: Resolved monitor Left Ankle fracture s/p fall Left ankle xray showed distal tibial and fibular fractures as above with mild lateral subluxation of the talus. Appreciate Orthopedics Input Conservative management of the Ankle as high risk for surgery Ankle brace provided and will ask for Cast Boot for the Left foot Toe Touch allowed Avoid full weight bearing for 6 weeks in total Right pelvic ring fracture: Pelvis xray showed an age indeterminant right pubic ring fracture, possibly chronic. Stable Hypertension: labile likely related to anxiety Continue lisinopril monitor Ulcerative colitis On Pentasa Stable no acute issue Depression On Celexa Stable DVT px On Coumadin CODE STATUS DNR DISPOSITION Needs SNF placement Vs Home with Hospice Recruiter Manager consulted Vital Signs: Date Time Temp Pulse Resp B/P (MAP) Pulse Ox O2 Delivery O2 Flow Rate FiO2 07/23/17 15:15 36.7 86 24 168/68 (101) 91 Oxymask 8.0 07/23/17 14:34 78 20 93 Mask 7.0 07/23/17 14:20 88 Oxymask 8.0 07/23/17 12:31 159/72 (101) 07/23/17 11:45 36.3 85 20 190/79 (116) 90 Room Air 07/23/17 08:29 90 Oxymask 8.0 07/23/17 08:19 36.6 72 12 152/72 (98) 90 Oxymask 8.0 07/23/17 07:45 90 Oxymask 8.0 07/23/17 07:38 71 20 93 Mask 8.0 07/23/17 02:01 78 20 96 BiPAP/CPAP 85 07/23/17 00:10 BiPAP 07/23/17 00:00 36.6 82 16 104/69 (81) 96 BiPAP 07/22/17 23:00 84 95 85 07/22/17 20:19 78 20 94 Mask 8.0 07/22/17 17:30 Oxymask 8.0 Lab Results: Results Past 24 Hours Test 07/22/17 17:00 07/22/17 21:01 07/23/17 05:54 07/23/17 08:05 Range/Units Bedside Glucose 197 261 106 70-90 mg/dl White Blood Count 13.35 4.8-10.8 K/uL Red Blood Count 3.43 4.2-5.4 M/uL Hemoglobin 10.2 12.0-16.0 g/dL Hematocrit 31.8 37-47 % Mean Corpuscular Volume 92.7 80-100 fL Mean Corpuscular Hemoglobin 29.7 25-34 pg Mean Corpuscular Hemoglobin Concent 32.1 32-36 g/dl RDW Standard Deviation 50.2 36.4-46.3 fL RDW Coefficient of Variation 14.9 11.5-14.5 % Platelet Count 232 130-400 K/uL Mean Platelet Volume 9.9 7.4-10.4 fL Prothrombin Time 34.1 9.0-12.0 SECONDS Prothromb Time International Ratio 3.3 0.9-1.1 Sodium Level 135 136-145 mmol/L Potassium Level 3.7 3.5-5.1 mmol/L Chloride Level 94 98-107 mmol/L Carbon Dioxide Level 39 21-32 mmol/L Anion Gap 2.0 3-11 mmol/L Blood Urea Nitrogen 20 7-18 mg/dl Creatinine 0.42 0.60-1.20 mg/dl Est Creatinine Clear Calc Drug Dose 126.5 ml/min Estimated GFR () 110.6 Estimated GFR (Non- 95.5 BUN/Creatinine Ratio 48.1 10-20 Random Glucose 97 70-99 mg/dl Calcium Level 7.8 8.5-10.1 mg/dl Magnesium Level 2.3 1.8-2.4 mg/dl Test 07/23/17 12:03 Range/Units Bedside Glucose 156 70-90 mg/dl
[2017-07-23] MEDS: WARFARIN SOD 5 MG TAB PO SCH (16:39)
[2017-07-23] MEDS: LATANOPROST 0.005% OP SOLN 2.5 ML BTL OP SCH (21:09)
[2017-07-23] MEDS: MIRTAZAPINE TAB 15 MG TAB PO SCH (21:10)
[2017-07-23] MEDS: SIMVASTATIN 20 MG TAB PO SCH (21:10)
[2017-07-23] MEDS: MICONAZOLE NITRATE POWDER 43 GM EXT PRN (21:14)
[2017-07-24] VITALS (14 sets, daily range): BP systolic 128–191; BP diastolic 63–82; PULSE 71–86; TEMP 36.7–37; O2SAT 90–95
[2017-07-24] MEDS: LEVALBUTEROL 1.25MG/3ML NEB INH SCH ×4 (01:55→20:28)
[2017-07-24 06:55] LABS: INR 3.9 (0.9-1.1)
[2017-07-24] MEDS: ACETYLCYSTEINE 20% INHAL SOLN ***DISPENSED BY RESP. INH SCH ×2 (07:04→20:27)
[2017-07-24 07:06] LABS: CREATININE 0.39 mg/dl (0.60-1.20); POTASSIUM 3.2 mmol/L (3.5-5.1)
[2017-07-24] MEDS: INSULIN ASPART 100 UNITS/ML 3 ML PEN SC SCH ×4 (09:04→21:20)
[2017-07-24] MEDS: MESALAMINE 250 MG CAPCR PO SCH ×2 (09:06→21:16)
[2017-07-24] MEDS: LISINOPRIL 10 MG TAB PO SCH ×2 (09:06→21:17)
[2017-07-24] MEDS: CITALOPRAM 40 MG TAB PO SCH (09:07)
[2017-07-24] MEDS: DOCUSATE SODIUM/SENNA 50/8.6MG TAB PO SCH (09:07)
[2017-07-24] MEDS: PANTOprazole SOD 40 MG TAB PO SCH (09:07)
[2017-07-24] MEDS: DILTIAZEM HCL 240 MG CAPCR PO SCH (09:07)
[2017-07-24] MEDS: FUROSEMIDE 20 MG TAB PO SCH (10:47)
[2017-07-24] MEDS ORDERED: POTASSIUM CHLORIDE 10 MEQ TABCR PO ONE (11:00)
[2017-07-24] MEDS: HydrALAZINE HCL 20 MG/ML VIAL IV. PRN (12:15)
--- NOTE | 2017-07-24 13:59 | Progress Note ---
Internal Med Progress Note Date of Service: Jul 24, 2017. Provider Documentation: SUBJECTIVE: Seen and examined at bedside States having soreness of tongue Feels tired Continues to require 8 L- 10L of oxygen to maintain Sats Reports chronic cough Denies SOB, chest pain INR supra therapeutic Clinically seems to be deteriorating OBJECTIVE: Vital Signs-as noted below General Appearance:Moderately built and nourished, no apparent distress Head: normocephalic, Atraumatic Eyes: normal inspection, EOMI, PERRL Neck: supple, Trachea midline Respiratory/Chest: coarse breath sounds, B/L rhonchi Cardiovascular: S1, S2, No murmur Abdomen/GI:Soft, Non tender, Bowel sounds present Extremities/Musculoskelatal:normal inspection, Left LE in cast Neurologic/Psych:grossly no focal neurological deficits Skin: normal color, warm Lab data as noted below. ASSESSMENT & PLAN: Acute hypercapnic respiratory failure Chronic Oxygen Dependency: 2-4 L at baseline Secondary to COPD exacerbation and complicated by Pneumonia CXR showed dense bibasilar airspace consolidation, right greater than left with associated pleural effusions. CTA: showed no evidence for PE. Dense bilateral lower lobe atelectasis/ consolidation. Patchy airspace opacities are also present within the right upper lobe lingula and right middle lobe. Completed Levaquin and Zosyn course Negative influenza test IV Solumedrol>>> transitioned to PO prednisone Continue Prednisone 40mg for now Continue BIPAP QHS Continue oxygen support Blood Cultures: no growth Appreciate Pulmonology Input Lasix 20mg daily to help fluid overload ECHO * The echocardiogram is extremely technically limited. * Patient was sitting upright for the test. * There is no significant pericardial effusion noted. * The left ventricular systolic function is grossly normal on limited visualization. * The right ventricular systolic function is grossly normal. * The valves are poorly visualized. * There is no significant valvular stenosis or regurgitation on technically limited Doppler evaluation. Wean High Flow Oxygen as able and maintain saturation >88% Clinically seems to be deteriorating Palliative care following Continues to be BiPAP and high flow oxygen dependent Requires 8-10L oxygen to maintain Sats Oral Candidiasis: Started on Nystatin Day #1 P. atrial flutter with RVR Due to acute hypercapnic respiratory failure Continue Cardizem for rate control Monitor INR:3.9 today Hold Coumadin for now Hypokalemia/Hyponatremia: Hypokalemia likely secondary to poor oral intake and diuretics Replace and monitor Left Ankle fracture s/p fall Left ankle xray showed distal tibial and fibular fractures as above with mild lateral subluxation of the talus. Appreciate Orthopedics Input Conservative management of the Ankle as high risk for surgery Ankle brace provided and will ask for Cast Boot for the Left foot Toe Touch allowed Avoid full weight bearing for 6 weeks in total Right pelvic ring fracture: Pelvis xray showed an age indeterminant right pubic ring fracture, possibly chronic. Stable Hypertension: labile likely related to anxiety Continue lisinopril monitor Ulcerative colitis On Pentasa Stable no acute issue Depression On Celexa Stable DVT px INR supra therapeutic: Coumadin on hold CODE STATUS DNR DISPOSITION Needs SNF placement Vs Home with Hospice Railroad Accountant consulted Vital Signs: Date Time Temp Pulse Resp B/P (MAP) Pulse Ox O2 Delivery O2 Flow Rate FiO2 07/24/17 13:08 82 21 166/63 (97) 92 07/24/17 12:06 84 20 187/82 (117) 95 Oxymask 11.0 07/24/17 08:30 90 Mask 10.0 85 07/24/17 08:24 172/74 (106) 07/24/17 07:07 82 18 90 Mask 10.0 07/24/17 07:05 36.8 84 19 191/64 (106) 90 Mask 10.0 07/24/17 02:49 93 Oxymask 11.0 07/24/17 02:08 84 20 94 BiPAP/CPAP 85 07/24/17 01:55 86 94 85 07/24/17 00:54 156/73 (100) 07/23/17 23:26 37.1 80 16 181/67 (105) 90 Oxymask 11.0 07/23/17 20:30 Oxymask 8.0 07/23/17 20:20 79 20 93 Mask 7.0 07/23/17 15:15 36.7 86 24 168/68 (101) 91 Oxymask 8.0 07/23/17 14:34 78 20 93 Mask 7.0 07/23/17 14:20 88 Oxymask 8.0 Lab Results: Results Past 24 Hours Test 07/23/17 17:14 07/24/17 05:47 07/24/17 08:10 07/24/17 11:58 Range/Units Bedside Glucose 179 147 180 70-90 mg/dl Prothrombin Time 39.8 9.0-12.0 SECONDS Prothromb Time International Ratio 3.9 0.9-1.1 Sodium Level 138 136-145 mmol/L Potassium Level 3.2 3.5-5.1 mmol/L Chloride Level 96 98-107 mmol/L Carbon Dioxide Level 39 21-32 mmol/L Anion Gap 3.0 3-11 mmol/L Blood Urea Nitrogen 19 7-18 mg/dl Creatinine 0.39 0.60-1.20 mg/dl Est Creatinine Clear Calc Drug Dose 136.2 ml/min Estimated GFR () 113.4 Estimated GFR (Non- 97.8 BUN/Creatinine Ratio 49.3 10-20 Random Glucose 110 70-99 mg/dl Calcium Level 8.0 8.5-10.1 mg/dl Magnesium Level 2.3 1.8-2.4 mg/dl
--- NOTE | 2017-07-24 16:21 | Palliative Care Progress Note ---
Palliative Care Progress Note Date of Service Jul 24, 2017. Subjective Pt evaluation today including: conversation w/ patient, conversation w/ family (daughter, Sanaz Castellanos), physical exam, chart review, conversation w/ sales enablement consultant ( Dr. Campbell), review of inpatient medication list Pain: none at this time PO Intake: tolerating small amounts Voiding: everett catheter in place -Patient had foot recasted last week by Ortho. -Oxygen was weaned down to 8L via Oxymask and patient seemed to be doing a little better. -She still has not been able to tolerate any sort of activity or getting out of bed. -I was contacted by hospitalist physician today who stated that patient seems to be decompensating yesterday and today. Oxygen requirements are going back up , now on 10-11L via Oxymask. Patient is more tired and short of breath. I was asked to reengage and speak with patient and family. See plan below. Review of Systems Constitutional: + weakness ENT: No trouble swallowing Respiratory: + shortness of breath, + dyspnea on exertion, + problem reported ( moist cough), No wheezing Cardiac: No chest pain, No edema Abdomen: No pain, No nausea, No vomiting Female : No problem reported Psychiatric: No depression symptoms, No anxiety Objective Vital Signs Date Time Temp Pulse Resp B/P (MAP) Pulse Ox O2 Delivery O2 Flow Rate FiO2 07/24/17 15:08 36.7 83 22 128/68 (88) 91 Oxyhood 8.0 07/24/17 14:22 71 20 93 Mask 9.0 07/24/17 13:08 82 21 166/63 (97) 92 07/24/17 12:06 84 20 187/82 (117) 95 Oxymask 11.0 07/24/17 08:30 90 Mask 10.0 85 07/24/17 08:24 172/74 (106) 07/24/17 07:07 82 18 90 Mask 10.0 07/24/17 07:05 36.8 84 19 191/64 (106) 90 Mask 10.0 07/24/17 02:49 93 Oxymask 11.0 07/24/17 02:08 84 20 94 BiPAP/CPAP 85 07/24/17 01:55 86 94 85 07/24/17 00:54 156/73 (100) 1/17/18 23:26 37.1 80 16 181/67 (105) 90 Oxymask 11.0 07/23/17 20:30 Oxymask 8.0 07/23/17 20:20 79 20 93 Mask 7.0 Physical Exam General Appearance: no apparent distress ENT: hearing grossly normal Neck: supple, no JVD Respiratory/Chest: + decreased breath sounds, + accessory muscle use, + rhonchi (coarse throughout), + pertinent finding (rattling respirations) Cardiovascular: regular rate, rhythm, + normal peripheral pulses Abdomen: normal bowel sounds, non tender, soft Neurologic/Psychiatric: alert (but somewhat drowsy/lethargic), normal mood/ affect, oriented x 3 Skin: normal color Laboratory Results Last 24 Hours Test 07/23/17 17:14 07/24/17 05:47 07/24/17 08:10 07/24/17 11:58 Bedside Glucose 179 mg/dl 147 mg/dl 180 mg/dl Prothrombin Time 39.8 SECONDS Prothromb Time International Ratio 3.9 Sodium Level 138 mmol/L Potassium Level 3.2 mmol/L Chloride Level 96 mmol/L Carbon Dioxide Level 39 mmol/L Anion Gap 3.0 mmol/L Blood Urea Nitrogen 19 mg/dl Creatinine 0.39 mg/dl Est Creatinine Clear Calc Drug Dose 136.2 ml/min Estimated GFR () 113.4 Estimated GFR (Non- 97.8 BUN/Creatinine Ratio 49.3 Random Glucose 110 mg/dl Calcium Level 8.0 mg/dl Magnesium Level 2.3 mg/dl Assessment and Plan Problem list: Pain, left ankle and sacrum (from lying in bed)- none at this time Weakness SOB/SIMON COPD, advanced/end-stage Acute on chronic respiratory failure Left ankle fracture Paroxysmal afib with RVR Goals of care (Z51.5) Palliative care recs: discussed with patient, patient's daughter Sanaz Castellanos, and Dr. Campbell. -I met with the patient in room 306. She is quite SOB with rattling respirations. She is tired but awake and able to talk with me. Patient agrees that she is not doing better. She wanted to go to [facility], but I conveyed my concern to her that she may not tolerate that level of rehab considering she hasn't been able to do any therapy here in the hospital and continues to decline. We talked about transitioning to comfort measures only and either going home or to a facility with hospice care. Patient said "that would be okay " but wanted me to speak with her daughter Sanaz Castellanos about the above. I spoke with Sanaz Castellanos and she agrees that she does not think patient is going to get better. She asked if I would call patient's other daughter Aarti, which I did and left a message. Sanaz Castellanos will speak to both her sisters mariajose and they will let us know if they come to a decision tomorrow. Palliative Performance Scale: 30 % (unable to get OOB at this time)
[2017-07-24] MEDS: NYSTATIN SUSP 500,000 U/5 ML UDC PO SCH ×2 (16:48→21:16)
[2017-07-24] MEDS: LATANOPROST 0.005% OP SOLN 2.5 ML BTL OP SCH (21:14)
[2017-07-24] MEDS: MIRTAZAPINE TAB 15 MG TAB PO SCH (21:16)
[2017-07-24] MEDS: SIMVASTATIN 20 MG TAB PO SCH (21:17)
[2017-07-25] VITALS (9 sets, daily range): BP systolic 132–192; BP diastolic 63–84; PULSE 71–83; TEMP 36.5–37; O2SAT 93–96
[2017-07-25] MEDS: LEVALBUTEROL 1.25MG/3ML NEB INH SCH ×4 (02:04→21:17)
[2017-07-25 05:32] LABS: INR 4.5 (0.9-1.1)
[2017-07-25 05:53] LABS: CALCIUM 7.9 mg/dl (8.5-10.1); CREATININE 0.4 mg/dl (0.60-1.20); POTASSIUM 3.6 mmol/L (3.5-5.1)
[2017-07-25] MEDS ORDERED: PHYTONADIONE 5 MG TAB PO STA (05:56)
[2017-07-25] MEDS ORDERED: PHYTONADIONE PED INJ 1 MG, ORA-SWEET SYRUP 2.25 ML, ORA-PLUS SUSP. VEHICLE 2.25 ML, BAR... PO ONE ×3 (06:30)
[2017-07-25] MEDS: ACETYLCYSTEINE 20% INHAL SOLN ***DISPENSED BY RESP. INH SCH ×2 (07:03→20:00)
--- NOTE | 2017-07-25 09:19 | Palliative Care Progress Note ---
Palliative Care Progress Note Date of Service Jul 25, 2017. Subjective Pt evaluation today including: conversation w/ patient, conversation w/ family (daughters Sanaz Castellanos and Aarti Hurst), physical exam, chart review, conversation w/ philatelic consultant, review of inpatient medication list Pain: none PO Intake: tolerating diet Voiding: everett catheter in place -Patient is more awake today. Still SOB, requiring 8.5LPM via Oxymask. -Discussed goals of care with patient. She wants her daughters to help her make decisions about transitioning to comfort care. -I spoke with Sanaz Castellanos and Aarti Hurst on the phone See plan below. Review of Systems Constitutional: + weakness ENT: No trouble swallowing Respiratory: + cough, + shortness of breath, + dyspnea on exertion, No sputum Cardiac: No chest pain, No edema Abdomen: No pain, No nausea, No vomiting Female : No problem reported Psychiatric: No depression symptoms, No anxiety Objective Vital Signs Date Time Temp Pulse Resp B/P (MAP) Pulse Ox O2 Delivery O2 Flow Rate FiO2 07/25/17 08:35 Oxymask 8.0 07/25/17 07:30 37.0 82 21 186/68 (107) 93 Room Air 07/25/17 07:03 77 20 93 Mask 8.0 07/25/17 02:05 82 20 93 Mask 8.0 07/24/17 23:42 Oxymask 9.0 07/24/17 23:30 37.0 80 16 145/74 (97) 93 Oxymask 9.0 07/24/17 20:28 78 20 92 Mask 8.0 07/24/17 16:50 Oxymask 8.0 BiPAP 07/24/17 15:08 36.7 83 22 128/68 (88) 91 Oxyhood 8.0 07/24/17 14:22 71 20 93 Mask 9.0 07/24/17 13:08 82 21 166/63 (97) 92 07/24/17 12:06 84 20 187/82 (117) 95 Oxymask 11.0 Physical Exam General Appearance: no apparent distress ENT: hearing grossly normal Neck: supple, no JVD Respiratory/Chest: lungs clear, no respiratory distress, + accessory muscle use , + rhonchi (coarse), + pertinent finding (tachypneic) Cardiovascular: regular rate, rhythm, no edema Abdomen: normal bowel sounds, non tender, soft Neurologic/Psychiatric: alert, normal mood/affect, oriented x 3 Skin: + pertinent finding (face is slightly dusky) Laboratory Results Last 24 Hours Test 07/24/17 11:58 07/25/17 04:42 07/25/17 08:06 Bedside Glucose 180 mg/dl 120 mg/dl Prothrombin Time 46.0 SECONDS Prothromb Time International Ratio 4.5 Sodium Level 139 mmol/L Potassium Level 3.6 mmol/L Chloride Level 97 mmol/L Carbon Dioxide Level 40 mmol/L Anion Gap 2.0 mmol/L Blood Urea Nitrogen 18 mg/dl Creatinine 0.40 mg/dl Est Creatinine Clear Calc Drug Dose 132.8 ml/min Estimated GFR () 112.4 Estimated GFR (Non- 97.0 BUN/Creatinine Ratio 45.7 Random Glucose 111 mg/dl Calcium Level 7.9 mg/dl Magnesium Level 2.1 mg/dl Assessment and Plan Problem list: Pain, left ankle and sacrum (from lying in bed)- none at this time Weakness SOB/SIMON COPD, advanced/end-stage Acute on chronic respiratory failure Left ankle fracture Paroxysmal afib with RVR Goals of care (Z51.5) Palliative care recs: discussed with patient, patient's daughters Sanaz Castellanos and Aarti Hurst, and Dr. Campbell. -Discussed with patient and daughters. Both daughters are on board with transitioning to comfort measures only and would be okay with hospice care upon discharge. Patient is not able to participate in therapy at this point and they do not believe patient will get any better. Patient agrees as well. Daughter Aarti is going to come and see her mom this weekend and conference call Sanaz Castellanos in so they can discuss together and make a final decision. They will let the health care team know when that happens. -All care will essentially remain the same at this point if PUBLIC HEALTH EDUCATOR, except I would discontinue lab draws and VS. Would change her IV morphine to Roxanol 5mg PO Q3h PRN pain or SOB. Would discontinue Zocor and keep cardiac meds as long as patient is able to swallow PO medications. -Patient's daughters do not think they can take patient home with hospice. Will likely need SNF. Case management following. Palliative Performance Scale: 30 % (unable to get OOB at this time)
[2017-07-25] MEDS: DILTIAZEM HCL 240 MG CAPCR PO SCH (09:25)
[2017-07-25] MEDS: FUROSEMIDE 20 MG TAB PO SCH (09:26)
[2017-07-25] MEDS: NYSTATIN SUSP 500,000 U/5 ML UDC PO SCH ×4 (09:26→20:53)
[2017-07-25] MEDS: CITALOPRAM 40 MG TAB PO SCH (09:26)
[2017-07-25] MEDS: MESALAMINE 250 MG CAPCR PO SCH ×2 (09:26→20:55)
[2017-07-25] MEDS: DOCUSATE SODIUM/SENNA 50/8.6MG TAB PO SCH (09:27)
[2017-07-25] MEDS: PANTOprazole SOD 40 MG TAB PO SCH (09:27)
[2017-07-25] MEDS: LISINOPRIL 10 MG TAB PO SCH ×2 (09:30→20:54)
[2017-07-25] MEDS: INSULIN ASPART 100 UNITS/ML 3 ML PEN SC SCH ×4 (09:38→21:06)
[2017-07-25] MEDS: TRAMADOL HCL 50 MG TAB PO PRN (16:13)
--- NOTE | 2017-07-25 19:32 | Progress Note ---
Internal Med Progress Note Date of Service: Jul 25, 2017. Provider Documentation: SUBJECTIVE: Seen and examined at bedside Clinically deteriorating Discussed with Patient's daughters who would like make a decision tomorrow Feels tired Continues to require 8 L of oxygen to maintain Sats Reports chronic cough Denies SOB, chest pain INR supra therapeutic, no active bleeding issues Involved palliative Care Intermittently confused per family OBJECTIVE: Vital Signs-as noted below General Appearance:Moderately built and nourished, no apparent distress Head: normocephalic, Atraumatic Eyes: normal inspection, EOMI, PERRL Neck: supple, Trachea midline Respiratory/Chest: coarse breath sounds, B/L rhonchi Cardiovascular: S1, S2, No murmur Abdomen/GI:Soft, Non tender, Bowel sounds present Extremities/Musculoskelatal:normal inspection, Left LE in cast Neurologic/Psych:grossly no focal neurological deficits Skin: normal color, warm Lab data as noted below. ASSESSMENT & PLAN: Acute hypercapnic respiratory failure Chronic Oxygen Dependency: 2-4 L at baseline Secondary to COPD exacerbation and complicated by Pneumonia Advanced COPD Could have a component of obesity hypoventilation syndrome CXR showed dense bibasilar airspace consolidation, right greater than left with associated pleural effusions. CTA: showed no evidence for PE. Dense bilateral lower lobe atelectasis/ consolidation. Patchy airspace opacities are also present within the right upper lobe lingula and right middle lobe. Completed Levaquin and Zosyn course Negative influenza test IV Solumedrol>>> transitioned to PO prednisone Continue Prednisone 40mg for now Continue BIPAP QHS Continue oxygen support Blood Cultures: no growth Appreciate Pulmonology Input Lasix 20mg daily to help fluid overload ECHO * The echocardiogram is extremely technically limited. * Patient was sitting upright for the test. * There is no significant pericardial effusion noted. * The left ventricular systolic function is grossly normal on limited visualization. * The right ventricular systolic function is grossly normal. * The valves are poorly visualized. * There is no significant valvular stenosis or regurgitation on technically limited Doppler evaluation. Wean High Flow Oxygen as able and maintain saturation >88% Clinically deteriorating Palliative care following Continues to be BiPAP and high flow oxygen dependent Requires 8-10L oxygen to maintain Sats Family to make decision tomorrow after discussing with patient regarding comfort measures Oral Candidiasis: Started on Nystatin Day #2 P. atrial flutter with RVR Due to acute hypercapnic respiratory failure Continue Cardizem for rate control Monitor INR:3.9 >>>4.5 Coumadin on hold Hypokalemia/Hyponatremia: Hypokalemia likely secondary to poor oral intake and diuretics Replace and monitor Left Ankle fracture s/p fall Left ankle xray showed distal tibial and fibular fractures as above with mild lateral subluxation of the talus. Appreciate Orthopedics Input Conservative management of the Ankle as high risk for surgery Ankle brace provided and will ask for Cast Boot for the Left foot Toe Touch allowed Avoid full weight bearing for 6 weeks in total Right pelvic ring fracture: Pelvis xray showed an age indeterminant right pubic ring fracture, possibly chronic. Stable Hypertension: labile likely related to anxiety Continue lisinopril monitor Ulcerative colitis On Pentasa Stable no acute issue Depression On Celexa Stable DVT px INR supra therapeutic: Coumadin on hold CODE STATUS DNR DISPOSITION Needs SNF placement Vs Home with Hospice [facility] Director consulted Vital Signs: Date Time Temp Pulse Resp B/P (MAP) Pulse Ox O2 Delivery O2 Flow Rate FiO2 07/25/17 15:22 36.5 73 20 132/67 (88) 94 Nasal Cannula 8.0 07/25/17 14:26 76 20 95 Mask 8.0 07/25/17 12:08 83 20 192/84 (120) 93 07/25/17 08:35 Oxymask 8.0 07/25/17 07:30 37.0 82 21 186/68 (107) 93 Room Air 07/25/17 07:03 77 20 93 Mask 8.0 07/25/17 02:05 82 20 93 Mask 8.0 07/24/17 23:42 Oxymask 9.0 07/24/17 23:30 37.0 80 16 145/74 (97) 93 Oxymask 9.0 07/24/17 20:28 78 20 92 Mask 8.0 Lab Results: Results Past 24 Hours Test 07/25/17 04:42 07/25/17 08:06 07/25/17 12:03 07/25/17 16:57 Range/Units Prothrombin Time 46.0 9.0-12.0 SECONDS Prothromb Time International Ratio 4.5 0.9-1.1 Sodium Level 139 136-145 mmol/L Potassium Level 3.6 3.5-5.1 mmol/L Chloride Level 97 98-107 mmol/L Carbon Dioxide Level 40 21-32 mmol/L Anion Gap 2.0 3-11 mmol/L Blood Urea Nitrogen 18 7-18 mg/dl Creatinine 0.40 0.60-1.20 mg/dl Est Creatinine Clear Calc Drug Dose 132.8 ml/min Estimated GFR () 112.4 Estimated GFR (Non- 97.0 BUN/Creatinine Ratio 45.7 10-20 Random Glucose 111 70-99 mg/dl Calcium Level 7.9 8.5-10.1 mg/dl Magnesium Level 2.1 1.8-2.4 mg/dl Bedside Glucose 120 187 171 70-90 mg/dl
[2017-07-25] MEDS: SIMVASTATIN 20 MG TAB PO SCH (20:55)
[2017-07-25] MEDS: MIRTAZAPINE TAB 15 MG TAB PO SCH (20:58)
[2017-07-25] MEDS: MoRPHine SULFATE 2 MG/ML CARP IV PRN (21:07)
[2017-07-25] MEDS: LATANOPROST 0.005% OP SOLN 2.5 ML BTL OP SCH (22:29)
[2017-07-26] VITALS (8 sets, daily range): BP systolic 172–184; BP diastolic 71–83; PULSE 65–86; TEMP 36.6–37; O2SAT 91–94
[2017-07-26] MEDS: LEVALBUTEROL 1.25MG/3ML NEB INH SCH ×4 (02:03→19:46)
[2017-07-26 06:15] LABS: HEMATOCRIT 31.6 % (37-47); HEMOGLOBIN 10.1 g/dL (12.0-16.0); MEAN CELL VOLUME 92.9 fL (80-100); MEAN CORPUSCULAR HEMOGLOBIN 29.7 pg (25-34); MEAN PLATELET VOLUME 9.5 fL (7.4-10.4); NUCLEATED RED BLOOD CELL ABS 0.02 K/uL (0-0); PLATELET COUNT 218 K/uL (130-400); RED CELL DISTRIBUTION WIDTH CV 15.2 % (11.5-14.5); RED CELL DISTRIBUTION WIDTH SD 51.6 fL (36.4-46.3); WHITE BLOOD COUNT 10.95 K/uL (4.8-10.8)
[2017-07-26 06:32] LABS: INR 2.2 (0.9-1.1)
[2017-07-26 06:43] LABS: CALCIUM 8.1 mg/dl (8.5-10.1); CREATININE 0.34 mg/dl (0.60-1.20); POTASSIUM 3.6 mmol/L (3.5-5.1)
[2017-07-26] MEDS: ACETYLCYSTEINE 20% INHAL SOLN ***DISPENSED BY RESP. INH SCH ×2 (07:22→19:46)
[2017-07-26] MEDS: MESALAMINE 250 MG CAPCR PO SCH ×2 (09:51→19:47)
[2017-07-26] MEDS: PANTOprazole SOD 40 MG TAB PO SCH (09:51)
[2017-07-26] MEDS: FUROSEMIDE 20 MG TAB PO SCH (09:51)
[2017-07-26] MEDS: CITALOPRAM 40 MG TAB PO SCH (09:52)
[2017-07-26] MEDS: DILTIAZEM HCL 240 MG CAPCR PO SCH (09:52)
[2017-07-26] MEDS: LISINOPRIL 10 MG TAB PO SCH (09:52)
[2017-07-26] MEDS: NYSTATIN SUSP 500,000 U/5 ML UDC PO SCH ×4 (09:53→19:45)
[2017-07-26] MEDS: DOCUSATE SODIUM/SENNA 50/8.6MG TAB PO SCH (09:53)
[2017-07-26] MEDS: INSULIN ASPART 100 UNITS/ML 3 ML PEN SC SCH ×2 (09:55→12:00)
[2017-07-26] MEDS: TRAMADOL HCL 50 MG TAB PO PRN (10:10)
--- NOTE | 2017-07-26 17:00 | Progress Note ---
Internal Med Progress Note Date of Service: Jul 26, 2017. Provider Documentation: SUBJECTIVE: Seen and examined at bedside Patient expressed that she wanted all the active medications be stopped and be on comfort measures only "Let nature take its course" Discussed with daughter Aarti and she is in agreement with the plan Clinically deteriorating Very poor prognosis Continues to require 8 L of oxygen to maintain Sats Reports chronic cough Denies pain Oriented X 3 States "I feel cold" OBJECTIVE: Vital Signs-as noted below General Appearance:Moderately built and nourished, no apparent distress Head: normocephalic, Atraumatic Eyes: normal inspection, EOMI, PERRL Neck: supple, Trachea midline Respiratory/Chest: coarse breath sounds, B/L rhonchi Cardiovascular: S1, S2, No murmur Abdomen/GI:Soft, Non tender, Bowel sounds present Extremities/Musculoskelatal:normal inspection, Left LE in cast Neurologic/Psych:grossly no focal neurological deficits Skin: normal color, warm Lab data as noted below. ASSESSMENT & PLAN: Acute hypercapnic respiratory failure Chronic Oxygen Dependency: 2-4 L at baseline Secondary to COPD exacerbation and complicated by Pneumonia Advanced COPD Could have a component of obesity hypoventilation syndrome CXR showed dense bibasilar airspace consolidation, right greater than left with associated pleural effusions. CTA: showed no evidence for PE. Dense bilateral lower lobe atelectasis/ consolidation. Patchy airspace opacities are also present within the right upper lobe lingula and right middle lobe. Completed Levaquin and Zosyn course Negative influenza test IV Solumedrol>>> transitioned to PO prednisone On BIPAP QHS Continue oxygen support Blood Cultures: no growth Appreciate Pulmonology Input Lasix 20mg daily to help fluid overload ECHO * The echocardiogram is extremely technically limited. * Patient was sitting upright for the test. * There is no significant pericardial effusion noted. * The left ventricular systolic function is grossly normal on limited visualization. * The right ventricular systolic function is grossly normal. * The valves are poorly visualized. * There is no significant valvular stenosis or regurgitation on technically limited Doppler evaluation. Clinically deteriorating Palliative care following Patient prefers to be on comfort measures only Oxygen support for comfort Discussed with family who agrees with current management Oral Candidiasis: Nystatin Day #3 P. atrial flutter with RVR Due to acute hypercapnic respiratory failure Continue Cardizem for rate control Monitor INR:3.9 >>>4.5 Coumadin on hold Hypokalemia/Hyponatremia: Hypokalemia likely secondary to poor oral intake and diuretics Replace and monitor Left Ankle fracture s/p fall Left ankle xray showed distal tibial and fibular fractures as above with mild lateral subluxation of the talus. Appreciate Orthopedics Input Conservative management of the Ankle as high risk for surgery Ankle brace provided and will ask for Cast Boot for the Left foot Toe Touch allowed Avoid full weight bearing for 6 weeks in total Right pelvic ring fracture: Pelvis xray showed an age indeterminant right pubic ring fracture, possibly chronic. Stable Hypertension: labile likely related to anxiety was on lisinopril monitor Ulcerative colitis On Pentasa Stable no acute issue Depression On Celexa Stable DVT px INR supra therapeutic: Coumadin on hold CODE STATUS DNR DISPOSITION On comfort measures only Very Poor prognosis Patient prefers to be on comfort measures only Palliative care following Vital Signs: Date Time Temp Pulse Resp B/P (MAP) Pulse Ox O2 Delivery O2 Flow Rate FiO2 07/26/17 15:08 36.6 86 21 172/83 (112) 92 Mask 8.0 07/26/17 14:45 Oxymask 8.0 07/26/17 14:45 66 20 93 Mask 8.0 07/26/17 07:52 Oxymask 8.0 07/26/17 07:41 70 20 92 Mask 8.0 07/26/17 07:35 37.0 79 20 184/71 (108) 92 Mask 8.0 07/26/17 03:45 92 Oxymask 8.0 07/26/17 02:03 73 20 91 Mask 8.0 07/25/17 23:20 96 Oxymask 8.0 07/25/17 23:15 36.7 71 18 136/63 (87) 95 Oxymask 8.0 07/25/17 21:17 80 20 94 Mask 8.0 07/25/17 17:20 Nasal Cannula 8.0 Lab Results: Results Past 24 Hours Test 07/25/17 16:57 07/25/17 20:53 07/26/17 05:14 07/26/17 08:27 Range/Units Bedside Glucose 171 196 157 70-90 mg/dl White Blood Count 10.95 4.8-10.8 K/uL Red Blood Count 3.40 4.2-5.4 M/uL Hemoglobin 10.1 12.0-16.0 g/dL Hematocrit 31.6 37-47 % Mean Corpuscular Volume 92.9 80-100 fL Mean Corpuscular Hemoglobin 29.7 25-34 pg Mean Corpuscular Hemoglobin Concent 32.0 32-36 g/dl RDW Standard Deviation 51.6 36.4-46.3 fL RDW Coefficient of Variation 15.2 11.5-14.5 % Platelet Count 218 130-400 K/uL Mean Platelet Volume 9.5 7.4-10.4 fL Nucleated RBC Absolute Count (auto) 0.02 0-0 K/uL Nucleated Red Blood Cells % 0.2 % Prothrombin Time 22.7 9.0-12.0 SECONDS Prothromb Time International Ratio 2.2 0.9-1.1 Sodium Level 139 136-145 mmol/L Potassium Level 3.6 3.5-5.1 mmol/L Chloride Level 95 98-107 mmol/L Carbon Dioxide Level 39 21-32 mmol/L Anion Gap 5.0 3-11 mmol/L Blood Urea Nitrogen 18 7-18 mg/dl Creatinine 0.34 0.60-1.20 mg/dl Est Creatinine Clear Calc Drug Dose 156.2 ml/min Estimated GFR () 118.6 Estimated GFR (Non- 102.3 BUN/Creatinine Ratio 52.5 10-20 Random Glucose 102 70-99 mg/dl Calcium Level 8.1 8.5-10.1 mg/dl Magnesium Level 2.3 1.8-2.4 mg/dl Test 07/26/17 12:10 Range/Units Bedside Glucose 98 70-90 mg/dl
[2017-07-26] MEDS: MIRTAZAPINE TAB 15 MG TAB PO SCH (19:47)
[2017-07-26] MEDS: LATANOPROST 0.005% OP SOLN 2.5 ML BTL OP SCH (19:48)
[2017-07-27] VITALS (7 sets, daily range): BP systolic 175–202; BP diastolic 76–88; PULSE 61–94; TEMP 36.4–36.8; O2SAT 76–95
[2017-07-27] MEDS: LEVALBUTEROL 1.25MG/3ML NEB INH SCH ×4 (01:40→20:39)
[2017-07-27] MEDS: ACETYLCYSTEINE 20% INHAL SOLN ***DISPENSED BY RESP. INH SCH ×2 (07:39→20:35)
[2017-07-27] MEDS: PANTOprazole SOD 40 MG TAB PO SCH (08:09)
[2017-07-27] MEDS: MESALAMINE 250 MG CAPCR PO SCH ×2 (08:09→22:46)
[2017-07-27] MEDS: DOCUSATE SODIUM/SENNA 50/8.6MG TAB PO SCH (08:10)
[2017-07-27] MEDS: NYSTATIN SUSP 500,000 U/5 ML UDC PO SCH ×4 (09:56→22:45)
[2017-07-27] MEDS: SCOPOLAMINE 1.5 MG TDSY TD SCH (13:31)
[2017-07-27] MEDS: CHECK SCOPOLAMINE PATCH PLACEMENT SCH (15:32)
[2017-07-27] MEDS ORDERED: ALUMINUM/MAGNESIUM/SIMETH (MAALOX MAX) 30 ML UDC PO PRN (16:30)
--- NOTE | 2017-07-27 16:35 | Progress Note ---
Internal Med Progress Note Date of Service: Jul 27, 2017. Provider Documentation: SUBJECTIVE: Seen and examined at bedside No distress on my exam Denies any pain On Oxygen for comfort On comfort measures only per patient's wishes Very poor prognosis OBJECTIVE: Vital Signs-as noted below General Appearance:Moderately built and nourished, no apparent distress Head: normocephalic, Atraumatic Eyes: normal inspection, EOMI, PERRL Neck: supple, Trachea midline Respiratory/Chest: coarse breath sounds Abdomen/GI:Soft, Non tender, Bowel sounds present Extremities/Musculoskelatal:normal inspection, Left LE in cast Neurologic/Psych:grossly no focal neurological deficits Skin: normal color, warm Lab data as noted below. ASSESSMENT & PLAN: Acute hypercapnic respiratory failure Chronic Oxygen Dependency: 2-4 L at baseline Secondary to COPD exacerbation and complicated by Pneumonia Advanced COPD Could have a component of obesity hypoventilation syndrome CXR showed dense bibasilar airspace consolidation, right greater than left with associated pleural effusions. CTA: showed no evidence for PE. Dense bilateral lower lobe atelectasis/ consolidation. Patchy airspace opacities are also present within the right upper lobe lingula and right middle lobe. Completed Levaquin and Zosyn course Negative influenza test IV Solumedrol>>> transitioned to PO prednisone On BIPAP QHS Continue oxygen support Blood Cultures: no growth Appreciate Pulmonology Input Lasix 20mg daily to help fluid overload ECHO * The echocardiogram is extremely technically limited. * Patient was sitting upright for the test. * There is no significant pericardial effusion noted. * The left ventricular systolic function is grossly normal on limited visualization. * The right ventricular systolic function is grossly normal. * The valves are poorly visualized. * There is no significant valvular stenosis or regurgitation on technically limited Doppler evaluation. Clinically deteriorating Palliative care following Patient on comfort measures only Oxygen support for comfort Discussed with family who agrees with current management Oral Candidiasis: Nystatin Day #4 P. atrial flutter with RVR Due to acute hypercapnic respiratory failure Continue Cardizem for rate control Monitor INR:3.9 >>>4.5 Coumadin on hold Hypokalemia/Hyponatremia: Hypokalemia likely secondary to poor oral intake and diuretics Left Ankle fracture s/p fall Left ankle xray showed distal tibial and fibular fractures as above with mild lateral subluxation of the talus. Appreciate Orthopedics Input Conservative management of the Ankle as high risk for surgery Ankle brace provided and will ask for Cast Boot for the Left foot Toe Touch allowed Avoid full weight bearing for 6 weeks in total Right pelvic ring fracture: Pelvis xray showed an age indeterminant right pubic ring fracture, possibly chronic. Stable Hypertension: labile likely related to anxiety was on lisinopril monitor Ulcerative colitis On Pentasa Stable no acute issue Depression was on Celexa Stable DVT px INR supra therapeutic: Coumadin on hold CODE STATUS DNR DISPOSITION On comfort measures only Very Poor prognosis Palliative care following Needs placement Vital Signs: Date Time Temp Pulse Resp B/P (MAP) Pulse Ox O2 Delivery O2 Flow Rate FiO2 07/27/17 14:16 94 20 79 Room Air 07/27/17 08:00 90 Oxymask 8.0 07/27/17 07:44 36.4 84 20 202/76 (118) 187/88 (121) 07/27/17 07:39 92 20 76 Room Air 07/27/17 01:40 61 20 93 Mask 8.0 07/27/17 00:00 Oxymask 8.0 07/26/17 23:16 36.8 65 20 173/71 (105) 94 Mask 8.0 07/26/17 20:00 Oxymask 8.0 07/26/17 19:48 68 20 92 Mask 8.0
[2017-07-27] MEDS ORDERED: ALUMINUM/MAGNESIUM/SIMETH (MAALOX MAX) 30 ML UDC ONE (17:27)
[2017-07-27] MEDS: MIRTAZAPINE TAB 15 MG TAB PO SCH (22:46)
[2017-07-27] MEDS: LATANOPROST 0.005% OP SOLN 2.5 ML BTL OP SCH (22:46)
[2017-07-28] MEDS: LEVALBUTEROL 1.25MG/3ML NEB INH SCH ×2 (01:45→08:43)
[2017-07-28] MEDS: CHECK SCOPOLAMINE PATCH PLACEMENT SCH ×3 (03:32→15:50)
[2017-07-28] MEDS: MESALAMINE 250 MG CAPCR PO SCH ×2 (07:53→20:08)
[2017-07-28] MEDS: NYSTATIN SUSP 500,000 U/5 ML UDC PO SCH ×4 (07:53→20:09)
[2017-07-28] MEDS: DOCUSATE SODIUM/SENNA 50/8.6MG TAB PO SCH (07:53)
[2017-07-28] MEDS: PANTOprazole SOD 40 MG TAB PO SCH (07:53)
[2017-07-28 08:00] VITALS: O2SAT 93
[2017-07-28] MEDS: ACETYLCYSTEINE 20% INHAL SOLN ***DISPENSED BY RESP. INH SCH (08:00)
--- NOTE | 2017-07-28 11:40 | Progress Note ---
Internal Med Progress Note Date of Service: Jul 28, 2017. Provider Documentation: SUBJECTIVE: Seen and examined at bedside No distress noted Lethargic but easily awakes Denies any pain On Oxygen for comfort On comfort measures only per patient's wishes Very poor prognosis OBJECTIVE: Vital Signs-as noted below General Appearance:Moderately built and nourished, no apparent distress Head: normocephalic, Atraumatic Eyes: normal inspection, EOMI, PERRL Neck: supple, Trachea midline Respiratory/Chest: coarse breath sounds Abdomen/GI:Soft, Non tender, Bowel sounds present Extremities/Musculoskelatal:normal inspection, Left LE in cast Neurologic/Psych:grossly no focal neurological deficits Skin: normal color, warm Lab data as noted below. ASSESSMENT & PLAN: Acute hypercapnic respiratory failure Chronic Oxygen Dependency: 2-4 L at baseline Secondary to COPD exacerbation and complicated by Pneumonia Advanced COPD Could have a component of obesity hypoventilation syndrome CXR showed dense bibasilar airspace consolidation, right greater than left with associated pleural effusions. CTA: showed no evidence for PE. Dense bilateral lower lobe atelectasis/ consolidation. Patchy airspace opacities are also present within the right upper lobe lingula and right middle lobe. Completed Levaquin and Zosyn course Negative influenza test IV Solumedrol>>> transitioned to PO prednisone On BIPAP QHS Continue oxygen support Blood Cultures: no growth Appreciate Pulmonology Input Lasix 20mg daily to help fluid overload ECHO * The echocardiogram is extremely technically limited. * Patient was sitting upright for the test. * There is no significant pericardial effusion noted. * The left ventricular systolic function is grossly normal on limited visualization. * The right ventricular systolic function is grossly normal. * The valves are poorly visualized. * There is no significant valvular stenosis or regurgitation on technically limited Doppler evaluation. Clinically deteriorating Palliative care following Oxygen support for comfort Discussed with family who agrees with current management Patient on comfort measures only Oral Candidiasis: Nystatin Day #5 P. atrial flutter with RVR Due to acute hypercapnic respiratory failure Continue Cardizem for rate control Monitor INR:3.9 >>>4.5>>>2.2 Coumadin on hold Hypokalemia/Hyponatremia: Hypokalemia likely secondary to poor oral intake and diuretics Left Ankle fracture s/p fall Left ankle xray showed distal tibial and fibular fractures as above with mild lateral subluxation of the talus. Appreciate Orthopedics Input Conservative management of the Ankle as high risk for surgery Ankle brace provided and will ask for Cast Boot for the Left foot Toe Touch allowed Avoid full weight bearing for 6 weeks in total Right pelvic ring fracture: Pelvis xray showed an age indeterminant right pubic ring fracture, possibly chronic. Stable Hypertension: labile likely related to anxiety was on lisinopril monitor Ulcerative colitis On Pentasa Stable no acute issue Depression was on Celexa Stable DVT px INR supra therapeutic: Coumadin on hold CODE STATUS DNR DISPOSITION On comfort measures only Very Poor prognosis Palliative care following Needs placement Vital Signs: Date Time Temp Pulse Resp B/P (MAP) Pulse Ox O2 Delivery O2 Flow Rate FiO2 07/28/17 08:00 93 Oxymask 8.0 85 07/28/17 00:00 Oxymask 8.0 07/27/17 23:10 36.8 64 22 175/76 (109) 95 Mask 9.0 07/27/17 20:00 Oxymask 8.0 07/27/17 16:00 93 Oxymask 8.0 07/27/17 14:16 94 20 79 Room Air
[2017-07-28] MEDS: MoRPHine SULFATE 5 MG/0.25 ML UDP PO PRN (13:59)
[2017-07-28 16:00] VITALS: BP 195/88; PULSE 85; TEMP 36.7; O2SAT 96
[2017-07-28] MEDS: MIRTAZAPINE TAB 15 MG TAB PO SCH (20:09)
[2017-07-28] MEDS: LATANOPROST 0.005% OP SOLN 2.5 ML BTL OP SCH (20:09)
[2017-07-29] MEDS: CHECK SCOPOLAMINE PATCH PLACEMENT SCH ×3 (00:55→16:25)
[2017-07-29] MEDS: TRAMADOL HCL 50 MG TAB PO PRN (07:53)
[2017-07-29] MEDS: DOCUSATE SODIUM/SENNA 50/8.6MG TAB PO SCH (07:53)
[2017-07-29] MEDS: MESALAMINE 250 MG CAPCR PO SCH ×2 (07:54→19:57)
[2017-07-29] MEDS: NYSTATIN SUSP 500,000 U/5 ML UDC PO SCH ×4 (07:54→19:54)
[2017-07-29] MEDS: PANTOprazole SOD 40 MG TAB PO SCH (07:54)
[2017-07-29 08:00] VITALS: O2SAT 94
[2017-07-29 08:24] VITALS: BP 196/79; PULSE 79; TEMP 36.8; O2SAT 94
[2017-07-29 08:30] VITALS: O2SAT 96
[2017-07-29 15:08] VITALS: BP_SYST 199; BP_DIAS 74; BP_DIAS 85; PULSE 66; TEMP 36.5; O2SAT 92
--- NOTE | 2017-07-29 16:39 | Palliative Care Progress Note ---
Palliative Care Progress Note Date of Service Jul 29, 2017. Subjective Pt evaluation today including: conversation w/ patient Met with patient today. She is stable on current medications and in my opinion is stable for transfer out of hospital. home care manager following and working on placement to [facility]. I will sign off for now but please don't hesitate to contact me with any further palliative care needs.
[2017-07-29] MEDS: MoRPHine SULFATE 5 MG/0.25 ML UDP PO PRN (16:43)
--- NOTE | 2017-07-29 17:12 | Progress Note ---
Medicine Progress Note Date & Time of Visit: Jul 29, 2017 at 17:12. Subjective Patient reports feeling ok, denies any complaints of pain. No overnight events noted. Tolerating PO. No family at the bedside. Reports her appetite is fair. Objective Last 8 Hrs Date Time Temp Pulse Resp B/P (MAP) Pulse Ox O2 Delivery O2 Flow Rate FiO2 07/29/17 16:00 Nasal Cannula 4.0 07/29/17 15:08 36.5 66 14 199/74 (115) 92 Nasal Cannula 4.0 199/85 (123) Physical Exam: GENERAL: Patient is in no acute distress. HEENT: No acute trauma, normocephalic, mucous membranes moist, no nasal congestion, no scleral icterus. NECK: No stridor, trachea is midline. LUNGS: Coarse breath sounds bilaterally, no wheeze, no rhonchi, breath sounds equal. HEART: Without murmurs gallops or rubs, regular rate and rhythm. ABDOMEN: Soft, nontender, bowel sounds positive, no hepatosplenomegaly EXTREMITIES: No cyanosis or edema, limited range of motion, generalized weakness , LLE in splint NEUROLOGIC: Oriented, no acute motor or sensory deficits, no focal weakness. SKIN: No rash, no jaundice, no diaphoresis. Assessment & Plan ACUTE ON CHRONIC RESPIRATORY FAILURE: with hypercapnia -Chronic Oxygen Dependency: 2-4 L at baseline -Acute is likely secondary to COPD exacerbation and complicated by Pneumonia -has advanced COPD at baseline -could also have a component of obesity hypoventilation syndrome -CXR showed dense bibasilar airspace consolidation, right greater than left with associated pleural effusions. -CTA: showed no evidence for PE. Dense bilateral lower lobe atelectasis/ consolidation. Patchy airspace opacities are also present within the right upper lobe lingula and right middle lobe. -Completed Levaquin and Zosyn course -Negative influenza test -IV Solumedrol initially transitioned to PO prednisone -BIPAP qHS and PRN -continue oxygen support -blood cultures: no growth -Pulm consulted, appreciated recs -was given Lasix 20mg daily to help fluid overload -TTE Report: The echocardiogram is extremely technically limited. Patient was sitting upright for the test. There is no significant pericardial effusion noted. The left ventricular systolic function is grossly normal on limited visualization. The right ventricular systolic function is grossly normal. The valves are poorly visualized. There is no significant valvular stenosis or regurgitation on technically limited Doppler evaluation. -due to ongoing deterioration, Palliative care consulted, patient was made comfort measures per discussion of previous attending with the patient and her family -Oxygen support for comfort -family agrees with current management -remains on comfort measures only ORAL CANDIDIASIS: -on Nystatin Day #6 PAROXYSMAL ATRIAL FLUTTER: with RVR Due to acute hypercapnic respiratory failure Continue Cardizem for rate control Monitor INR:3.9 >>>4.5>>>2.2 Coumadin on hold as comfort measure only ELECTROLYTE DERANGEMENT: Hypokalemia/Hyponatremia: -likely secondary to poor oral intake and diuretics LEFT ANKLE FRACTURE: s/p fall -Left ankle xray showed distal tibial and fibular fractures as above with mild lateral subluxation of the talus. -Orthopedics consulted, appreciate input -Conservative management of the Ankle as high risk for surgery; s/p cast boot for the Left foot -Toe Touch allowed -Avoid full weight bearing for 6 weeks in total RIGHT PELVIC RING FRACTURE: -Pelvis xray showed an age indeterminant right pubic ring fracture, possibly chronic. -pain control -PT/OT as tolerated HTN: -labile likely related to anxiety -was on lisinopril -monitor ULCERATIVE COLITIS: -continued on Pentasa -no acute issues DEPRESSION: -continue on Celexa -stable Consultants: Pulmonary Current Inpatient Medications: Current Inpatient Medications Medications (Trade) Dose Ordered Sig/Reuben Route Start Time Stop Time Status Last Admin Dose Admin Tramadol HCl (Ultram Tab) 50 mg Q6H PRN PO 07/07/17 21:30 08/06/17 21:29 07/29/17 07:53 50 MG Latanoprost (Xalatan Oph Soln) 1 drops HS OP 07/08/17 21:00 08/07/17 20:59 07/28/17 20:09 1 DROPS Mesalamine (Pentasa Controlled Rel Cap) 1,000 mg BID PO 07/08/17 09:00 08/07/17 08:59 07/29/17 07:54 1,000 MG Mirtazapine (Remeron Tab) 15 mg HS PO 07/08/17 21:00 08/07/17 20:59 07/28/17 20:09 15 MG Pantoprazole Sodium (Protonix Tab) 40 mg DAILY PO 07/08/17 09:00 08/07/17 08:59 07/29/17 07:54 40 MG Senna/Docusate Sodium (Senokot S Tab) 1 tab DAILY PO 07/08/17 09:00 08/07/17 08:59 07/29/17 07:53 1 TAB Acetaminophen (Tylenol Tab) 650 mg Q4H PRN PO 07/07/17 21:45 08/06/17 21:44 07/16/17 17:23 650 MG Ondansetron HCl (Zofran Inj) 4 mg Q6H PRN IV 07/07/17 21:45 08/06/17 21:44 Miconazole Nitrate (Desenex Powder) 1 appln TID PRN EXT 07/22/17 17:15 08/21/17 17:14 07/23/17 21:14 1 APPLN Nystatin (Mycostatin Susp) 5 ml QID PO 07/24/17 17:00 08/03/17 16:59 07/29/17 07:54 5 ML Morphine Sulfate (Roxanol Oral Soln) 5 mg Q3H PRN PO 07/26/17 17:15 08/09/17 17:14 07/29/17 16:43 5 MG Scopolamine (Transderm-Scop Patch) 1.5 mg Q72H TD 07/27/17 12:45 08/26/17 12:44 07/27/17 13:31 1.5 MG Miscellaneous (Remove Transderm-Scop Patch) 1 ea Q72H N/A 07/30/17 12:45 08/29/17 12:44 Miscellaneous Information (Check Scopolamine Patch Placement) 1 ea QS N/A 07/27/17 16:00 08/26/17 15:59 07/29/17 16:25 1 EA Al Hydrox/Mg Hydrox/Simethicone (Maalox Max Susp) 15 ml Q6H PRN PO 07/27/17 16:30 08/26/17 16:29 Lorazepam (Ativan Tab) 1 mg Q4H PRN PO 07/28/17 14:15 08/27/17 14:14
[2017-07-29] MEDS ORDERED: FENTANYL 12 MCG/HR TDSY TD SCH (18:30)
[2017-07-29] MEDS: LATANOPROST 0.005% OP SOLN 2.5 ML BTL OP SCH (19:55)
[2017-07-29] MEDS: MIRTAZAPINE TAB 15 MG TAB PO SCH (19:57)
[2017-07-30] MEDS: CHECK SCOPOLAMINE PATCH PLACEMENT SCH ×3 (00:26→15:21)
[2017-07-30] MEDS: CHECK FENTANYL PATCH PLACEMENT SCH ×3 (00:26→15:20)
[2017-07-30] MEDS: NYSTATIN SUSP 500,000 U/5 ML UDC PO SCH ×4 (08:00→19:51)
[2017-07-30] MEDS: SCOPOLAMINE 1.5 MG TDSY TD SCH (11:41)
[2017-07-30] MEDS: MESALAMINE 250 MG CAPCR PO SCH ×2 (11:43→19:51)
[2017-07-30] MEDS: PANTOprazole SOD 40 MG TAB PO SCH (11:43)
[2017-07-30] MEDS: DOCUSATE SODIUM/SENNA 50/8.6MG TAB PO SCH (11:43)
[2017-07-30] MEDS: LORAZEPAM 1 MG TAB PO PRN ×2 (14:37→19:55)
[2017-07-30 15:25] VITALS: BP_SYST 203; BP_SYST 228; BP_DIAS 82; BP_DIAS 97; PULSE 68; TEMP 36.5; O2SAT 93
--- NOTE | 2017-07-30 19:23 | Progress Note ---
Medicine Progress Note Date & Time of Visit: Jul 30, 2017 at 19:22. Subjective Patient denies any complaints. Tolerating PO. Denies any pain or SOB. No family present at the time of evaluation. No overnight events noted. Objective Last 8 Hrs Date Time Temp Pulse Resp B/P (MAP) Pulse Ox O2 Delivery O2 Flow Rate FiO2 07/30/17 16:00 Nasal Cannula 4.0 07/30/17 15:25 36.5 68 20 228/97 (140) 93 Nasal Cannula 4.0 203/82 (122) Physical Exam: GENERAL: Patient is in no acute distress. HEENT: No acute trauma, normocephalic, mucous membranes moist, no nasal congestion, no scleral icterus. NECK: No stridor, trachea is midline. LUNGS: Coarse breath sounds bilaterally, no wheeze, no rhonchi, breath sounds equal. HEART: Without murmurs gallops or rubs, regular rate and rhythm. ABDOMEN: Soft, nontender, bowel sounds positive, no hepatosplenomegaly EXTREMITIES: No cyanosis or edema, limited range of motion, generalized weakness , LLE in splint NEUROLOGIC: Oriented, no acute motor or sensory deficits, no focal weakness. SKIN: No rash, no jaundice, no diaphoresis. Assessment & Plan ACUTE ON CHRONIC RESPIRATORY FAILURE: with hypercapnia -Chronic Oxygen Dependency: 2-4 L at baseline -Acute is likely secondary to COPD exacerbation and complicated by Pneumonia -has advanced COPD at baseline -could also have a component of obesity hypoventilation syndrome -CXR showed dense bibasilar airspace consolidation, right greater than left with associated pleural effusions. -CTA: showed no evidence for PE. Dense bilateral lower lobe atelectasis/ consolidation. Patchy airspace opacities are also present within the right upper lobe lingula and right middle lobe. -Completed Levaquin and Zosyn course -Negative influenza test -IV Solumedrol initially transitioned to PO prednisone -BIPAP qHS and PRN -continue oxygen support -blood cultures: no growth -Pulm consulted, appreciated recs -was given Lasix 20mg daily to help fluid overload -TTE Report: The echocardiogram is extremely technically limited. Patient was sitting upright for the test. There is no significant pericardial effusion noted. The left ventricular systolic function is grossly normal on limited visualization. The right ventricular systolic function is grossly normal. The valves are poorly visualized. There is no significant valvular stenosis or regurgitation on technically limited Doppler evaluation. -due to ongoing deterioration, Palliative care consulted, patient was made comfort measures per discussion of previous attending with the patient and her family -Oxygen support for comfort -family agrees with current management -remains on comfort measures only ORAL CANDIDIASIS: -on Nystatin Day #7 PAROXYSMAL ATRIAL FLUTTER: with RVR -HR likely worse due to respiratory failure -Coumadin on hold as comfort measure only ELECTROLYTE DERANGEMENT: Hypokalemia/Hyponatremia: -likely secondary to poor oral intake and diuretics LEFT ANKLE FRACTURE: s/p fall -Left ankle xray showed distal tibial and fibular fractures as above with mild lateral subluxation of the talus. -Orthopedics consulted, appreciate input -Conservative management of the Ankle as high risk for surgery; s/p cast boot for the Left foot -Toe Touch allowed -Avoid full weight bearing for 6 weeks in total RIGHT PELVIC RING FRACTURE: -Pelvis xray showed an age indeterminant right pubic ring fracture, possibly chronic. -pain control -PT/OT as tolerated HTN: -labile likely related to anxiety -was on lisinopril -monitor ULCERATIVE COLITIS: -continued on Pentasa -no acute issues DEPRESSION: -continue on Celexa -stable Dispo: Stable for transfer to facility with comfort measures and hospice Consultants: Pulmonary Current Inpatient Medications: Current Inpatient Medications Medications (Trade) Dose Ordered Sig/Reuben Route Start Time Stop Time Status Last Admin Dose Admin Tramadol HCl (Ultram Tab) 50 mg Q6H PRN PO 07/07/17 21:30 08/06/17 21:29 07/29/17 07:53 50 MG Latanoprost (Xalatan Oph Soln) 1 drops HS OP 07/08/17 21:00 08/07/17 20:59 07/29/17 19:55 1 DROPS Mesalamine (Pentasa Controlled Rel Cap) 1,000 mg BID PO 07/08/17 09:00 08/07/17 08:59 07/30/17 11:43 1,000 MG Mirtazapine (Remeron Tab) 15 mg HS PO 07/08/17 21:00 08/07/17 20:59 07/29/17 19:57 15 MG Pantoprazole Sodium (Protonix Tab) 40 mg DAILY PO 07/08/17 09:00 2/1/18 08:59 07/30/17 11:43 40 MG Senna/Docusate Sodium (Senokot S Tab) 1 tab DAILY PO 07/08/17 09:00 08/07/17 08:59 07/30/17 11:43 1 TAB Acetaminophen (Tylenol Tab) 650 mg Q4H PRN PO 07/07/17 21:45 08/06/17 21:44 07/16/17 17:23 650 MG Ondansetron HCl (Zofran Inj) 4 mg Q6H PRN IV 07/07/17 21:45 08/06/17 21:44 Miconazole Nitrate (Desenex Powder) 1 appln TID PRN EXT 07/22/17 17:15 08/21/17 17:14 07/23/17 21:14 1 APPLN Nystatin (Mycostatin Susp) 5 ml QID PO 07/24/17 17:00 08/03/17 16:59 07/30/17 18:19 5 ML Morphine Sulfate (Roxanol Oral Soln) 5 mg Q3H PRN PO 07/26/17 17:15 08/09/17 17:14 07/29/17 16:43 5 MG Scopolamine (Transderm-Scop Patch) 1.5 mg Q72H TD 07/27/17 12:45 08/26/17 12:44 07/30/17 11:41 1.5 MG Miscellaneous (Remove Transderm-Scop Patch) 1 ea Q72H N/A 07/30/17 12:45 08/29/17 12:44 07/30/17 11:41 1 EA Miscellaneous Information (Check Scopolamine Patch Placement) 1 ea QS N/A 07/27/17 16:00 08/26/17 15:59 07/30/17 15:21 1 EA Al Hydrox/Mg Hydrox/Simethicone (Maalox Max Susp) 15 ml Q6H PRN PO 07/27/17 16:30 08/26/17 16:29 Lorazepam (Ativan Tab) 1 mg Q4H PRN PO 07/28/17 14:15 08/27/17 14:14 07/30/17 14:37 1 MG Fentanyl (Duragesic Patch) 12 mcg Q72H TD 07/29/17 18:30 08/12/17 18:29 07/29/17 18:32 12 MCG Miscellaneous (Fentanyl Patch Remove & Waste) 1 ea Q3D N/A 08/01/17 18:29 08/31/17 18:28 Miscellaneous Information (Check Fentanyl Patch Placement) 1 ea QS N/A 07/30/17 00:00 08/29/17 00:00 07/30/17 15:20 1 EA
[2017-07-30] MEDS: LATANOPROST 0.005% OP SOLN 2.5 ML BTL OP SCH (19:51)
[2017-07-30] MEDS: MIRTAZAPINE TAB 15 MG TAB PO SCH (19:51)
[2017-07-31] MEDS: CHECK SCOPOLAMINE PATCH PLACEMENT SCH ×4 (00:35→23:52)
[2017-07-31] MEDS: CHECK FENTANYL PATCH PLACEMENT SCH ×4 (00:35→23:52)
[2017-07-31] MEDS: MoRPHine SULFATE 5 MG/0.25 ML UDP PO PRN ×2 (01:53→23:55)
[2017-07-31] MEDS: NYSTATIN SUSP 500,000 U/5 ML UDC PO SCH ×4 (08:00→20:06)
[2017-07-31] MEDS: MESALAMINE 250 MG CAPCR PO SCH ×2 (08:00→20:03)
[2017-07-31] MEDS: DOCUSATE SODIUM/SENNA 50/8.6MG TAB PO SCH (08:00)
[2017-07-31] MEDS: PANTOprazole SOD 40 MG TAB PO SCH (08:00)
[2017-07-31] MEDS: LORAZEPAM 1 MG TAB PO PRN ×2 (08:18→20:13)
--- NOTE | 2017-07-31 19:05 | Progress Note ---
Medicine Progress Note Date & Time of Visit: Jul 31, 2017 at 19:05. Subjective Patient reports feeling ok; denies any complaints. No overnight events noted. Tolerating PO. Family was not at the bedside but daughter Aarti was contacted by phone and questions were answered. Objective Last 8 Hrs Date Time Temp Pulse Resp B/P (MAP) Pulse Ox O2 Delivery O2 Flow Rate FiO2 07/31/17 16:00 Nasal Cannula 4.0 Physical Exam: GENERAL: Patient is in no acute distress. HEENT: No acute trauma, normocephalic, mucous membranes moist, no nasal congestion, no scleral icterus. NECK: No stridor, trachea is midline. LUNGS: Coarse breath sounds bilaterally, no wheeze, no rhonchi, breath sounds equal. HEART: Without murmurs gallops or rubs, regular rate and rhythm. ABDOMEN: Soft, nontender, bowel sounds positive, no hepatosplenomegaly EXTREMITIES: No cyanosis or edema, limited range of motion, generalized weakness , LLE in splint NEUROLOGIC: Oriented, no acute motor or sensory deficits, no focal weakness. SKIN: No rash, no jaundice, no diaphoresis. Assessment & Plan ACUTE ON CHRONIC RESPIRATORY FAILURE: with hypercapnia -Chronic Oxygen Dependency: 2-4 L at baseline -Acute is likely secondary to COPD exacerbation and complicated by Pneumonia -has advanced COPD at baseline -could also have a component of obesity hypoventilation syndrome -CXR showed dense bibasilar airspace consolidation, right greater than left with associated pleural effusions. -CTA: showed no evidence for PE. Dense bilateral lower lobe atelectasis/ consolidation. Patchy airspace opacities are also present within the right upper lobe lingula and right middle lobe. -Completed Levaquin and Zosyn course -Negative influenza test -IV Solumedrol initially transitioned to PO prednisone -BIPAP qHS and PRN -continue oxygen support -blood cultures: no growth -Pulm consulted, appreciated recs -was given Lasix 20mg daily to help fluid overload -TTE Report: The echocardiogram is extremely technically limited. Patient was sitting upright for the test. There is no significant pericardial effusion noted. The left ventricular systolic function is grossly normal on limited visualization. The right ventricular systolic function is grossly normal. The valves are poorly visualized. There is no significant valvular stenosis or regurgitation on technically limited Doppler evaluation. -due to ongoing deterioration, Palliative care consulted, patient was made comfort measures per discussion of previous attending with the patient and her family -Oxygen support for comfort -family agrees with current management -remains on comfort measures only ORAL CANDIDIASIS: -on Nystatin Day #7 PAROXYSMAL ATRIAL FLUTTER: with RVR -HR likely worse due to respiratory failure -Coumadin on hold as comfort measure only ELECTROLYTE DERANGEMENT: Hypokalemia/Hyponatremia: -likely secondary to poor oral intake and diuretics LEFT ANKLE FRACTURE: s/p fall -Left ankle xray showed distal tibial and fibular fractures as above with mild lateral subluxation of the talus. -Orthopedics consulted, appreciate input -Conservative management of the Ankle as high risk for surgery; s/p cast boot for the Left foot -Toe Touch allowed -Avoid full weight bearing for 6 weeks in total RIGHT PELVIC RING FRACTURE: -Pelvis xray showed an age indeterminant right pubic ring fracture, possibly chronic. -pain control -PT/OT as tolerated HTN: -labile likely related to anxiety -was on lisinopril -monitor ULCERATIVE COLITIS: -continued on Pentasa -no acute issues DEPRESSION: -continue on Celexa -stable Dispo: Stable for transfer to facility with comfort measures and hospice, awaiting availability of bed Consultants: Pulmonary Current Inpatient Medications: Current Inpatient Medications Medications (Trade) Dose Ordered Sig/Reuben Route Start Time Stop Time Status Last Admin Dose Admin Tramadol HCl (Ultram Tab) 50 mg Q6H PRN PO 07/07/17 21:30 08/06/17 21:29 07/29/17 07:53 50 MG Latanoprost (Xalatan Oph Soln) 1 drops HS OP 07/08/17 21:00 08/07/17 20:59 07/30/17 19:51 1 DROPS Mesalamine (Pentasa Controlled Rel Cap) 1,000 mg BID PO 07/08/17 09:00 08/07/17 08:59 07/30/17 19:51 1,000 MG Mirtazapine (Remeron Tab) 15 mg HS PO 07/08/17 21:00 08/07/17 20:59 07/30/17 19:51 15 MG Pantoprazole Sodium (Protonix Tab) 40 mg DAILY PO 07/08/17 09:00 08/07/17 08:59 07/30/17 11:43 40 MG Senna/Docusate Sodium (Senokot S Tab) 1 tab DAILY PO 07/08/17 09:00 08/07/17 08:59 07/30/17 11:43 1 TAB Acetaminophen (Tylenol Tab) 650 mg Q4H PRN PO 07/07/17 21:45 08/06/17 21:44 07/16/17 17:23 650 MG Ondansetron HCl (Zofran Inj) 4 mg Q6H PRN IV 07/07/17 21:45 08/06/17 21:44 Miconazole Nitrate (Desenex Powder) 1 appln TID PRN EXT 07/22/17 17:15 08/21/17 17:14 07/23/17 21:14 1 APPLN Nystatin (Mycostatin Susp) 5 ml QID PO 07/24/17 17:00 08/03/17 16:59 07/30/17 19:51 5 ML Morphine Sulfate (Roxanol Oral Soln) 5 mg Q3H PRN PO 07/26/17 17:15 08/09/17 17:14 07/31/17 01:53 5 MG Scopolamine (Transderm-Scop Patch) 1.5 mg Q72H TD 07/27/17 12:45 08/26/17 12:44 07/30/17 11:41 1.5 MG Miscellaneous (Remove Transderm-Scop Patch) 1 ea Q72H N/A 07/30/17 12:45 08/29/17 12:44 07/30/17 11:41 1 EA Miscellaneous Information (Check Scopolamine Patch Placement) 1 ea QS N/A 07/27/17 16:00 08/26/17 15:59 07/31/17 16:17 1 EA Al Hydrox/Mg Hydrox/Simethicone (Maalox Max Susp) 15 ml Q6H PRN PO 07/27/17 16:30 08/26/17 16:29 Lorazepam (Ativan Tab) 1 mg Q4H PRN PO 07/28/17 14:15 08/27/17 14:14 07/31/17 08:18 1 MG Fentanyl (Duragesic Patch) 12 mcg Q72H TD 07/29/17 18:30 08/12/17 18:29 07/29/17 18:32 12 MCG Miscellaneous (Fentanyl Patch Remove & Waste) 1 ea Q3D N/A 08/01/17 18:29 08/31/17 18:28 Miscellaneous Information (Check Fentanyl Patch Placement) 1 ea QS N/A 07/30/17 00:00 08/29/17 00:00 07/31/17 16:17 1 EA
[2017-07-31] MEDS: MIRTAZAPINE TAB 15 MG TAB PO SCH (20:02)
[2017-07-31] MEDS: LATANOPROST 0.005% OP SOLN 2.5 ML BTL OP SCH (20:10)
[2017-08-01] MEDS: MoRPHine SULFATE 5 MG/0.25 ML UDP PO PRN ×2 (05:25→14:09)
[2017-08-01] MEDS: NYSTATIN SUSP 500,000 U/5 ML UDC PO SCH ×2 (08:00→12:00)
[2017-08-01] MEDS: PANTOprazole SOD 40 MG TAB PO SCH (08:00)
[2017-08-01] MEDS: MESALAMINE 250 MG CAPCR PO SCH (08:00)
[2017-08-01] MEDS: DOCUSATE SODIUM/SENNA 50/8.6MG TAB PO SCH (08:00)
[2017-08-01] MEDS: CHECK SCOPOLAMINE PATCH PLACEMENT SCH ×2 (08:03→16:16)
[2017-08-01] MEDS: CHECK FENTANYL PATCH PLACEMENT SCH ×2 (08:03→16:16)
[2017-08-01 16:26] VITALS: BP 203/82; PULSE 68; TEMP 36.5; O2SAT 93
[2017-08-01] MEDS ORDERED: SCOP1.5D2 TD (16:34)
[2017-08-01] MEDS ORDERED: DRGTP12 TD (16:34)
[2017-08-01] MEDS ORDERED: RXNS10 PO (16:34)
[2017-08-01] MEDS ORDERED: ATV1 PO (16:34)
[2017-08-01] MEDS ORDERED: MCTP EXT (16:34)
[2017-08-01] MEDS ORDERED: ULT50X PO (16:34)
--- NOTE | 2017-08-01 16:37 | Discharge Instructions ---
Discharge Instructions Date of Service Aug 01, 2017. Admission Reason for Admission: Respiratory Failure Discharge Discharge Diagnosis / Problem: Respiratory failure, left leg fracture Discharge Goals Goal(s): Therapeutic intervention Activity Recommendations Activity Level: Assistance Required Weightbearing Status: Left toe touch . Additional Information Patient informed of condition: Yes Advance Directives: Yes DNR: Yes Level of Care: Skilled Communicable Disease: No Prognosis: Stable Oxygen at (LPM): 4L [place] Catheter: Yes Instructions / Follow-Up Instructions / Follow-Up Hospice care services Current Hospital Diet Patient's current hospital diet: AHA Diet (Heart Healthy) Discharge Diet Recommended Diet: Regular Diet Pending Studies Studies pending at discharge: no Medical Emergencies . Who to Call and When: Medical Emergencies: If at any time you feel your situation is an emergency, please call 911 immediately. . Non-Emergent Contact Non-Emergency issues call your: Primary Care Provider . . "Provider Documentation" section prepared by Viridiana Guallpa. . Core Measure Problem Core Measures: None
[2017-08-01] MEDS ORDERED: FENTANYL PATCH REMOVE & WASTE SCH (18:29)
--- NOTE | 2017-08-02 09:04 | Discharge Summary ---
Discharge Summary Date of Service Aug 02, 2017. Discharge Summary Admission Date: Jul 07, 2017 at 21:03 Discharge Date: Aug 01, 2017 Discharge Disposition: [facility] facility Principal Diagnosis: respiratory failure, left ankle fracture, a fib with rvr Consultations: Pulmonary Pending Studies/Follow-Up: Hospice care Medication Reconciliation New Medications: Fentanyl (Fentanyl) 12 Mcg Tdsy 12 MCG TD Q72H, #2 PATCH Lorazepam (Lorazepam) 1 Mg Tab 1 MG PO Q4H PRN for Anxiety, #20 TAB Miconazole Nitrate (Desenex Shake Powder) 43 Appln/43 Gm Powd 1 APPLN EXT TID PRN for Affected Skin Folds, #1 BTL Morphine Sulfate (Morphine Sulfate) 10 Mg/0.5 Ml Soln 5 MG PO Q3H PRN for Pain, #5 ML Scopolamine (Transderm-Scop) 1 Mg/3 Days Dis 1.5 MG TD Q72H, #7 PATCH Tramadol HCl (Tramadol HCl) 50 Mg Tab 50 MG PO Q6H PRN for Pain, #20 TAB Continued Medications: Acetaminophen (Tylenol) 325 Mg Tab 650 MG PO Q4 PRN for Pain or Fever, TAB Docusate Sodium (Colace) 100 Mg Cap 1 CAP PO BID for 30 Days, #60 CAP Ipratropium-Albuterol (Combivent Respimat) 1 Aer Aer 1 PUFFS INH QID, INH Latanoprost (Xalatan 0.005% Oph Lindsey) 0.005 % Lindsey 1 DROPS OP HS for 90 Days, #7.5 ML 3 Refills Lidocaine (Lidoderm Patch 5%) 1 Ea Tdsy 1 PATCH TOP ONAMOFFPM APPLY ONE PATCH TO RIGHT HIP EVERY MORNING AND REMOVE IN THE EVENING Mesalamine (Pentasa) 500 Mg Caper 1000 MG PO BID, CAP Mirtazapine (Remeron) 15 Mg Tab 15 MG PO HS, TAB Pantoprazole (Protonix) 40 Mg Tab 40 MG PO DAILY Polyethylene Glycol 3350 (Miralax) 1 Pow Pow 17 GM PO DAILY, #255 GM Sennosides-Docusate Sodium (Senna S) 1 Tab Tab 1 TAB PO DAILY Discontinued Medications: Aspirin (Aspirin Ec) 81 Mg Tab 81 MG PO DAILY Calcium Carbonate-Cholecalcife (Calcium/Vitamin D3 600-400 mg-Unit) 1 Tab Tab 1 TAB PO DAILY Citalopram (Citalopram Hydrobromide) 40 Mg Tab 40 MG PO DAILY Docusate Sodium (Docusate Sodium) 100 Mg Cap 100 MG PO BID Furosemide (Lasix) 20 Mg Tab 20 MG PO QAM, TAB Lisinopril (Prinivil) 20 Mg Tab 20 MG PO DAILY, TAB Simvastatin (Zocor) 20 Mg Tab 20 MG PO HS Admission Information HPI (per Admitting provider): HISTORY OF PRESENT ILLNESS: The patient is a pleasant 81-year-old female with a history of COPD requiring oxygen, 2 liters by nasal cannula, hypertension, ulcerative colitis presented with increasing shortness of breath times 2-3 days. The patient has been following with Dr. Hickey for primary care. The patient has been doing okay, doing baseline good health until about 2-3 days ago when she started to have increasing shortness of breath, dry cough. She also has had an episode of fall 2 days ago and has been having difficulty ambulating because of left foot pain. She also had 2 more falls since then because apparently she "was losing her balance." Persistence of the symptoms, finally came to the ER. At the ER, blood pressure was 230/115, improving to 180 systolically. Pulse rate was 115 initially, respiratory rate initially was 36, saturating 80% on room air. The patient was received with bilateral wheezing. Chest x-ray was showing dense bibasilar airspace consolidation, right greater than left with associated pleural effusions typical for pneumonia or aspiration pneumonitis. She was given DuoNeb, Solu-Medrol and started on vancomycin and Levaquin. On my exam, the patient was seen resting comfortably with her BiPAP in place. She states that she is feeling somewhat improved compared to admission. Denies having any active shortness of breath, chest pain, palpitations, nausea, vomiting, dizziness, headache. No other symptoms noted. REVIEW OF SYSTEMS: Ten systems reviewed and negative except for the ones mentioned above. PAST MEDICAL HISTORY: COPD, moderate on chronic oxygen use 2 liters at daytime, 4 liters at nighttime, hypertension, ulcerative colitis, depression, dyslipidemia, status post CEA. MEDICATIONS: Combivent 4 times a day, lisinopril 20 mg daily, Lasix 20 mg daily, aspirin 81 mg daily, Pentasa 1000 mg b.i.d., Celexa 40 mg daily, mirtazapine 50 mg at bedtime, simvastatin 20 mg daily, Protonix 40 mg daily. PAST SURGICAL HISTORY: Colonoscopy, EGD, knee surgery, total hip replacement, right side in 2012, hysterectomy. PERSONAL AND SOCIAL HISTORY: She is . Current every day smoker. Denies alcohol or drug use. FAMILY HISTORY: Father, heart disease. Mother, cancer. PHYSICAL EXAMINATION: VITAL SIGNS: Blood pressure 148/68, pulse rate of 97, respiratory rate of 20, temperature is 37.3, saturating 95% on BiPAP, FiO2 100%. GENERAL: The patient is awake, alert, oriented x3, not in distress, speaks few sentences, but no accessory muscle use. HEAD AND NECK: Atraumatic and normocephalic. Normal pupils. Full EOMs. No icterus. [place] conjunctivae. ENT: Grossly normal. NECK: No JVD, no lymphadenopathy or thyromegaly. HEART: Normal rate. Regular rhythm with S1, S2. No murmurs. LUNGS: Positive bilateral wheezing and rhonchi bilaterally, mild to moderate. ABDOMEN: Nondistended, normal bowel sounds, soft, nontender. EXTREMITIES: No bipedal edema noted. No rashes. NEUROLOGIC: No gross focal motor or sensory deficits. Hospital Course ACUTE ON CHRONIC RESPIRATORY FAILURE: with hypercapnia -Chronic Oxygen Dependency: 2-4 L at baseline -Acute is likely secondary to COPD exacerbation and complicated by Pneumonia -has advanced COPD at baseline -could also have a component of obesity hypoventilation syndrome -CXR showed dense bibasilar airspace consolidation, right greater than left with associated pleural effusions. -CTA: showed no evidence for PE. Dense bilateral lower lobe atelectasis/ consolidation. Patchy airspace opacities are also present within the right upper lobe lingula and right middle lobe. -Completed Levaquin and Zosyn course -Negative influenza test -IV Solumedrol initially transitioned to PO prednisone -BIPAP qHS and PRN -continue oxygen support -blood cultures: no growth -Pulm consulted, appreciated recs -was given Lasix 20mg daily to help fluid overload -TTE Report: The echocardiogram is extremely technically limited. Patient was sitting upright for the test. There is no significant pericardial effusion noted. The left ventricular systolic function is grossly normal on limited visualization. The right ventricular systolic function is grossly normal. The valves are poorly visualized. There is no significant valvular stenosis or regurgitation on technically limited Doppler evaluation. -due to ongoing deterioration, Palliative care consulted, patient was made comfort measures per discussion of previous attending with the patient and her family -Oxygen support for comfort -family agrees with current management -remains on comfort measures only ORAL CANDIDIASIS: -on Nystatin, course complete PAROXYSMAL ATRIAL FLUTTER: with RVR -HR likely worse due to respiratory failure -Coumadin on hold as comfort measure only ELECTROLYTE DERANGEMENT: Hypokalemia/Hyponatremia: -likely secondary to poor oral intake and diuretics LEFT ANKLE FRACTURE: s/p fall -Left ankle xray showed distal tibial and fibular fractures as above with mild lateral subluxation of the talus. -Orthopedics consulted, appreciate input -Conservative management of the Ankle as high risk for surgery; s/p cast boot for the Left foot -Toe Touch allowed -Avoid full weight bearing for 6 weeks in total RIGHT PELVIC RING FRACTURE: -Pelvis xray showed an age indeterminant right pubic ring fracture, possibly chronic. -pain control -PT/OT as tolerated HTN: -labile likely related to anxiety -was on lisinopril -monitor ULCERATIVE COLITIS: -continued on Pentasa -no acute issues DEPRESSION: -continue on Celexa -stable PHYSICAL EXAM ON DAY OF DISCHARGE: GENERAL: Patient is in no acute distress. HEENT: No acute trauma, normocephalic, mucous membranes moist, no nasal congestion, no scleral icterus. NECK: No stridor, trachea is midline. LUNGS: Coarse breath sounds bilaterally, no wheeze, no rhonchi, breath sounds equal. HEART: Without murmurs gallops or rubs, regular rate and rhythm. ABDOMEN: Soft, nontender, bowel sounds positive, no hepatosplenomegaly EXTREMITIES: No cyanosis or edema, limited range of motion, generalized weakness , LLE in splint NEUROLOGIC: Oriented, no acute motor or sensory deficits, no focal weakness. SKIN: No rash, no jaundice, no diaphoresis. Total time spent on discharge = 41 This includes examination of the patient, discharge planning, medication reconciliation, and communication with other providers. Discharge Instructions None
== END 2017-08-01 17:30 | DRG 562 ==
LOC: EDBD 17:47 → C.EDB 17:48 → C.2E 21:03 → ENRESERV 21:27 → C.3E 07-21 18:17 → ENRESERV 07-26 17:29 → C.4E 07-26 18:06
PROVIDERS: ADMIT Internal Medicine; ATTEND Internal Medicine
PROC: 0SSGX5Z Reposition Left Ankle Joint with External Fixation Device, External Approach (ICD-10-PCS; principal; 2017-07-18)
PROC: 3E0U3BZ Introduction of Anesthetic Agent into Joints, Percutaneous Approach (ICD-10-PCS; principal; 2017-07-18)
DX: S82.842A Displaced bimalleolar fracture of left lower leg, initial encounter for closed fracture (principal); J96.21 Acute and chronic respiratory failure with hypoxia; J96.22 Acute and chronic respiratory failure with hypercapnia; I50.31 Acute diastolic (congestive) heart failure; J18.9 Pneumonia, unspecified organism; J44.1 Chronic obstructive pulmonary disease with (acute) exacerbation; E87.1 Hypo-osmolality and hyponatremia; K51.90 Ulcerative colitis, unspecified, without complications; S32.810A Multiple fractures of pelvis with stable disruption of pelvic ring, initial encounter for closed fracture; I48.92 Unspecified atrial flutter; B37.0 Candidal stomatitis; J44.0 Chronic obstructive pulmonary disease with (acute) lower respiratory infection; Z51.5 Encounter for palliative care; I16.0 Hypertensive urgency; E11.9 Type 2 diabetes mellitus without complications; E78.5 Hyperlipidemia, unspecified; R29.6 Repeated falls; I11.0 Hypertensive heart disease with heart failure; F32.9 Major depressive disorder, single episode, unspecified; E87.5 Hyperkalemia; Z66 Do not resuscitate; Z79.82 Long term (current) use of aspirin; Z79.899 Other long term (current) drug therapy; Z91.81 History of falling; Z99.81 Dependence on supplemental oxygen; F17.200 Nicotine dependence, unspecified, uncomplicated; W19.XXXA Unspecified fall, initial encounter; Z86.73 Personal history of transient ischemic attack (TIA), and cerebral infarction without residual deficits; Z88.2 Allergy status to sulfonamides; E66.01 Morbid (severe) obesity due to excess calories; Z68.37 Body mass index [BMI] 37.0-37.9, adult